=== PATIENT | female | born 1955 | race Caucasian/White ===

== ENCOUNTER 2021-12-12 13:38 | Inpatient (IN) ==
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
[2021-12-12] MEDS ORDERED: SODIUM CHLORIDE 0.9% 1000ML 1,000 ML IV SCH (14:30)
--- NOTE | 2021-12-12 15:08 | XRay Report ---
SINGLE VIEW CHEST CLINICAL HISTORY: Generalized weakness. FINDINGS: An AP, portable, upright chest radiograph is compared to study dated 11/26/2015. The heart i s enlarged noting atherosclerotic calcification of the thoracic aorta. The pulmonary vasculature is n oncongested. Chronic interstitial thickening is similar to previous. Airspace consolidation is seen a t the left lung base. Mild atelectasis is noted at the right lung base. No large pleural effusion or pneumothorax is identified. The skeletal structures are osteopenic. There are healed left-sided rib f ractures. IMPRESSION: Airspace consolidation at the left lung base is typical for pneumonia/aspiration pneumoni tis. Clinical correlation will be required and radiographic follow-up to resolution is recommended. ACT 112: Negative or not required by law. Electronically signed by: Champ Matos M.D. 12/12/2021 3:07 PM
[2021-12-12] MEDS ORDERED: CEFEPIME 2,000 MG/20 ML VIAL IV STA (15:37)
[2021-12-12] MEDS ORDERED: dexAMETHasone 6 MG in SYRINGE 0 ML IV ONE (15:37)
[2021-12-12 15:49] LABS: Basophils # (auto) 0.01 K/uL (0-0.2); Basophils % (auto) 0.1 %; Hematocrit (blood only) 38.5 % (37-47); Hemoglobin 12.8 g/dL (12.0-16.0); Immature Granulocytes # (auto) 0.05 K/uL (0.00-0.02); Immature Granulocytes % (auto) 0.5 %; Lymphocytes # (auto) 0.59 K/uL (1.2-3.4); Lymphocytes % (auto) 6.1 %; Mean Corpuscular Hemoglobin 31.1 pg (25-34); Mean Corpuscular Hgb Conc 33.2 g/dL (32-36); Mean Corpuscular Volume 93.7 fL (80-100); Mean Platelet Volume 12.2 fL (7.4-10.4); Monocytes # (auto) 0.57 K/uL (0.11-0.59); Monocytes % (auto) 5.9 %; Neutrophils # (auto) 8.42 K/uL (1.4-6.5); Neutrophils % (auto) 87.4 %; Platelet Count 126 K/uL (130-400); Platelet Estimate Decreased (Normal); RDW Coefficient of Variation 15.3 % (11.5-14.5); RDW Standard Deviation 51.9 fL (36.4-46.3); Red Blood Count 4.11 M/uL (4.2-5.4); White Blood Count 9.64 K/uL (4.8-10.8)
[2021-12-12 15:59] LABS: INR 1.1 (0.9-1.1); Prothrombin Time 10.7 Seconds (9.0-12.0)
[2021-12-12 16:17] LABS: Alanine Aminotransferase 20 U/L (7-52); Albumin Level 3.3 gm/dl (3.4-5.0); Alkaline Phosphatase 113 U/L (34-104); Anion Gap 14 (3-11); Aspartate Aminotransferase 31 U/L (13-39); BUN Creatinine Ratio 21.4 (10-20); Bilirubin,Total 0.3 mg/dl (0.2-1.0); Blood Urea Nitrogen 49 mg/dl (6-23); Calcium 7.4 mg/dl (8.5-10.1); Carbon Dioxide 15 mmol/L (21-32); Chloride 108 mmol/L (98-107); Creatine Kinase 518 U/L (26-192); Est GFR (African American) 24.8 ml/min; Est GFR (Non-African American) 21.4 ml/min; Globulin 3.2 gm/dl (2.5-4.0); Glucose 131 mg/dl (70-99(Fasting)); Magnesium 1.2 mg/dl (1.7-2.4); Potassium 3.5 mmol/L (3.5-5.1); Sodium 137 mmol/L (136-145); Total Protein 6.5 gm/dl (6.0-8.3)
--- NOTE | 2021-12-12 16:29 | Electrocardiogram Report ---
Test Reason : Blood Pressure : / mmHG Vent. Rate : 091 BPM Atrial Rate : 091 BPM P-R Int : 130 ms QRS Dur : 074 ms QT Int : 358 ms P-R-T Axes : 056 -08 052 degrees QTc Int : 440 ms Poor data quality, interpretation may be adversely affected Sinus rhythm with Premature atrial complexes Nonspecific ST and T wave abnormality Abnormal ECG When compared with ECG of 12-DEC-2021 14:13, (unconfirmed) Premature atrial complexes are now Present Confirmed by Satinder Velásquez ([id number]) on 12/12/2021 4:28:48 PM Referred By: REFERRED SELF Confirmed By:Luis Enrique Velásquez
[2021-12-12] MEDS ORDERED: DEXAMETHASONE SOD INJ 4 MG/ML VIAL ONE (16:50)
--- NOTE | 2021-12-12 16:50 | CT Scan Report ---
CT OF THE HEAD WITHOUT CONTRAST CLINICAL HISTORY: Confusion. COMPARISON STUDY: Head CT November 26, 2015. CT DOSE: 601.98 mGy.cm TECHNIQUE: Helical axial images of the head were obtained without IV contrast. Automated exposure con trol was utilized for the study. A dose lowering technique was utilized adhering to the principles o f ALARA. FINDINGS: No acute intracranial hemorrhage, midline shift or mass effect is present. Ventricular syst em is stable. Basal cisterns are patent. There are no extra-axial collections. There are no findings to suggest acute dural sinus thrombosis or acute territorial infarct. A 1 cm hypodensity within the m edial right cerebellar hemisphere is likely chronic. No acute calvarial fracture is present. Surgical wires at the posterior arch of C1 are again noted. There is deformity of the left mandibular condyle and apparent dislocation of the left temporomandibular joint which is unchanged from prior CT. Findi ngs are likely chronic. IMPRESSION: No acute intracranial findings. ACT 112: Negative or not required by law. Electronically signed by: Tito Salinas M.D. 12/12/2021 4:49 PM
[2021-12-12 17:23] LABS: Adenovirus PCR Not Detected (NotDetected); Bordetella parapertussis PCR Not Detected (NotDetected); Bordetella pertussis PCR Not Detected (NotDetected); Chlamydia pneumoniae PCR Not Detected (NotDetected); Coronavirus 229E PCR Not Detected (NotDetected); Coronavirus HKU1 PCR Not Detected (NotDetected); Coronavirus NL63 PCR Not Detected (NotDetected); Coronavirus OC43PCR Not Detected (NotDetected); Human Metapneumovirus PCR Not Detected (NotDetected); Influenza A PCR Not Detected (NotDetected); Influenza B PCR Not Detected (NotDetected); Mycoplasma pneumoniae PCR Not Detected (NotDetected); Parainfluenza Virus 1 PCR Not Detected (NotDetected); Parainfluenza Virus 2 PCR Not Detected (NotDetected); Parainfluenza Virus 3 PCR Not Detected (NotDetected); Parainfluenza Virus 4 PCR Not Detected (NotDetected); Respiratory Syncytial VirusPCR Not Detected (NotDetected); Rhinovirus/Enterovirus PCR Not Detected (NotDetected)
[2021-12-12 17:25] LABS: Coronavirus CoV-2 (COVID19)PCR DETECTED (NotDetected)
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
[2021-12-12 18:11] LABS: Troponin I 0.11 ng/ml (0-0.04)
[2021-12-12] MEDS ORDERED: POTASSIUM CHLORIDE 20 MEQ/15 ML UDC PO STA (18:31)
[2021-12-12] MEDS ORDERED: MAGNESIUM SULFATE / D5W 1 GM/100 ML BAG IV STA (18:40)
[2021-12-12] MEDS ORDERED: RIVAROXABAN 20 MG TAB PO SCH (18:45)
[2021-12-12 19:30] LABS: Base Excess VBG -8.6 mEq/L; Oxygen Saturation VBG 75.5 %; pH VBG 7.34 (7.36-7.41)
--- NOTE | 2021-12-12 20:10 | Ultrasound Report ---
ULTRASOUND BILATERAL LOWER EXTREMITY VENOUS CLINICAL HISTORY: Leg pain COMPARISON STUDY: Left lower extremity venous ultrasound dated 10/25/2020. TECHNIQUE: Real-time, grayscale, and color Doppler sonography of the deep veins of the right and left lower extremity was performed from the inguinal crease to the calf. Compression and augmentation wer e utilized. FINDINGS: Right lower extremity: There is no sonographic evidence of deep venous thrombosis in the right lower extremity. The common femoral, superficial femoral, and popliteal veins are patent and normally compr essible. The greater saphenous vein and the profunda femoris vein at the junction with the common fem oral vein are clear. The visualized calf veins are patent. Left lower extremity: There is occlusive deep venous thrombosis identified in the proximal left super ficial femoral vein. This may be partially calcified. Nonocclusive thrombus is seen within the left p opliteal vein. The common femoral vein and the mid to distal portions of the superficial femoral vein are patent and normally compressible. The greater saphenous vein and the profunda femoris vein at th e junction with the common femoral vein are clear. The visualized calf veins are patent. IMPRESSION: 1. Occlusive deep venous thrombosis is seen in the proximal left superficial femoral vein. Nonocclusi ve thrombus seen within the popliteal vein. 2. There is no sonographic evidence of deep venous thrombosis in the right lower extremity. ACT 112: Negative or not required by law. Electronically signed by: Champ Matos M.D. 12/12/2021 8:08 PM
[2021-12-12 20:42] LABS: Appearance Urine Cloudy (Clear); Bacteria Urine Automated Negative (Negative); Bilirubin Urine Negative (Negative); Blood Urine 2+ (Negative); Color Urine Yellow; Epithelial Cell Urine Auto >30 /lpf (0-5); Glucose Urine UA Negative (Negative); Ketones Urine Trace (Negative); Leukocyte Esterase Urine Negative (Negative); Nitrite Urine Negative (Negative); Protein Urine 2+ (Negative); RBC Urine Automated 0-4 /hpf (0-4); Specific Gravity Urine 1.016 (1.000-1.030); Urobilinogen Urine Negative (Negative)
[2021-12-12 21:18] LABS: Creatinine Urine Random 89.2 mg/dl; Urine Potassium 19.4 mmol/L
[2021-12-12 22:26] LABS: Troponin I 0.12 ng/ml (0-0.04)
[2021-12-12 22:33] LABS: Creatinine Clr Calc Pharmacy 23.8 ml/min; Est GFR (African American) 25.1 ml/min; Est GFR (Non-African American) 21.6 ml/min; Magnesium 1.6 mg/dl (1.7-2.4); Potassium 3.4 mmol/L (3.5-5.1)
[2021-12-12] MEDS: LACTATED RINGER'S 1,000 ML IV SCH (22:52)
[2021-12-13] MEDS ORDERED: NON-FORMULARY MEDICATION (Fluticasone-Umeclidin-Vilanter [Trelegy Ellipta] 100-62.5-25 mcg INH SCH (00:10)
[2021-12-13] MEDS ORDERED: ONDANSETRON INJ 2 MG/ML 2 ML VIAL IV PRN (00:10)
[2021-12-13] MEDS ORDERED: bisacodyL 5 MG TABEC PO PRN (00:17)
[2021-12-13] MEDS: ACETAMINOPHEN 325 MG TAB PO PRN (00:46)
--- NOTE | 2021-12-13 00:49 | Communication Note ---
Date of Service: December 13, 2021 Messaged by nursing about rash under breast and at inguinal area. Warp Trucker present. Per my exam, erythematous rash between skin folds under left breast, consistent w/ intertrigo, e.g. cutaneous candidiasis would be a possibility. Ordered BID clotrimazole cream. Added communication order for daily cleansing and application of drying powder. Topical steroid cream not indicated.
[2021-12-13] MEDS: FAMOTIDINE 20 MG TAB PO SCH ×2 (01:24→20:07)
[2021-12-13] MEDS: FLUTICASONE FUROATE 100MCG 14 PUFFS/INHALER INH SCH ×2 (01:25→09:02)
[2021-12-13] MEDS: UMECLIDINIUM/VILANTEROL 62.5/25MCG 7 PUFFS/INHALER INH SCH ×2 (01:25→09:01)
--- NOTE | 2021-12-13 03:26 | Communication Note ---
Date of Service: December 13, 2021 Notified by pharmacy about anticoagulation. W/ eGFR <30, Xarelto not recommended. Stopped Xarelto order. Will start heparin standard IV no bolus at 16:45 12/13/21, the time the next dose of Xarelto would be due. Checking coags AM of 12/14/21.
[2021-12-13] MEDS: CEFEPIME 1,000 MG in SYRINGE 0 ML IV SCH ×2 (03:43→16:19)
[2021-12-13] MEDS ORDERED: LACTATED RINGER'S 500 ML IV ONE (04:26)
[2021-12-13 04:29] LABS: Hematocrit (blood only) 32.7 % (37-47); Hemoglobin 10.5 g/dL (12.0-16.0); Mean Corpuscular Hemoglobin 30.3 pg (25-34); Mean Corpuscular Hgb Conc 32.1 g/dL (32-36); Mean Corpuscular Volume 94.5 fL (80-100); Mean Platelet Volume 11.1 fL (7.4-10.4); Platelet Count 106 K/uL (130-400); RDW Coefficient of Variation 15.5 % (11.5-14.5); Red Blood Count 3.46 M/uL (4.2-5.4); White Blood Count 7.71 K/uL (4.8-10.8)
[2021-12-13] MEDS ORDERED: ALBUMIN 25% 12.5 GM/50 ML VIAL IV ONE (04:40)
[2021-12-13 04:55] LABS: BUN Creatinine Ratio 22.3 (10-20); Calcium 6.8 mg/dl (8.5-10.1); Creatinine Clr Calc Pharmacy 24.5 ml/min; Est GFR (Non-African American) 22.5 ml/min; Magnesium 1.5 mg/dl (1.7-2.4); Potassium 3.2 mmol/L (3.5-5.1)
[2021-12-13 04:56] LABS: Basophils # (auto) 0.01 K/uL (0-0.2); Basophils % (auto) 0.1 %; Echinocytes 1+; Immature Granulocytes # (auto) 0.06 K/uL (0.00-0.02); Immature Granulocytes % (auto) 0.8 %; Lymphocytes # (auto) 0.94 K/uL (1.2-3.4); Lymphocytes % (auto) 12.2 %; Monocytes # (auto) 0.42 K/uL (0.11-0.59); Monocytes % (auto) 5.4 %; Neutrophils # (auto) 6.28 K/uL (1.4-6.5); Neutrophils % (auto) 81.5 %
[2021-12-13] MEDS: LACTATED RINGER'S 1,000 ML IV SCH (05:13)
[2021-12-13] MEDS ORDERED: CALCIUM GLUCONATE 10% 1,000 MG in DEXTROSE 5% 50 ML IV ONE (05:29)
[2021-12-13] MEDS ORDERED: POTASSIUM CHLORIDE CRTAB 20 MEQ TABCR PO STA (05:29)
[2021-12-13] MEDS ORDERED: STAT IV STA (05:29)
[2021-12-13] MEDS: AZITHROMYCIN 500 MG in DEXTROSE 5% 250 ML IV SCH (05:36)
[2021-12-13 05:40] LABS: Troponin I 0.13 ng/ml (0-0.04)
[2021-12-13] MEDS: MAGNESIUM SULFATE / D5W 1 GM/100 ML BAG IV SCH ×2 (06:17→08:13)
[2021-12-13] MEDS ORDERED: LACTATED RINGER'S 250 ML IV ONE (08:24)
[2021-12-13] MEDS ORDERED: CEFEPIME 2,000 MG in SYRINGE 0 ML IV SCH (09:00)
[2021-12-13] MEDS: CLOTRIMAZOLE 1% CR 15 GM TUBE EXT SCH ×2 (09:00→20:07)
[2021-12-13] MEDS: dexAMETHasone 6 MG in SYRINGE 0 ML IV SCH (09:01)
[2021-12-13] MEDS: VENLAFAXINE HCL XR 150 MG CAPXR PO SCH (09:05)
[2021-12-13] MEDS: LINACLOTIDE 145 MCG CAPSULE PO SCH (09:06)
--- NOTE | 2021-12-13 09:37 | Hospitalist Progress Note ---
Date of Service December 13, 2021 Assessment & Plan (1) COVID-19: Plan: With *pneumonia secondary to coronavirus-19 disease and with acute and chronic respiratory failure with hypoxia -Day 9 of illness at the time of presentation. Patient is not vaccinated. Per sister, patient's illness has consisted of fatigue, weakness, and headache. No respiratory or GI symptoms. -Initially on 4 L nasal cannula but now up to 10 L oxygen mask -CXR: airspace consolidation at the left lung base is typical for pneumonia/aspiration pneumonitis Procalcitonin now elevated at 2.7, with metabolic acidosis secondary to renal failure, lactate negative, with septic shock and hypotension Also with DVT as below with suspected PE given chest pain, hypoxia, mildly elevated troponin, but negative proBNP -Transfer to ICU for septic shock, acute kidney injury, worsening hypoxic respiratory failure, and suspected pulmonary embolism -Continue IV dexamethasone and consider higher dose of 20 mg daily-defer to ICU -Continue IVF but changing to bicarbonate drip as below for renal failure and metabolic acidosis -Continue Cefepime and azithromycin for pneumonia -CRP quite elevated at 25, however patient does not meet criteria for baricitinib due to acute kidney injury -Contraindication for remdesivir due to acute kidney injury -Continue albuterol nebs as needed, fluticasone inhaled daily, and Anoro -Continue supplemental O2 to keep pulse ox greater than 90-92% -Add incentive spirometry and flutter valve (2) Septic shock: Plan: Developed hypotension on the night of admission requiring IV fluid boluses and IV albumin Did have some response to IV fluid boluses but remained encephalopathic and with renal failure and oliguria Lactate normal UA negative for infection Source being Covid-19 pneumonia and possibly bacterial superimposed pneumonia -Holding home lisinopril -Starting Levophed as needed to keep MAP greater than 65 -Follow blood cultures (3) Encephalopathy: Plan: *Metabolic encephalopathy Likely secondary to hypoxia, uremia, Covid-19 infection, pneumonia, and possibly medication side effect as she is on ziprasidone and Suboxone at home Ammonia level normal CT head negative Continue treating the above conditions Provide supportive care -Hold home Suboxone and hold home ziprasidone (4) Left lower lobe pneumonia: Plan: As above (5) Acute kidney injury: Plan: -Creatinine and BUN elevated on admission at 49 and 2.3, now slightly improved to 45 and 1.86 Urinalysis with 2+ protein, 2+ blood with no RBCs, no evidence of infection, FENa 1.1% Likely secondary to ATN from septic shock and some dehydration in the setting of JHONNY inhibitor therapy -Continue volume resuscitation-initially received LR, now transition to bicarbonate drip -Christianson catheter in place -Hold home lisinopril -Renally dose medications -Follow serial chemistries -Renal ultrasound ordered -Appreciate nephrology consultation (6) DVT (deep venous thrombosis): Plan: *Acute DVT of the proximal left superficial femoral vein -Due to patient's Antithrombin III deficiency and in the setting of Covid-19 -Presume she was taking her Xarelto at home although she may have missed some doses in the setting of encephalopathy and acute illness? -Nonetheless, she has renal failure-we will hold Xarelto and start heparin drip on the evening of 12/13 Suspect she has PE given ongoing chest pain, mildly elevated troponin, hypoxia, and hypotension, however acute kidney injury precludes obtaining a CT angiogram chest Echocardiogram with elevated right-sided pressures but normal RV function-likely not hemodynamically significant PE (7) Metabolic acidosis: Plan: Serum bicarbonate low at 14, anion gap only 11, lactate negative x2, salicylate level negative With acute kidney injury, likely secondary to renal failure Continue volume resuscitation but change IV fluids from LR to D5W with 3 Amp of sodium bicarbonate at 100 mL's per hour Follow serial chemistries (8) Hypoxia: Plan: *Acute and chronic respiratory failure with hypoxia Secondary to COVID-19 pneumonia and secondary bacterial pneumonia as well as suspected PE as above Continue supplemental O2 to keep pulse ox greater than 90-92% (9) Elevated troponin: Plan: Troponin mildly elevated and stable at 0.1x3, EKG showed sinus rhythm with Premature atrial complexes, nonspecific ST and T wave abnormality With ongoing chest pain which may be related to respiratory issues versus PE Echocardiogram without wall motion abnormalities but with mildly elevated right- sided pressures, preserved EF Likely myocardial demand ischemia (10) COPD (chronic obstructive pulmonary disease): Plan: -Patient has home O2 for prn use. According to sister, patient has not used it in a long time, has not been using it since COVID diagnosis on 12/03. 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 Was given IV calcium on admission Follow levels (14) Hypomagnesemia: Plan: -Mg++ 1.2 in ED. K+ 3.5. Was given IV magnesium replacement and repeat still mildly low Give another 2 g of IV magnesium today (15) Hypokalemia: Plan: replace with p.o. potassium chloride follow BMP, Mag (16) CAD (coronary artery disease), [place] coronary artery: Plan: with h/o stent placed I do not see aspirin on her list from home and has NSAIDs listed as an allergy Myocardial demand ischemia as above (17) On home oxygen therapy: Plan: chronic hs (18) Depression: Plan: -Continue venlafaxine 150 mg daily. -hold ziprasidone 60 mg daily while altered MS (19) Anemia: Plan: Hemoglobin 10.1, normocytic Follow CBC Check B12, folate, iron studies (20) Thrombocytopenia: Plan: Platelets mildly low at 106 Checking B12 level in the morning Likely secondary to sepsis Follow CBC Plan: Prophylaxis-Heparin drip for DVT as above Disposition-transfer to ICU Discussed her care with her sister, Saritha, on the phone. Daughter named is actually the next of kin but Saritha reports that at times it is difficult to get a hold of Sona but both can be decision makers as per the patient Admission and Anticipated Discharge Date Admission Date: December 12, 2021 Subjective Went to see patient urgently this morning for hypotension and worsening respiratory failure. She was confused and slow to speak but oriented x3. Reported pain and pressure in the chest that had been ongoing. She is making urine but a low amount. Denies abdominal pain. Feels short of breath. I bolused her with LR to 50 mL after she had received a total of 2 L overnight and a bolus of IV albumin. Blood pressure increased into the 90s systolic when I was with her I discussed her care with the clinical nursing coordinator and the business administration teacher-decision made to transfer to ICU to start on Levophed Telemetry with normal sinus rhythm with rates in the 60s to 70s, PVCs Review of Systems Review of Systems: All systems reviewed & are unremarkable except as noted in HPI & below Physical Exam Constitutional: WD/WN, vitals as above + ill appearing Eyes: + anicteric sclerae ENMT: external ear and nose normal, oropharynx normal Neck: trachea midline, no thyromegaly Respiratory: normal respiratory effort; no cough Auscultation: + crackles (At bases) and + wheezes (Bilateral expiratory); no rhonchi Cardiovascular: Rate/Rhythm: regular rate and regular rhythm Heart Sounds: no murmur Extremities: + edema (Trace pitting edema bilateral lower extremities) Chest (Breasts): Chest: normal inspection of chest Gastrointestinal (Abdomen): normal bowel sounds, soft, nontender, no hepatosplenomegaly Musculoskeletal: Extremities: extremities normal to inspection; no cyanosis and no clubbing Skin: no rashes, warm and dry Neurologic: moves all extremities, awake (Awake but slow to respond to questions) and + confused (Slightly); no focal motor deficits Genitourinary: Christianson catheter in place draining 300 mL of medium yellow clear urine Lymphatic: no lymphedema Results & Data Results & Data ([facility]) Vital Signs (Past 12 Hours) Vital Signs Temp Pulse Pulse Resp BP Pulse Ox 12/13/21 09:25 92/66 L 12/13/21 09:13 91/59 L 12/13/21 08:04 64 12/13/21 07:47 80/51 L 12/13/21 07:27 36.5 C 86 22 84/58 L 94 12/13/21 06:04 83/56 L 12/13/21 05:17 95/64 L 12/13/21 05:06 87 12/13/21 05:05 91/50 L 12/13/21 04:25 72 83/49 L 12/13/21 03:21 36.7 C 78 16 81/53 L 92 12/12/21 23:38 91 H 22 114/77 92 12/12/21 22:00 85 22 129/64 93 Laboratory Results 12/13/21 12/13/21 12/13/21 Range/Units 09:22 09:22 09:22 WBC (4.8-10.8) K/uL RBC (4.2-5.4) M/uL Hgb (12.0-16.0) g/dL Hct (37-47) % MCV (80-100) fL MCH (25-34) pg MCHC (32-36) g/dL RDW Std Deviation (36.4-46.3) fL RDW Coeff of Bal (11.5-14.5) % Plt Count (130-400) K/uL MPV (7.4-10.4) fL Immature Gran % (Auto) % Neut % (Auto) % Lymph % (Auto) % Pepin % (Auto) % Eos % (Auto) % Baso % (Auto) % Neut # (Auto) (1.4-6.5) K/uL Lymph # (Auto) (1.2-3.4) K/uL Pepin # (Auto) (0.11-0.59) K/uL Eos # (Auto) (0-0.5) K/uL Baso # (Auto) (0-0.2) K/uL Immature Gran # (Auto) (0.00-0.02) K/uL Platelet Estimate (Normal) Echinocytes PT INR VBG pH (7.36-7.41) VBG pCO2 (38-50) mmHg VBG pO2 mmHg VBG HCO3 mmol/L VBG O2 Saturation % VBG Base Excess mEq/L Barometric Pressure mm/Hg Sodium Pending Potassium Pending Chloride Pending Carbon Dioxide Pending Anion Gap Pending BUN Pending Creatinine Pending Est Cr Clr Drug Dosing Pending Est GFR ( Amer) Pending Est GFR (Non-Af Amer) Pending BUN/Creatinine Ratio Pending Glucose Pending Lactate Calcium Pending Ionized Calcium (1.12-1.32) mmol/L Magnesium Total Bilirubin AST ALT Alkaline Phosphatase Ammonia Pending (18-72) umol/L Total Creatine Kinase Troponin I C-Reactive Protein B-Natriuretic Peptide (0-100) pg/ml Total Protein Albumin Globulin Albumin/Globulin Ratio Procalcitonin TSH (0.300-4.500) uIu/ml Urine Color Urine Appearance (Clear) Urine pH (4.5-7.5) Ur Specific [place] (1.000-1.030) Urine Protein (Negative) Urine Glucose (UA) (Negative) Urine Ketones (Negative) Urine Blood (Negative) Urine Nitrite (Negative) Urine Bilirubin (Negative) Urine Urobilinogen (Negative) Ur Leukocyte Esterase (Negative) Urine WBC (Auto) (0-5) /hpf Urine RBC (Auto) (0-4) /hpf U Hyaline Cast (Auto) (0-5) /lpf U Epithel Cells (Auto) (0-5) /lpf Urine Bacteria (Auto) (Negative) Ur Random Creatinine mg/dl Ur Random Urea Nitrogn Urine Sodium mmol/L Urine Potassium mmol/L Urine Chloride mmol/L Salicylates Pending Adenovirus (PCR) (NotDetected) B. pertussis DNA (PCR) (NotDetected) B.parapertussis DNA PCR (NotDetected) C. pneumoniae DNA (PCR) (NotDetected) Coronavirus OC43 (PCR) (NotDetected) Coronavirus HKU1 (PCR) (NotDetected) Coronavirus 229E (PCR) (NotDetected) SARS-CoV-2 (PCR) (NotDetected) Coronavirus NL63 (PCR) (NotDetected) Human Metapneumovir PCR (NotDetected) Influenza Type A (PCR) (NotDetected) Influenza Type B (PCR) (NotDetected) M. pneumoniae (PCR) (NotDetected) Parainfluenza 1 (PCR) (NotDetected) Parainfluenza 2 (PCR) (NotDetected) Parainfluenza 3 (PCR) (NotDetected) Parainfluenza 4 (PCR) (NotDetected) RSV (PCR) (NotDetected) Entero/Rhino (PCR) (NotDetected) 12/13/21 12/13/21 12/13/21 Range/Units 09:22 06:56 06:56 WBC (4.8-10.8) K/uL RBC (4.2-5.4) M/uL Hgb (12.0-16.0) g/dL Hct (37-47) % MCV (80-100) fL MCH (25-34) pg MCHC (32-36) g/dL RDW Std Deviation (36.4-46.3) fL RDW Coeff of Bal (11.5-14.5) % Plt Count (130-400) K/uL MPV (7.4-10.4) fL Immature Gran % (Auto) % Neut % (Auto) % Lymph % (Auto) % Pepin % (Auto) % Eos % (Auto) % Baso % (Auto) % Neut # (Auto) (1.4-6.5) K/uL Lymph # (Auto) (1.2-3.4) K/uL Pepin # (Auto) (0.11-0.59) K/uL Eos # (Auto) (0-0.5) K/uL Baso # (Auto) (0-0.2) K/uL Immature Gran # (Auto) (0.00-0.02) K/uL Platelet Estimate (Normal) Echinocytes PT INR VBG pH (7.36-7.41) VBG pCO2 (38-50) mmHg VBG pO2 mmHg VBG HCO3 mmol/L VBG O2 Saturation % VBG Base Excess mEq/L Barometric Pressure mm/Hg Sodium Potassium Chloride Carbon Dioxide Anion Gap BUN Creatinine Est Cr Clr Drug Dosing Est GFR ( Amer) Est GFR (Non-Af Amer) BUN/Creatinine Ratio Glucose Lactate Pending Calcium Ionized Calcium (1.12-1.32) mmol/L Magnesium Total Bilirubin AST ALT Alkaline Phosphatase Ammonia (18-72) umol/L Total Creatine Kinase Troponin I C-Reactive Protein 25.19 H B-Natriuretic Peptide (0-100) pg/ml Total Protein Albumin Globulin Albumin/Globulin Ratio Procalcitonin 2.89 H TSH (0.300-4.500) uIu/ml Urine Color Urine Appearance (Clear) Urine pH (4.5-7.5) Ur Specific [place] (1.000-1.030) Urine Protein (Negative) Urine Glucose (UA) (Negative) Urine Ketones (Negative) Urine Blood (Negative) Urine Nitrite (Negative) Urine Bilirubin (Negative) Urine Urobilinogen (Negative) Ur Leukocyte Esterase (Negative) Urine WBC (Auto) (0-5) /hpf Urine RBC (Auto) (0-4) /hpf U Hyaline Cast (Auto) (0-5) /lpf U Epithel Cells (Auto) (0-5) /lpf Urine Bacteria (Auto) (Negative) Ur Random Creatinine mg/dl Ur Random Urea Nitrogn Urine Sodium mmol/L Urine Potassium mmol/L Urine Chloride mmol/L Salicylates Adenovirus (PCR) (NotDetected) B. pertussis DNA (PCR) (NotDetected) B.parapertussis DNA PCR (NotDetected) C. pneumoniae DNA (PCR) (NotDetected) Coronavirus OC43 (PCR) (NotDetected) Coronavirus HKU1 (PCR) (NotDetected) Coronavirus 229E (PCR) (NotDetected) SARS-CoV-2 (PCR) (NotDetected) Coronavirus NL63 (PCR) (NotDetected) Human Metapneumovir PCR (NotDetected) Influenza Type A (PCR) (NotDetected) Influenza Type B (PCR) (NotDetected) M. pneumoniae (PCR) (NotDetected) Parainfluenza 1 (PCR) (NotDetected) Parainfluenza 2 (PCR) (NotDetected) Parainfluenza 3 (PCR) (NotDetected) Parainfluenza 4 (PCR) (NotDetected) RSV (PCR) (NotDetected) Entero/Rhino (PCR) (NotDetected) 12/13/21 12/13/21 12/12/21 Range/Units 04:09 04:09 21:50 WBC 7.71 (4.8-10.8) K/uL RBC 3.46 L (4.2-5.4) M/uL Hgb 10.5 L (12.0-16.0) g/dL Hct 32.7 L (37-47) % MCV 94.5 (80-100) fL MCH 30.3 (25-34) pg MCHC 32.1 (32-36) g/dL RDW Std Deviation 53.0 H (36.4-46.3) fL RDW Coeff of Bal 15.5 H (11.5-14.5) % Plt Count 106 L (130-400) K/uL MPV 11.1 H (7.4-10.4) fL Immature Gran % (Auto) 0.8 % Neut % (Auto) 81.5 % Lymph % (Auto) 12.2 % Pepin % (Auto) 5.4 % Eos % (Auto) 0.0 % Baso % (Auto) 0.1 % Neut # (Auto) 6.28 (1.4-6.5) K/uL Lymph # (Auto) 0.94 L (1.2-3.4) K/uL Pepin # (Auto) 0.42 (0.11-0.59) K/uL Eos # (Auto) 0.00 (0-0.5) K/uL Baso # (Auto) 0.01 (0-0.2) K/uL Immature Gran # (Auto) 0.06 H (0.00-0.02) K/uL Platelet Estimate (Normal) Echinocytes 1+ PT INR VBG pH (7.36-7.41) VBG pCO2 (38-50) mmHg VBG pO2 mmHg VBG HCO3 mmol/L VBG O2 Saturation % VBG Base Excess mEq/L Barometric Pressure mm/Hg Sodium 136 136 Potassium 3.2 L 3.4 L Chloride 111 H 108 H Carbon Dioxide 14 L 14 L Anion Gap 11 14 H BUN 49 H 50 H Creatinine 2.20 H 2.27 H Est Cr Clr Drug Dosing 24.5 23.8 Est GFR ( Amer) 26.0 25.1 Est GFR (Non-Af Amer) 22.5 21.6 BUN/Creatinine Ratio 22.3 H 22.0 H Glucose 99 136 H Lactate Calcium 6.8 L 7.0 L Ionized Calcium (1.12-1.32) mmol/L Magnesium 1.5 L 1.6 L Total Bilirubin AST ALT Alkaline Phosphatase Ammonia (18-72) umol/L Total Creatine Kinase Troponin I 0.13 H* 0.12 H* C-Reactive Protein B-Natriuretic Peptide (0-100) pg/ml Total Protein Albumin Globulin Albumin/Globulin Ratio Procalcitonin TSH (0.300-4.500) uIu/ml Urine Color Urine Appearance (Clear) Urine pH (4.5-7.5) Ur Specific [place] (1.000-1.030) Urine Protein (Negative) Urine Glucose (UA) (Negative) Urine Ketones (Negative) Urine Blood (Negative) Urine Nitrite (Negative) Urine Bilirubin (Negative) Urine Urobilinogen (Negative) Ur Leukocyte Esterase (Negative) Urine WBC (Auto) (0-5) /hpf Urine RBC (Auto) (0-4) /hpf U Hyaline Cast (Auto) (0-5) /lpf U Epithel Cells (Auto) (0-5) /lpf Urine Bacteria (Auto) (Negative) Ur Random Creatinine mg/dl Ur Random Urea Nitrogn Urine Sodium mmol/L Urine Potassium mmol/L Urine Chloride mmol/L Salicylates Adenovirus (PCR) (NotDetected) B. pertussis DNA (PCR) (NotDetected) B.parapertussis DNA PCR (NotDetected) C. pneumoniae DNA (PCR) (NotDetected) Coronavirus OC43 (PCR) (NotDetected) Coronavirus HKU1 (PCR) (NotDetected) Coronavirus 229E (PCR) (NotDetected) SARS-CoV-2 (PCR) (NotDetected) Coronavirus NL63 (PCR) (NotDetected) Human Metapneumovir PCR (NotDetected) Influenza Type A (PCR) (NotDetected) Influenza Type B (PCR) (NotDetected) M. pneumoniae (PCR) (NotDetected) Parainfluenza 1 (PCR) (NotDetected) Parainfluenza 2 (PCR) (NotDetected) Parainfluenza 3 (PCR) (NotDetected) Parainfluenza 4 (PCR) (NotDetected) RSV (PCR) (NotDetected) Entero/Rhino (PCR) (NotDetected) 12/12/21 12/12/21 12/12/21 Range/Units 20:11 20:11 20:11 WBC (4.8-10.8) K/uL RBC (4.2-5.4) M/uL Hgb (12.0-16.0) g/dL Hct (37-47) % MCV (80-100) fL MCH (25-34) pg MCHC (32-36) g/dL RDW Std Deviation (36.4-46.3) fL RDW Coeff of Bal (11.5-14.5) % Plt Count (130-400) K/uL MPV (7.4-10.4) fL Immature Gran % (Auto) % Neut % (Auto) % Lymph % (Auto) % Pepin % (Auto) % Eos % (Auto) % Baso % (Auto) % Neut # (Auto) (1.4-6.5) K/uL Lymph # (Auto) (1.2-3.4) K/uL Pepin # (Auto) (0.11-0.59) K/uL Eos # (Auto) (0-0.5) K/uL Baso # (Auto) (0-0.2) K/uL Immature Gran # (Auto) (0.00-0.02) K/uL Platelet Estimate (Normal) Echinocytes PT INR VBG pH (7.36-7.41) VBG pCO2 (38-50) mmHg VBG pO2 mmHg VBG HCO3 mmol/L VBG O2 Saturation % VBG Base Excess mEq/L Barometric Pressure mm/Hg Sodium Potassium Chloride Carbon Dioxide Anion Gap BUN Creatinine Est Cr Clr Drug Dosing Est GFR ( Amer) Est GFR (Non-Af Amer) BUN/Creatinine Ratio Glucose Lactate Calcium Ionized Calcium (1.12-1.32) mmol/L Magnesium Total Bilirubin AST ALT Alkaline Phosphatase Ammonia (18-72) umol/L Total Creatine Kinase Troponin I C-Reactive Protein B-Natriuretic Peptide (0-100) pg/ml Total Protein Albumin Globulin Albumin/Globulin Ratio Procalcitonin TSH (0.300-4.500) uIu/ml Urine Color Yellow Urine Appearance Cloudy A (Clear) Urine pH 5.0 (4.5-7.5) Ur Specific [place] 1.016 (1.000-1.030) Urine Protein 2+ H (Negative) Urine Glucose (UA) Negative (Negative) Urine Ketones Trace H (Negative) Urine Blood 2+ H (Negative) Urine Nitrite Negative (Negative) Urine Bilirubin Negative (Negative) Urine Urobilinogen Negative (Negative) Ur Leukocyte Esterase Negative (Negative) Urine WBC (Auto) 1-5 (0-5) /hpf Urine RBC (Auto) 0-4 (0-4) /hpf U Hyaline Cast (Auto) 1-5 (0-5) /lpf U Epithel Cells (Auto) >30 H (0-5) /lpf Urine Bacteria (Auto) Negative (Negative) Ur Random Creatinine 89.2 mg/dl Ur Random Urea Nitrogn Pending Urine Sodium 27 mmol/L Urine Potassium 19.4 mmol/L Urine Chloride 35 mmol/L Salicylates Adenovirus (PCR) (NotDetected) B. pertussis DNA (PCR) (NotDetected) B.parapertussis DNA PCR (NotDetected) C. pneumoniae DNA (PCR) (NotDetected) Coronavirus OC43 (PCR) (NotDetected) Coronavirus HKU1 (PCR) (NotDetected) Coronavirus 229E (PCR) (NotDetected) SARS-CoV-2 (PCR) (NotDetected) Coronavirus NL63 (PCR) (NotDetected) Human Metapneumovir PCR (NotDetected) Influenza Type A (PCR) (NotDetected) Influenza Type B (PCR) (NotDetected) M. pneumoniae (PCR) (NotDetected) Parainfluenza 1 (PCR) (NotDetected) Parainfluenza 2 (PCR) (NotDetected) Parainfluenza 3 (PCR) (NotDetected) Parainfluenza 4 (PCR) (NotDetected) RSV (PCR) (NotDetected) Entero/Rhino (PCR) (NotDetected) 12/12/21 12/12/21 12/12/21 Range/Units 19:04 19:04 19:04 WBC (4.8-10.8) K/uL RBC (4.2-5.4) M/uL Hgb (12.0-16.0) g/dL Hct (37-47) % MCV (80-100) fL MCH (25-34) pg MCHC (32-36) g/dL RDW Std Deviation (36.4-46.3) fL RDW Coeff of Bal (11.5-14.5) % Plt Count (130-400) K/uL MPV (7.4-10.4) fL Immature Gran % (Auto) % Neut % (Auto) % Lymph % (Auto) % Pepin % (Auto) % Eos % (Auto) % Baso % (Auto) % Neut # (Auto) (1.4-6.5) K/uL Lymph # (Auto) (1.2-3.4) K/uL Pepin # (Auto) (0.11-0.59) K/uL Eos # (Auto) (0-0.5) K/uL Baso # (Auto) (0-0.2) K/uL Immature Gran # (Auto) (0.00-0.02) K/uL Platelet Estimate (Normal) Echinocytes PT INR VBG pH 7.34 L (7.36-7.41) VBG pCO2 30 L (38-50) mmHg VBG pO2 41 mmHg VBG HCO3 16 mmol/L VBG O2 Saturation 75.5 % VBG Base Excess -8.6 mEq/L Barometric Pressure 735.3 mm/Hg Sodium Potassium Chloride Carbon Dioxide Anion Gap BUN Creatinine Est Cr Clr Drug Dosing Est GFR ( Amer) Est GFR (Non-Af Amer) BUN/Creatinine Ratio Glucose Lactate Calcium Ionized Calcium 0.98 L (1.12-1.32) mmol/L Magnesium Total Bilirubin AST ALT Alkaline Phosphatase Ammonia (18-72) umol/L Total Creatine Kinase Troponin I C-Reactive Protein B-Natriuretic Peptide 89 (0-100) pg/ml Total Protein Albumin Globulin Albumin/Globulin Ratio Procalcitonin TSH (0.300-4.500) uIu/ml Urine Color Urine Appearance (Clear) Urine pH (4.5-7.5) Ur Specific [place] (1.000-1.030) Urine Protein (Negative) Urine Glucose (UA) (Negative) Urine Ketones (Negative) Urine Blood (Negative) Urine Nitrite (Negative) Urine Bilirubin (Negative) Urine Urobilinogen (Negative) Ur Leukocyte Esterase (Negative) Urine WBC (Auto) (0-5) /hpf Urine RBC (Auto) (0-4) /hpf U Hyaline Cast (Auto) (0-5) /lpf U Epithel Cells (Auto) (0-5) /lpf Urine Bacteria (Auto) (Negative) Ur Random Creatinine mg/dl Ur Random Urea Nitrogn Urine Sodium mmol/L Urine Potassium mmol/L Urine Chloride mmol/L Salicylates Adenovirus (PCR) (NotDetected) B. pertussis DNA (PCR) (NotDetected) B.parapertussis DNA PCR (NotDetected) C. pneumoniae DNA (PCR) (NotDetected) Coronavirus OC43 (PCR) (NotDetected) Coronavirus HKU1 (PCR) (NotDetected) Coronavirus 229E (PCR) (NotDetected) SARS-CoV-2 (PCR) (NotDetected) Coronavirus NL63 (PCR) (NotDetected) Human Metapneumovir PCR (NotDetected) Influenza Type A (PCR) (NotDetected) Influenza Type B (PCR) (NotDetected) M. pneumoniae (PCR) (NotDetected) Parainfluenza 1 (PCR) (NotDetected) Parainfluenza 2 (PCR) (NotDetected) Parainfluenza 3 (PCR) (NotDetected) Parainfluenza 4 (PCR) (NotDetected) RSV (PCR) (NotDetected) Entero/Rhino (PCR) (NotDetected) 12/12/21 12/12/21 12/12/21 Range/Units 16:17 15:36 15:36 WBC (4.8-10.8) K/uL RBC (4.2-5.4) M/uL Hgb (12.0-16.0) g/dL Hct (37-47) % MCV (80-100) fL MCH (25-34) pg MCHC (32-36) g/dL RDW Std Deviation (36.4-46.3) fL RDW Coeff of Bal (11.5-14.5) % Plt Count (130-400) K/uL MPV (7.4-10.4) fL Immature Gran % (Auto) % Neut % (Auto) % Lymph % (Auto) % Pepin % (Auto) % Eos % (Auto) % Baso % (Auto) % Neut # (Auto) (1.4-6.5) K/uL Lymph # (Auto) (1.2-3.4) K/uL Pepin # (Auto) (0.11-0.59) K/uL Eos # (Auto) (0-0.5) K/uL Baso # (Auto) (0-0.2) K/uL Immature Gran # (Auto) (0.00-0.02) K/uL Platelet Estimate (Normal) Echinocytes PT INR VBG pH (7.36-7.41) VBG pCO2 (38-50) mmHg VBG pO2 mmHg VBG HCO3 mmol/L VBG O2 Saturation % VBG Base Excess mEq/L Barometric Pressure mm/Hg Sodium Potassium Chloride Carbon Dioxide Anion Gap BUN Creatinine Est Cr Clr Drug Dosing Est GFR ( Amer) Est GFR (Non-Af Amer) BUN/Creatinine Ratio Glucose Lactate 1.0 Calcium Ionized Calcium (1.12-1.32) mmol/L Magnesium Total Bilirubin AST ALT Alkaline Phosphatase Ammonia (18-72) umol/L Total Creatine Kinase Troponin I C-Reactive Protein 26.57 H B-Natriuretic Peptide (0-100) pg/ml Total Protein Albumin Globulin Albumin/Globulin Ratio Procalcitonin TSH (0.300-4.500) uIu/ml Urine Color Urine Appearance (Clear) Urine pH (4.5-7.5) Ur Specific [place] (1.000-1.030) Urine Protein (Negative) Urine Glucose (UA) (Negative) Urine Ketones (Negative) Urine Blood (Negative) Urine Nitrite (Negative) Urine Bilirubin (Negative) Urine Urobilinogen (Negative) Ur Leukocyte Esterase (Negative) Urine WBC (Auto) (0-5) /hpf Urine RBC (Auto) (0-4) /hpf U Hyaline Cast (Auto) (0-5) /lpf U Epithel Cells (Auto) (0-5) /lpf Urine Bacteria (Auto) (Negative) Ur Random Creatinine mg/dl Ur Random Urea Nitrogn Urine Sodium mmol/L Urine Potassium mmol/L Urine Chloride mmol/L Salicylates Adenovirus (PCR) Not Detected (NotDetected) B. pertussis DNA (PCR) Not Detected (NotDetected) B.parapertussis DNA PCR Not Detected (NotDetected) C. pneumoniae DNA (PCR) Not Detected (NotDetected) Coronavirus OC43 (PCR) Not Detected (NotDetected) Coronavirus HKU1 (PCR) Not Detected (NotDetected) Coronavirus 229E (PCR) Not Detected (NotDetected) SARS-CoV-2 (PCR) DETECTED A* (NotDetected) Coronavirus NL63 (PCR) Not Detected (NotDetected) Human Metapneumovir PCR Not Detected (NotDetected) Influenza Type A (PCR) Not Detected (NotDetected) Influenza Type B (PCR) Not Detected (NotDetected) M. pneumoniae (PCR) Not Detected (NotDetected) Parainfluenza 1 (PCR) Not Detected (NotDetected) Parainfluenza 2 (PCR) Not Detected (NotDetected) Parainfluenza 3 (PCR) Not Detected (NotDetected) Parainfluenza 4 (PCR) Not Detected (NotDetected) RSV (PCR) Not Detected (NotDetected) Entero/Rhino (PCR) Not Detected (NotDetected) 0112/12/21 12/12/21 Range/Units 15:36 15:36 15:36 WBC (4.8-10.8) K/uL RBC (4.2-5.4) M/uL Hgb (12.0-16.0) g/dL Hct (37-47) % MCV (80-100) fL MCH (25-34) pg MCHC (32-36) g/dL RDW Std Deviation (36.4-46.3) fL RDW Coeff of Bal (11.5-14.5) % Plt Count (130-400) K/uL MPV (7.4-10.4) fL Immature Gran % (Auto) % Neut % (Auto) % Lymph % (Auto) % [place] % (Auto) % Eos % (Auto) % Baso % (Auto) % Neut # (Auto) (1.4-6.5) K/uL Lymph # (Auto) (1.2-3.4) K/uL [place] # (Auto) (0.11-0.59) K/uL Eos # (Auto) (0-0.5) K/uL Baso # (Auto) (0-0.2) K/uL Immature Gran # (Auto) (0.00-0.02) K/uL Platelet Estimate (Normal) Echinocytes PT 10.7 INR 1.1 VBG pH (7.36-7.41) VBG pCO2 (38-50) mmHg VBG pO2 mmHg VBG HCO3 mmol/L VBG O2 Saturation % VBG Base Excess mEq/L Barometric Pressure mm/Hg Sodium Potassium Chloride Carbon Dioxide Anion Gap BUN Creatinine Est Cr Clr Drug Dosing Est GFR ( Amer) Est GFR (Non-Af Amer) BUN/Creatinine Ratio Glucose Lactate Calcium Ionized Calcium (1.12-1.32) mmol/L Magnesium Total Bilirubin AST ALT Alkaline Phosphatase Ammonia 23.0 (18-72) umol/L Total Creatine Kinase Troponin I C-Reactive Protein B-Natriuretic Peptide (0-100) pg/ml Total Protein Albumin Globulin Albumin/Globulin Ratio Procalcitonin 0.76 H TSH (0.300-4.500) uIu/ml Urine Color Urine Appearance (Clear) Urine pH (4.5-7.5) Ur Specific [place] (1.000-1.030) Urine Protein (Negative) Urine Glucose (UA) (Negative) Urine Ketones (Negative) Urine Blood (Negative) Urine Nitrite (Negative) Urine Bilirubin (Negative) Urine Urobilinogen (Negative) Ur Leukocyte Esterase (Negative) Urine WBC (Auto) (0-5) /hpf Urine RBC (Auto) (0-4) /hpf U Hyaline Cast (Auto) (0-5) /lpf U Epithel Cells (Auto) (0-5) /lpf Urine Bacteria (Auto) (Negative) Ur Random Creatinine mg/dl Ur Random Urea Nitrogn Urine Sodium mmol/L Urine Potassium mmol/L Urine Chloride mmol/L Salicylates Adenovirus (PCR) (NotDetected) B. pertussis DNA (PCR) (NotDetected) B.parapertussis DNA PCR (NotDetected) C. pneumoniae DNA (PCR) (NotDetected) Coronavirus OC43 (PCR) (NotDetected) Coronavirus HKU1 (PCR) (NotDetected) Coronavirus 229E (PCR) (NotDetected) SARS-CoV-2 (PCR) (NotDetected) Coronavirus NL63 (PCR) (NotDetected) Human Metapneumovir PCR (NotDetected) Influenza Type A (PCR) (NotDetected) Influenza Type B (PCR) (NotDetected) M. pneumoniae (PCR) (NotDetected) Parainfluenza 1 (PCR) (NotDetected) Parainfluenza 2 (PCR) (NotDetected) Parainfluenza 3 (PCR) (NotDetected) Parainfluenza 4 (PCR) (NotDetected) RSV (PCR) (NotDetected) Entero/Rhino (PCR) (NotDetected) 12/12/21 12/12/21 12/12/21 Range/Units 15:36 15:36 14:52 WBC 9.64 (4.8-10.8) K/uL RBC 4.11 L (4.2-5.4) M/uL Hgb 12.8 (12.0-16.0) g/dL Hct 38.5 (37-47) % MCV 93.7 (80-100) fL MCH 31.1 (25-34) pg MCHC 33.2 (32-36) g/dL RDW Std Deviation 51.9 H (36.4-46.3) fL RDW Coeff of Bal 15.3 H (11.5-14.5) % Plt Count 126 L (130-400) K/uL MPV 12.2 H (7.4-10.4) fL Immature Gran % (Auto) 0.5 % Neut % (Auto) 87.4 % Lymph % (Auto) 6.1 % Pepin % (Auto) 5.9 % Eos % (Auto) 0.0 % Baso % (Auto) 0.1 % Neut # (Auto) 8.42 H (1.4-6.5) K/uL Lymph # (Auto) 0.59 L (1.2-3.4) K/uL Pepin # (Auto) 0.57 (0.11-0.59) K/uL Eos # (Auto) 0.00 (0-0.5) K/uL Baso # (Auto) 0.01 (0-0.2) K/uL Immature Gran # (Auto) 0.05 H (0.00-0.02) K/uL Platelet Estimate Decreased L (Normal) Echinocytes PT INR VBG pH (7.36-7.41) VBG pCO2 (38-50) mmHg VBG pO2 mmHg VBG HCO3 mmol/L VBG O2 Saturation % VBG Base Excess mEq/L Barometric Pressure mm/Hg Sodium 137 Potassium 3.5 Chloride 108 H Carbon Dioxide 15 L Anion Gap 14 H BUN 49 H Creatinine 2.29 H Est Cr Clr Drug Dosing Not Reportable Est GFR ( Amer) 24.8 Est GFR (Non-Af Amer) 21.4 BUN/Creatinine Ratio 21.4 H Glucose 131 H Lactate Calcium 7.4 L Ionized Calcium (1.12-1.32) mmol/L Magnesium 1.2 L Total Bilirubin 0.3 AST 31 ALT 20 Alkaline Phosphatase 113 H Ammonia (18-72) umol/L Total Creatine Kinase 518 H Troponin I 0.11 H* C-Reactive Protein B-Natriuretic Peptide (0-100) pg/ml Total Protein 6.5 Albumin 3.3 L Globulin 3.2 Albumin/Globulin Ratio 1.0 Procalcitonin TSH 0.590 (0.300-4.500) uIu/ml Urine Color Urine Appearance (Clear) Urine pH (4.5-7.5) Ur Specific [place] (1.000-1.030) Urine Protein (Negative) Urine Glucose (UA) (Negative) Urine Ketones (Negative) Urine Blood (Negative) Urine Nitrite (Negative) Urine Bilirubin (Negative) Urine Urobilinogen (Negative) Ur Leukocyte Esterase (Negative) Urine WBC (Auto) (0-5) /hpf Urine RBC (Auto) (0-4) /hpf U Hyaline Cast (Auto) (0-5) /lpf U Epithel Cells (Auto) (0-5) /lpf Urine Bacteria (Auto) (Negative) Ur Random Creatinine mg/dl Ur Random Urea Nitrogn Urine Sodium mmol/L Urine Potassium mmol/L Urine Chloride mmol/L Salicylates Adenovirus (PCR) (NotDetected) B. pertussis DNA (PCR) (NotDetected) B.parapertussis DNA PCR (NotDetected) C. pneumoniae DNA (PCR) (NotDetected) Coronavirus OC43 (PCR) (NotDetected) Coronavirus HKU1 (PCR) (NotDetected) Coronavirus 229E (PCR) (NotDetected) SARS-CoV-2 (PCR) (NotDetected) Coronavirus NL63 (PCR) (NotDetected) Human Metapneumovir PCR (NotDetected) Influenza Type A (PCR) (NotDetected) Influenza Type B (PCR) (NotDetected) M. pneumoniae (PCR) (NotDetected) Parainfluenza 1 (PCR) (NotDetected) Parainfluenza 2 (PCR) (NotDetected) Parainfluenza 3 (PCR) (NotDetected) Parainfluenza 4 (PCR) (NotDetected) RSV (PCR) (NotDetected) Entero/Rhino (PCR) (NotDetected) 12/12/21 12/12/21 12/12/21 Range/Units 14:52 14:52 14:52 WBC (4.8-10.8) K/uL RBC (4.2-5.4) M/uL Hgb (12.0-16.0) g/dL Hct (37-47) % MCV (80-100) fL MCH (25-34) pg MCHC (32-36) g/dL RDW Std Deviation (36.4-46.3) fL RDW Coeff of Bal (11.5-14.5) % Plt Count (130-400) K/uL MPV (7.4-10.4) fL Immature Gran % (Auto) % Neut % (Auto) % Lymph % (Auto) % [place] % (Auto) % Eos % (Auto) % Baso % (Auto) % Neut # (Auto) (1.4-6.5) K/uL Lymph # (Auto) (1.2-3.4) K/uL [place] # (Auto) (0.11-0.59) K/uL Eos # (Auto) (0-0.5) K/uL Baso # (Auto) (0-0.2) K/uL Immature Gran # (Auto) (0.00-0.02) K/uL Platelet Estimate (Normal) Echinocytes PT INR VBG pH (7.36-7.41) VBG pCO2 (38-50) mmHg VBG pO2 mmHg VBG HCO3 mmol/L VBG O2 Saturation % VBG Base Excess mEq/L Barometric Pressure mm/Hg Sodium Cancelled Potassium Cancelled Chloride Cancelled Carbon Dioxide Cancelled Anion Gap Cancelled BUN Cancelled Creatinine Cancelled Est Cr Clr Drug Dosing Cancelled Est GFR ( Amer) Cancelled Est GFR (Non-Af Amer) Cancelled BUN/Creatinine Ratio Cancelled Glucose Cancelled Lactate Cancelled Calcium Cancelled Ionized Calcium (1.12-1.32) mmol/L Magnesium Cancelled Total Bilirubin Cancelled AST Cancelled ALT Cancelled Alkaline Phosphatase Cancelled Ammonia (18-72) umol/L Total Creatine Kinase Cancelled Troponin I Cancelled C-Reactive Protein Cancelled B-Natriuretic Peptide (0-100) pg/ml Total Protein Cancelled Albumin Cancelled Globulin Cancelled Albumin/Globulin Ratio Cancelled Procalcitonin Cancelled TSH (0.300-4.500) uIu/ml Urine Color Urine Appearance (Clear) Urine pH (4.5-7.5) Ur Specific [place] (1.000-1.030) Urine Protein (Negative) Urine Glucose (UA) (Negative) Urine Ketones (Negative) Urine Blood (Negative) Urine Nitrite (Negative) Urine Bilirubin (Negative) Urine Urobilinogen (Negative) Ur Leukocyte Esterase (Negative) Urine WBC (Auto) (0-5) /hpf Urine RBC (Auto) (0-4) /hpf U Hyaline Cast (Auto) (0-5) /lpf U Epithel Cells (Auto) (0-5) /lpf Urine Bacteria (Auto) (Negative) Ur Random Creatinine mg/dl Ur Random Urea Nitrogn Urine Sodium mmol/L Urine Potassium mmol/L Urine Chloride mmol/L Salicylates Adenovirus (PCR) (NotDetected) B. pertussis DNA (PCR) (NotDetected) B.parapertussis DNA PCR (NotDetected) C. pneumoniae DNA (PCR) (NotDetected) Coronavirus OC43 (PCR) (NotDetected) Coronavirus HKU1 (PCR) (NotDetected) Coronavirus 229E (PCR) (NotDetected) SARS-CoV-2 (PCR) (NotDetected) Coronavirus NL63 (PCR) (NotDetected) Human Metapneumovir PCR (NotDetected) Influenza Type A (PCR) (NotDetected) Influenza Type B (PCR) (NotDetected) M. pneumoniae (PCR) (NotDetected) Parainfluenza 1 (PCR) (NotDetected) Parainfluenza 2 (PCR) (NotDetected) Parainfluenza 3 (PCR) (NotDetected) Parainfluenza 4 (PCR) (NotDetected) RSV (PCR) (NotDetected) Entero/Rhino (PCR) (NotDetected) 12/12/21 Range/Units 14:52 WBC (4.8-10.8) K/uL RBC (4.2-5.4) M/uL Hgb (12.0-16.0) g/dL Hct (37-47) % MCV (80-100) fL MCH (25-34) pg MCHC (32-36) g/dL RDW Std Deviation (36.4-46.3) fL RDW Coeff of Bal (11.5-14.5) % Plt Count (130-400) K/uL MPV (7.4-10.4) fL Immature Gran % (Auto) % Neut % (Auto) % Lymph % (Auto) % [place] % (Auto) % Eos % (Auto) % Baso % (Auto) % Neut # (Auto) (1.4-6.5) K/uL Lymph # (Auto) (1.2-3.4) K/uL [place] # (Auto) (0.11-0.59) K/uL Eos # (Auto) (0-0.5) K/uL Baso # (Auto) (0-0.2) K/uL Immature Gran # (Auto) (0.00-0.02) K/uL Platelet Estimate (Normal) Echinocytes PT Cancelled INR Cancelled VBG pH (7.36-7.41) VBG pCO2 (38-50) mmHg VBG pO2 mmHg VBG HCO3 mmol/L VBG O2 Saturation % VBG Base Excess mEq/L Barometric Pressure mm/Hg Sodium Potassium Chloride Carbon Dioxide Anion Gap BUN Creatinine Est Cr Clr Drug Dosing Est GFR ( Amer) Est GFR (Non-Af Amer) BUN/Creatinine Ratio Glucose Lactate Calcium Ionized Calcium (1.12-1.32) mmol/L Magnesium Total Bilirubin AST ALT Alkaline Phosphatase Ammonia (18-72) umol/L Total Creatine Kinase Troponin I C-Reactive Protein B-Natriuretic Peptide (0-100) pg/ml Total Protein Albumin Globulin Albumin/Globulin Ratio Procalcitonin TSH (0.300-4.500) uIu/ml Urine Color Urine Appearance (Clear) Urine pH (4.5-7.5) Ur Specific [place] (1.000-1.030) Urine Protein (Negative) Urine Glucose (UA) (Negative) Urine Ketones (Negative) Urine Blood (Negative) Urine Nitrite (Negative) Urine Bilirubin (Negative) Urine Urobilinogen (Negative) Ur Leukocyte Esterase (Negative) Urine WBC (Auto) (0-5) /hpf Urine RBC (Auto) (0-4) /hpf U Hyaline Cast (Auto) (0-5) /lpf U Epithel Cells (Auto) (0-5) /lpf Urine Bacteria (Auto) (Negative) Ur Random Creatinine mg/dl Ur Random Urea Nitrogn Urine Sodium mmol/L Urine Potassium mmol/L Urine Chloride mmol/L Salicylates Adenovirus (PCR) (NotDetected) B. pertussis DNA (PCR) (NotDetected) B.parapertussis DNA PCR (NotDetected) C. pneumoniae DNA (PCR) (NotDetected) Coronavirus OC43 (PCR) (NotDetected) Coronavirus HKU1 (PCR) (NotDetected) Coronavirus 229E (PCR) (NotDetected) SARS-CoV-2 (PCR) (NotDetected) Coronavirus NL63 (PCR) (NotDetected) Human Metapneumovir PCR (NotDetected) Influenza Type A (PCR) (NotDetected) Influenza Type B (PCR) (NotDetected) M. pneumoniae (PCR) (NotDetected) Parainfluenza 1 (PCR) (NotDetected) Parainfluenza 2 (PCR) (NotDetected) Parainfluenza 3 (PCR) (NotDetected) Parainfluenza 4 (PCR) (NotDetected) RSV (PCR) (NotDetected) Entero/Rhino (PCR) (NotDetected) PG Care Time/CCT Total # of Minutes Spent Total Time Spent with Patient: Total time spent is greater than 50% in coordination of care (as documented) at patient's floor/unit and/or counseling patient: Coding Level of Care Code 79747 Subseq Hosp Care Lvl 3 Diagnoses DVT (deep venous thrombosis) I82.409 Hypoxia R09.02 COVID-19 U07.1 Acute kidney injury N17.9 Encephalopathy G93.40 Elevated troponin R77.8 COPD (chronic obstructive pulmonary disease) J44.9 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
[2021-12-13 10:00] LABS: BUN Creatinine Ratio 23.6 (10-20); Calcium 7.3 mg/dl (8.5-10.1); Creatinine Clr Calc Pharmacy 25.9 ml/min; Est GFR (African American) 27.9 ml/min; Potassium 3.5 mmol/L (3.5-5.1)
[2021-12-13] MEDS ORDERED: ICU PROTOCOL FOR HYPERGLYCEMIA PRN (10:50)
[2021-12-13] MEDS: SODIUM BICARBONATE 8.4% 150 MEQ in DEXTROSE 5% 1,000 ML IV SCH ×2 (10:57→22:33)
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
[2021-12-13] MEDS ORDERED: HEPARIN 25000 UNIT/500 ML D5W IV ONE (12:53)
--- NOTE | 2021-12-13 14:03 | Electrocardiogram Report ---
Test Reason : Blood Pressure : / mmHG Vent. Rate : 097 BPM Atrial Rate : 097 BPM P-R Int : 142 ms QRS Dur : 076 ms QT Int : 408 ms P-R-T Axes : 068 -11 047 degrees QTc Int : 518 ms Poor data quality, interpretation may be adversely affected Sinus rhythm with Premature atrial complexes Low voltage QRS Nonspecific ST and T wave abnormality Abnormal ECG When compared with ECG of 12-DEC-2021 14:14, QT has lengthened Confirmed by Satinder Velásquez ([id number]) on 12/13/2021 2:02:37 PM Referred By: REFERRED SELF Confirmed By:Luis Enrique Velásquez
--- NOTE | 2021-12-13 14:04 | Electrocardiogram Report ---
Test Reason : Blood Pressure : / mmHG Vent. Rate : 068 BPM Atrial Rate : 068 BPM P-R Int : 156 ms QRS Dur : 086 ms QT Int : 406 ms P-R-T Axes : 064 003 049 degrees QTc Int : 431 ms Sinus rhythm with Premature atrial complexes Nonspecific T wave abnormality Abnormal ECG When compared with ECG of 12-DEC-2021 19:56, (unconfirmed) QT has shortened Confirmed by Satinder Velásquez ([id number]) on 12/13/2021 2:03:56 PM Referred By: REFERRED SELF Confirmed By:Luis Enrique Velásquez
[2021-12-13] MEDS ORDERED: STAT IV Infusion **Titration per Protocol STA (15:15)
[2021-12-13] MEDS ORDERED: NOREPINEPHRINE/D5W 8 MG/508 ML BAG IV SCH (15:15)
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
[2021-12-13 15:34] LABS: Basophils # (auto) 0.01 K/uL (0-0.2); Basophils % (auto) 0.2 %; Eosinophils # (auto) 0.06 K/uL (0-0.5); Eosinophils % (auto) 0.9 %; Hemoglobin 10.1 g/dL (12.0-16.0); Immature Granulocytes # (auto) 0.05 K/uL (0.00-0.02); Immature Granulocytes % (auto) 0.8 %; Lymphocytes # (auto) 1.09 K/uL (1.2-3.4); Lymphocytes % (auto) 16.5 %; Mean Corpuscular Hemoglobin 30.5 pg (25-34); Mean Corpuscular Hgb Conc 32.6 g/dL (32-36); Mean Corpuscular Volume 93.7 fL (80-100); Mean Platelet Volume 11.4 fL (7.4-10.4); Monocytes # (auto) 0.21 K/uL (0.11-0.59); Monocytes % (auto) 3.2 %; Neutrophils # (auto) 5.19 K/uL (1.4-6.5); Neutrophils % (auto) 78.4 %; Platelet Count 103 K/uL (130-400); RDW Coefficient of Variation 15.3 % (11.5-14.5); RDW Standard Deviation 52.5 fL (36.4-46.3); Red Blood Count 3.31 M/uL (4.2-5.4); White Blood Count 6.61 K/uL (4.8-10.8)
--- NOTE | 2021-12-13 16:30 | XCELERA ---
[id number]
[2021-12-13 16:32] LABS: BUN Creatinine Ratio 24.2 (10-20); Calcium 7.6 mg/dl (8.5-10.1); Est GFR (African American) 31.9 ml/min; Est GFR (Non-African American) 27.5 ml/min; Potassium 3.6 mmol/L (3.5-5.1)
[2021-12-13] MEDS: HEPARIN SODIUM/DEXTROSE 25,000 UNITS/500 ML BAG IV SCH (18:35)
[2021-12-13] MEDS ORDERED: Heparin IV Adult Wt-Based Standard *NO* Bolus Protocol IV ONE (18:45)
--- NOTE | 2021-12-13 19:45 | Ultrasound Report ---
US renal/blad retro comp CLINICAL HISTORY: acute kidney injury TECHNIQUE: Multiple sonographic real-time images of the kidneys and bladder were obtained. COMPARISON: None available at the time of this dictation. FINDINGS: The right kidney measures 11.4 cm in length, and the left kidney measures 10.3 cm in length. The right kidney is normal in size, contour, cortical thickness, and echogenicity. No hydronephrosis is identified. Multiple small cysts are seen. No perinephric fluid collection is seen. The left kidney is normal in size, contour, cortical thickness and echogenicity. No hydronephrosis i s identified. Left upper pole cyst measures 4.2 x 2.9 x 3.0 cm. No perinephric fluid collection is seen. A Christianson catheter is seen in the collapsed bladder IMPRESSION: No evidence of hydronephrosis. Multiple renal cysts are seen. ACT 112: Negative or not required by law. Electronically signed by: Anoop Jackson M.D. 12/13/2021 7:43 PM
[2021-12-14 01:52] LABS: Partial Thromboplastin Ratio 3.4
[2021-12-14 02:00] LABS: Partial Thromboplastin Time 88.2 Seconds (21.0-31.0)
[2021-12-14] MEDS: CEFEPIME 1,000 MG in SYRINGE 0 ML IV SCH (04:00)
[2021-12-14 04:58] LABS: iSTAT Allen Test Pass; iSTAT Arterial Blood Gas HCO3 22 meg/L (19-24); iSTAT Arterial Blood Gas pCO2 34 mmHg (35-46); iSTAT Arterial Blood Gas pH 7.42 (7.35-7.45); iSTAT Arterial Blood Gas pO2 64 mmHg (80-95); iSTAT Carbon Dioxide 23 mmol/L (24-31); iSTAT Site L Radial
[2021-12-14] MEDS: AZITHROMYCIN 500 MG in DEXTROSE 5% 250 ML IV SCH (05:45)
[2021-12-14 06:14] LABS: Basophils # (auto) 0.01 K/uL (0-0.2); Basophils % (auto) 0.1 %; Hematocrit (blood only) 34.7 % (37-47); Hemoglobin 11.6 g/dL (12.0-16.0); Immature Granulocytes # (auto) 0.07 K/uL (0.00-0.02); Immature Granulocytes % (auto) 0.6 %; Lymphocytes # (auto) 0.76 K/uL (1.2-3.4); Lymphocytes % (auto) 6.8 %; Mean Corpuscular Hemoglobin 30.5 pg (25-34); Mean Corpuscular Hgb Conc 33.4 g/dL (32-36); Mean Corpuscular Volume 91.3 fL (80-100); Mean Platelet Volume 11.5 fL (7.4-10.4); Monocytes # (auto) 0.45 K/uL (0.11-0.59); Neutrophils # (auto) 9.91 K/uL (1.4-6.5); Neutrophils % (auto) 88.5 %; Platelet Count 154 K/uL (130-400); RDW Coefficient of Variation 15.1 % (11.5-14.5); RDW Standard Deviation 50.8 fL (36.4-46.3)
[2021-12-14 06:49] LABS: BUN Creatinine Ratio 27.2 (10-20); Calcium 7.5 mg/dl (8.5-10.1); Creatinine Clr Calc Pharmacy 34.2 ml/min; Est GFR (African American) 38.8 ml/min; Est GFR (Non-African American) 33.5 ml/min; Potassium 3.9 mmol/L (3.5-5.1)
[2021-12-14 07:06] LABS: Ferritin 988.9 ng/ml (8-388)
[2021-12-14 07:13] LABS: Folate (Folic Acid) 4.58 ng/ml (>5.38); INR 1.1 (0.9-1.1); Prothrombin Time 10.9 Seconds (9.0-12.0)
[2021-12-14 07:17] LABS: Partial Thromboplastin Time 53.7 Seconds (21.0-31.0)
--- NOTE | 2021-12-14 07:23 | XRay Report ---
XR chest 1V portable CLINICAL HISTORY: Respiratory failure. COMPARISON STUDY: Chest radiograph December 12, 2021. FINDINGS: No pneumothorax or pleural effusion is noted. Patient is rotated. Cardiomegaly is unchanged . There is been significant progression of bilateral airspace opacities since prior exam. Lung volume s are within normal limits. IMPRESSION: 1. Significant progression of bilateral airspace opacities which favor pneumonia. Given rapid progres herbert, pulmonary edema or aspiration pneumonitis are within the differential. 2. Cardiomegaly. ACT 112: Negative or not required by law. Electronically signed by: Tito Salinas M.D. 12/14/2021 7:22 AM
[2021-12-14 08:34] LABS: Urea Nitrogen, Random Urine 583 mg/dL
[2021-12-14 08:39] LABS: Albumin Level 2.9 gm/dl (3.4-5.0); Bilirubin,Total 0.3 mg/dl (0.2-1.0); Magnesium 1.9 mg/dl (1.7-2.4); Phosphorus 2.3 mg/dl (2.5-4.9)
[2021-12-14] MEDS: FLUTICASONE FUROATE 100MCG 14 PUFFS/INHALER INH SCH (08:44)
[2021-12-14] MEDS: UMECLIDINIUM/VILANTEROL 62.5/25MCG 7 PUFFS/INHALER INH SCH (08:44)
[2021-12-14] MEDS: SODIUM BICARBONATE 8.4% 150 MEQ in DEXTROSE 5% 1,000 ML IV SCH (08:44)
[2021-12-14] MEDS: VENLAFAXINE HCL XR 150 MG CAPXR PO SCH (08:44)
[2021-12-14] MEDS: CLOTRIMAZOLE 1% CR 15 GM TUBE EXT SCH ×2 (08:44→20:30)
[2021-12-14] MEDS: dexAMETHasone 6 MG in SYRINGE 0 ML IV SCH (08:44)
[2021-12-14] MEDS: LINACLOTIDE 145 MCG CAPSULE PO SCH (08:45)
[2021-12-14 10:00] LABS: Partial Thromboplastin Ratio 2.7
[2021-12-14 10:02] LABS: Partial Thromboplastin Time 72.3 Seconds (21.0-31.0)
--- NOTE | 2021-12-14 10:58 | Critical Care Progress Note ---
Date of Service December 14, 2021 Assessment & Plan (1) Septic shock: (2) Acute respiratory failure with hypoxia: (3) Acute pneumonia: (4) DVT (deep venous thrombosis): (5) Acute kidney injury: (6) Antithrombin 3 deficiency: Plan: 66-year-old female with a history of Antithrombin III deficiency, coronary artery disease and depression who presented to the hospital with shortness of breath and mild encephalopathy. She has evidence of left lower lobe pneumonia and a lower extremity DVT. She also has COVID-19 Neurologic: Mild encephalopathy likely secondary to sepsis and mild uremia. Resolving. Monitor closely. Pulmonary: Chronically on home oxygen and with slight worsening of her O2 requirements. Chest x-ray markedly worsened with bilateral infiltrates likely secondary to pulmonary edema and possible COVID-19 viral pneumonia. Will discontinue continuous fluid infusions and consider initiating gentle diuresis later in the day if increased work of breathing or hypoxemia worsens. Currently on anticoagulation given lower extremity DVT. Did not undergo a CT chest due to STAN. Echo without evidence of severe RV strain. There is mild pulmonary hypertension seen likely secondary to COPD. Continue Anoro Ellipta. Wean O2 to maintain sats of 80 to 92%. Cardiovascular: See above regarding pulmonary embolism concerns. Maintain mean arterial pressures above 65. Likely mild pulmonary edema. Currently off vasopressors. Gastrointestinal: NPO. Renal: STAN improving likely from ATN and hypovolemia. Fluids and bicarbonate drip discontinued this morning as her acidosis is resolving. Infectious disease: Continue treatment for pneumonia. MRSA negative. Continue cefepime and azithromycin. Currently on Decadron due to concerns of COVID-19 viral pneumonia. Hematologic: Lower extremity DVT as noted above. Heparin drip. History of Antithrombin III deficiency. Endocrine: Hyperglycemia management per ICU pharmacist. Lines and tubes: Peripheral IVs. VTE prophylaxis: Heparin infusion as above CODE STATUS: Full code Family at bedside: None available at bedside as the patient has COVID-19 Disposition: Stable for downgrade to PCU status today. Admission and Anticipated Discharge Date Admission Date: December 12, 2021 Subjective Patient remains somewhat slow to respond to questions, but appears oriented to person and place. Hemodynamically stable and this morning with no vasopressor requirements. She was briefly on Levophed yesterday. Review of Systems Review of Systems: All systems reviewed & are unremarkable except as noted in HPI & below Physical Exam Physical Exam: Constitutional: Patient appears mildly ill. Currently on oxygen. Appears well-nourished. Eyes: Pupils are equal round and reactive to light. Conjunctivae are normal. Anicteric sclera. Ears nose, mouth and throat: Normal posterior oropharynx. Uvula is midline. Neck: Trachea is midline. Visual inspection is normal. Respiratory: Mild bilateral crackles noted. Cardiovascular: Regular rate and rhythm. No murmurs. No edema. Gastrointestinal: Normal bowel sounds, soft, nontender and nondistended. No hepatosplenomegaly noted. Musculoskeletal: No cyanosis. Patient is able to move all extremities. Skin: No rashes, warm dry and intact. Neurologic: No obvious focal neurological deficits seen. Psychiatric: Oriented to person, place and time. Slow to answer questions. Results & Data Results & Data ([facility]) Vital Signs (Past 12 Hours) Vital Signs Temp Pulse Resp BP Pulse Ox 12/14/21 07:42 36.6 C 12/14/21 06:01 78 24 93 12/14/21 06:00 77 26 H 139/81 93 12/14/21 05:00 75 22 105/79 94 12/14/21 04:00 76 24 121/85 96 12/14/21 03:22 36.5 C 12/14/21 03:00 76 25 H 127/73 96 12/14/21 02:00 76 23 125/69 96 12/14/21 01:00 77 21 114/79 94 12/14/21 00:13 36.5 C 12/14/21 00:00 75 21 125/70 93 12/13/21 23:30 73 25 H 125/69 96 12/13/21 23:00 72 20 125/68 96 Coding Level of Care Code 96088 Subseq Hosp Care Lvl 3 Diagnoses Septic shock A41.9; R65.21 Acute respiratory failure with hypoxia J96.01 Acute pneumonia J18.9 DVT (deep venous thrombosis) I82.409 Acute kidney injury N17.9 Antithrombin 3 deficiency D68.59
--- NOTE | 2021-12-14 11:27 | Nephrology Progress Note ---
Date of Service December 14, 2021 Assessment & Plan (1) Acute kidney injury: Plan: * Oliguric renal insufficiency likely due to dehydration, sepsis in the setting of JHONNY inhibitor therapy * FENa 1.1% * Agree w/ holding Lisinopril * Serum K has been corrected. Agree w/ IV NaHCO3 to help correct metabolic acidosis * Urine sediment is negative for granular casts * Will order renal US and request prior records from PCP to establish baseline Cr * Monitor PRP Plan: 66-year-old F with PMH of CAD, Antithrombin III deficiency, HTN, depression, admitted to hospital on 12/12/21 with SOB and confusion with diagnosis of COVID- 19 on 12/03/2021. Chest x-ray on admission also concerning for left lower lobe pneumonia, currently getting treated with antibiotic and dexamethasone. She has been requiring low flow oxygen anywhere from 4 to 8 L via oxy mask. She was found to have STAN and metabolic acidosis on admission, creatinine was 2.2 with no prior baseline available. Also had multiple other electrolyte abn ormality including hypocalcemia which now improved. Urine output has been decent. Urinalysis showed 2+ proteinuria and 2+ hematuria. Received bicarbonate drip, this morning renal function improved to creatinine 1.6, bicarb improved. STAN seen on admission with creatinine 2.2 and now is 2.08. Chest x- ray on admission with a left lung base opacity. Venous Doppler of the lower extremity with occlusive DVT in the proximal left superficial femoral vein. --renal function to continues to improve, monitor I/O, renal function, electrolytes daily. Encourage patient to maintain hydration. Will follow Admission and Anticipated Discharge Date Admission Date: December 12, 2021 Brian Agudelo was seen and evaluated in her room this morning. She was awake, alert and seem to be somewhat confused but not in any distress. Denied any specific symptoms. Review of Systems Review of Systems: Detailed review of system was otherwise unremarkable. Physical Exam Constitutional: WD/WN, vitals as above + ill appearing; no acute distress Eyes: + anicteric sclerae Neck: normal visual inspection Respiratory: no respiratory distress Auscultation: + diminished lung sounds and + rales Cardiovascular: Rate/Rhythm: regular rate and regular rhythm Heart Sounds: normal S1 and normal S2 Extremities: no edema Skin: no rashes Neurologic: no focal motor deficits and not confused Psychiatric: Orientation: alert and oriented x 3 Results & Data ([facility]) Vital Signs (Past 12 Hours) Vital Signs Temp Pulse Resp BP Pulse Ox 12/14/21 07:42 36.6 C 12/14/21 06:01 78 24 93 12/14/21 06:00 77 26 H 139/81 93 12/14/21 05:00 75 22 105/79 94 12/14/21 04:00 76 24 121/85 96 12/14/21 03:22 36.5 C 12/14/21 03:00 76 25 H 127/73 96 12/14/21 02:00 76 23 125/69 96 12/14/21 01:00 77 21 114/79 94 12/14/21 00:13 36.5 C 12/14/21 00:00 75 21 125/70 93 12/13/21 23:30 73 25 H 125/69 96 PG Care Time/CCT Total # of Minutes Spent Total Time Spent with Patient: Total time spent is greater than 50% in coordination of care (as documented) at patient's floor/unit and/or counseling patient: Coding Level of Care Code 24562 Subseq Hosp Care Lvl 3 Diagnoses Acute kidney injury N17.9
--- NOTE | 2021-12-14 13:38 | Hospitalist Progress Note ---
Date of Service December 14, 2021 Assessment & Plan (1) COVID-19: Plan: With *pneumonia secondary to coronavirus-19 disease and with acute and chronic respiratory failure with hypoxia -Day 9 of illness at the time of presentation. Patient is not vaccinated. Per sister, patient's illness has consisted of fatigue, weakness, and headache. No respiratory or GI symptoms. -Initially on 4 L nasal cannula, today she is stable on 7L mask -CXR: airspace consolidation at the left lung base is typical for pneumonia/aspiration pneumonitis Procalcitonin now elevated at 2.7, with metabolic acidosis secondary to renal failure, lactate negative, with septic shock and hypotension Also with DVT as below with suspected PE given chest pain, hypoxia, mildly elevated troponin, but negative proBNP - moved to ICU on 12/13 for hypotension, now normal BP, off Levophed, move to PCU status -Continue IV dexamethasone - stop fluids, consider Lasix today -Continue Cefepime and azithromycin for pneumonia -CRP quite elevated at 25, however patient does not meet criteria for baricitinib due to acute kidney injury -Contraindication for remdesivir due to acute kidney injury -Continue albuterol nebs as needed, fluticasone inhaled daily, and Anoro -Continue supplemental O2 to keep pulse ox greater than 90-92% -Add incentive spirometry and flutter valve (2) Septic shock: Plan: Developed hypotension on the night of admission requiring IV fluid boluses and IV albumin Did have some response to IV fluid boluses but remained encephalopathic and with renal failure and oliguria Lactate normal UA negative for infection Source being Covid-19 pneumonia and possibly bacterial superimposed pneumonia -Holding home lisinopril -needed Levophed, moved to ICU status now hypertensive, off pressors, move back to PCU status consider Lasix today -Follow blood cultures: no growth (3) Encephalopathy: Plan: *Metabolic encephalopathy Likely secondary to hypoxia, uremia, Covid-19 infection, pneumonia, and possibly medication side effect as she is on ziprasidone and Suboxone at home Ammonia level normal CT head negative Continue treating the above conditions Provide supportive care -Hold home Suboxone and hold home ziprasidone she is still confused, oriented to person only (4) Left lower lobe pneumonia: Plan: As above complete course of antibiotics (5) Acute kidney injury: Plan: -Creatinine and BUN elevated on admission at 49 and 2.3 Cr improved to 1.5, making urine likely ATN appreciate nephrology consult, notes continue [place] -Hold home lisinopril -Renally dose medications -Follow serial chemistries (6) DVT (deep venous thrombosis): Plan: *Acute DVT of the proximal left superficial femoral vein -Due to patient's Antithrombin III deficiency and in the setting of Covid-19 -Presume she was taking her Xarelto at home although she may have missed some doses in the setting of encephalopathy and acute illness? -Nonetheless, she has renal failure-we will hold Xarelto and start heparin drip on the evening of 12/13 Suspect she has PE given ongoing chest pain, mildly elevated troponin, hypoxia, and hypotension, however acute kidney injury precludes obtaining a CT angiogram chest Echocardiogram with elevated right-sided pressures but normal RV function-likely not hemodynamically significant PE renal function is improving, hopefully will be able to resume Xarelto on discharge (7) Metabolic acidosis: Plan: due to sepsis, STAN bicarb is up to 24 today (8) Hypoxia: Plan: *Acute and chronic respiratory failure with hypoxia Secondary to COVID-19 pneumonia and secondary bacterial pneumonia as well as suspected PE as above Continue supplemental O2 to keep pulse ox greater than 90-92% stable on 7L mask today (9) Elevated troponin: Plan: Troponin mildly elevated and stable at 0.1x3, EKG showed sinus rhythm with Premature atrial complexes, nonspecific ST and T wave abnormality With ongoing chest pain which may be related to respiratory issues versus PE Echocardiogram without wall motion abnormalities but with mildly elevated right- sided pressures, preserved EF Likely myocardial demand ischemia (10) COPD (chronic obstructive pulmonary disease): Plan: -Patient has home O2 for prn use. According to sister, patient has not used it in a long time, has not been using it since COVID diagnosis on 12/03. 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 Was given IV calcium on admission Follow levels (14) Hypomagnesemia: Plan: 1.9 today, hold on replacement (15) Hypokalemia: Plan: replace with p.o. potassium chloride K is 3.9 today (16) CAD (coronary artery disease), [place] coronary artery: Plan: with h/o stent placed I do not see aspirin on her list from home and has NSAIDs listed as an allergy Myocardial demand ischemia as above (17) On home oxygen therapy: Plan: chronic hs (18) Depression: Plan: -Continue venlafaxine 150 mg daily. -hold ziprasidone 60 mg daily while altered MS (19) Anemia: Plan: Hemoglobin 10.1, normocytic Follow CBC Check B12, folate, iron studies (20) Thrombocytopenia: Plan: Platelets mildly low at 106 Checking B12 level in the morning Likely secondary to sepsis Follow CBC Plan: Prophylaxis-Heparin drip for DVT as above Disposition-transfer to PCU Admission and Anticipated Discharge Date Admission Date: December 12, 2021 Subjective reviewed chart and labs WBC is normal, Cr improved to 1.5 from 1.9 appreciate notes from nephrology and ICU patient is confused, she does not know where she is or the year she keeps taking off her mask, saturations will drop to 80's without oxygen she denies pain, dyspnea, fever, chest pain, nausea Review of Systems Review of Systems: All systems reviewed & are unremarkable except as noted in Subjective Physical Exam Physical Exam: General: well developed, frail appearing, older than stated age, confused Neck: supple, trachea midline, normal thyroid Lungs: clear to auscultation bilaterally, normal respiratory effort, no accessory muscle use, no distress Heart: regular S1 and S2, no murmur, peripheral pulses normal, capillary refill normal, no edema Abdomen: soft, NT, ND, + BS, no hepatomegaly, normal to percussion Extremities: normal in appearance, no cyanosis, no petechiae, strength is slightly diminished bilaterally Neuro: awake, uncooperative, moves all extremities, no focal motor deficits, CN II-XII intact, sensation in extremities intact, normal speech Skin: warm, dry, no rash, normal turgor Psych: Awake, oriented to person only, confused Results & Data Results & Data ([facility]) Vital Signs (Past 12 Hours) Vital Signs Temp Pulse Resp BP Pulse Ox 12/14/21 07:42 36.6 C 12/14/21 06:01 78 24 93 12/14/21 06:00 77 26 H 139/81 93 12/14/21 05:00 75 22 105/79 94 12/14/21 04:00 76 24 121/85 96 12/14/21 03:22 36.5 C 12/14/21 03:00 76 25 H 127/73 96 12/14/21 02:00 76 23 125/69 96 Laboratory Results Laboratory Results - last 24 hr 12/12/21 12/13/21 12/13/21 20:11 07:04 15:42 WBC 6.61 RBC 3.31 L Hgb 10.1 L Hct 31.0 L MCV 93.7 MCH 30.5 MCHC 32.6 RDW Std Deviation 52.5 H RDW Coeff of Bal 15.3 H Plt Count 103 L MPV 11.4 H Immature Gran % (Auto) 0.8 Neut % (Auto) 78.4 Lymph % (Auto) 16.5 [place] % (Auto) 3.2 Eos % (Auto) 0.9 Baso % (Auto) 0.2 Neut # (Auto) 5.19 Lymph # (Auto) 1.09 L [place] # (Auto) 0.21 Eos # (Auto) 0.06 Baso # (Auto) 0.01 Immature Gran # (Auto) 0.05 H Peripher Smr Path Cons Pending PT INR APTT PTT Ratio Sample Site POC pH POC pCO2 POC pO2 POC HCO3 POC Total CO2 POC Base Excess POC ABG O2 Sat Devan Test O2 Delivery Device Sodium 137 Potassium 3.6 Chloride 109 H Carbon Dioxide 20 L Anion Gap 8 BUN 45 H Creatinine 1.86 H Est Cr Clr Drug Dosing 29.0 Est GFR ( Amer) 31.9 Est GFR (Non-Af Amer) 27.5 BUN/Creatinine Ratio 24.2 H Glucose 177 H Lactate Calcium 7.6 L Phosphorus Magnesium Iron TIBC Unsaturated IBC Transferrin % Sat Ferritin Total Bilirubin Direct Bilirubin AST ALT Alkaline Phosphatase Total Protein Albumin Vitamin B12 Folate Ur Random Urea Nitrogn 583 12/13/21 12/14/21 12/14/21 16:00 00:54 04:34 WBC RBC Hgb Hct MCV MCH MCHC RDW Std Deviation RDW Coeff of Bal Plt Count MPV Immature Gran % (Auto) Neut % (Auto) Lymph % (Auto) [place] % (Auto) Eos % (Auto) Baso % (Auto) Neut # (Auto) Lymph # (Auto) [place] # (Auto) Eos # (Auto) Baso # (Auto) Immature Gran # (Auto) Peripher Smr Path Cons PT INR APTT 88.2 H* PTT Ratio 3.4 Sample Site L Radial POC pH 7.42 POC pCO2 34 L POC pO2 64 L POC HCO3 22 POC Total CO2 23 L POC Base Excess -3.0 POC ABG O2 Sat 93.0 Devan Test Pass O2 Delivery Device SimpleMask Sodium Potassium Chloride Carbon Dioxide Anion Gap BUN Creatinine Est Cr Clr Drug Dosing Est GFR ( Amer) Est GFR (Non-Af Amer) BUN/Creatinine Ratio Glucose Lactate 0.9 Calcium Phosphorus Magnesium Iron TIBC Unsaturated IBC Transferrin % Sat Ferritin Total Bilirubin Direct Bilirubin AST ALT Alkaline Phosphatase Total Protein Albumin Vitamin B12 Folate Ur Random Urea Nitrogn 12/14/21 12/14/21 12/14/21 05:15 05:15 05:15 WBC 11.20 H RBC 3.80 L Hgb 11.6 L Hct 34.7 L MCV 91.3 MCH 30.5 MCHC 33.4 RDW Std Deviation 50.8 H RDW Coeff of Bal 15.1 H Plt Count 154 MPV 11.5 H Immature Gran % (Auto) 0.6 Neut % (Auto) 88.5 Lymph % (Auto) 6.8 [place] % (Auto) 4.0 Eos % (Auto) 0.0 Baso % (Auto) 0.1 Neut # (Auto) 9.91 H Lymph # (Auto) 0.76 L [place] # (Auto) 0.45 Eos # (Auto) 0.00 Baso # (Auto) 0.01 Immature Gran # (Auto) 0.07 H Peripher Smr Path Cons PT 10.9 INR 1.1 APTT 53.7 H* PTT Ratio 2.0 Sample Site POC pH POC pCO2 POC pO2 POC HCO3 POC Total CO2 POC Base Excess POC ABG O2 Sat Devan Test O2 Delivery Device Sodium 139 Potassium 3.9 Chloride 105 Carbon Dioxide 24 Anion Gap 10 BUN 43 H Creatinine 1.58 H Est Cr Clr Drug Dosing 34.2 Est GFR ( Amer) 38.8 Est GFR (Non-Af Amer) 33.5 BUN/Creatinine Ratio 27.2 H Glucose 122 H Lactate Calcium 7.5 L Phosphorus Magnesium Iron TIBC Unsaturated IBC Transferrin % Sat Ferritin 988.9 H Total Bilirubin Direct Bilirubin AST ALT Alkaline Phosphatase Total Protein Albumin Vitamin B12 Folate Ur Random Urea Nitrogn 12/14/21 12/14/21 12/14/21 05:15 05:15 09:12 WBC RBC Hgb Hct MCV MCH MCHC RDW Std Deviation RDW Coeff of Bal Plt Count MPV Immature Gran % (Auto) Neut % (Auto) Lymph % (Auto) [place] % (Auto) Eos % (Auto) Baso % (Auto) Neut # (Auto) Lymph # (Auto) [place] # (Auto) Eos # (Auto) Baso # (Auto) Immature Gran # (Auto) Peripher Smr Path Cons PT INR APTT 72.3 H* PTT Ratio 2.7 Sample Site POC pH POC pCO2 POC pO2 POC HCO3 POC Total CO2 POC Base Excess POC ABG O2 Sat Devan Test O2 Delivery Device Sodium Potassium Chloride Carbon Dioxide Anion Gap BUN Creatinine Est Cr Clr Drug Dosing Est GFR ( Amer) Est GFR (Non-Af Amer) BUN/Creatinine Ratio Glucose Lactate Calcium Phosphorus 2.3 L Magnesium 1.9 Iron 12 L TIBC 192 L Unsaturated IBC 180 Transferrin % Sat 6 L Ferritin Total Bilirubin 0.3 Direct Bilirubin 0.0 AST 44 H ALT 22 Alkaline Phosphatase 96 Total Protein 6.0 Albumin 2.9 L Vitamin B12 140 L Folate 4.58 L Ur Random Urea Nitrogn Medications Administered Current Inpatient Medications Acetaminophen (Acetaminophen 325 Mg Tab) 650 mg PO Q4H PRN PRN Reason: Pain or Fever Stop: 01/12/22 00:23 Last Admin: 12/13/21 00:46 Dose: 650 mg Documented by: Albuterol (Albut/Ipratrop 3mg/0.5mg Neb 3 Ml Vial) 3 ml NEB Q4R PRN; Protocol PRN Reason: Dyspnea Stop: 01/11/22 22:59 Clotrimazole (Clotrimazole 1% Cr 15 Gm Tube) 1 appln EXT BID EMA Stop: 01/12/22 08:59 Last Admin: 12/14/21 08:44 Dose: 1 appln Documented by: Ergocalciferol (Ergocalciferol 50,000 Units 1250 Mcg Cap) 50,000 units PO We@0900 EMA Stop: 01/17/22 08:59 Famotidine (Famotidine 20 Mg Tab) 20 mg PO HS EMA Stop: 01/12/22 00:09 Last Admin: 12/13/21 20:07 Dose: 20 mg Documented by: Fluticasone Furoate (Fluticasone Furoate 100mcg 14 Puffs/Inhaler) 1 puffs INH DAILY [facility] Stop: 01/12/22 00:09 Last Admin: 12/14/21 08:44 Dose: 1 puffs Documented by: Dexamethasone 6 mg/ Syringe 1.5 mls @ 1 mls/min IV Q24H [facility] Stop: 01/12/22 08:59 Last Admin: 12/14/21 08:44 Dose: 1 mls/min Documented by: Cefepime HCl 1,000 mg/ Syringe 11.3 mls @ 5.5 mls/min IV Q12H [facility]; Protocol Stop: 12/20/21 03:59 Last Admin: 12/14/21 04:00 Dose: 5.5 mls/min Documented by: Heparin Sodium/Dextrose (Heparin Sodium/Dextrose) 25,000 units in 500 mls @ 18 mls/hr IV .Q24H [facility]; Protocol Stop: 01/12/22 18:44 Last Titration: 12/14/21 10:02 Dose: 900 units/hr, 18 mls/hr Documented by: Azithromycin 500 mg/ Dextrose 255 mls @ 125 mls/hr IV Q24H [facility] Stop: 12/15/21 05:59 Last Infusion: 12/14/21 07:58 Dose: Infused Documented by: Norepinephrine Bitartrate (Levophed/D5w) 8 mg in 508 mls @ 0 mls/hr IV .Q0M [facility]; Protocol Stop: 01/12/22 15:14 Last Titration: 12/13/21 18:57 Dose: 0 mcg/kg/min, 0 mls/hr Documented by: Linaclotide (Linaclotide 145 Mcg Capsule) 290 mcg PO QAM EMA Stop: 01/12/22 08:59 Last Admin: 12/14/21 08:45 Dose: 290 mcg Documented by: Miscellaneous (Icu Protocol For Hyperglycemia) 1 ea N/A PRN PRN; Protocol PRN Reason: Hyperglycemia Protocol Stop: 12/15/21 10:49 Ondansetron HCl (Ondansetron Inj 2 Mg/Ml 2 Ml Vial) 4 mg IV Q6H PRN PRN Reason: Nausea Stop: 01/12/22 00:09 Umeclidinium/Vilanterol (Umeclidinium/Vilanterol 62.5/25mcg 7 Puffs/Inhaler) 1 puffs INH DAILY EMA Stop: 01/12/22 00:09 Last Admin: 12/14/21 08:44 Dose: 1 puffs Documented by: Venlafaxine HCl (Venlafaxine Hcl Xr 150 Mg Capxr) 150 mg PO QAM EMA Stop: 01/12/22 08:59 Last Admin: 12/14/21 08:44 Dose: 150 mg Documented by: PG Care Time/CCT Total # of Minutes Spent Total Time Spent with Patient: Total time spent is greater than 50% in coordination of care (as documented) at patient's floor/unit and/or counseling patient: Coding Level of Care Code 21326 Subseq Hosp Care Lvl 3 Diagnoses COVID-19 U07.1 Septic shock A41.9; R65.21 Encephalopathy G93.40 Left lower lobe pneumonia J18.9 Acute kidney injury N17.9 DVT (deep venous thrombosis) I82.409 Metabolic acidosis E87.2 Hypoxia R09.02 Elevated troponin R77.8 COPD (chronic obstructive pulmonary disease) J44.9 Antithrombin 3 deficiency D68.59 Hypertension I10 Hypocalcemia E83.51 Hypomagnesemia E83.42 Hypokalemia E87.6 CAD (coronary artery disease), [place] coronary artery I25.10 On home oxygen therapy Z99.81 Depression F32.9 Psychotic features: with psychotic features Anemia D64.9 Thrombocytopenia D69.6 (1) Depression Psychotic features: with psychotic features
[2021-12-14] MEDS: CEFEPIME 2,000 MG in SYRINGE 0 ML IV SCH (16:08)
[2021-12-14 17:24] LABS: Partial Thromboplastin Ratio 2.1
[2021-12-14 17:43] LABS: Partial Thromboplastin Time 56.5 Seconds (21.0-31.0)
[2021-12-14] MEDS: HEPARIN SODIUM/DEXTROSE 25,000 UNITS/500 ML BAG IV SCH (17:55)
[2021-12-14] MEDS: FAMOTIDINE 20 MG TAB PO SCH (20:31)
[2021-12-14] MEDS: ACETAMINOPHEN 325 MG TAB PO PRN (20:40)
[2021-12-14] MEDS: ALBUT/IPRATROP 3MG/0.5MG NEB 3 ML VIAL NEB PRN (21:17)
[2021-12-15] MEDS: CEFEPIME 2,000 MG in SYRINGE 0 ML IV SCH ×2 (04:27→16:23)
[2021-12-15] MEDS ORDERED: FUROSEMIDE INJ 20 MG/2 ML VIAL IV ONE (08:00)
[2021-12-15 08:27] LABS: Basophils # (auto) 0.01 K/uL (0-0.2); Basophils % (auto) 0.1 %; Hematocrit (blood only) 36.1 % (37-47); Immature Granulocytes # (auto) 0.07 K/uL (0.00-0.02); Immature Granulocytes % (auto) 0.7 %; Lymphocytes % (auto) 6.3 %; Mean Corpuscular Hemoglobin 30.5 pg (25-34); Mean Corpuscular Hgb Conc 33.2 g/dL (32-36); Mean Corpuscular Volume 91.6 fL (80-100); Mean Platelet Volume 11.7 fL (7.4-10.4); Monocytes # (auto) 0.64 K/uL (0.11-0.59); Monocytes % (auto) 6.7 %; Neutrophils # (auto) 8.17 K/uL (1.4-6.5); Neutrophils % (auto) 86.2 %; Platelet Count 197 K/uL (130-400); RDW Standard Deviation 50.5 fL (36.4-46.3); Red Blood Count 3.94 M/uL (4.2-5.4); White Blood Count 9.49 K/uL (4.8-10.8)
[2021-12-15] MEDS: dexAMETHasone 6 MG in SYRINGE 0 ML IV SCH (08:30)
[2021-12-15] MEDS: FLUTICASONE FUROATE 100MCG 14 PUFFS/INHALER INH SCH (08:31)
[2021-12-15] MEDS: VENLAFAXINE HCL XR 150 MG CAPXR PO SCH (08:31)
[2021-12-15] MEDS: UMECLIDINIUM/VILANTEROL 62.5/25MCG 7 PUFFS/INHALER INH SCH (08:31)
[2021-12-15] MEDS: LINACLOTIDE 145 MCG CAPSULE PO SCH (08:31)
[2021-12-15] MEDS: CLOTRIMAZOLE 1% CR 15 GM TUBE EXT SCH ×2 (08:32→23:07)
[2021-12-15 08:50] LABS: Partial Thromboplastin Ratio 2.4
[2021-12-15 08:57] LABS: Partial Thromboplastin Time 62.4 Seconds (21.0-31.0)
[2021-12-15 09:12] LABS: Albumin Level 2.8 gm/dl (3.4-5.0); Bilirubin,Total 0.4 mg/dl (0.2-1.0); Calcium 7.5 mg/dl (8.5-10.1); Est GFR (African American) 45.7 ml/min; Est GFR (Non-African American) 39.5 ml/min; Magnesium 1.8 mg/dl (1.7-2.4); Phosphorus 2.3 mg/dl (2.5-4.9); Potassium 3.7 mmol/L (3.5-5.1)
--- NOTE | 2021-12-15 10:31 | Hospitalist Progress Note ---
Date of Service December 15, 2021 Assessment & Plan (1) COVID-19: Plan: With *pneumonia secondary to coronavirus-19 disease and with acute and chronic respiratory failure with hypoxia -Day 9 of illness at the time of presentation. Patient is not vaccinated. Per sister, patient's illness has consisted of fatigue, weakness, and headache. No respiratory or GI symptoms. -Initially on 4 L nasal cannula, today she is stable on 7L NC but no distress -CXR: airspace consolidation at the left lung base is typical for pneumonia/aspiration pneumonitis Procalcitonin was elevated at 2.7, with metabolic acidosis secondary to renal failure, lactate negative, with septic shock and hypotension Also with DVT as below with suspected PE given chest pain, hypoxia, mildly elevated troponin, but negative proBNP - moved to ICU on 12/13 for hypotension, now normal BP, off Levophed, move to PCU status on 12/14 give Lasix 20mg IV this morning as BP stable -Continue IV dexamethasone -Continue Cefepime and azithromycin for pneumonia -Contraindication for remdesivir due to acute kidney injury -Continue albuterol nebs as needed, fluticasone inhaled daily, and Anoro -Continue supplemental O2 to keep pulse ox greater than 90-92% -Add incentive spirometry and flutter valve (2) Septic shock: Plan: Developed hypotension on the night of admission requiring IV fluid boluses and IV albumin Did have some response to IV fluid boluses but remained encephalopathic and with renal failure and oliguria Lactate normal UA negative for infection Source being Covid-19 pneumonia and possibly bacterial superimposed pneumonia -Holding home lisinopril -needed Levophed, moved to ICU status now hypertensive, off pressors, move back to PCU status on 12/14 give lasix 20mg IV this morning, good response thus far -Follow blood cultures: no growth (3) Encephalopathy: Plan: *Metabolic encephalopathy Likely secondary to hypoxia, uremia, Covid-19 infection, pneumonia, and possibly medication side effect as she is on ziprasidone and Suboxone at home Ammonia level normal CT head negative Continue treating the above conditions Provide supportive care -Hold home Suboxone and hold home ziprasidone she is still confused, oriented to person only consider MRI brain tomorrow if not better (4) Left lower lobe pneumonia: Plan: As above complete course of antibiotics (5) Acute kidney injury: Plan: -Creatinine and BUN elevated on admission at 49 and 2.3 Cr improved to 1.38, making urine, gave Lasix today likely ATN appreciate nephrology consult, notes continue [place] -Hold home lisinopril -Renally dose medications -Follow serial chemistries (6) DVT (deep venous thrombosis): Plan: *Acute DVT of the proximal left superficial femoral vein -Due to patient's Antithrombin III deficiency and in the setting of Covid-19 -Presume she was taking her Xarelto at home although she may have missed some doses in the setting of encephalopathy and acute illness? gave heparin drip in setting of renal failure, Cr now 1.38, will resume Xarelto Suspect she has PE given ongoing chest pain, mildly elevated troponin, hypoxia, and hypotension, however acute kidney injury precludes obtaining a CT angiogram chest Echocardiogram with elevated right-sided pressures but normal RV function-likely not hemodynamically significant PE (7) Metabolic acidosis: Plan: due to sepsis, STAN bicarb is normal, resolved (8) Hypoxia: Plan: *Acute and chronic respiratory failure with hypoxia Secondary to COVID-19 pneumonia and secondary bacterial pneumonia as well as suspected PE as above Continue supplemental O2 to keep pulse ox greater than 90-92% stable on 7L NC today (9) Elevated troponin: Plan: Troponin mildly elevated and stable at 0.1x3, EKG showed sinus rhythm with Premature atrial complexes, nonspecific ST and T wave abnormality With ongoing chest pain which may be related to respiratory issues versus PE Echocardiogram without wall motion abnormalities but with mildly elevated right- sided pressures, preserved EF Likely myocardial demand ischemia (10) COPD (chronic obstructive pulmonary disease): Plan: -Patient has home O2 for prn use. According to sister, patient has not used it in a long time, has not been using it since COVID diagnosis on 12/03. 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 potassium chloride K is 3.7 today (16) CAD (coronary artery disease), [place] coronary artery: Plan: with h/o stent placed I do not see aspirin on her list from home and has NSAIDs listed as an allergy Myocardial demand ischemia as above (17) On home oxygen therapy: Plan: chronic hs (18) Depression: Plan: -Continue venlafaxine 150 mg daily. -hold ziprasidone 60 mg daily while altered MS (19) Anemia: Plan: Hemoglobin 10.1, normocytic Follow CBC Check B12, folate, iron studies (20) Thrombocytopenia: Plan: Platelets now normal Plan: Prophylaxis- Xarelto Disposition-transfer to PCU Admission and Anticipated Discharge Date Admission Date: December 12, 2021 Subjective patient is still confused, just says "uh huh, yes" cannot answer any questions about where she is, why she is here cannot answer any review of systems will follow some simple commands like squeezing fingers, wiggling toes she was feeding herself breakfast this morning, did not eat much Review of Systems Review of Systems: Unobtainable due to cognitive status (confused, just stares blankly) Physical Exam Physical Exam: General: well developed, frail appearing, older than stated age, confused Neck: supple, trachea midline, normal thyroid Lungs: clear to auscultation bilaterally, normal respiratory effort, no accessory muscle use, no distress Heart: regular S1 and S2, no murmur, peripheral pulses normal, capillary refill normal, no edema Abdomen: soft, NT, ND, + BS, no hepatomegaly, normal to percussion Extremities: normal in appearance, no cyanosis, no petechiae, strength is slightly diminished bilaterally Neuro: awake, uncooperative, moves all extremities, no focal motor deficits, CN II-XII intact, sensation in extremities intact, not saying more than "huh, yes" Skin: warm, dry, no rash, normal turgor Psych: Awake, oriented to person only, confused Results & Data Results & Data ([facility]) Vital Signs (Past 12 Hours) Vital Signs Temp Pulse Pulse Resp BP Pulse Ox 12/15/21 09:45 71 12/15/21 07:54 36.6 C 79 20 146/82 H 93 12/15/21 03:43 36.5 C 72 24 136/71 96 12/14/21 23:24 36.5 C 81 20 134/79 95 Laboratory Results Laboratory Results - last 24 hr 12/14/21 12/15/21 12/15/21 16:45 07:09 07:09 WBC 9.49 RBC 3.94 L Hgb 12.0 Hct 36.1 L MCV 91.6 MCH 30.5 MCHC 33.2 RDW Std Deviation 50.5 H RDW Coeff of Bal 15.0 H Plt Count 197 MPV 11.7 H Immature Gran % (Auto) 0.7 Neut % (Auto) 86.2 Lymph % (Auto) 6.3 [place] % (Auto) 6.7 Eos % (Auto) 0.0 Baso % (Auto) 0.1 Neut # (Auto) 8.17 H Lymph # (Auto) 0.60 L [place] # (Auto) 0.64 H Eos # (Auto) 0.00 Baso # (Auto) 0.01 Immature Gran # (Auto) 0.07 H APTT 56.5 H* PTT Ratio 2.1 Sodium 140 Potassium 3.7 Chloride 104 Carbon Dioxide 24 Anion Gap 12 H BUN 40 H Creatinine 1.38 H Est Cr Clr Drug Dosing 39.0 Est GFR ( Amer) 45.7 Est GFR (Non-Af Amer) 39.5 BUN/Creatinine Ratio 29.0 H Glucose 116 H Calcium 7.5 L Phosphorus 2.3 L Magnesium 1.8 Total Bilirubin 0.4 Direct Bilirubin 0.0 AST 43 H ALT 30 Alkaline Phosphatase 94 Total Protein 6.0 Albumin 2.8 L 12/15/21 07:09 WBC RBC Hgb Hct MCV MCH MCHC RDW Std Deviation RDW Coeff of Bal Plt Count MPV Immature Gran % (Auto) Neut % (Auto) Lymph % (Auto) [place] % (Auto) Eos % (Auto) Baso % (Auto) Neut # (Auto) Lymph # (Auto) [place] # (Auto) Eos # (Auto) Baso # (Auto) Immature Gran # (Auto) APTT 62.4 H* PTT Ratio 2.4 Sodium Potassium Chloride Carbon Dioxide Anion Gap BUN Creatinine Est Cr Clr Drug Dosing Est GFR ( Amer) Est GFR (Non-Af Amer) BUN/Creatinine Ratio Glucose Calcium Phosphorus Magnesium Total Bilirubin Direct Bilirubin AST ALT Alkaline Phosphatase Total Protein Albumin PG Care Time/CCT Total # of Minutes Spent Total Time Spent with Patient: Total time spent is greater than 50% in coordination of care (as documented) at patient's floor/unit and/or counseling patient: Coding Level of Care Code 07611 Subseq Hosp Care Lvl 3 Diagnoses COVID-19 U07.1 Septic shock A41.9; R65.21 Encephalopathy G93.40 Left lower lobe pneumonia J18.9 Acute kidney injury N17.9 DVT (deep venous thrombosis) I82.409 Metabolic acidosis E87.2 Hypoxia R09.02 Elevated troponin R77.8 COPD (chronic obstructive pulmonary disease) J44.9 Antithrombin 3 deficiency D68.59 Hypertension I10 Hypocalcemia E83.51 Hypomagnesemia E83.42 Hypokalemia E87.6 CAD (coronary artery disease), [place] coronary artery I25.10 On home oxygen therapy Z99.81 Depression F32.9 Psychotic features: with psychotic features Anemia D64.9 Thrombocytopenia D69.6 (1) Depression Psychotic features: with psychotic features
--- NOTE | 2021-12-15 11:30 | Nephrology Progress Note ---
Date of Service December 15, 2021 Assessment & Plan (1) Acute kidney injury: (2) Anemia: (3) COVID-19: Plan: 66-year-old F with PMH of CAD, Antithrombin III deficiency, HTN, depression, admitted to hospital on 12/12/21 with SOB and confusion with diagnosis of COVID- 19 on 12/03/2021. Chest x-ray on admission also concerning for left lower lobe pneumonia, currently getting treated with antibiotic and dexamethasone. She has been requiring low flow oxygen anywhere from 4 to 8 L via oxy mask. She was found to have STAN and metabolic acidosis on admission, creatinine was 2.2 with no prior baseline available. Also had multiple other electrolyte abnormality including hypocalcemia which now improved. Urine output has been decent. Urinalysis showed 2+ proteinuria and 2+ hematuria. Received bicarbonate drip, this morning renal function improved to creatinine 1.6, bicarb improved. STAN seen on admission with creatinine 2.2 and now is 2.08. Chest x- ray on admission with a left lung base opacity. Venous Doppler of the lower extremity with occlusive DVT in the proximal left superficial femoral vein. Renal function improved and creatinine down to 1.4, decent urine output, electrolyte acceptable. Blood pressure well controlled. --renal function to continues to improve, monitor I/O, renal function, electrolytes daily. Encourage patient to maintain hydration. Will follow Admission and Anticipated Discharge Date Admission Date: December 12, 2021 Brian Agudelo was seen and evaluated in her room this morning. She was awake, alert , denied any specific symptoms. Blood pressure stable, decent urine output, kidney function continues to improve, creatinine down to 1.4. Review of Systems Review of Systems: Detailed review of system was otherwise unremarkable. Physical Exam Constitutional: WD/WN, vitals as above + ill appearing; no acute distress Eyes: + anicteric sclerae Neck: normal visual inspection Respiratory: no respiratory distress Auscultation: + diminished lung sounds and + rales Cardiovascular: Rate/Rhythm: regular rate and regular rhythm Heart Sounds: normal S1 and normal S2 Extremities: no edema Skin: no rashes Neurologic: no focal motor deficits and not confused Psychiatric: Orientation: alert and oriented x 3 Results & Data ([facility]) Vital Signs (Past 12 Hours) Vital Signs Temp Pulse Pulse Resp BP Pulse Ox 12/15/21 09:45 71 12/15/21 07:54 36.6 C 79 20 146/82 H 93 12/15/21 03:43 36.5 C 72 24 136/71 96 PG Care Time/CCT Total # of Minutes Spent Total Time Spent with Patient: Total time spent is greater than 50% in coordination of care (as documented) at patient's floor/unit and/or counseling patient: Coding Level of Care Code 86247 Subseq Hosp Care Lvl 2 Diagnoses Acute kidney injury N17.9 Anemia D64.9 COVID-19 U07.1
[2021-12-15] MEDS: RIVAROXABAN 20 MG TAB PO SCH (11:34)
[2021-12-15] MEDS: FAMOTIDINE 20 MG TAB PO SCH (21:17)
[2021-12-16] MEDS: CEFEPIME 2,000 MG in SYRINGE 0 ML IV SCH (04:37)
[2021-12-16 06:22] LABS: Basophils # (auto) 0.03 K/uL (0-0.2); Basophils % (auto) 0.3 %; Hematocrit (blood only) 38.8 % (37-47); Hemoglobin 12.9 g/dL (12.0-16.0); Immature Granulocytes # (auto) 0.09 K/uL (0.00-0.02); Immature Granulocytes % (auto) 0.8 %; Lymphocytes # (auto) 0.78 K/uL (1.2-3.4); Mean Corpuscular Hemoglobin 30.9 pg (25-34); Mean Corpuscular Hgb Conc 33.2 g/dL (32-36); Mean Corpuscular Volume 92.8 fL (80-100); Mean Platelet Volume 11.4 fL (7.4-10.4); Monocytes # (auto) 0.66 K/uL (0.11-0.59); Neutrophils # (auto) 9.52 K/uL (1.4-6.5); Neutrophils % (auto) 85.9 %; Platelet Count 220 K/uL (130-400); RDW Coefficient of Variation 14.9 % (11.5-14.5); Red Blood Count 4.18 M/uL (4.2-5.4); White Blood Count 11.08 K/uL (4.8-10.8)
[2021-12-16 06:48] LABS: RBC Morphology Unremarkable
[2021-12-16 06:52] LABS: Albumin Level 3.1 gm/dl (3.4-5.0); BUN Creatinine Ratio 32.8 (10-20); Bilirubin Direct 0.2 mg/dl (0-0.2); Bilirubin,Total 0.6 mg/dl (0.2-1.0); Calcium 7.8 mg/dl (8.5-10.1); Creatinine Clr Calc Pharmacy 43.6 ml/min; Est GFR (African American) 53.1 ml/min; Est GFR (Non-African American) 45.8 ml/min; Magnesium 1.5 mg/dl (1.7-2.4); Phosphorus 1.7 mg/dl (2.5-4.9); Potassium 3.6 mmol/L (3.5-5.1); Total Protein 6.5 gm/dl (6.0-8.3)
[2021-12-16] MEDS ORDERED: POTASSIUM PHOS 3 MMOL/1 ML INFUSION IV STA (07:59)
[2021-12-16] MEDS: FLUTICASONE FUROATE 100MCG 14 PUFFS/INHALER INH SCH (08:25)
[2021-12-16] MEDS: CLOTRIMAZOLE 1% CR 15 GM TUBE EXT SCH ×2 (08:25→20:18)
[2021-12-16] MEDS: RIVAROXABAN 20 MG TAB PO SCH (08:27)
[2021-12-16] MEDS: LINACLOTIDE 145 MCG CAPSULE PO SCH (08:27)
[2021-12-16] MEDS: dexAMETHasone 6 MG in SYRINGE 0 ML IV SCH (08:27)
[2021-12-16] MEDS: VENLAFAXINE HCL XR 150 MG CAPXR PO SCH (08:27)
[2021-12-16] MEDS: MAGNESIUM SULFATE / D5W 1 GM/100 ML BAG IV SCH ×2 (08:28→11:10)
[2021-12-16] MEDS: UMECLIDINIUM/VILANTEROL 62.5/25MCG 7 PUFFS/INHALER INH SCH (08:28)
[2021-12-16] MEDS ORDERED: POTASSIUM PHOSPHATE 21 MMOL in SODIUM CHLORIDE 0.9% 500 ML IV ONE (09:00)
--- NOTE | 2021-12-16 10:20 | Nephrology Progress Note ---
Date of Service December 16, 2021 Assessment & Plan (1) Acute kidney injury: (2) Anemia: (3) COVID-19: Plan: 66-year-old F with PMH of CAD, Antithrombin III deficiency, HTN, depression, admitted to hospital on 12/12/21 with SOB and confusion with diagnosis of COVID- 19 on 12/03/2021. Chest x-ray on admission also concerning for left lower lobe pneumonia, currently getting treated with antibiotic and dexamethasone. She has been requiring low flow oxygen anywhere from 4 to 8 L via oxy mask. She was found to have TSAN and metabolic acidosis on admission, creatinine was 2.2 with no prior baseline available. Also had multiple other electrolyte abnormality including hypocalcemia which now improved. Urine output has been decent. Urinalysis showed 2+ proteinuria and 2+ hematuria. Received bicarbonate drip, this morning renal function improved to creatinine 1.6, bicarb improved. STAN seen on admission with creatinine 2.2 and now is 2.08. Chest x- ray on admission with a left lung base opacity. Venous Doppler of the lower extremity with occlusive DVT in the proximal left superficial femoral vein. Renal function improved and creatinine down to 1.2, decent urine output , in fact net negative almost 2 L, electrolyte acceptable. Blood pressure well controlled. --renal function to continues to improve, monitor I/O, renal function, electrolytes daily. Encourage patient to maintain hydration, if p.o. intake remains poor consider maintenance IV fluid to keep net close to even. Will sign off. Admission and Anticipated Discharge Date Admission Date: December 12, 2021 Brian Agudelo was seen and evaluated in her room this morning. She was awake, alert , denied any specific symptoms but having some respiratory distress. has decent urine output and almost 2 L net negative as her p.o. intake remains poor. Blood pressure stable, decent urine output, kidney function continues to improve, creatinine down to 1.2. Review of Systems Review of Systems: Detailed review of system was otherwise unremarkable. Physical Exam Constitutional: WD/WN, vitals as above + ill appearing; no acute distress Eyes: + anicteric sclerae Neck: normal visual inspection Respiratory: no respiratory distress Auscultation: + diminished lung sounds and + rales Cardiovascular: Rate/Rhythm: regular rate and regular rhythm Heart Sounds: normal S1 and normal S2 Extremities: no edema Skin: no rashes Neurologic: no focal motor deficits and not confused Psychiatric: Orientation: alert and oriented x 3 Results & Data ([facility]) Vital Signs (Past 12 Hours) Vital Signs Temp Pulse Pulse Resp BP Pulse Ox 12/16/21 07:35 36.4 C L 92 H 18 151/98 H 100 12/16/21 04:52 90 23 175/105 H 95 12/16/21 00:55 84 12/15/21 22:30 36.8 C 85 18 150/101 H 93 PG Care Time/CCT Total # of Minutes Spent Total Time Spent with Patient: Total time spent is greater than 50% in coordination of care (as documented) at patient's floor/unit and/or counseling patient: Coding Level of Care Code 73837 Subseq Hosp Care Lvl 2 Diagnoses Acute kidney injury N17.9 Anemia D64.9 COVID-19 U07.1
--- NOTE | 2021-12-16 11:45 | Hospitalist Progress Note ---
Date of Service December 16, 2021 Assessment & Plan (1) COVID-19: Plan: With *pneumonia secondary to coronavirus-19 disease and with acute and chronic respiratory failure with hypoxia -Day 9 of illness at the time of presentation. Patient is not vaccinated. Per sister, patient's illness has consisted of fatigue, weakness, and headache. No respiratory or GI symptoms. -stable on 5L today -CXR: airspace consolidation at the left lung base is typical for pneumonia/aspiration pneumonitis Procalcitonin was elevated at 2.7, with metabolic acidosis secondary to renal failure, lactate negative, with septic shock and hypotension Also with DVT as below with suspected PE given chest pain, hypoxia, mildly elevated troponin, but negative proBNP - moved to ICU on 12/13 for hypotension, now normal BP, off Levophed, move to PCU status on 12/14 good response to Lasix 20mg IV yesterday -Continue IV dexamethasone -Continue Cefepime and azithromycin for pneumonia -Contraindication for remdesivir due to acute kidney injury -Continue albuterol nebs as needed, fluticasone inhaled daily, and Anoro -Continue supplemental O2 to keep pulse ox greater than 90-92% -Add incentive spirometry and flutter valve (2) Septic shock: Plan: Developed hypotension on the night of admission requiring IV fluid boluses and IV albumin Did have some response to IV fluid boluses but remained encephalopathic and with renal failure and oliguria Lactate normal UA negative for infection Source being Covid-19 pneumonia and possibly bacterial superimposed pneumonia -Holding home lisinopril -needed Levophed, moved to ICU status now hypertensive, off pressors, move back to PCU status on 12/14 good response to Lasix on 12/15, awaiting CT abd/pelvis before giving more Lasix -Follow blood cultures: no growth (3) Encephalopathy: Plan: *Metabolic encephalopathy Likely secondary to hypoxia, uremia, Covid-19 infection, pneumonia, and possibly medication side effect as she is on ziprasidone and Suboxone at home Ammonia level normal CT head negative Continue treating the above conditions Provide supportive care -Hold home Suboxone and hold home ziprasidone she is still confused, oriented to person only consider MRI brain today as long as abdomen is normal on CT (4) Left lower lobe pneumonia: Plan: As above complete course of antibiotics (5) Acute kidney injury: Plan: -Creatinine and BUN elevated on admission at 49 and 2.3 Cr improved to 1.22, making urine, gave Lasix on 12/15 likely ATN appreciate nephrology consult, notes continue [place] -Hold home lisinopril -Renally dose medications -Follow serial chemistries (6) DVT (deep venous thrombosis): Plan: *Acute DVT of the proximal left superficial femoral vein -Due to patient's Antithrombin III deficiency and in the setting of Covid-19 -Presume she was taking her Xarelto at home although she may have missed some doses in the setting of encephalopathy and acute illness? gave heparin drip in setting of renal failure, Cr now 1.22, will resume Xarelto Suspect she has PE given ongoing chest pain, mildly elevated troponin, hypoxia, and hypotension, however acute kidney injury precludes obtaining a CT angiogram chest Echocardiogram with elevated right-sided pressures but normal RV function-likely not hemodynamically significant PE (7) Metabolic acidosis: Plan: due to sepsis, STAN bicarb is normal, resolved (8) Hypoxia: Plan: *Acute and chronic respiratory failure with hypoxia Secondary to COVID-19 pneumonia and secondary bacterial pneumonia as well as suspected PE as above Continue supplemental O2 to keep pulse ox greater than 90-92% stable on 5L NC today (9) Elevated troponin: Plan: Troponin mildly elevated and stable at 0.1x3, EKG showed sinus rhythm with Premature atrial complexes, nonspecific ST and T wave abnormality With ongoing chest pain which may be related to respiratory issues versus PE Echocardiogram without wall motion abnormalities but with mildly elevated right- sided pressures, preserved EF Likely myocardial demand ischemia (10) COPD (chronic obstructive pulmonary disease): Plan: -Patient has home O2 for prn use. According to sister, patient has not used it in a long time, has not been using it since COVID diagnosis on 12/03. Continue inhalers as above (11) Antithrombin 3 deficiency: Plan: -Prescribed Xarelto 20 mg daily, resume today at Cr is 1.38 With history of DVT and PE With acute DVT as above and suspected PE was on heparin drip from admission (12) Hypertension: Plan: hypertensive today (13) Hypocalcemia: Plan: corrected calcium close to normal (14) Hypomagnesemia: Plan: 1.5, give 2gm IV (15) Hypokalemia: Plan: replace with p.o. potassium chloride K is 3.6 today, will give K Phos IV (16) CAD (coronary artery disease), [place] coronary artery: Plan: with h/o stent placed I do not see aspirin on her list from home and has NSAIDs listed as an allergy Myocardial demand ischemia as above (17) On home oxygen therapy: Plan: chronic hs (18) Depression: Plan: -Continue venlafaxine 150 mg daily. -hold ziprasidone 60 mg daily while altered MS (19) Anemia: Plan: Hemoglobin 12 (20) Thrombocytopenia: Plan: Platelets now normal (21) Abdominal pain: Plan: lower, cannot tell me any details as she is confused get CT abd/pelvis with IV contrast, give 500mL of NSS, start prior to CT follow up results (22) Hypophosphatemia: Plan: low at 1.7, give KPhos IV and repeat tomorrow Plan: Prophylaxis- Xarelto Disposition-transfer to PCU Admission and Anticipated Discharge Date Admission Date: December 12, 2021 Subjective patient more alert and trying to respond more, she looks like she is in pain vitals are stable, on less oxygen but she is tachypneic she cannot tell me what is bothering her, I asked her to point to where it hurts, she put her hand on lower abdomen she winced when I pushed but abdomen soft, + bowel sounds on labs, her Cr is 1.2, K 3.6, Phos 1.7 and Mag 1.5, ordered IV replacements I updated her Felix, he called in and gave me his number, Review of Systems Review of Systems: Unobtainable due to cognitive status (difficult, will not speak) Physical Exam Physical Exam: General: well developed, frail appearing, older than stated age, confused Neck: supple, trachea midline, normal thyroid Lungs: clear to auscultation bilaterally, normal respiratory effort, no accessory muscle use, no distress Heart: regular S1 and S2, no murmur, peripheral pulses normal, capillary refill normal, no edema Abdomen: soft, TTP in lower abdomen, ND, + BS, no hepatomegaly, normal to percussion Extremities: normal in appearance, no cyanosis, no petechiae, strength is slightly diminished bilaterally Neuro: awake, uncooperative, moves all extremities, no focal motor deficits, CN II-XII intact, sensation in extremities intact, not saying more than "huh, yes" Skin: warm, dry, no rash, normal turgor Psych: Awake, oriented to person only, confused Results & Data Results & Data ([facility]) Vital Signs (Past 12 Hours) Vital Signs Temp Pulse Pulse Resp BP Pulse Ox 12/16/21 11:18 36.8 C 102 H 23 161/111 H 95 12/16/21 07:35 36.4 C L 92 H 18 151/98 H 100 12/16/21 04:52 90 23 175/105 H 95 12/16/21 00:55 84 Laboratory Results Laboratory Results - last 24 hr 12/13/21 12/16/21 12/16/21 07:04 06:02 06:02 WBC 11.08 H RBC 4.18 L Hgb 12.9 Hct 38.8 MCV 92.8 MCH 30.9 MCHC 33.2 RDW Std Deviation 51.0 H RDW Coeff of Bal 14.9 H Plt Count 220 MPV 11.4 H Immature Gran % (Auto) 0.8 Neut % (Auto) 85.9 Lymph % (Auto) 7.0 [place] % (Auto) 6.0 Eos % (Auto) 0.0 Baso % (Auto) 0.3 Neut # (Auto) 9.52 H Lymph # (Auto) 0.78 L [place] # (Auto) 0.66 H Eos # (Auto) 0.00 Baso # (Auto) 0.03 Immature Gran # (Auto) 0.09 H RBC Morphology Unremarkable Peripher Smr Path Cons Sodium 142 Potassium 3.6 Chloride 104 Carbon Dioxide 24 Anion Gap 14 H BUN 40 H Creatinine 1.22 H Est Cr Clr Drug Dosing 43.6 Est GFR ( Amer) 53.1 Est GFR (Non-Af Amer) 45.8 BUN/Creatinine Ratio 32.8 H Glucose 123 H Calcium 7.8 L Phosphorus 1.7 L Magnesium 1.5 L Total Bilirubin 0.6 Direct Bilirubin 0.2 AST 35 ALT 33 Alkaline Phosphatase 99 Total Protein 6.5 Albumin 3.1 L Medications Administered Current Inpatient Medications Acetaminophen (Acetaminophen 325 Mg Tab) 650 mg PO Q4H PRN PRN Reason: Pain or Fever Stop: 01/12/22 00:23 Last Admin: 12/14/21 20:40 Dose: 650 mg Documented by: Albuterol (Albut/Ipratrop 3mg/0.5mg Neb 3 Ml Vial) 3 ml NEB Q4R PRN; Protocol PRN Reason: Dyspnea Stop: 01/11/22 22:59 Last Admin: 12/14/21 21:17 Dose: 3 ml Documented by: Clotrimazole (Clotrimazole 1% Cr 15 Gm Tube) 1 appln EXT BID EMA Stop: 01/12/22 08:59 Last Admin: 12/16/21 08:25 Dose: 1 appln Documented by: Ergocalciferol (Ergocalciferol 50,000 Units 1250 Mcg Cap) 50,000 units PO We@0900 [facility] Stop: 01/17/22 08:59 Famotidine (Famotidine 20 Mg Tab) 20 mg PO HS [facility] Stop: 01/12/22 00:09 Last Admin: 12/15/21 21:17 Dose: 20 mg Documented by: Fluticasone Furoate (Fluticasone Furoate 100mcg 14 Puffs/Inhaler) 1 puffs INH DAILY [facility] Stop: 01/12/22 00:09 Last Admin: 12/16/21 08:25 Dose: 1 puffs Documented by: Dexamethasone 6 mg/ Syringe 1.5 mls @ 1 mls/min IV Q24H [facility] Stop: 01/12/22 08:59 Last Admin: 12/16/21 08:27 Dose: 1 mls/min Documented by: Cefepime HCl 2,000 mg/ Syringe 20 mls @ 5 mls/min IV Q12H [facility]; Protocol Stop: 12/20/21 03:59 Last Admin: 12/16/21 04:37 Dose: 5 mls/min Documented by: Magnesium Sulfate/Dextrose (Magnesium Sulfate / D5w) 1 gm in 100 mls @ 50 mls/hr IV Q2H [facility] Stop: 12/16/21 11:59 Last Admin: 12/16/21 11:10 Dose: 50 mls/hr Documented by: Potassium Phosphate 21 mmol/ (Sodium Chloride) 507 mls @ 88 mls/hr IV ONE ONE Stop: 12/16/21 14:45 Last Admin: 12/16/21 08:28 Dose: 88 mls/hr Documented by: Linaclotide (Linaclotide 145 Mcg Capsule) 290 mcg PO QAM [facility] Stop: 01/12/22 08:59 Last Admin: 12/16/21 08:27 Dose: 290 mcg Documented by: Ondansetron HCl (Ondansetron Inj 2 Mg/Ml 2 Ml Vial) 4 mg IV Q6H PRN PRN Reason: Nausea Stop: 01/12/22 00:09 Rivaroxaban (Rivaroxaban 20 Mg Tab) 20 mg PO DAILY [facility] Stop: 01/14/22 10:44 Last Admin: 12/16/21 08:27 Dose: 20 mg Documented by: Umeclidinium/Vilanterol (Umeclidinium/Vilanterol 62.5/25mcg 7 Puffs/Inhaler) 1 puffs INH DAILY [facility] Stop: 01/12/22 00:09 Last Admin: 12/16/21 08:28 Dose: 1 puffs Documented by: Venlafaxine HCl (Venlafaxine Hcl Xr 150 Mg Capxr) 150 mg PO QAM [facility] Stop: 01/12/22 08:59 Last Admin: 12/16/21 08:27 Dose: 150 mg Documented by: PG Care Time/CCT Total # of Minutes Spent Total Time Spent with Patient: Total time spent is greater than 50% in coordination of care (as documented) at patient's floor/unit and/or counseling patient: Coding Level of Care Code 33940 Subseq Hosp Care Lvl 3 Diagnoses COVID-19 U07.1 Septic shock A41.9; R65.21 Encephalopathy G93.40 Left lower lobe pneumonia J18.9 Acute kidney injury N17.9 DVT (deep venous thrombosis) I82.409 Metabolic acidosis E87.2 Hypoxia R09.02 Elevated troponin R77.8 COPD (chronic obstructive pulmonary disease) J44.9 Antithrombin 3 deficiency D68.59 Hypertension I10 Hypocalcemia E83.51 Hypomagnesemia E83.42 Hypokalemia E87.6 CAD (coronary artery disease), [place] coronary artery I25.10 On home oxygen therapy Z99.81 Depression F32.9 Psychotic features: with psychotic features Anemia D64.9 Thrombocytopenia D69.6 Abdominal pain R10.9 Hypophosphatemia E83.39 (1) Depression Psychotic features: with psychotic features
[2021-12-16] MEDS ORDERED: SODIUM CHLORIDE 0.9% 500 ML IV SCH (12:00)
[2021-12-16] MEDS ORDERED: OPTIRAY 320 100ml IV ONE (14:08)
--- NOTE | 2021-12-16 14:36 | CT Scan Report ---
ABDOMEN AND PELVIS CT WITH IV CONTRAST CT DOSE: 1334.01 mGy.cm HISTORY: Lower abdominal pain, distress TECHNIQUE: Multiaxial CT images of the abdomen and pelvis were performed following the use of intrave nous contrast. A dose lowering technique was utilized adhering to the principles of ALARA. COMPARISON STUDY: Renal ultrasound 12/05/2021. FINDINGS: Suboptimal evaluation of the abdomen and pelvis due to the motion artifact. Patchy groundgl ass and consolidative airspace opacities within the lung bases. This favors a viral pneumonia. Trace left pleural effusion. No pneumoperitoneum. No pneumatosis. There is a right total hip arthroplasty. Mild anterior wedging at T12 which is likely chronic. Focal indentations within the superior endplate of L4 favor Schmorl's nodes. No acute fractures identified. It should be noted there appears be mini mal to no contrast within the abdomen or pelvis. Therefore, the contrast bolus may have extravasated. Cholecystectomy. The liver, spleen, and pancreas are unremarkable. Mild bilateral adrenal gland thic kening, left greater than right. This may be age-related. No renal or ureteral stones. No hydronephro sis. There is a 3.6 cm cyst within the left kidney. There is also a 1 cm cyst within the lower pole t he left kidney. No retroperitoneal lymphadenopathy. Mildly ectatic abdominal aorta, unchanged. No fan dence for an abdominal aortic aneurysm. No retroperitoneal hematoma. No pelvic free fluid. The bladde r is decompressed by Christianson catheter. A few calcified nodules within the deep pelvis. These are of rc btful clinical significance. A few colonic diverticula. No evidence for acute diverticulitis. No defi nite bowel wall thickening or obstruction. The appendix is not identified and may be surgically absen t. Prior hysterectomy. IMPRESSION: 1. Suboptimal evaluation due to the motion artifact. 2. No definite bowel wall thickening or obstruction. 3. Colonic diverticulosis. No evidence for acute diverticulitis. 4. No renal or ureteral stones. No hydronephrosis. 5. Prior cholecystectomy. 6. Patchy airspace opacities within the lung bases and a trace left pleural effusion. This is likely due to a viral pneumonia. 7. The bladder is decompressed by a Christianson catheter. ACT 112: Negative or not required by law. Electronically signed by: Poncho Magaña M.D. 12/16/2021 2:35 PM
[2021-12-16] MEDS: cefTRIAXone SODIUM 2,000 MG in DEXTROSE 5% 50 ML IV SCH (16:32)
[2021-12-16] MEDS: FAMOTIDINE 20 MG TAB PO SCH (20:17)
[2021-12-17] MEDS ORDERED: FUROSEMIDE INJ 20 MG/2 ML VIAL IV ONE ×2 (08:00→11:45)
[2021-12-17] MEDS: CLOTRIMAZOLE 1% CR 15 GM TUBE EXT SCH ×2 (08:32→20:30)
[2021-12-17] MEDS: dexAMETHasone 6 MG in SYRINGE 0 ML IV SCH (08:32)
[2021-12-17] MEDS: LINACLOTIDE 145 MCG CAPSULE PO SCH (08:33)
[2021-12-17] MEDS: UMECLIDINIUM/VILANTEROL 62.5/25MCG 7 PUFFS/INHALER INH SCH (08:33)
[2021-12-17] MEDS: RIVAROXABAN 20 MG TAB PO SCH (08:33)
[2021-12-17] MEDS: VENLAFAXINE HCL XR 150 MG CAPXR PO SCH (08:33)
[2021-12-17] MEDS: FLUTICASONE FUROATE 100MCG 14 PUFFS/INHALER INH SCH (08:33)
--- NOTE | 2021-12-17 08:36 | XRay Report ---
XR chest 1V portable CLINICAL HISTORY: Dyspnea. Follow-up bilateral airspace opacities COMPARISON STUDY: 12/14/2021 TECHNIQUE: 1 view of the chest FINDINGS: Single frontal view of the chest demonstrates the heart size to again be enlarged. Compared to previo us examination, there has been significant interval improvement with partial resolution of bilateral airspace opacities. No new alveolar opacities are seen. There is minimal blunting of left costophreni c angle suspicious for small left pleural effusion. There is no evidence for vascular congestion. The re is no acute osseous pathology. IMPRESSION: Compared to previous examination, there has been interval improvement with significant re solution of bilateral interstitial and alveolar opacities. There is suspicion of a small left pleural effusion. ACT 112: Negative or not required by law. Electronically signed by: Abbe Mcfarlane M.D. 12/17/2021 8:34 AM
[2021-12-17 08:47] LABS: Basophils # (auto) 0.09 K/uL (0-0.2); Basophils % (auto) 0.4 %; Hematocrit (blood only) 43.6 % (37-47); Hemoglobin 14.5 g/dL (12.0-16.0); Immature Granulocytes # (auto) 0.24 K/uL (0.00-0.02); Immature Granulocytes % (auto) 1.1 %; Lymphocytes # (auto) 1.72 K/uL (1.2-3.4); Lymphocytes % (auto) 7.7 %; Mean Corpuscular Hemoglobin 30.9 pg (25-34); Mean Corpuscular Hgb Conc 33.3 g/dL (32-36); Mean Corpuscular Volume 92.8 fL (80-100); Mean Platelet Volume 12.1 fL (7.4-10.4); Monocytes # (auto) 1.38 K/uL (0.11-0.59); Monocytes % (auto) 6.2 %; Neutrophils # (auto) 18.91 K/uL (1.4-6.5); Neutrophils % (auto) 84.6 %; Platelet Count 284 K/uL (130-400); RDW Coefficient of Variation 14.9 % (11.5-14.5); RDW Standard Deviation 50.7 fL (36.4-46.3); White Blood Count 22.34 K/uL (4.8-10.8)
[2021-12-17 08:50] LABS: BUN Creatinine Ratio 28.5 (10-20); C Reactive Protein 6.42 mg/dl (0-0.5); Calcium 7.9 mg/dl (8.5-10.1); Creatinine Clr Calc Pharmacy 38.8 ml/min; Est GFR (African American) 46.1 ml/min; Est GFR (Non-African American) 39.8 ml/min; Magnesium 1.7 mg/dl (1.7-2.4); Phosphorus 1.6 mg/dl (2.5-4.9); Potassium 3.8 mmol/L (3.5-5.1)
[2021-12-17] MEDS ORDERED: MoRPHine SULFATE 2 MG/ML CARP IV STA (09:09)
[2021-12-17] MEDS ORDERED: oxyCODONE HCL IR 5 MG TAB (IMMEDIATE RELEASE) PO STA (09:19)
[2021-12-17] MEDS ORDERED: POTASSIUM PHOS 3 MMOL/1 ML INFUSION IV STA (09:21)
[2021-12-17] MEDS: BUPRENORPHINE/NALOXONE 8/2 MG TAB SL SCH ×2 (09:28→20:29)
[2021-12-17] MEDS ORDERED: POTASSIUM PHOSPHATE 30 MMOL in SODIUM CHLORIDE 0.9% 500 ML IV ONE (09:30)
--- NOTE | 2021-12-17 09:36 | Hospitalist Progress Note ---
Date of Service December 17, 2021 Assessment & Plan (1) Opiate withdrawal: Plan: on Suboxone chronically, was held on admission due to septic shock and altered mental status now with agitation, tachycardia, tachypnea, tremors HR going up as high as 150, sinus tach will give Morphine 2mg IV stat, Oxycodone 5mg PO now will resume Suboxone at home dose and see how she responds labs this morning are largely unremarkable, no other reason for altered mental status, tachypnea, tachycardia (2) COVID-19: Plan: With *pneumonia secondary to coronavirus-19 disease and with acute and chronic respiratory failure with hypoxia -Day 9 of illness at the time of presentation. Patient is not vaccinated. Per sister, patient's illness has consisted of fatigue, weakness, and headache. No respiratory or GI symptoms. -stable on nasal canula today -CXR: airspace consolidation at the left lung base is typical for pneumonia/aspiration pneumonitis Procalcitonin was elevated at 2.7, down to 0.3 now - moved to ICU on 12/13 for hypotension, now normal BP, off Levophed, move to PCU status on 12/14 -Continue IV dexamethasone 6mg x 10 days total -Continue Ceftriaxone for pneumonia, 7 days total antibiotics -Contraindication for remdesivir due to acute kidney injury -Continue albuterol nebs as needed, fluticasone inhaled daily, and Anoro -Continue supplemental O2 to keep pulse ox greater than 90-92% -Add incentive spirometry and flutter valve (3) Septic shock: Plan: Developed hypotension on the night of admission requiring IV fluid boluses and IV albumin Did have some response to IV fluid boluses but remained encephalopathic and with renal failure and oliguria Lactate normal UA negative for infection Source being Covid-19 pneumonia and possibly bacterial superimposed pneumonia -Holding home lisinopril -needed Levophed, moved to ICU status now hypertensive, off pressors, move back to PCU status on 12/14 good response to Lasix on 12/15, give another dose of Lasix today -Follow blood cultures: no growth (4) Encephalopathy: Plan: *Metabolic encephalopathy Likely secondary to hypoxia, uremia, Covid-19 infection, pneumonia, and possibly medication side effect as she is on ziprasidone and Suboxone at home now could be withdrawal, will resume Suboxone Ammonia level normal CT head negative Continue treating the above conditions Provide supportive care if mental status does not improve with resuming Suboxone then will try for MRI brain at this time she would not lay still for MRI (5) Left lower lobe pneumonia: Plan: As above complete course of antibiotics on Cefriaxone, last day would be 12/18/21 (6) Acute kidney injury: Plan: -Creatinine and BUN elevated on admission at 49 and 2.3 Cr improved to 1.23, making urine, gave Lasix on 12/15 and will repeat today likely ATN appreciate nephrology consult, notes continue [place] -Hold home lisinopril -Renally dose medications -Follow serial chemistries (7) DVT (deep venous thrombosis): Plan: *Acute DVT of the proximal left superficial femoral vein -Due to patient's Antithrombin III deficiency and in the setting of Covid-19 -Presume she was taking her Xarelto at home although she may have missed some doses in the setting of encephalopathy and acute illness? gave heparin drip in setting of renal failure, Cr now 1.22, will resume Xarelto Suspect she has PE given ongoing chest pain, mildly elevated troponin, hypoxia, and hypotension, however acute kidney injury precludes obtaining a CT angiogram chest Echocardiogram with elevated right-sided pressures but normal RV function-likely not hemodynamically significant PE (8) Metabolic acidosis: Plan: due to sepsis, STAN bicarb is normal, resolved (9) Hypoxia: Plan: *Acute and chronic respiratory failure with hypoxia Secondary to COVID-19 pneumonia and secondary bacterial pneumonia as well as suspected PE as above Continue supplemental O2 to keep pulse ox greater than 90-92% stable on low flow nasal canula (10) Elevated troponin: Plan: Troponin mildly elevated and stable at 0.1x3, EKG showed sinus rhythm with Premature atrial complexes, nonspecific ST and T wave abnormality With ongoing chest pain which may be related to respiratory issues versus PE Echocardiogram without wall motion abnormalities but with mildly elevated right- sided pressures, preserved EF Likely myocardial demand ischemia (11) COPD (chronic obstructive pulmonary disease): Plan: -Patient has home O2 for prn use. According to sister, patient has not used it in a long time, has not been using it since COVID diagnosis on 12/03. 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 20 mg daily, resume today at Cr is 1.38 With history of DVT and PE With acute DVT as above and suspected PE was on heparin drip from admission (13) Hypertension: Plan: hypertensive today suspect withdrawal is contributing (14) Hypocalcemia: Plan: corrected calcium close to normal (15) Hypomagnesemia: Plan: 1.7 today after replacement (16) Hypokalemia: Plan: 3.8 today, giving K phos for phosphate level (17) CAD (coronary artery disease), [place] coronary artery: Plan: with h/o stent placed I do not see aspirin on her list from home and has NSAIDs listed as an allergy Myocardial demand ischemia as above (18) On home oxygen therapy: Plan: chronic hs (19) Depression: Plan: -Continue venlafaxine 150 mg daily. -hold ziprasidone 60 mg daily while altered MS (20) Anemia: Plan: Hemoglobin 14 (21) Thrombocytopenia: Plan: Platelets now normal, 284k (22) Abdominal pain: Plan: nothing on CT abdomen pelvis suspect general pain is due to opiate withdrawal (23) Hypophosphatemia: Plan: low again at 1.6, give 30mmol of K phos Plan: Prophylaxis- Xarelto Disposition- continue PCU, closely monitor vitals, see if she improves with narcotics Admission and Anticipated Discharge Date Admission Date: December 12, 2021 Subjective patient hypertensive, tachycardic, tachypneic this morning, agitated, says she is in pain but cannot say where discussed with RN, she mentioned that she noticed the patient is on buprenorphine at home, might be going through withdrawal checked labs, Cr improving, Phos low at 1.6, CRP coming down, WBC up at 22k, ammonia normal, lactic acid 2.7 patient has tremors and just looks uncomfortable will try Morphine 2mg IV stat and Oxycodone 5mg PO and see if she calms down and HR comes down will resume buprenorphine Review of Systems Review of Systems: Unobtainable due to cognitive status (confused, not speaking clearly) Physical Exam Physical Exam: General: well developed, frail appearing, uncomfortable and agitated, confused Neck: supple, trachea midline, normal thyroid Lungs: clear to auscultation bilaterally, + tachypnea Heart: tachycardia S1 and S2, no murmur, peripheral pulses normal, capillary refill normal, no edema Abdomen: soft, NT, ND, + BS, no hepatomegaly, normal to percussion Extremities: normal in appearance, no cyanosis, no petechiae, strength is slightly diminished bilaterally Neuro: awake, uncooperative, moves all extremities, no focal motor deficits, CN II-XII intact, tremors, agitated Skin: warm, dry, no rash, normal turgor Psych: Awake, oriented to person only, confused and agitated Results & Data Results & Data ([facility]) Vital Signs (Past 12 Hours) Vital Signs Temp Pulse Resp BP Pulse Ox 12/17/21 07:50 37.7 C H 138 H 35 H 133/96 90 12/17/21 04:59 37.3 C 121 H 26 H 135/109 H 91 12/17/21 00:10 36.7 C 115 H 26 H 151/107 H 91 Laboratory Results Laboratory Results - last 24 hr 12/17/21 12/17/21 12/17/21 08:02 08:02 08:02 WBC 22.34 H RBC 4.70 Hgb 14.5 Hct 43.6 MCV 92.8 MCH 30.9 MCHC 33.3 RDW Std Deviation 50.7 H RDW Coeff of Bal 14.9 H Plt Count 284 MPV 12.1 H Immature Gran % (Auto) 1.1 Neut % (Auto) 84.6 Lymph % (Auto) 7.7 [place] % (Auto) 6.2 Eos % (Auto) 0.0 Baso % (Auto) 0.4 Neut # (Auto) 18.91 H Lymph # (Auto) 1.72 [place] # (Auto) 1.38 H Eos # (Auto) 0.00 Baso # (Auto) 0.09 Immature Gran # (Auto) 0.24 H Sodium 143 Potassium 3.8 Chloride 104 Carbon Dioxide 20 L Anion Gap 19 H BUN 39 H Creatinine 1.37 H Est Cr Clr Drug Dosing 38.8 Est GFR ( Amer) 46.1 Est GFR (Non-Af Amer) 39.8 BUN/Creatinine Ratio 28.5 H Glucose 189 H Lactate Calcium 7.9 L Phosphorus 1.6 L Magnesium 1.7 Ammonia 29.0 Troponin I Pending C-Reactive Protein 6.42 H Procalcitonin 12/17/21 12/17/21 08:02 08:02 WBC RBC Hgb Hct MCV MCH MCHC RDW Std Deviation RDW Coeff of Bal Plt Count MPV Immature Gran % (Auto) Neut % (Auto) Lymph % (Auto) [place] % (Auto) Eos % (Auto) Baso % (Auto) Neut # (Auto) Lymph # (Auto) [place] # (Auto) Eos # (Auto) Baso # (Auto) Immature Gran # (Auto) Sodium Potassium Chloride Carbon Dioxide Anion Gap BUN Creatinine Est Cr Clr Drug Dosing Est GFR ( Amer) Est GFR (Non-Af Amer) BUN/Creatinine Ratio Glucose Lactate 2.7 H* Calcium Phosphorus Magnesium Ammonia Troponin I C-Reactive Protein Procalcitonin 0.32 Medications Administered Current Inpatient Medications Acetaminophen (Acetaminophen 325 Mg Tab) 650 mg PO Q4H PRN PRN Reason: Pain or Fever Stop: 01/12/22 00:23 Last Admin: 12/14/21 20:40 Dose: 650 mg Documented by: Albuterol (Albut/Ipratrop 3mg/0.5mg Neb 3 Ml Vial) 3 ml NEB Q4R PRN; Protocol PRN Reason: Dyspnea Stop: 01/11/22 22:59 Last Admin: 12/14/21 21:17 Dose: 3 ml Documented by: Buprenorphine/Naloxone (Buprenorphine/Naloxone 8/2 Mg Tab) 1 tab SL BID [facility] Stop: 01/16/22 09:29 Clotrimazole (Clotrimazole 1% Cr 15 Gm Tube) 1 appln EXT BID [facility] Stop: 01/12/22 08:59 Last Admin: 12/17/21 08:32 Dose: 1 appln Documented by: Ergocalciferol (Ergocalciferol 50,000 Units 1250 Mcg Cap) 50,000 units PO We@0900 [facility] Stop: 01/17/22 08:59 Famotidine (Famotidine 20 Mg Tab) 20 mg PO HS [facility] Stop: 01/12/22 00:09 Last Admin: 12/16/21 20:17 Dose: 20 mg Documented by: Fluticasone Furoate (Fluticasone Furoate 100mcg 14 Puffs/Inhaler) 1 puffs INH DAILY [facility] Stop: 01/12/22 00:09 Last Admin: 12/17/21 08:33 Dose: 1 puffs Documented by: Dexamethasone 6 mg/ Syringe 1.5 mls @ 1 mls/min IV Q24H [facility] Stop: 01/12/22 08:59 Last Admin: 12/17/21 08:32 Dose: 1 mls/min Documented by: Ceftriaxone Sodium 2,000 mg/ (Dextrose) 70 mls @ 140 mls/hr IV DAILY@1600 [facility] Stop: 12/20/21 03:59 Last Infusion: 12/16/21 17:06 Dose: Infused Documented by: Potassium Phosphate 30 mmol/ (Sodium Chloride) 510 mls @ 102 mls/hr IV ONE ONE Stop: 12/17/21 14:29 Linaclotide (Linaclotide 145 Mcg Capsule) 290 mcg PO QAM [facility] Stop: 01/12/22 08:59 Last Admin: 12/17/21 08:33 Dose: 290 mcg Documented by: Ondansetron HCl (Ondansetron Inj 2 Mg/Ml 2 Ml Vial) 4 mg IV Q6H PRN PRN Reason: Nausea Stop: 01/12/22 00:09 Rivaroxaban (Rivaroxaban 20 Mg Tab) 20 mg PO DAILY [facility] Stop: 01/14/22 10:44 Last Admin: 12/17/21 08:33 Dose: 20 mg Documented by: Umeclidinium/Vilanterol (Umeclidinium/Vilanterol 62.5/25mcg 7 Puffs/Inhaler) 1 puffs INH DAILY [facility] Stop: 01/12/22 00:09 Last Admin: 12/17/21 08:33 Dose: 1 puffs Documented by: Venlafaxine HCl (Venlafaxine Hcl Xr 150 Mg Capxr) 150 mg PO QAM [facility] Stop: 01/12/22 08:59 Last Admin: 12/17/21 08:33 Dose: 150 mg Documented by: Ziprasidone (Ziprasidone Hcl 20 Mg Cap) 60 mg PO DAILY@0800 [facility] Stop: 01/16/22 09:29 PG Care Time/CCT Total # of Minutes Spent Total Time Spent with Patient: Total time spent is greater than 50% in coordination of care (as documented) at patient's floor/unit and/or counseling patient: Coding Level of Care Code 01634 Subseq Hosp Care Lvl 3 Diagnoses COVID-19 U07.1 Septic shock A41.9; R65.21 Encephalopathy G93.40 Left lower lobe pneumonia J18.9 Acute kidney injury N17.9 DVT (deep venous thrombosis) I82.409 Metabolic acidosis E87.2 Hypoxia R09.02 Elevated troponin R77.8 COPD (chronic obstructive pulmonary disease) J44.9 Antithrombin 3 deficiency D68.59 Hypertension I10 Hypocalcemia E83.51 Hypomagnesemia E83.42 Hypokalemia E87.6 CAD (coronary artery disease), [place] coronary artery I25.10 On home oxygen therapy Z99.81 Depression F32.9 Psychotic features: with psychotic features Anemia D64.9 Thrombocytopenia D69.6 Abdominal pain R10.9 Hypophosphatemia E83.39 Opiate withdrawal F11.23 (1) Depression Psychotic features: with psychotic features
[2021-12-17] MEDS ORDERED: MoRPHine SULFATE 4 MG/ML 1 ML CARP\\VIAL IV STA (09:43)
[2021-12-17] MEDS ORDERED: SODIUM CHLORIDE 0.9% 1000ML 1,000 ML IV ONE ×2 (11:50→12:04)
[2021-12-17] MEDS: NICOTINE 14 MG/24 HR PATCH TD SCH (11:56)
[2021-12-17 12:40] LABS: Base Excess ABG -2.2 mEq/L (-9-1.8); HCO3 ABG 20 mmol/L (19-24); PCO2 ABG 29 mmHg (35-46); PO2 ABG 54 mmHg (80-95); pH ABG 7.47 (7.35-7.45)
[2021-12-17 12:44] LABS: Allen Test Pos (Pos)
--- NOTE | 2021-12-17 12:56 | Critical Care Progress Note ---
Date of Service December 17, 2021 Assessment & Plan (1) Septic shock: (2) Acute respiratory failure with hypoxia: (3) Acute pneumonia: (4) DVT (deep venous thrombosis): (5) Acute kidney injury: (6) Antithrombin 3 deficiency: Plan: 66-year-old female with a history of Antithrombin III deficiency, coronary artery disease and depression who presented to the hospital with shortness of breath and mild encephalopathy. She has evidence of left lower lobe pneumonia and a lower extremity DVT. She also has COVID-19. Patient was downgraded from the ICU but ICU was reconsulted on 12/17/2021 because of altered mental status and hypotensive episode. Neurologic: --Metabolic encephalopathy Multifactorial Could be from withdrawal as she was not on Suboxone Sepsis with elevated WBC count also might be playing a role Ammonia/calcium/TSH within normal limit Nasal MRSA is negative Continue with antibiotics Aspiration precautions Pulmonary: --Acute on chronic hypoxic respiratory failure Secondary to COVID-19 pneumonia. Repeat 2D echo 12/17/2021: EF 35-40% --History of COPD Continue with Anoro Cardiovascular: --Hypotension Likely combination of sepsis as well as the use of morphine S/p IV fluids Continue to monitor --Elevated troponin Likely type II MA Follow-up EKG Gastrointestinal: No acute issues currently Renal: --STAN on CKD Monitor BUNs/creatinine Avoid nephrotoxic medications --High anion gap metabolic acidosis Delta delta: Greater than 2, metabolic acidosis plus alkalosis Metabolic acidosis likely from lactic acidosis plus CKD Continue to monitor Infectious disease: --COVID-19 pneumonia Patient has completed the course of azithromycin Cefepime has been changed to Rocephin as of 12/17/2021 10 days of dexamethasone UA dirty 12/17/21 follow-up culture CRP 25.19 --> 6.4 on 12/17/2021 Procalcitonin 2.89 --> 0.32 on 12/17/21 Hematologic: --Lower extremity DVT Left superficial femoral popliteal vein On Xarelto --History of Antithrombin III deficiency Endocrine: ICU hypoglycemia protocol TSH within normal limit 12/12/1980 --Prophylaxis VTE: Xarelto GI: Pepcid Lines: Peripherals Diet: N.p.o. Plan: Patient got total of 2 L IV bolus and her blood pressure significantly improved 2D echo was again repeated today which showed decreased ejection fraction 35-40% which is change compared to echo done on the . ABG shows primary respiratory alkalosis. There is also metabolic acidosis likely from lactate as well as STAN on CKD Chest x-ray from today does not show any significant change compared to before. Increased cardiac silhouette. Other opacities persist bilaterally more on the right side Hypophosphatemia being replaced I will start the patient on Precedex. Give one half amp of bicarb. Precedex will help with withdrawal which is a possibility in her. Urine is dirty. Continue with Rocephin admission cover for UTI, change Christianson We will consider CT head after starting the patient on Precedex If there is any clinical deterioration intubation will be thought of Case was discussed with Dr. Fernandez I have personally spent 45 minutes of critical care time in the direct management of this patient. This is a life/limb threatening event. This includes time spent evaluating patient, direct bedside care, chart review, placing orders, interpretation of diagnostic studies, discussion with consultants, patient, and family members, as well as other required patient management activities. This time is exclusive of all separately billable procedures, and teaching time and separate from and in addition to any other critical care service time. Please note the above document was generated using voice recognition software. It may contain grammatical, syntax or spelling errors. Admission and Anticipated Discharge Date Admission Date: December 12, 2021 Subjective 66-year-old female past medical history of Antithrombin deficiency who presented to the hospital because of shortness of breath. She was found to be Covid positive on 12/03/2021. I she was initially consulted because of hypoxia but she was stable on the amount of oxygen that she was getting in ICU eventually signed off. Dr. Fernandez called today for evaluation again as patient was found to be tachycardic and hypertensive Her heart rate was going into 130 this. EKG shows sinus tachycardia with PACs. No ST-T wave changes Patient was hypotensive as well. She did get total 6 mg of morphine at the thought process initially was the patient is most likely withdrawing leading to tachycardia At the time of examination patient is awake but not alert. She just looks at you on calling her name but does not follow any command. Her map was 190s systolic in 120s. Heart rate was in the 120s as well with PACs. Review of Systems Review of Systems: Unobtainable due to mental health condition Physical Exam Physical Exam: Constitutional: No acute distress HEENT: EOMI, PERRLA Respiratory system: Decreased air entry bilaterally, no wheeze, no rhonchi, positive crackles bilaterally CVS: S1-S2 positive, no murmurs or gallops, tachycardia Abdomen: Soft, nontender, nondistended, positive bowel sounds x4 Extremities: +2 pulses bilaterally radialis/ dorsalis pedis, no cyanosis, no edema Neuro: Awake but not following commands Psych: Flat mood and affect G/U: Positive Christianson Skin: no rashes, warm and dry Lymphatic: no cervical or axillary lymphadenopathy Results & Data Results & Data ([facility]) Vital Signs (Past 12 Hours) Vital Signs Temp Pulse Pulse Resp BP Pulse Ox 12/17/21 08:00 132 H 12/17/21 07:50 37.7 C H 138 H 35 H 133/96 90 12/17/21 04:59 37.3 C 121 H 26 H 135/109 H 91 Laboratory Results 12/17/21 08:02 12/17/21 08:02 Coding Level of Care Code Critical Care 1st 30-74 mins Diagnoses Septic shock A41.9; R65.21 Acute respiratory failure with hypoxia J96.01 Acute pneumonia J18.9 DVT (deep venous thrombosis) I82.409 Acute kidney injury N17.9 Antithrombin 3 deficiency D68.59 Time Spent (min) 45
[2021-12-17 13:38] LABS: Appearance Urine Cloudy (Clear); Bilirubin Urine Negative (Negative); Blood Urine 3+ (Negative); Color Urine Dark Yellow; Epithelial Cell Urine Auto >30 /lpf (0-5); Glucose Urine UA Negative (Negative); Ketones Urine 1+ (Negative); Leukocyte Esterase Urine Negative (Negative); Nitrite Urine Negative (Negative); Protein Urine 3+ (Negative); RBC Urine Automated >30 /hpf (0-4); Specific Gravity Urine 1.028 (1.000-1.030); Urobilinogen Urine Negative (Negative)
[2021-12-17 14:10] LABS: Amorphous Sediment Urine Present (None Prsent)
[2021-12-17 14:11] LABS: Bacteria Urine Automated 1+ (Negative)
[2021-12-17] MEDS: oxyCODONE HCL IR 5 MG TAB (IMMEDIATE RELEASE) PO SCH ×2 (16:15→20:29)
[2021-12-17] MEDS: cefTRIAXone SODIUM 2,000 MG in DEXTROSE 5% 50 ML IV SCH (16:28)
[2021-12-17] MEDS ORDERED: STAT IV Infusion **Titration per Protocol STA (17:10)
[2021-12-17] MEDS ORDERED: SODIUM BICARB 8.4% INJ 50 MEQ/50 ML SYR IV STA (17:11)
[2021-12-17] MEDS: DEXMEDETOMIDINE HCL 200 MCG in SODIUM CHLORIDE 0.9% 48 ML IV SCH ×2 (17:49→23:39)
--- NOTE | 2021-12-17 19:38 | XRay Report ---
KUB CLINICAL HISTORY: Enteric tube placement. FINDINGS: 3 AP, portable, supine radiographs of the lower chest and upper abdomen are correlated with abdominal CT dated 12/16/2021. An Enteric tube has been placed. On the third image the tip projects b elow the diaphragm over the mid stomach. There is no radiographic evidence of bowel obstruction. Mult ifocal airspace consolidation is seen at the lung bases. The heart is enlarged. Healed rib fractures are noted bilaterally. IMPRESSION: 1. An enteric tube has been placed as above. 2. Cardiomegaly with multifocal airspace consolidation. 3. There is no radiographic evidence of bowel obstruction. Electronically signed by: Champ Matos M.D. 12/17/2021 7:37 PM
[2021-12-17] MEDS: FAMOTIDINE 20 MG TAB PO SCH (20:29)
[2021-12-17] MEDS: ACETAMINOPHEN 325 MG TAB PO PRN (20:54)
[2021-12-17 22:14] LABS: iSTAT Allen Test Pass; iSTAT Art Bld Gas pCO2 Correct 44 mmHg (35-46); iSTAT Art Bld Gas pH Corrected 7.401 (7.35-7.45); iSTAT Arterial Blood Gas HCO3 26 meg/L (19-24); iSTAT Arterial Blood Gas pCO2 37 mmHg (35-46); iSTAT Arterial Blood Gas pH 7.46 (7.35-7.45); iSTAT Arterial Blood Gas pO2 60 mmHg (80-95); iSTAT Arterial Blood Gas pO2 C 79; iSTAT Carbon Dioxide 27 mmol/L (24-31); iSTAT Hematocrit 39 % (37-47); iSTAT Hemoglobin 13.3 g/dl (12.0-16.0); iSTAT Site L Radial; iSTAT Sodium 149 mmol/L (135-144)
[2021-12-18] MEDS: ACETAMINOPHEN 325 MG TAB PO PRN (00:13)
[2021-12-18] MEDS: oxyCODONE HCL IR 5 MG TAB (IMMEDIATE RELEASE) PO SCH ×2 (00:14→05:50)
[2021-12-18] MEDS: DEXMEDETOMIDINE HCL 400 MCG in 0.9 % SODIUM CHLORIDE 96 ML IV SCH ×6 (01:30→13:22)
[2021-12-18] MEDS: DEXMEDETOMIDINE HCL 200 MCG in SODIUM CHLORIDE 0.9% 48 ML IV SCH (05:10)
[2021-12-18 06:03] LABS: Hematocrit (blood only) 42.9 % (37-47); Hemoglobin 13.4 g/dL (12.0-16.0); Mean Corpuscular Hemoglobin 30.3 pg (25-34); Mean Corpuscular Hgb Conc 31.2 g/dL (32-36); Mean Corpuscular Volume 97.1 fL (80-100); Mean Platelet Volume 12.2 fL (7.4-10.4); Nucleated RBC # (auto) 0.02 K/uL (0-0); Nucleated RBC % (auto) 0.1 %; Platelet Count 175 K/uL (130-400); RDW Coefficient of Variation 15.3 % (11.5-14.5); Red Blood Count 4.42 M/uL (4.2-5.4); White Blood Count 19.37 K/uL (4.8-10.8)
[2021-12-18 06:30] LABS: Albumin Globulin Ratio 0.9 (0.9-2); Albumin Level 2.8 gm/dl (3.4-5.0); BUN Creatinine Ratio 26.1 (10-20); Bilirubin,Total 0.4 mg/dl (0.2-1.0); Creatinine Clr Calc Pharmacy 23.4 ml/min; Est GFR (African American) 25.2 ml/min; Est GFR (Non-African American) 21.7 ml/min; Globulin 3.1 gm/dl (2.5-4.0); Magnesium 1.9 mg/dl (1.7-2.4); Phosphorus 4.7 mg/dl (2.5-4.9); Potassium 3.8 mmol/L (3.5-5.1); Total Protein 5.9 gm/dl (6.0-8.3); Troponin I 5.86 ng/ml (0-0.04)
[2021-12-18 06:38] LABS: Basophils # (auto) 0.13 K/uL (0-0.2); Basophils % (auto) 0.7 %; Immature Granulocytes # (auto) 0.27 K/uL (0.00-0.02); Immature Granulocytes % (auto) 1.4 %; Lymphocytes % (auto) 6.7 %; Monocytes # (auto) 1.59 K/uL (0.11-0.59); Monocytes % (auto) 8.2 %; Neutrophils # (auto) 16.08 K/uL (1.4-6.5)
[2021-12-18] MEDS ORDERED: MAGNESIUM SULFATE / D5W 1 GM/100 ML BAG IV ONE (07:00)
--- NOTE | 2021-12-18 07:21 | CT Scan Report ---
CT head/brain wo con CLINICAL HISTORY: AMS . Unresponsive COMPARISON STUDY: 12/12/2021 CT DOSE: 1382.10 mGy.cm TECHNIQUE: Standard CT of the Brain was performed without IV contrast. A dose lowering technique was utilized adhering to the principles of ALARA. FINDINGS: Motion artifact is present. Extraaxial space: There is no evidence for subdural hematoma. There are no extra-axial fluid collecti ons. Ventricles and cisterns: The ventricles are normal in size and configuration. There is no evidence f or midline shift or mass effect. Parenchyma: There is no subarachnoid or intraparenchymal hemorrhage. There is no evidence for an acu te infarct or cerebral edema. There is mild cerebral cortical atrophy present. There is homogeneous a ttenuation of the brain parenchyma. There are no gross mass lesions. Osseous structures: There is no evidence for an acute fracture. The visualized paranasal sinuses are clear. The mastoid air cells are clear bilaterally. Soft tissues: There is no evidence for focal soft tissue swelling. IMPRESSION: No acute intracerebral pathology. Motion artifact is present. Mild cerebral cortical atro phy. ACT 112: Negative or not required by law. Electronically signed by: Abbe Mcfarlane M.D. 12/18/2021 7:20 AM
[2021-12-18] MEDS ORDERED: ERGOCALCIFEROL 50,000 UNITS 1250 MCG CAP PO SCH (09:00)
--- NOTE | 2021-12-18 09:18 | XCELERA ---
[id number]
--- NOTE | 2021-12-18 09:31 | XRay Report ---
XR chest 1V portable HISTORY: Respiratory failure. COMPARISON: Chest 12/17/2021. FINDINGS: No pneumothorax. A feeding tube is curled within the stomach with the tip terminating in th e gastric cardia. Patchy bibasilar airspace opacities are again noted. The heart remains mildly enlar ged. There are old, healed left-sided rib fractures. Mild interstitial thickening, unchanged. Suspect a trace left pleural effusion. IMPRESSION: 1. The feeding tube is curled within the stomach with the tip terminating at the gastric cardia. 2. No change in the patchy bibasilar airspace opacities likely representing a pneumonia. ACT 112: Negative or not required by law. Electronically signed by: Poncho Magaña M.D. 12/18/2021 9:30 AM
[2021-12-18] MEDS: UMECLIDINIUM/VILANTEROL 62.5/25MCG 7 PUFFS/INHALER INH SCH (09:33)
[2021-12-18] MEDS: dexAMETHasone 6 MG in SYRINGE 0 ML IV SCH (09:34)
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
[2021-12-18] MEDS: FLUTICASONE FUROATE 100MCG 14 PUFFS/INHALER INH SCH (10:04)
[2021-12-18] MEDS: RIVAROXABAN 20 MG TAB PO SCH (10:20)
[2021-12-18] MEDS: VENLAFAXINE HCL XR 150 MG CAPXR PO SCH (10:20)
[2021-12-18] MEDS ORDERED: Heparin IV Adult Wt-Based Standard *NO* Bolus Protocol IV SCH (10:30)
--- NOTE | 2021-12-18 11:13 | Electrocardiogram Report ---
Test Reason : Blood Pressure : / mmHG Vent. Rate : 125 BPM Atrial Rate : 125 BPM P-R Int : 124 ms QRS Dur : 068 ms QT Int : 294 ms P-R-T Axes : 048 -07 055 degrees QTc Int : 424 ms Sinus tachycardia with Premature atrial complexes Possible Left atrial enlargement Borderline ECG When compared with ECG of 13-DEC-2021 03:24, Vent. rate has increased BY [address] elevation now present in Lateral leads Nonspecific T wave abnormality no longer evident in Inferior leads Confirmed by Ky Marsh ([id number]) on 12/18/2021 11:13:09 AM Referred By: REFERRED SELF Confirmed By:Ky Marsh
--- NOTE | 2021-12-18 11:27 | Electrocardiogram Report ---
Test Reason : Blood Pressure : / mmHG Vent. Rate : 149 BPM Atrial Rate : 149 BPM P-R Int : 152 ms QRS Dur : 068 ms QT Int : 272 ms P-R-T Axes : 074 014 126 degrees QTc Int : 428 ms Poor data quality, interpretation may be adversely affected Sinus tachycardia with Premature supraventricular complexes and Premature ventricular complexes Septal infarct , age undetermined T wave abnormality, consider lateral ischemia Abnormal ECG When compared with ECG of 17-DEC-2021 14:17, (unconfirmed) Premature ventricular complexes are now Present Septal infarct is now Present Confirmed by Ky Marsh ([id number]) on 12/18/2021 11:26:40 AM Referred By: REFERRED SELF Confirmed By:Ky Marsh
--- NOTE | 2021-12-18 11:41 | Electrocardiogram Report ---
Test Reason : Blood Pressure : / mmHG Vent. Rate : 099 BPM Atrial Rate : 099 BPM P-R Int : 136 ms QRS Dur : 068 ms QT Int : 396 ms P-R-T Axes : 069 -02 264 degrees QTc Int : 508 ms Sinus rhythm with Premature atrial complexes Possible Left atrial enlargement T wave abnormality, consider lateral ischemia Abnormal ECG When compared with ECG of 17-DEC-2021 20:17, (unconfirmed) Significant changes have occurred Confirmed by Ky Marsh ([id number]) on 12/18/2021 11:41:08 AM Referred By: REFERRED SELF Confirmed By:Ky Marsh
[2021-12-18] MEDS: CLOTRIMAZOLE 1% CR 15 GM TUBE EXT SCH ×2 (11:46→20:29)
[2021-12-18] MEDS: FAMOTIDINE 20 MG in SYRINGE 3 ML IV SCH (11:46)
[2021-12-18] MEDS: HEPARIN SODIUM/DEXTROSE 25,000 UNITS/500 ML BAG IV SCH (11:57)
[2021-12-18] MEDS: BUPRENORPHINE/NALOXONE 8/2 MG TAB SL SCH ×2 (12:02→20:29)
[2021-12-18] MEDS: CEFEPIME 1,000 MG in SYRINGE 0 ML IV SCH ×2 (12:03→23:58)
[2021-12-18] MEDS: LINACLOTIDE 145 MCG CAPSULE PO SCH (12:03)
[2021-12-18] MEDS: NICOTINE 14 MG/24 HR PATCH TD SCH (12:20)
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
--- NOTE | 2021-12-18 13:29 | Critical Care Progress Note ---
Date of Service December 18, 2021 Assessment & Plan (1) Septic shock: (2) Acute respiratory failure with hypoxia: (3) Acute pneumonia: (4) DVT (deep venous thrombosis): (5) Acute kidney injury: (6) Antithrombin 3 deficiency: Plan: 66-year-old female with a history of Antithrombin III deficiency, coronary artery disease and depression who presented to the hospital with shortness of breath and mild encephalopathy. She has evidence of left lower lobe pneumonia and a lower extremity DVT. She also has COVID-19. Patient was downgraded from the ICU but ICU was reconsulted on 12/17/2021 because of altered mental status and hypotensive episode. Neurologic: --Metabolic encephalopathy --> minimal improvement Multifactorial Could be from withdrawal as she was not on Suboxone DTs can also be playing a part Sepsis with elevated WBC count also might be playing a role CT head 12/17/21: Negative for intracerebral pathology. Mild cerebral cortical atrophy Ammonia/calcium/TSH within normal limit Nasal MRSA is negative Continue with antibiotics Aspiration precautions Pulmonary: --Acute on chronic hypoxic respiratory failure Secondary to COVID-19 pneumonia. Repeat 2D echo 12/17/2021: EF 35-40% --History of COPD Continue with Anoro Cardiovascular: --Hypotension --> responded to fluids Likely combination of sepsis as well as the use of morphine S/p IV fluids Continue to monitor --Elevated troponin Likely type II OK Trending down T wave inversions on the lateral leads appreciated on the EKG Cardiology has been consulted Gastrointestinal: No acute issues currently Renal: --STAN on CKD Monitor BUNs/creatinine Avoid nephrotoxic medications --High anion gap metabolic acidosis Delta delta: Greater than 2, metabolic acidosis plus alkalosis Metabolic acidosis likely from lactic acidosis plus CKD Continue to monitor Infectious disease: --COVID-19 pneumonia Patient has completed the course of azithromycin Cefepime has been changed to Rocephin as of 12/17/2021 --> Changed again to cefepime 12/18/21 10 days of dexamethasone UA dirty 12/17/21 follow-up culture CRP 25.19 --> 6.4 on 12/17/2021 Procalcitonin 2.89 --> 0.32 on 12/17/21 --> 3.11 12/18 Hematologic: --Lower extremity DVT Left superficial femoral popliteal vein On anticoagulation --History of Antithrombin III deficiency Endocrine: ICU hypoglycemia protocol TSH within normal limit 12/12/1980 --Prophylaxis VTE: Xarelto --> Heparin drip GI: Pepcid Lines: Peripherals Diet: Tube feeds Plan: In/out: +2.5 L, urine output 250 mL T-max 41 Patient seems to be more alert compared to when I saw her yesterday She is on Precedex 1.5 we will try to gradually go down. Patient's blood pressure is on the lower side again seems to be from Precedex related. Withdrawal from opioid and/or alcohol likely playing a role on top of sepsis Midazolam pushes can be thought off on an as-needed basis Hypernatremia with hyperchloremia. This seems to be from the boluses that she got yesterday. We will try to give free water 250 mL every 6 hours through NGT Patient has new onset CHF. Cardiology is on board Kidney function is getting worse This could be from the episodes from 12/17/2021. Continue to monitor. We will change Rocephin back to cefepime as urine is dirty source could be urinary. No indication for intubation right now. If there is any worsening in her respiratory or mental status will intubate the patient. Case was discussed with TIM Fulton. Case was discussed with Dr. Fernandez I have personally spent 38 minutes of critical care time in the direct management of this patient. This is a life/limb threatening event. This includes time spent evaluating patient, direct bedside care, chart review, placing orders, interpretation of diagnostic studies, discussion with consultants, patient, and family members, as well as other required patient management activities. This time is exclusive of all separately billable procedures, and teaching time and separate from and in addition to any other critical care service time. Please note the above document was generated using voice recognition software. It may contain grammatical, syntax or spelling errors. Admission and Anticipated Discharge Date Admission Date: December 12, 2021 Subjective Patient seen and examined at bedside. No acute distress. She was on BiPAP saturating 100%, 08/20. She was breathing in the mid 20s I took the BiPAP off and put her on oxygen mask and she was saturating 92-93% he went on 7 L oxygen mask She is more alert compared to yesterday She was on Precedex 1.5 at the time of examination She denied any headache, no chest pain, no belly pain She was awake and alert to self Review of Systems Review of Systems: All systems reviewed & are unremarkable except as noted in Subjective Physical Exam Physical Exam: Constitutional: No acute distress HEENT: EOMI, PERRLA Respiratory system: Decreased air entry bilaterally, no wheeze, no rhonchi, positive crackles bilaterally CVS: S1-S2 positive, no murmurs or gallops, tachycardia Abdomen: Soft, nontender, nondistended, positive bowel sounds x4 Extremities: +2 pulses bilaterally radialis/ dorsalis pedis, no cyanosis, no edema Neuro: Awake and alert to self Psych: Flat mood and affect G/U: Positive Christianson Skin: no rashes, warm and dry Lymphatic: no cervical or axillary lymphadenopathy Results & Data Results & Data ([place]) Vital Signs (Past 12 Hours) Vital Signs Temp Pulse Pulse Resp BP BP Pulse Ox 12/18/21 12:30 61 23 84/54 L 93 12/18/21 12:00 63 23 85/58 L 93 12/18/21 11:30 64 23 95/67 L 94 12/18/21 11:19 36.9 C 72 68 25 H 93/62 L 93/62 L 92 12/18/21 11:00 67 24 83/53 L 93 12/18/21 10:30 72 26 H 86/47 L 94 12/18/21 10:29 79 25 H 80/54 L 94 12/18/21 10:00 78 27 H 93 12/18/21 09:31 83 27 H 94/57 L 93 12/18/21 09:28 81 27 H 94/62 L 92 12/18/21 09:25 79 29 H 94/57 L 93 12/18/21 09:09 80 27 H 123/52 L 93 12/18/21 09:00 36.8 C 83 29 H 99 12/18/21 08:00 88 28 H 91 12/18/21 07:50 83 30 H 91 12/18/21 07:38 83 28 H 90/50 L 92 12/18/21 07:31 97 H 24 50/38 L 90 12/18/21 07:23 93 H 30 H 92/71 L 91 12/18/21 07:21 88 29 H 86/55 L 91 12/18/21 07:01 94 H 106/66 93 12/18/21 07:00 92 H 94 12/18/21 06:30 95 H 111/82 93 12/18/21 06:00 94 H 97/77 L 93 12/18/21 05:50 37.5 C 95 H 93 12/18/21 05:40 100 H 93 12/18/21 05:30 98 H 103/71 92 12/18/21 05:20 95 H 92 12/18/21 05:10 95 H 92 12/18/21 05:00 108 H 93/72 L 93 12/18/21 04:50 104 H 93 12/18/21 04:40 103 H 92 12/18/21 04:31 100 H 94/64 L 92 12/18/21 04:30 101 H 12/18/21 04:20 103 H 92 12/18/21 04:10 97 H 93 12/18/21 04:01 106 H 103/76 94 12/18/21 04:00 112 H 12/18/21 03:59 113 H 40 H 93 12/18/21 03:50 100 H 93 12/18/21 03:40 102 H 93 12/18/21 03:30 102 H 82/62 L 93 12/18/21 03:20 38.1 C H 104 H 40 H 94 12/18/21 03:10 109 H 94 12/18/21 03:00 109 H 93 12/18/21 02:50 111 H 94 12/18/21 02:41 109 H 94 12/18/21 02:31 108 H 99/66 L 93 12/18/21 02:30 114 H 86 L 12/18/21 02:20 114 H 93 12/18/21 02:10 127 H 94 12/18/21 02:01 120 H 36 H 93 12/18/21 01:50 120 H 93 12/18/21 01:40 120 H 92 12/18/21 01:30 119 H 38 H 122/79 92 Laboratory Results 12/18/21 05:41 12/18/21 05:41 Diagnostic Findings 12/18/21 05:41 12/18/21 05:41 Coding Level of Care Code Critical Care 1st 30-74 mins Diagnoses Septic shock A41.9; R65.21 Acute respiratory failure with hypoxia J96.01 Acute pneumonia J18.9 DVT (deep venous thrombosis) I82.409 Acute kidney injury N17.9 Antithrombin 3 deficiency D68.59 Time Spent (min) 38
[2021-12-18] MEDS: TUBE FEEDING WATER FLUSH GT SCH ×2 (15:57→22:04)
[2021-12-18] MEDS ORDERED: D5W AND 1/2NSS 1,000 ML IV SCH (17:00)
[2021-12-18 18:37] LABS: Partial Thromboplastin Ratio 3.1
[2021-12-18 18:45] LABS: Partial Thromboplastin Time 80.5 Seconds (21.0-31.0)
[2021-12-19] MEDS ORDERED: GLUCAGON FOR INJ 1 MG VIAL SQ PRN (01:09)
[2021-12-19] MEDS ORDERED: PHARMACY GLYCEMIC MGMT CONSULT PRN (01:09)
[2021-12-19] MEDS ORDERED: DEXTROSE 50% 50 ML SYRINGE IV PRN (01:09)
[2021-12-19] MEDS ORDERED: GLUCOSE 40% GEL 15 GM TUBE PO PRN (01:09)
[2021-12-19] MEDS ORDERED: GLUCOSE 10 TABS/TUBE PO PRN (01:09)
[2021-12-19] MEDS ORDERED: CARBOHYDRATES FOR HYPOGLYCEMIA PO PRN (01:09)
[2021-12-19 01:14] LABS: Partial Thromboplastin Ratio > 5.3
[2021-12-19 01:17] LABS: Partial Thromboplastin Time > 139.0 Seconds (21.0-31.0)
[2021-12-19] MEDS: DEXMEDETOMIDINE HCL 400 MCG in 0.9 % SODIUM CHLORIDE 96 ML IV SCH (01:54)
[2021-12-19] MEDS: INSULIN ASPART PER UNIT SC SCH ×5 (01:56→21:01)
[2021-12-19 03:36] LABS: Partial Thromboplastin Ratio 2.7
[2021-12-19 03:39] LABS: Partial Thromboplastin Time 69.7 Seconds (21.0-31.0)
[2021-12-19] MEDS: TUBE FEEDING WATER FLUSH GT SCH ×2 (04:00→08:29)
--- NOTE | 2021-12-19 08:19 | Critical Care Progress Note ---
Date of Service December 19, 2021 Assessment & Plan (1) Septic shock: (2) Acute respiratory failure with hypoxia: (3) Acute pneumonia: (4) DVT (deep venous thrombosis): (5) Acute kidney injury: (6) Antithrombin 3 deficiency: Plan: 66-year-old female with a history of Antithrombin III deficiency, coronary artery disease and depression who presented to the hospital with shortness of breath and mild encephalopathy. She has evidence of left lower lobe pneumonia and a lower extremity DVT. She also has COVID-19. Patient was downgraded from the ICU but ICU was reconsulted on 12/17/2021 because of altered mental status and hypotensive episode. Neurologic: --Metabolic encephalopathy --> significantly improved today Multifactorial Could be from withdrawal as she was not on Suboxone DTs can also be playing a part --> As per sister patient is not a drinker Sepsis with elevated WBC count also might be playing a role CT head 12/17/21: Negative for intracerebral pathology. Mild cerebral cortical atrophy Ammonia/calcium/TSH within normal limit Nasal MRSA is negative Continue with antibiotics Aspiration precautions Pulmonary: --Acute on chronic hypoxic respiratory failure Secondary to COVID-19 pneumonia. Repeat 2D echo 12/17/2021: EF 35-40% --History of COPD Continue with Anoro Cardiovascular: --S/p Hypotension --> responded to fluids Likely combination of sepsis as well as the use of morphine S/p IV fluids Continue to monitor --Elevated troponin Likely type II OH Trending down T wave inversions on the lateral leads appreciated on the EKG Cardiology has been consulted Gastrointestinal: No acute issues currently Renal: --STAN on CKD Monitor BUNs/creatinine Avoid nephrotoxic medications --High anion gap metabolic acidosis Delta delta: Greater than 2, metabolic acidosis plus alkalosis Metabolic acidosis likely from lactic acidosis plus CKD Continue to monitor --Hypernatremia with hyperchloremia Free water given by mouth Infectious disease: --COVID-19 pneumonia Patient has completed the course of azithromycin Cefepime has been changed to Rocephin as of 12/17/2021 --> Changed again to cefepime 12/18/21 10 days of dexamethasone UA dirty 12/17/21 follow-up culture CRP 25.19 --> 6.4 on 12/17/2021 Procalcitonin 2.89 --> 0.32 on 12/17/21 --> 3.11 12/18 Hematologic: --Lower extremity DVT Left superficial femoral popliteal vein On anticoagulation --History of Antithrombin III deficiency Endocrine: ICU hypoglycemia protocol TSH within normal limit 12/12/1980 --Prophylaxis VTE: Xarelto --> Heparin drip GI: Pepcid Lines: Peripherals Diet: Tube feeds Plan: In/out: +821. UO 575 T-max 38 Patient's mental status is significantly improved. If patient is able to swallow then we can discontinue the NGT Patient has been off Precedex for more than 12 hours. Would recommend continue with antibiotics for total of 10 days. Follow-up urine culture Patient's creatinine is gradually trending down. Keep an eye on urine output Continue with free water till patient has NGT 250 mL every 6. Once it is removed would recommend patient to be given p.o. 200 mL at least water every 6 hours Patient is hemodynamically stable to be downgraded to medical floor Please note the above document was generated using voice recognition software. It may contain grammatical, syntax or spelling errors.Any formal questions or concerns about the content, text or information contained within the body of this dictation should be directly addressed to the provider for clarification. Admission and Anticipated Discharge Date Admission Date: December 12, 2021 Subjective Patient seen and examined at bedside. No acute distress, no adverse events overnight. Patient has been off Precedex since yesterday 5 PM She is awake alert oriented x3 Answering all questions appropriately Drinking water Denies any chest pain, no headache, no nausea, no vomiting, no belly pain Review of Systems Review of Systems: All systems reviewed & are unremarkable except as noted in Subjective Physical Exam Physical Exam: Constitutional: No acute distress HEENT: EOMI, PERRLA Respiratory system: Decreased air entry bilaterally, no wheeze, no rhonchi, positive crackles bilaterally CVS: S1-S2 positive, no murmurs or gallops Abdomen: Soft, nontender, nondistended, positive bowel sounds x4 Extremities: +2 pulses bilaterally radialis/ dorsalis pedis, no cyanosis, no edema Neuro: Awake and alert * 3 Psych: Normal mood and affect G/U: Positive Christianson Skin: no rashes, warm and dry Lymphatic: no cervical or axillary lymphadenopathy Results & Data Results & Data ([place]) Vital Signs (Past 12 Hours) Vital Signs Temp Pulse Resp BP Pulse Ox 12/19/21 07:10 37.7 C H 104 H 20 94 12/19/21 06:50 126 H 94 12/19/21 06:40 103 H 94 12/19/21 06:30 105 H 94 12/19/21 06:20 98 H 93 12/19/21 06:10 111 H 93 12/19/21 06:00 96 H 92 12/19/21 05:00 106 H 92 12/19/21 04:31 104 H 141/80 H 93 12/19/21 04:00 37.9 C H 99 H 121/76 91 12/19/21 03:30 97 H 116/84 92 12/19/21 03:00 114 H 128/86 93 12/19/21 02:30 93 H 128/79 94 12/19/21 02:00 94 H 117/68 94 12/19/21 01:31 90 117/87 94 12/19/21 01:00 82 107/59 L 94 12/19/21 00:30 78 101/65 92 12/19/21 00:00 37.7 C H 93 H 105/89 92 12/18/21 23:30 68 113/63 93 12/18/21 23:00 75 110/63 93 12/18/21 22:30 69 107/62 95 12/18/21 22:18 68 12/18/21 22:00 67 108/58 L 94 12/18/21 21:30 67 105/62 93 12/18/21 21:00 64 97/61 L 92 12/18/21 20:30 76 120/80 91 Laboratory Results 12/19/21 07:50 12/19/21 07:50 Coding Level of Care Code 01674 Subseq Hosp Care Lvl 3 Diagnoses Septic shock A41.9; R65.21 Acute respiratory failure with hypoxia J96.01 Acute pneumonia J18.9 DVT (deep venous thrombosis) I82.409 Acute kidney injury N17.9 Antithrombin 3 deficiency D68.59
[2021-12-19 08:21] LABS: Hematocrit (blood only) 39.8 % (37-47); Hemoglobin 12.6 g/dL (12.0-16.0); Mean Corpuscular Hgb Conc 31.7 g/dL (32-36); Mean Corpuscular Volume 94.8 fL (80-100); Mean Platelet Volume 12.3 fL (7.4-10.4); Nucleated RBC # (auto) 0.06 K/uL (0-0); Nucleated RBC % (auto) 0.3 %; Platelet Count 192 K/uL (130-400); RDW Coefficient of Variation 15.2 % (11.5-14.5); RDW Standard Deviation 52.3 fL (36.4-46.3); White Blood Count 20.83 K/uL (4.8-10.8)
[2021-12-19] MEDS: LINACLOTIDE 145 MCG CAPSULE PO SCH (08:27)
[2021-12-19] MEDS: BUPRENORPHINE/NALOXONE 8/2 MG TAB SL SCH ×2 (08:27→20:49)
[2021-12-19] MEDS: FLUTICASONE FUROATE 100MCG 14 PUFFS/INHALER INH SCH (08:28)
[2021-12-19] MEDS: UMECLIDINIUM/VILANTEROL 62.5/25MCG 7 PUFFS/INHALER INH SCH (08:28)
[2021-12-19] MEDS: CLOTRIMAZOLE 1% CR 15 GM TUBE EXT SCH ×2 (08:29→20:49)
[2021-12-19] MEDS: FAMOTIDINE 20 MG in SYRINGE 3 ML IV SCH (08:29)
[2021-12-19] MEDS: INSULIN HUMAN NPH SC SCH (08:37)
[2021-12-19] MEDS: dexAMETHasone 6 MG in SYRINGE 0 ML IV SCH (08:37)
[2021-12-19 08:44] LABS: Basophils # (auto) 0.03 K/uL (0-0.2); Basophils % (auto) 0.1 %; Immature Granulocytes # (auto) 0.18 K/uL (0.00-0.02); Immature Granulocytes % (auto) 0.9 %; Lymphocytes # (auto) 1.11 K/uL (1.2-3.4); Lymphocytes % (auto) 5.3 %; Monocytes # (auto) 1.82 K/uL (0.11-0.59); Monocytes % (auto) 8.7 %; Neutrophils # (auto) 17.69 K/uL (1.4-6.5)
[2021-12-19 09:14] LABS: BUN Creatinine Ratio 38.4 (10-20); Creatinine Clr Calc Pharmacy 25.6 ml/min; Est GFR (African American) 27.4 ml/min; Est GFR (Non-African American) 23.6 ml/min; Potassium 3.7 mmol/L (3.5-5.1)
[2021-12-19 10:57] LABS: Estimated Average Glucose 140 mg/dl; Hemoglobin A1C 6.5 % (4.5-5.6)
--- NOTE | 2021-12-19 10:58 | Pharmacy Report ---
Pharmacy Glycemic Short Note 2 - Date of Service December 19, 2021 - Glycemic Short BSG Results (Last 24 hours): 12/19/21 12/19/21 12/19/21 00:21 07:37 07:50 Glucose 118 H POC Glucose 239 H 126 H 12/19/21 08:25 Glucose POC Glucose 120 H OUTPATIENT ANTIDIABETIC REGIMEN: * None * HbA1c pending for 12/19/21 ASSESSMENT: * 66 yo F admitted 12/12 with COVID. Pharmacy consulted for glycemic management on 12/19 hyperglycemia, likely steroid-induced * Will initiate low-dose NPH with dexamethasone * Will initiate weight-based Novolog at slightly less than severe stress estimate * Of note - regular diet ordered, but no CHO intake with breakfast PLAN FOR INPATIENT GLYCEMIC CONTROL: * Basal insulin * NPH 15-25 units SQ with dexamethasone in AM, dose dependent on BSG * Bolus insulin * NovoLog per scale ACHS or Q6hrs while NPO * Goal Range: Low 120 mg/dL - High 150 mg/dL * Correction Factor: 25 mg/dL/unit * Nutritional / Prandial insulin per carb ratio of 1 unit per 8 grams CHO consumed PLAN FOR DISCHARGE: * tbd
[2021-12-19 11:24] LABS: Partial Thromboplastin Time 52.9 Seconds (21.0-31.0)
[2021-12-19] MEDS: CEFEPIME 1,000 MG in SYRINGE 0 ML IV SCH (11:45)
[2021-12-19] MEDS: HEPARIN SODIUM/DEXTROSE 25,000 UNITS/500 ML BAG IV SCH (12:55)
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
[2021-12-19] MEDS ORDERED: DEXTROSE 5% 1,000 ML IV SCH (13:45)
[2021-12-20] MEDS: CEFEPIME 1,000 MG in SYRINGE 0 ML IV SCH (00:30)
[2021-12-20] MEDS: INSULIN ASPART PER UNIT SC SCH ×6 (00:46→20:18)
[2021-12-20 06:21] LABS: Basophils # (auto) 0.06 K/uL (0-0.2); Basophils % (auto) 0.3 %; Hemoglobin 13.2 g/dL (12.0-16.0); Immature Granulocytes # (auto) 0.22 K/uL (0.00-0.02); Immature Granulocytes % (auto) 1.1 %; Lymphocytes # (auto) 1.27 K/uL (1.2-3.4); Lymphocytes % (auto) 6.5 %; Mean Corpuscular Hemoglobin 30.4 pg (25-34); Mean Corpuscular Hgb Conc 32.2 g/dL (32-36); Mean Corpuscular Volume 94.5 fL (80-100); Mean Platelet Volume 13.8 fL (7.4-10.4); Monocytes # (auto) 1.35 K/uL (0.11-0.59); Monocytes % (auto) 6.9 %; Neutrophils # (auto) 16.65 K/uL (1.4-6.5); Neutrophils % (auto) 85.2 %; Platelet Count 222 K/uL (130-400); RDW Standard Deviation 51.6 fL (36.4-46.3); Red Blood Count 4.34 M/uL (4.2-5.4); White Blood Count 19.55 K/uL (4.8-10.8)
[2021-12-20 06:39] LABS: Partial Thromboplastin Ratio 1.3; Partial Thromboplastin Time 34.6 Seconds (21.0-31.0)
[2021-12-20] MEDS ORDERED: HEPARIN SOD (PORCINE) 1000 UNIT/ML IV ONE (06:42)
[2021-12-20] MEDS ORDERED: HEPARIN IV BOLUS 2,000 UNITS in SYRINGE 0 ML IV SCH (07:00)
[2021-12-20 07:27] LABS: Calcium 7.5 mg/dl (8.5-10.1); Creatinine Clr Calc Pharmacy 31.9 ml/min; Est GFR (African American) 35.8 ml/min; Est GFR (Non-African American) 30.9 ml/min; Magnesium 1.8 mg/dl (1.7-2.4); Phosphorus 3.9 mg/dl (2.5-4.9)
--- NOTE | 2021-12-20 07:44 | XRay Report ---
SINGLE VIEW CHEST CLINICAL HISTORY: Hypoxia FINDINGS: An AP, portable, upright chest radiograph is compared to study dated 12/18/2021. Heart is mil dly enlarged noting atherosclerotic calcification of the thoracic aorta. There is prominence of the p ulmonary vasculature. Dense airspace consolidation at the left lung base is unchanged, as are mild op acities at the right lung base. A small left pleural effusion is suspected. No pneumothorax is seen. The skeletal structures are osteopenic. The bony thorax is grossly intact. Cholecystectomy clips are noted in the right upper quadrant. IMPRESSION: 1. Cardiomegaly with prominence of the pulmonary vessels. Correlate clinically for evidence of fluid overload/mild congestive failure. 2. Bibasilar airspace consolidation and small left pleural effusion is similar to previous. ACT 112: Negative or not required by law. Electronically signed by: Champ Matos M.D. 12/20/2021 7:43 AM
[2021-12-20] MEDS ORDERED: FUROSEMIDE 40 MG/4 ML VIAL IV ONE (08:15)
[2021-12-20] MEDS: VENLAFAXINE HCL XR 150 MG CAPXR PO SCH (08:24)
[2021-12-20] MEDS: LINACLOTIDE 145 MCG CAPSULE PO SCH (08:25)
[2021-12-20] MEDS: FLUTICASONE FUROATE 100MCG 14 PUFFS/INHALER INH SCH (08:26)
[2021-12-20] MEDS: CLOTRIMAZOLE 1% CR 15 GM TUBE EXT SCH ×2 (08:26→20:10)
[2021-12-20] MEDS: UMECLIDINIUM/VILANTEROL 62.5/25MCG 7 PUFFS/INHALER INH SCH (08:26)
[2021-12-20] MEDS: dexAMETHasone 6 MG in SYRINGE 0 ML IV SCH (08:27)
[2021-12-20] MEDS: FAMOTIDINE 20 MG in SYRINGE 3 ML IV SCH (08:34)
[2021-12-20] MEDS: BUPRENORPHINE/NALOXONE 8/2 MG TAB SL SCH ×2 (08:34→20:09)
[2021-12-20] MEDS: INSULIN HUMAN NPH SC SCH (10:04)
--- NOTE | 2021-12-20 11:17 | Pharmacy Report ---
Pharmacy Glycemic Short Note 2 - Date of Service December 20, 2021 - Glycemic Short BSG Results (Last 24 hours): 12/19/21 12/19/21 12/19/21 11:21 12:17 16:43 Glucose POC Glucose 276 H 243 H 268 H 12/19/21 12/20/21 12/20/21 20:08 00:27 04:01 Glucose POC Glucose 256 H 82 122 H 12/20/21 12/20/21 06:06 08:07 Glucose 113 H POC Glucose 115 H OUTPATIENT ANTIDIABETIC REGIMEN: * None * HbA1c 6.5% on 12/19/21 ASSESSMENT: 12/20 * PO intake increased and BSG's also increased yesterday. Novolog parameters were significantly tightened. Near-hypoglycemic event overnight, likely 2nd aggressive correction. Will loosen correction factor and carb ratio as compared to last night, but still keep tighter than AM parameters yesterday * No correctional insulin required overnight and AM fasting BSG good. Will cautiously increase NPH in an attempt to help with post-prandial elevations in the evenings * Diet has been changed to T2DM 12/19 * 66 yo F admitted 12/12 with COVID. Pharmacy consulted for glycemic management on 12/19 2nd hyperglycemia, likely steroid-induced * Will initiate low-dose NPH with dexamethasone * Will initiate weight-based Novolog at slightly less than severe stress estimate * Of note - regular diet ordered, but no CHO intake with breakfast PLAN FOR INPATIENT GLYCEMIC CONTROL: * Basal insulin * NPH 25-35 units SQ with dexamethasone in AM, dose dependent on BSG * Bolus insulin * NovoLog per scale ACHS or Q6hrs while NPO * Goal Range: Low 120 mg/dL - High 150 mg/dL * Correction Factor: 15 mg/dL/unit * Nutritional / Prandial insulin per carb ratio of 1 unit per 4 grams CHO consumed PLAN FOR DISCHARGE: * Follow-up as an outpatient for HbA1c suggestive of T2DM. Of note, steroid- induced hyperglycemia this admission may have an impact on repeat HbA1c if obtained soon after admission.
[2021-12-20] MEDS: CEFEPIME 2,000 MG in SYRINGE 0 ML IV SCH ×2 (11:46→23:13)
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
[2021-12-20 14:25] LABS: Partial Thromboplastin Ratio 1.6; Partial Thromboplastin Time 42.2 Seconds (21.0-31.0)
[2021-12-20 14:31] LABS: BUN Creatinine Ratio 46.5 (10-20); Calcium 7.3 mg/dl (8.5-10.1); Creatinine Clr Calc Pharmacy 31.8 ml/min; Est GFR (African American) 35.5 ml/min; Est GFR (Non-African American) 30.7 ml/min
[2021-12-20] MEDS ORDERED: FUROSEMIDE INJ 20 MG/2 ML VIAL IV ONE (17:41)
[2021-12-20] MEDS: METOPROLOL TARTRATE 25 MG TAB PO SCH (20:11)
[2021-12-20] MEDS: HEPARIN SODIUM/DEXTROSE 25,000 UNITS/500 ML BAG IV SCH ×2 (20:18→23:13)
[2021-12-20 21:06] LABS: Partial Thromboplastin Ratio 1.6
[2021-12-21 06:14] LABS: Basophils # (auto) 0.04 K/uL (0-0.2); Basophils % (auto) 0.2 %; Eosinophils # (auto) 0.01 K/uL (0-0.5); Eosinophils % (auto) 0.1 %; Hematocrit (blood only) 41.4 % (37-47); Hemoglobin 13.1 g/dL (12.0-16.0); Immature Granulocytes # (auto) 0.38 K/uL (0.00-0.02); Immature Granulocytes % (auto) 2.2 %; Lymphocytes # (auto) 1.07 K/uL (1.2-3.4); Lymphocytes % (auto) 6.2 %; Mean Corpuscular Hemoglobin 30.1 pg (25-34); Mean Corpuscular Hgb Conc 31.6 g/dL (32-36); Mean Corpuscular Volume 95.2 fL (80-100); Mean Platelet Volume 13.7 fL (7.4-10.4); Monocytes # (auto) 1.35 K/uL (0.11-0.59); Monocytes % (auto) 7.8 %; Neutrophils % (auto) 83.5 %; Platelet Count 226 K/uL (130-400); RDW Coefficient of Variation 14.6 % (11.5-14.5); RDW Standard Deviation 50.8 fL (36.4-46.3); Red Blood Count 4.35 M/uL (4.2-5.4); White Blood Count 17.35 K/uL (4.8-10.8)
[2021-12-21 06:15] LABS: Partial Thromboplastin Ratio 1.1; Partial Thromboplastin Time 29.5 Seconds (21.0-31.0)
[2021-12-21 06:22] LABS: BUN Creatinine Ratio 40.8 (10-20); Calcium 7.8 mg/dl (8.5-10.1); Creatinine Clr Calc Pharmacy 29.3 ml/min; Est GFR (African American) 32.3 ml/min; Est GFR (Non-African American) 27.9 ml/min; Magnesium 1.6 mg/dl (1.7-2.4); Phosphorus 3.7 mg/dl (2.5-4.9); Potassium 4.1 mmol/L (3.5-5.1)
[2021-12-21 06:49] LABS: Troponin I 1.31 ng/ml (0-0.04)
[2021-12-21] MEDS: FAMOTIDINE 20 MG in SYRINGE 3 ML IV SCH (08:10)
[2021-12-21] MEDS: dexAMETHasone 6 MG in SYRINGE 0 ML IV SCH (08:10)
[2021-12-21] MEDS: METOPROLOL TARTRATE 25 MG TAB PO SCH (08:10)
[2021-12-21] MEDS: VENLAFAXINE HCL XR 150 MG CAPXR PO SCH (08:11)
[2021-12-21] MEDS: CLOTRIMAZOLE 1% CR 15 GM TUBE EXT SCH ×2 (08:11→21:31)
[2021-12-21] MEDS: LINACLOTIDE 145 MCG CAPSULE PO SCH (08:12)
[2021-12-21] MEDS: INSULIN ASPART PER UNIT SC SCH ×4 (08:13→21:31)
[2021-12-21] MEDS: FLUTICASONE FUROATE 100MCG 14 PUFFS/INHALER INH SCH (08:13)
[2021-12-21] MEDS: UMECLIDINIUM/VILANTEROL 62.5/25MCG 7 PUFFS/INHALER INH SCH (08:14)
[2021-12-21] MEDS: BUPRENORPHINE/NALOXONE 8/2 MG TAB SL SCH ×2 (08:20→21:31)
[2021-12-21] MEDS ORDERED: HEPARIN SOD (PORCINE) 1000 UNIT/ML IV ONE (09:00)
[2021-12-21] MEDS ORDERED: INSULIN HUMAN NPH SC SCH (09:00)
[2021-12-21] MEDS ORDERED: ASPIRIN 81 MG ECTAB PO SCH (09:00)
[2021-12-21] MEDS: MAGNESIUM SULFATE / D5W 1 GM/100 ML BAG IV SCH ×2 (09:27→12:27)
[2021-12-21] MEDS: HEPARIN SODIUM/DEXTROSE 25,000 UNITS/500 ML BAG IV SCH (09:40)
[2021-12-21] MEDS: CEFEPIME 2,000 MG in SYRINGE 0 ML IV SCH ×2 (12:27→21:36)
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
[2021-12-21 16:23] LABS: Partial Thromboplastin Ratio 3.2
[2021-12-21 16:30] LABS: Partial Thromboplastin Time 84.3 Seconds (21.0-31.0)
[2021-12-21] MEDS: ASPIRIN 81 MG ECTAB PO SCH (17:15)
[2021-12-21] MEDS: METOPROLOL SUCC 25MG EXT REL TAB PO SCH (21:31)
[2021-12-21 23:05] LABS: Partial Thromboplastin Ratio 2.7
[2021-12-21 23:35] LABS: Partial Thromboplastin Time 71.5 Seconds (21.0-31.0)
[2021-12-22 06:10] LABS: Basophils # (auto) 0.04 K/uL (0-0.2); Basophils % (auto) 0.2 %; Eosinophils # (auto) 0.01 K/uL (0-0.5); Eosinophils % (auto) 0.1 %; Hematocrit (blood only) 34.3 % (37-47); Immature Granulocytes # (auto) 0.44 K/uL (0.00-0.02); Immature Granulocytes % (auto) 2.6 %; Lymphocytes % (auto) 5.9 %; Mean Corpuscular Hemoglobin 30.5 pg (25-34); Mean Corpuscular Hgb Conc 32.1 g/dL (32-36); Mean Platelet Volume 13.7 fL (7.4-10.4); Monocytes # (auto) 1.49 K/uL (0.11-0.59); Monocytes % (auto) 8.7 %; Neutrophils # (auto) 14.11 K/uL (1.4-6.5); Neutrophils % (auto) 82.5 %; Platelet Count 195 K/uL (130-400); RDW Coefficient of Variation 14.8 % (11.5-14.5); RDW Standard Deviation 51.1 fL (36.4-46.3); Red Blood Count 3.61 M/uL (4.2-5.4); White Blood Count 17.09 K/uL (4.8-10.8)
[2021-12-22 06:34] LABS: Partial Thromboplastin Ratio 2.6
[2021-12-22 06:35] LABS: Albumin Level 2.6 gm/dl (3.4-5.0); BUN Creatinine Ratio 46.4 (10-20); Bilirubin,Total 0.6 mg/dl (0.2-1.0); Calcium 7.9 mg/dl (8.5-10.1); Creatinine Clr Calc Pharmacy 32.5 ml/min; Est GFR (African American) 36.6 ml/min; Est GFR (Non-African American) 31.6 ml/min; Globulin 2.7 gm/dl (2.5-4.0); Magnesium 2.1 mg/dl (1.7-2.4); Phosphorus 3.3 mg/dl (2.5-4.9); Potassium 4.3 mmol/L (3.5-5.1); Total Protein 5.3 gm/dl (6.0-8.3)
[2021-12-22 06:53] LABS: Partial Thromboplastin Time 68.6 Seconds (21.0-31.0)
[2021-12-22] MEDS: HEPARIN SODIUM/DEXTROSE 25,000 UNITS/500 ML BAG IV SCH ×2 (07:06→13:34)
[2021-12-22] MEDS ORDERED: FUROSEMIDE 40 MG/4 ML VIAL IV ONE (07:39)
[2021-12-22] MEDS: ASPIRIN 81 MG ECTAB PO SCH (08:27)
[2021-12-22] MEDS: VENLAFAXINE HCL XR 150 MG CAPXR PO SCH (08:28)
[2021-12-22] MEDS: BUPRENORPHINE/NALOXONE 8/2 MG TAB SL SCH ×2 (08:28→20:36)
[2021-12-22] MEDS: FLUTICASONE FUROATE 100MCG 14 PUFFS/INHALER INH SCH (08:29)
[2021-12-22] MEDS: LINACLOTIDE 145 MCG CAPSULE PO SCH (08:29)
[2021-12-22] MEDS: FAMOTIDINE 20 MG in SYRINGE 3 ML IV SCH (08:30)
[2021-12-22] MEDS: CLOTRIMAZOLE 1% CR 15 GM TUBE EXT SCH ×2 (08:30→20:31)
[2021-12-22] MEDS: UMECLIDINIUM/VILANTEROL 62.5/25MCG 7 PUFFS/INHALER INH SCH (08:30)
[2021-12-22] MEDS: INSULIN ASPART PER UNIT SC SCH ×4 (08:59→21:46)
--- NOTE | 2021-12-22 09:12 | Pharmacy Report ---
Pharmacy Glycemic Short Note 2 - Date of Service December 22, 2021 - Glycemic Short BSG Results (Last 24 hours): 12/21/21 12/21/21 12/21/21 11:47 16:57 21:19 Glucose POC Glucose 172 H 244 H 185 H 12/22/21 12/22/21 05:21 07:55 Glucose 81 POC Glucose 93 OUTPATIENT ANTIDIABETIC REGIMEN: * None * HbA1c 6.5% on 12/19/21 ASSESSMENT: 12/22 * BSGs elevated yesterday, likely related to IV dexamethasone * IV dexamethasone now discontinued (10 days completed), will discontinue NPH, loosen Novolog parameters, and hold off on basal for the time being in light of fasting BSG of 93 mg/dL this morning and HbA1c of 6.5% * Remains on heparin gtt (in dextrose) 12/20 * PO intake increased and BSG's also increased yesterday. Novolog parameters were significantly tightened. Near-hypoglycemic event overnight, likely 2nd aggressive correction. Will loosen correction factor and carb ratio as compared to last night, but still keep tighter than AM parameters yesterday * No correctional insulin required overnight and AM fasting BSG good. Will cautiously increase NPH in an attempt to help with post-prandial elevations in the evenings * Diet has been changed to T2DM 12/19 * 66 yo F admitted 12/12 with MAN. Pharmacy consulted for glycemic management on 12/19 2nd hyperglycemia, likely steroid-induced * Will initiate low-dose NPH with dexamethasone * Will initiate weight-based Novolog at slightly less than severe stress estimate * Of note - regular diet ordered, but no CHO intake with breakfast PLAN FOR INPATIENT GLYCEMIC CONTROL: * Basal insulin * hold * Bolus insulin - loosen * NovoLog per scale ACHS or Q6hrs while NPO * Goal Range: Low 120 mg/dL - High 150 mg/dL * Correction Factor: 30 mg/dL/unit * Nutritional / Prandial insulin per carb ratio of 1 unit per 10 grams CHO consumed PLAN FOR DISCHARGE: * Follow-up as an outpatient for HbA1c suggestive of T2DM. Of note, steroid- induced hyperglycemia this admission may have an impact on repeat HbA1c if obtained soon after admission.
[2021-12-22] MEDS: CEFEPIME 2,000 MG in SYRINGE 0 ML IV SCH ×2 (11:59→22:36)
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
[2021-12-22 15:22] LABS: Partial Thromboplastin Ratio 1.8
[2021-12-22 15:26] LABS: Partial Thromboplastin Time 46.8 Seconds (21.0-31.0)
[2021-12-22] MEDS: NYSTATIN SUSP 500,000 U/5 ML UDC PO SCH ×3 (17:14→20:31)
[2021-12-22] MEDS: METOPROLOL SUCC 25MG EXT REL TAB PO SCH (20:31)
[2021-12-22] MEDS: ALBUT/IPRATROP 3MG/0.5MG NEB 3 ML VIAL NEB PRN (23:32)
[2021-12-23] MEDS: HEPARIN SODIUM/DEXTROSE 25,000 UNITS/500 ML BAG IV SCH ×2 (00:51→23:11)
--- NOTE | 2021-12-23 02:19 | Communication Note ---
Date of Service: December 23, 2021 Informed by RN that patient was persistently saturating 83-84% on normal HFNC. Her medical history and reason for admission were reviewed in detail. Patient was not subjectively reporting SOB and denied pain. Did have a mild, wet cough. Her other vital signs were stable. Her exam reported to have rhonchi bilaterally - which is apparently baseline for patient in her current state. I spoke with RN and asked them to initiate DuoNebs x 1. I did obtain a CXR, which actually looked improved -- especially at the bases -- compared to CXR on 12/20. RT was called, who started patient on heated HFNC - 40L / 100%. She was thereafter saturating between 96-100%. Will monitor - can trial Lasix PRN. Resident Activity Tracking Resident Involvement: Resident Care Provided Care Provided: Adult Hospital Medicine
[2021-12-23 07:31] LABS: Hematocrit (blood only) 36.7 % (37-47); Hemoglobin 11.7 g/dL (12.0-16.0); Mean Corpuscular Hemoglobin 30.5 pg (25-34); Mean Corpuscular Hgb Conc 31.9 g/dL (32-36); Mean Corpuscular Volume 95.8 fL (80-100); Nucleated RBC # (auto) 0.03 K/uL (0-0); Nucleated RBC % (auto) 0.2 %; Platelet Count 209 K/uL (130-400); RDW Coefficient of Variation 15.1 % (11.5-14.5); RDW Standard Deviation 52.3 fL (36.4-46.3); Red Blood Count 3.83 M/uL (4.2-5.4); White Blood Count 16.74 K/uL (4.8-10.8)
--- NOTE | 2021-12-23 07:47 | XRay Report ---
XR chest 1V portable CLINICAL HISTORY: increase o2 req TECHNIQUE: Single frontal radiograph of the chest was obtained. Comparison: Comparison is made to chest one view 12/20/2021 FINDINGS: No lines and tubes are seen. The cardiomediastinal silhouette is normal. Airspace opacities are seen in the bilateral lower lungs. No evidence of pleural effusion or pneumothorax. IMPRESSION: Bilateral lower lung predominant airspace opacities, unchanged, which may represent atelectasis, pneu monia, and/or aspiration. Previously noted pulmonary edema is less evident on today's exam. ACT 112: Negative or not required by law. Electronically signed by: Anoop Jackson M.D. 12/23/2021 7:46 AM
[2021-12-23 07:56] LABS: Albumin Level 2.8 gm/dl (3.4-5.0); BUN Creatinine Ratio 39.7 (10-20); Bilirubin,Total 0.6 mg/dl (0.2-1.0); Calcium 8.2 mg/dl (8.5-10.1); Creatinine Clr Calc Pharmacy 26.5 ml/min; Est GFR (African American) 28.5 ml/min; Est GFR (Non-African American) 24.6 ml/min; Globulin 2.9 gm/dl (2.5-4.0); Potassium 4.6 mmol/L (3.5-5.1); Total Protein 5.7 gm/dl (6.0-8.3)
[2021-12-23 07:58] LABS: Basophils # (auto) 0.06 K/uL (0-0.2); Basophils % (auto) 0.4 %; Eosinophils # (auto) 0.17 K/uL (0-0.5); Immature Granulocytes # (auto) 0.93 K/uL (0.00-0.02); Immature Granulocytes % (auto) 5.6 %; Lymphocytes # (auto) 1.44 K/uL (1.2-3.4); Lymphocytes % (auto) 8.6 %; Monocytes # (auto) 1.13 K/uL (0.11-0.59); Monocytes % (auto) 6.8 %; Neutrophils # (auto) 13.01 K/uL (1.4-6.5); Neutrophils % (auto) 77.6 %
[2021-12-23 08:36] LABS: Partial Thromboplastin Time 53.3 Seconds (21.0-31.0)
[2021-12-23] MEDS: FAMOTIDINE 20 MG in SYRINGE 3 ML IV SCH (08:41)
[2021-12-23] MEDS: ASPIRIN 81 MG ECTAB PO SCH (08:41)
[2021-12-23] MEDS: VENLAFAXINE HCL XR 150 MG CAPXR PO SCH (08:42)
[2021-12-23] MEDS: FLUTICASONE FUROATE 100MCG 14 PUFFS/INHALER INH SCH (08:43)
[2021-12-23] MEDS: NYSTATIN SUSP 500,000 U/5 ML UDC PO SCH ×4 (08:44→20:21)
[2021-12-23] MEDS: LINACLOTIDE 145 MCG CAPSULE PO SCH (08:44)
[2021-12-23] MEDS: CLOTRIMAZOLE 1% CR 15 GM TUBE EXT SCH ×2 (08:46→20:24)
[2021-12-23] MEDS: BUPRENORPHINE/NALOXONE 8/2 MG TAB SL SCH ×2 (08:52→20:20)
[2021-12-23] MEDS: INSULIN ASPART PER UNIT SC SCH ×4 (09:32→20:44)
[2021-12-23] MEDS: UMECLIDINIUM/VILANTEROL 62.5/25MCG 7 PUFFS/INHALER INH SCH (09:34)
--- NOTE | 2021-12-23 11:12 | Pharmacy Report ---
Pharmacy Glycemic Short Note 2 - Date of Service December 23, 2021 - Glycemic Short BSG Results (Last 24 hours): 12/22/21 12/22/21 12/22/21 11:31 16:49 20:23 Glucose POC Glucose 174 H 133 H 157 H 12/23/21 12/23/21 12/23/21 06:15 07:33 11:01 Glucose 134 H POC Glucose 141 H 152 H OUTPATIENT ANTIDIABETIC REGIMEN: * None * HbA1c 6.5% on 12/19/21 ASSESSMENT: 12/23 * BSGs well controlled over last 24 hrs (since IV dexamethasone d/c'd) * Fasting BSG 141 this AM with no basal insulin on board, this is acceptable - but will continue to monitor * Post-prandial BSGs controlled with current Novolog CR / CF - no change 12/22 * BSGs elevated yesterday, likely related to IV dexamethasone * IV dexamethasone now discontinued (10 days completed), will discontinue NPH, loosen Novolog parameters, and hold off on basal for the time being in light of fasting BSG of 93 mg/dL this morning and HbA1c of 6.5% * Remains on heparin gtt (in dextrose) 12/20 * PO intake increased and BSG's also increased yesterday. Novolog parameters were significantly tightened. Near-hypoglycemic event overnight, likely 2nd aggressive correction. Will loosen correction factor and carb ratio as compared to last night, but still keep tighter than AM parameters yesterday * No correctional insulin required overnight and AM fasting BSG good. Will cautiously increase NPH in an attempt to help with post-prandial elevations in the evenings * Diet has been changed to T2DM PLAN FOR INPATIENT GLYCEMIC CONTROL: * Basal insulin * none at this time, trend fasting BSGs * Bolus insulin - no change * NovoLog per scale ACHS or Q6hrs while NPO * Goal Range: Low 120 mg/dL - High 150 mg/dL * Correction Factor: 30 mg/dL/unit * Nutritional / Prandial insulin per carb ratio of 1 unit per 10 grams CHO consumed PLAN FOR DISCHARGE: * Follow-up as an outpatient for HbA1c suggestive of T2DM. Of note, steroid- induced hyperglycemia this admission may have an impact on repeat HbA1c if obtained soon after admission.
[2021-12-23] MEDS: ALBUT/IPRATROP 3MG/0.5MG NEB 3 ML VIAL NEB SCH ×2 (11:24→19:29)
[2021-12-23] MEDS: SODIUM CHLOR 7% 4 ML NEB NEB SCH ×2 (11:25→19:30)
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
--- NOTE | 2021-12-23 16:16 | Communication Note ---
Date of Service: December 23, 2021 I discussed the patient's care with her sister on the phone and her worsening status and poor prognosis. Patient's sister has approval from the clinical coordinator, Tamica, on 12/23 to come in for a visit on 12/24 at 10 AM. The purpose of this visit will be to discuss goals of care between the patient and her sister.
[2021-12-23] MEDS: METOPROLOL SUCC 25MG EXT REL TAB PO SCH (20:22)
[2021-12-24 03:56] LABS: Mean Corpuscular Hemoglobin 30.1 pg (25-34); Mean Corpuscular Hgb Conc 31.4 g/dL (32-36); Mean Corpuscular Volume 95.9 fL (80-100); Mean Platelet Volume 13.9 fL (7.4-10.4); Nucleated RBC # (auto) 0.03 K/uL (0-0); Nucleated RBC % (auto) 0.2 %; Platelet Count 197 K/uL (130-400); RDW Coefficient of Variation 15.3 % (11.5-14.5); RDW Standard Deviation 52.8 fL (36.4-46.3); Red Blood Count 3.65 M/uL (4.2-5.4); White Blood Count 16.62 K/uL (4.8-10.8)
[2021-12-24 04:12] LABS: Basophils # (auto) 0.07 K/uL (0-0.2); Basophils % (auto) 0.4 %; Eosinophils # (auto) 0.22 K/uL (0-0.5); Eosinophils % (auto) 1.3 %; Immature Granulocytes # (auto) 0.94 K/uL (0.00-0.02); Immature Granulocytes % (auto) 5.7 %; Lymphocytes # (auto) 1.77 K/uL (1.2-3.4); Lymphocytes % (auto) 10.6 %; Monocytes # (auto) 1.39 K/uL (0.11-0.59); Monocytes % (auto) 8.4 %; Neutrophils # (auto) 12.23 K/uL (1.4-6.5); Neutrophils % (auto) 73.6 %; RBC Morphology Unremarkable
[2021-12-24 04:18] LABS: Albumin Globulin Ratio 0.9 (0.9-2); Albumin Level 2.6 gm/dl (3.4-5.0); BUN Creatinine Ratio 38.5 (10-20); Bilirubin,Total 0.5 mg/dl (0.2-1.0); Calcium 8.2 mg/dl (8.5-10.1); Creatinine Clr Calc Pharmacy 24.4 ml/min; Est GFR (African American) 25.9 ml/min; Est GFR (Non-African American) 22.3 ml/min; Magnesium 1.9 mg/dl (1.7-2.4); Phosphorus 3.5 mg/dl (2.5-4.9); Potassium 4.6 mmol/L (3.5-5.1); Total Protein 5.6 gm/dl (6.0-8.3)
[2021-12-24 04:32] LABS: Partial Thromboplastin Time 52.1 Seconds (21.0-31.0)
[2021-12-24] MEDS ORDERED: SODIUM CHLOR 7% 4 ML NEB NEB STA (04:42)
[2021-12-24] MEDS ORDERED: ALBUT/IPRATROP 3MG/0.5MG NEB 3 ML VIAL NEB STA (04:42)
--- NOTE | 2021-12-24 05:17 | Communication Note ---
Date of Service: December 24, 2021 Informed by patient's RN that patient had required increasing [facility] still only satur[facility] around 88%. I went up to examine the patient who did not appear in acute distress but was taking relaxed, shallow-appearing breaths. VS 139/88, HR 82, T 36.7, SpO2 91% on 40L/80% hHFNC. She responded to my questions appropriately, but very basically. Her ausculatory exam reveals course breath sounds throughout. No use of accessory muscles. I reviewed her daytime documentation and noted the ongoing treatments, including her bumped renal function. Her encephalopathy was noted. Will give DuoNebs and hypertonic saline x 1 now, and titrate FiO2 upwards p.r.n. If respiratory status diminishes, spoke w/ RN about transitioning to CPAP/BiPAP after obtaining blood gas to further clarify needs. Noted that there is a family meeting later this morning to clarify goals of care. I spoke with the overnight manufacturing chief engineer and briefed him on patient's current respiratory situation. Resident Activity Tracking Resident Involvement: Resident Care Provided Care Provided: Adult Hospital Medicine
[2021-12-24] MEDS: SODIUM CHLOR 7% 4 ML NEB NEB SCH ×2 (07:16→19:18)
[2021-12-24] MEDS: ALBUT/IPRATROP 3MG/0.5MG NEB 3 ML VIAL NEB SCH ×2 (07:16→19:19)
[2021-12-24] MEDS: INSULIN ASPART PER UNIT SC SCH ×4 (08:46→19:57)
[2021-12-24] MEDS: NYSTATIN SUSP 500,000 U/5 ML UDC PO SCH ×4 (08:48→19:49)
[2021-12-24] MEDS: VENLAFAXINE HCL XR 150 MG CAPXR PO SCH (08:48)
[2021-12-24] MEDS: ASPIRIN 81 MG ECTAB PO SCH (08:49)
[2021-12-24] MEDS: LINACLOTIDE 145 MCG CAPSULE PO SCH (08:49)
[2021-12-24] MEDS: FAMOTIDINE 20 MG in SYRINGE 3 ML IV SCH (08:50)
[2021-12-24] MEDS: CLOTRIMAZOLE 1% CR 15 GM TUBE EXT SCH ×2 (08:51→19:48)
[2021-12-24] MEDS: FLUTICASONE FUROATE 100MCG 14 PUFFS/INHALER INH SCH (08:51)
[2021-12-24] MEDS: BUPRENORPHINE/NALOXONE 8/2 MG TAB SL SCH (08:53)
[2021-12-24] MEDS: UMECLIDINIUM/VILANTEROL 62.5/25MCG 7 PUFFS/INHALER INH SCH (12:54)
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
[2021-12-24] MEDS: THIAMINE HCL 500 MG in SODIUM CHLORIDE 0.9% 50 ML IV SCH ×2 (15:20→21:40)
[2021-12-24] MEDS: METOPROLOL SUCC 25MG EXT REL TAB PO SCH (19:49)
[2021-12-24] MEDS: HEPARIN SODIUM/DEXTROSE 25,000 UNITS/500 ML BAG IV SCH (21:33)
[2021-12-25] MEDS: THIAMINE HCL 500 MG in SODIUM CHLORIDE 0.9% 50 ML IV SCH (06:27)
[2021-12-25 06:42] LABS: Hematocrit (blood only) 33.3 % (37-47); Hemoglobin 10.2 g/dL (12.0-16.0); Mean Corpuscular Hemoglobin 30.1 pg (25-34); Mean Corpuscular Hgb Conc 30.6 g/dL (32-36); Mean Corpuscular Volume 98.2 fL (80-100); Mean Platelet Volume 13.7 fL (7.4-10.4); Platelet Count 221 K/uL (130-400); RDW Coefficient of Variation 15.7 % (11.5-14.5); RDW Standard Deviation 55.8 fL (36.4-46.3); Red Blood Count 3.39 M/uL (4.2-5.4); White Blood Count 11.65 K/uL (4.8-10.8)
[2021-12-25 06:57] LABS: Calcium 8.2 mg/dl (8.5-10.1); Creatinine Clr Calc Pharmacy 21.9 ml/min; Est GFR (African American) 23.3 ml/min; Est GFR (Non-African American) 20.1 ml/min; Magnesium 1.8 mg/dl (1.7-2.4); Partial Thromboplastin Ratio 2.4; Phosphorus 4.3 mg/dl (2.5-4.9); Potassium 4.9 mmol/L (3.5-5.1)
[2021-12-25 07:00] LABS: Partial Thromboplastin Time 62.9 Seconds (21.0-31.0)
[2021-12-25 07:09] LABS: Basophils # (auto) 0.02 K/uL (0-0.2); Basophils % (auto) 0.2 %; Eosinophils # (auto) 0.17 K/uL (0-0.5); Eosinophils % (auto) 1.5 %; Immature Granulocytes # (auto) 0.63 K/uL (0.00-0.02); Immature Granulocytes % (auto) 5.4 %; Lymphocytes # (auto) 1.89 K/uL (1.2-3.4); Lymphocytes % (auto) 16.2 %; Monocytes # (auto) 1.19 K/uL (0.11-0.59); Monocytes % (auto) 10.2 %; Neutrophils # (auto) 7.75 K/uL (1.4-6.5); Neutrophils % (auto) 66.5 %
[2021-12-25] MEDS: SODIUM CHLOR 7% 4 ML NEB NEB SCH ×2 (07:12→19:04)
[2021-12-25] MEDS: ALBUT/IPRATROP 3MG/0.5MG NEB 3 ML VIAL NEB SCH ×2 (07:12→19:04)
[2021-12-25] MEDS ORDERED: MAGNESIUM SULFATE / D5W 1 GM/100 ML BAG IV ONE (07:45)
[2021-12-25] MEDS: SODIUM CHLORIDE 0.9% 1000ML 1,000 ML IV SCH ×2 (07:55→17:50)
[2021-12-25] MEDS: INSULIN ASPART PER UNIT SC SCH ×4 (09:27→21:00)
[2021-12-25] MEDS: CLOTRIMAZOLE 1% CR 15 GM TUBE EXT SCH ×2 (09:28→19:45)
[2021-12-25] MEDS: FAMOTIDINE 20 MG in SYRINGE 3 ML IV SCH (09:28)
[2021-12-25] MEDS: NYSTATIN SUSP 500,000 U/5 ML UDC PO SCH ×4 (09:29→19:49)
[2021-12-25] MEDS: UMECLIDINIUM/VILANTEROL 62.5/25MCG 7 PUFFS/INHALER INH SCH (09:29)
[2021-12-25] MEDS: ASPIRIN 81 MG ECTAB PO SCH (09:29)
[2021-12-25] MEDS: LINACLOTIDE 145 MCG CAPSULE PO SCH (09:30)
[2021-12-25] MEDS: FLUTICASONE FUROATE 100MCG 14 PUFFS/INHALER INH SCH (09:31)
[2021-12-25] MEDS: VENLAFAXINE HCL XR 150 MG CAPXR PO SCH (09:31)
[2021-12-25 10:21] LABS: Appearance Urine Cloudy (Clear); Bacteria Urine Automated Negative (Negative); Bilirubin Urine Negative (Negative); Blood Urine 2+ (Negative); Color Urine Yellow; Glucose Urine UA Negative (Negative); Ketones Urine Negative (Negative); Leukocyte Esterase Urine 3+ (Negative); Nitrite Urine Negative (Negative); Protein Urine 2+ (Negative); Specific Gravity Urine 1.015 (1.000-1.030); Urobilinogen Urine Negative (Negative); WBC Urine Automated >30 /hpf (0-5); pH Urine 7.5 (4.5-7.5)
[2021-12-25 10:28] LABS: RBC Urine Automated >30 /hpf (0-4)
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
[2021-12-25] MEDS: cefTRIAXone SODIUM 1,000 MG in DEXTROSE 5% 50 ML IV SCH (19:44)
[2021-12-25] MEDS: THIAMINE HCL 100 MG in SYRINGE 9 ML IV SCH (19:44)
[2021-12-25] MEDS: METOPROLOL SUCC 25MG EXT REL TAB PO SCH (19:50)
[2021-12-25] MEDS: HEPARIN SODIUM/DEXTROSE 25,000 UNITS/500 ML BAG IV SCH (21:02)
[2021-12-26 06:49] LABS: Hematocrit (blood only) 34.4 % (37-47); Hemoglobin 10.3 g/dL (12.0-16.0); Mean Corpuscular Hemoglobin 29.7 pg (25-34); Mean Corpuscular Hgb Conc 29.9 g/dL (32-36); Mean Corpuscular Volume 99.1 fL (80-100); Mean Platelet Volume 13.4 fL (7.4-10.4); Platelet Count 240 K/uL (130-400); RDW Coefficient of Variation 15.9 % (11.5-14.5); RDW Standard Deviation 57.3 fL (36.4-46.3); Red Blood Count 3.47 M/uL (4.2-5.4); White Blood Count 13.17 K/uL (4.8-10.8)
[2021-12-26 07:06] LABS: BUN Creatinine Ratio 34.4 (10-20); C Reactive Protein 7.21 mg/dl (0-0.5); Calcium 8.6 mg/dl (8.5-10.1); Creatinine Clr Calc Pharmacy 23.8 ml/min; Est GFR (African American) 25.9 ml/min; Est GFR (Non-African American) 22.3 ml/min; Magnesium 1.9 mg/dl (1.7-2.4); Phosphorus 3.7 mg/dl (2.5-4.9); Potassium 5.2 mmol/L (3.5-5.1)
[2021-12-26 07:15] LABS: Basophils # (auto) 0.04 K/uL (0-0.2); Basophils % (auto) 0.3 %; Eosinophils # (auto) 0.19 K/uL (0-0.5); Eosinophils % (auto) 1.4 %; Immature Granulocytes % (auto) 5.3 %; Lymphocytes # (auto) 2.37 K/uL (1.2-3.4); Monocytes # (auto) 1.04 K/uL (0.11-0.59); Monocytes % (auto) 7.9 %; Neutrophils # (auto) 8.83 K/uL (1.4-6.5); Neutrophils % (auto) 67.1 %
[2021-12-26 07:24] LABS: Partial Thromboplastin Ratio 1.8
[2021-12-26 07:27] LABS: Partial Thromboplastin Time 48.3 Seconds (21.0-31.0)
[2021-12-26] MEDS: ALBUT/IPRATROP 3MG/0.5MG NEB 3 ML VIAL NEB SCH ×2 (07:48→20:30)
[2021-12-26] MEDS: SODIUM CHLOR 7% 4 ML NEB NEB SCH ×2 (07:48→20:31)
[2021-12-26] MEDS ORDERED: PATIROMER CALCIUM SORBITEX 8.4 GM PACK PO ONE (08:45)
[2021-12-26] MEDS: INSULIN ASPART PER UNIT SC SCH ×4 (09:01→20:55)
[2021-12-26] MEDS: LINACLOTIDE 145 MCG CAPSULE PO SCH (09:12)
[2021-12-26] MEDS: FLUTICASONE FUROATE 100MCG 14 PUFFS/INHALER INH SCH (09:13)
[2021-12-26] MEDS: NYSTATIN SUSP 500,000 U/5 ML UDC PO SCH ×4 (09:13→21:41)
[2021-12-26] MEDS: UMECLIDINIUM/VILANTEROL 62.5/25MCG 7 PUFFS/INHALER INH SCH (09:13)
[2021-12-26] MEDS: THIAMINE HCL 100 MG in SYRINGE 9 ML IV SCH (09:14)
[2021-12-26] MEDS: VENLAFAXINE HCL XR 150 MG CAPXR PO SCH (09:14)
[2021-12-26] MEDS: FAMOTIDINE 20 MG in SYRINGE 3 ML IV SCH (09:15)
[2021-12-26] MEDS: ASPIRIN 81 MG ECTAB PO SCH (09:16)
[2021-12-26] MEDS: CLOTRIMAZOLE 1% CR 15 GM TUBE EXT SCH ×2 (09:17→21:44)
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
--- NOTE | 2021-12-26 12:52 | Pharmacy Report ---
Pharmacy Glycemic Short Note 2 - Date of Service December 26, 2021 - Glycemic Short BSG Results (Last 24 hours): 12/25/21 12/25/21 12/26/21 17:01 20:41 05:45 Glucose 103 H POC Glucose 98 147 H 12/26/21 12/26/21 07:54 11:44 Glucose POC Glucose 118 H 131 H OUTPATIENT ANTIDIABETIC REGIMEN: * None * HbA1c 6.5% on 12/19/21 ASSESSMENT: 12/26: * BSGs have been well controlled the last 72 hours. * Continues on heparin drip (in D5W) and ceftriaxone. (+) PO intake. * Loosened carb ratio slightly today due to increased PO intake the past 24h, and BSG down into 90s yesterday after a larger prandial bolus. No further changes. 12/23 * BSGs well controlled over last 24 hrs (since IV dexamethasone d/c'd) * Fasting BSG 141 this AM with no basal insulin on board, this is acceptable - but will continue to monitor * Post-prandial BSGs controlled with current Novolog CR / CF - no change 12/22 * BSGs elevated yesterday, likely related to IV dexamethasone * IV dexamethasone now discontinued (10 days completed), will discontinue NPH, loosen Novolog parameters, and hold off on basal for the time being in light of fasting BSG of 93 mg/dL this morning and HbA1c of 6.5% * Remains on heparin gtt (in dextrose) 2 * PO intake increased and BSG's also increased yesterday. Novolog parameters were significantly tightened. Near-hypoglycemic event overnight, likely 2nd aggressive correction. Will loosen correction factor and carb ratio as compared to last night, but still keep tighter than AM parameters yesterday * No correctional insulin required overnight and AM fasting BSG good. Will cautiously increase NPH in an attempt to help with post-prandial elevations in the evenings * Diet has been changed to T2DM PLAN FOR INPATIENT GLYCEMIC CONTROL: * Basal insulin * none at this time, trend fasting BSGs * Bolus insulin - * NovoLog per scale ACHS or Q6hrs while NPO * Goal Range: Low 120 mg/dL - High 150 mg/dL * Correction Factor: 30 mg/dL/unit * Nutritional / Prandial insulin per carb ratio of 1 unit per 13 grams CHO consumed PLAN FOR DISCHARGE: * Follow-up as an outpatient for HbA1c suggestive of T2DM. Of note, steroid- induced hyperglycemia this admission may have an impact on repeat HbA1c if obtained soon after admission.
[2021-12-26] MEDS: valACYclovir HCL 500 MG TABLET PO SCH (16:10)
[2021-12-26] MEDS: HEPARIN SODIUM/DEXTROSE 25,000 UNITS/500 ML BAG IV SCH (18:22)
[2021-12-26] MEDS: cefTRIAXone SODIUM 1,000 MG in DEXTROSE 5% 50 ML IV SCH (21:40)
[2021-12-26] MEDS: METOPROLOL SUCC 25MG EXT REL TAB PO SCH (21:41)
[2021-12-27 06:49] LABS: Basophils # (auto) 0.03 K/uL (0-0.2); Basophils % (auto) 0.2 %; Eosinophils # (auto) 0.21 K/uL (0-0.5); Eosinophils % (auto) 1.7 %; Hemoglobin 10.3 g/dL (12.0-16.0); Immature Granulocytes # (auto) 0.25 K/uL (0.00-0.02); Immature Granulocytes % (auto) 2.1 %; Lymphocytes # (auto) 2.33 K/uL (1.2-3.4); Lymphocytes % (auto) 19.2 %; Mean Corpuscular Hemoglobin 30.2 pg (25-34); Mean Corpuscular Hgb Conc 30.3 g/dL (32-36); Mean Corpuscular Volume 99.7 fL (80-100); Mean Platelet Volume 13.2 fL (7.4-10.4); Monocytes # (auto) 1.14 K/uL (0.11-0.59); Monocytes % (auto) 9.4 %; Neutrophils % (auto) 67.4 %; Platelet Count 213 K/uL (130-400); RDW Coefficient of Variation 15.7 % (11.5-14.5); RDW Standard Deviation 56.9 fL (36.4-46.3); Red Blood Count 3.41 M/uL (4.2-5.4); White Blood Count 12.16 K/uL (4.8-10.8)
[2021-12-27 07:08] LABS: Albumin Globulin Ratio 0.8 (0.9-2); Albumin Level 2.8 gm/dl (3.4-5.0); BUN Creatinine Ratio 35.8 (10-20); Bilirubin,Total 0.5 mg/dl (0.2-1.0); C Reactive Protein 4.38 mg/dl (0-0.5); Calcium 8.8 mg/dl (8.5-10.1); Creatinine Clr Calc Pharmacy 27.5 ml/min; Est GFR (African American) 30.5 ml/min; Est GFR (Non-African American) 26.3 ml/min; Globulin 3.5 gm/dl (2.5-4.0); Magnesium 1.8 mg/dl (1.7-2.4); Phosphorus 4.2 mg/dl (2.5-4.9); Potassium 5.4 mmol/L (3.5-5.1); Total Protein 6.3 gm/dl (6.0-8.3)
[2021-12-27 07:15] LABS: Partial Thromboplastin Time 51.7 Seconds (21.0-31.0)
[2021-12-27] MEDS: SODIUM CHLOR 7% 4 ML NEB NEB SCH ×2 (07:17→19:59)
[2021-12-27] MEDS: ALBUT/IPRATROP 3MG/0.5MG NEB 3 ML VIAL NEB SCH ×2 (07:17→19:59)
[2021-12-27] MEDS ORDERED: SODIUM CHLORIDE 0.45 % 1,000 ML IV SCH (08:30)
[2021-12-27] MEDS: UMECLIDINIUM/VILANTEROL 62.5/25MCG 7 PUFFS/INHALER INH SCH (08:40)
[2021-12-27] MEDS: ASPIRIN 81 MG ECTAB PO SCH (08:41)
[2021-12-27] MEDS: VENLAFAXINE HCL XR 150 MG CAPXR PO SCH (08:41)
[2021-12-27] MEDS: THIAMINE HCL 100 MG in SYRINGE 9 ML IV SCH (08:41)
[2021-12-27] MEDS: valACYclovir HCL 500 MG TABLET PO SCH (08:42)
[2021-12-27] MEDS: FLUTICASONE FUROATE 100MCG 14 PUFFS/INHALER INH SCH (08:44)
[2021-12-27] MEDS: FAMOTIDINE 20 MG TAB PO SCH (08:44)
[2021-12-27] MEDS: NYSTATIN SUSP 500,000 U/5 ML UDC PO SCH ×4 (08:45→20:34)
[2021-12-27] MEDS: LINACLOTIDE 145 MCG CAPSULE PO SCH (08:45)
[2021-12-27] MEDS: PATIROMER CALCIUM SORBITEX 8.4 GM PACK PO SCH (09:41)
[2021-12-27] MEDS: INSULIN ASPART PER UNIT SC SCH ×4 (10:13→20:45)
[2021-12-27] MEDS: CLOTRIMAZOLE 1% CR 15 GM TUBE EXT SCH ×2 (11:06→20:34)
[2021-12-27] MEDS: HEPARIN SODIUM/DEXTROSE 25,000 UNITS/500 ML BAG IV SCH (17:41)
[2021-12-27] MEDS ORDERED: ENOXAPARIN 1 MG/KG SQ SCH (17:45)
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
[2021-12-27] MEDS ORDERED: ENOXAPARIN 80 MG/0.8 ML SYR SQ SCH (18:00)
[2021-12-27] MEDS: cefTRIAXone SODIUM 1,000 MG in DEXTROSE 5% 50 ML IV SCH (20:31)
[2021-12-27] MEDS: METOPROLOL SUCC 25MG EXT REL TAB PO SCH (20:34)
[2021-12-28] MEDS: ALBUT/IPRATROP 3MG/0.5MG NEB 3 ML VIAL NEB SCH ×2 (07:51→20:00)
[2021-12-28] MEDS: SODIUM CHLOR 7% 4 ML NEB NEB SCH ×2 (07:51→20:03)
[2021-12-28 07:57] LABS: Albumin Globulin Ratio 0.9 (0.9-2); Albumin Level 2.6 gm/dl (3.4-5.0); BUN Creatinine Ratio 41.1 (10-20); Bilirubin,Total 0.4 mg/dl (0.2-1.0); C Reactive Protein 3.69 mg/dl (0-0.5); Calcium 8.5 mg/dl (8.5-10.1); Creatinine Clr Calc Pharmacy 34.4 ml/min; Est GFR (Non-African American) 35.4 ml/min; Globulin 2.9 gm/dl (2.5-4.0); Magnesium 1.6 mg/dl (1.7-2.4); Potassium 5.1 mmol/L (3.5-5.1); Total Protein 5.5 gm/dl (6.0-8.3)
[2021-12-28] MEDS: ASPIRIN 81 MG ECTAB PO SCH (08:43)
[2021-12-28] MEDS: BUPRENORPHINE/NALOXONE 8/2 MG TAB SL SCH (08:43)
[2021-12-28] MEDS: valACYclovir HCL 500 MG TABLET PO SCH (08:44)
[2021-12-28] MEDS: FAMOTIDINE 20 MG TAB PO SCH (08:44)
[2021-12-28] MEDS: LINACLOTIDE 145 MCG CAPSULE PO SCH (08:45)
[2021-12-28] MEDS: UMECLIDINIUM/VILANTEROL 62.5/25MCG 7 PUFFS/INHALER INH SCH (08:46)
[2021-12-28] MEDS: NYSTATIN SUSP 500,000 U/5 ML UDC PO SCH ×4 (08:47→20:47)
[2021-12-28] MEDS: FLUTICASONE FUROATE 100MCG 14 PUFFS/INHALER INH SCH (08:47)
[2021-12-28] MEDS: VENLAFAXINE HCL XR 150 MG CAPXR PO SCH (08:47)
[2021-12-28] MEDS: CLOTRIMAZOLE 1% CR 15 GM TUBE EXT SCH ×2 (08:48→20:47)
[2021-12-28] MEDS: THIAMINE HCL 100 MG in SYRINGE 9 ML IV SCH (09:14)
--- NOTE | 2021-12-28 09:20 | Pharmacy Report ---
Pharmacy Glycemic Short Note 2 - Date of Service December 28, 2021 - Glycemic Short BSG Results (Last 24 hours): 12/27/21 12/27/21 12/27/21 12:19 16:47 20:29 Glucose POC Glucose 102 H 113 H 158 H 12/28/21 12/28/21 05:44 07:20 Glucose 74 POC Glucose 96 OUTPATIENT ANTIDIABETIC REGIMEN: * None * HbA1c 6.5% on 12/19/21 ASSESSMENT: 12/27/21 * BSGs yesterday were [phone] mg/dL. Fasting today is 96 mg/dL. * Patient received 6 units of bolus insulin yesterday. Did feed herself yesterday. * Continue to hold Lantus. * CR may require some tightening but patient largely in goal range so will hold off on that. 12/26: * BSGs have been well controlled the last 72 hours. * Continues on heparin drip (in D5W) and ceftriaxone. (+) PO intake. * Loosened carb ratio slightly today due to increased PO intake the past 24h, and BSG down into 90s yesterday after a larger prandial bolus. No further changes. 12/23 * BSGs well controlled over last 24 hrs (since IV dexamethasone d/c'd) * Fasting BSG 141 this AM with no basal insulin on board, this is acceptable - but will continue to monitor * Post-prandial BSGs controlled with current Novolog CR / CF - no change 12/22 * BSGs elevated yesterday, likely related to IV dexamethasone * IV dexamethasone now discontinued (10 days completed), will discontinue NPH, loosen Novolog parameters, and hold off on basal for the time being in light of fasting BSG of 93 mg/dL this morning and HbA1c of 6.5% * Remains on heparin gtt (in dextrose) 2/ * PO intake increased and BSG's also increased yesterday. Novolog parameters were significantly tightened. Near-hypoglycemic event overnight, likely 2nd aggressive correction. Will loosen correction factor and carb ratio as compared to last night, but still keep tighter than AM parameters yesterday * No correctional insulin required overnight and AM fasting BSG good. Will cautiously increase NPH in an attempt to help with post-prandial elevations in the evenings * Diet has been changed to T2DM PLAN FOR INPATIENT GLYCEMIC CONTROL: * Basal insulin * hold * Bolus insulin - * NovoLog per scale ACHS or Q6hrs while NPO * Goal Range: Low 120 mg/dL - High 150 mg/dL * Correction Factor: 30 mg/dL/unit * Nutritional / Prandial insulin per carb ratio of 1 unit per 13 grams CHO consumed PLAN FOR DISCHARGE: * Follow-up as an outpatient for HbA1c suggestive of T2DM. Of note, steroid- induced hyperglycemia this admission may have an impact on repeat HbA1c if obtained soon after admission.
[2021-12-28] MEDS: INSULIN ASPART PER UNIT SC SCH ×4 (09:44→21:04)
[2021-12-28] MEDS: PATIROMER CALCIUM SORBITEX 8.4 GM PACK PO SCH (12:20)
--- NOTE | 2021-12-28 16:04 | Hospitalist Progress Note ---
Date of Service December 28, 2021 Assessment & Plan (1) Acute respiratory failure with hypoxia: Plan: Acute on chronic respiratory failure with hypoxia secondary to Covid-19 pneumonia as well as secondary bacterial pneumonia and acute systolic CHF in the background of COPD. Oxygen requirement has fluctuated - Low of 5 L on Thursday, up to high flow at times. Favorable response to IV Lasix on 2 occasions. -> Presently stable at 8L NC. (2) Opiate withdrawal: Plan: On Suboxone chronically, was held on admission due to septic shock and altered mental status-she did not receive her Suboxone for approximately 5 to 6 days. She then developed agitation, tachycardia, tachypnea, tremors on 12/17 with RR in 30s and HR in 140s, febrile and diaphoretic. - Then was placed back on Suboxone and much improved withdrawal symptoms, however then became very lethargic and encephalopathic again. - It was later discovered that she really only takes Suboxone once daily and she was getting it prescribed as twice daily. -> Presently mental status is good without signs of withdrawal. (3) Encephalopathy: Plan: *Metabolic encephalopathy Multifactorial: Initially secondary to septic shock, hypoxia, uremia, Covid-19 infection, pneumonia, but then developed opiate withdrawal. Slightly improved on 12/25 after holding Suboxone and starting IV thiamine, but not much better on 12/26. - Now mostly improved on 12/27 & 12/28 - more interactive and less lethargic, feeding herself. - Added thiamine 500 mg IV every 8 hours x3 doses to see if has a component of Wernicke's encephalopathy given prolonged hospitalization, poor nutritional status, and diuretic use-we'll now continue thiamine 100 mg IV once daily (4) COVID-19: Plan: With *pneumonia secondary to coronavirus-19 disease and with acute and chronic respiratory failure with hypoxia - Day 9 of illness at the time of presentation. Patient is not vaccinated. Per sister, patient's illness has consisted of fatigue, weakness, and headache. No respiratory or GI symptoms. - Has now completed 10-day course of IV dexamethasone 6mg - Has now completed a 10-day course of cefepime for coverage of secondary pneumonia - Continue fluticasone inhaled daily, and Anoro - Continue incentive spirometry and flutter valve (5) Septic shock: Plan: Developed septic shock on 12/13, required Levophed. Moved back to PCU on 12/14 after she no longer needed Levophed. Lactic acid butch again on 12/17 and was hypotensive. BP responded to 2L of NSS, no pressors needed-this was secondary to Suboxone withdrawal. (6) Left ventricular dysfunction: Plan: With acute systolic CHF. New finding on echo on 12/17, EF 35-40% whereas echocardiogram on admission had preserved EF. - Appreciate cardiology consultation-suspects Covid myocarditis. Troponin peaked at 5. - Gave Lasix on 12/20 for acute pulmonary edema. - Continue Lasix daily as needed - Continue to fluid restrict to 1800mL / day, low-sodium diet - Started metoprolol succinate 25 mg p.o. at bedtime - Eventually will need lisinopril added back on if BP and renal function can tolerate (7) Cardiomyopathy: Plan: As above (8) Left lower lobe pneumonia: Plan: As above. Completed course of antibiotics with cefepime x10 days. (9) Acute kidney injury: Plan: Creatinine and BUN elevated on admission at 49 and 2.3. Cr improved to 1.23 initially, then butch again after receiving IV Lasix. - Cr is down to 1.5 on 12/28 (10) DVT (deep venous thrombosis): Plan: *Acute DVT of the proximal left superficial femoral vein. Due to patient's Antithrombin III deficiency and in the setting of Covid-19. - Presume she was taking her Xarelto at home although she may have missed some doses in the setting of encephalopathy and acute illness? - Presently on Lovenox 70 mg SQ BID (11) Elevated troponin: Plan: Up to 5 on 12/18, down afterward. EF is reduced to 35-40%. 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 - Cardiology consulted, no plans for cath right now with Cr and critically ill - Metoprolol as above - Restarted home aspirin 81mg daily (12) COPD (chronic obstructive pulmonary disease): Plan: Patient has home O2 for PRN use. According to sister, patient has not used it in a long time, has not been using it since COVID diagnosis on 12/03. 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 With acute DVT as above and suspected PE. - As above (14) Hypertension: Plan: BP stable today at 110/75. - As above (15) CAD (coronary artery disease), [place] coronary artery: Plan: With h/o stent placed. Myocardial demand ischemia and Covid myocarditis as above. - As above (16) On home oxygen therapy: Plan: Chronic HS. (17) Depression: Plan: Mood is stable today. - Continue venlafaxine & ziprasidone (18) Anemia: Plan: Hemoglobin stable at 10-11 (19) Oral candidiasis: Plan: Newly diagnosed on 12/22 - Continue nystatin swish and swallow x2-week course (20) Shingles: Plan: Noted on her right mid and lower back as well as buttock which would be at least 3 different dermatomes. She is immunosuppressed and on steroids for many days. - Continue valacyclovir 1000 mg daily x7 days - last dose will be on 01/01 - Also may be fungal-advised nurses to put the fungal cream on this area as well Admission and Anticipated Discharge Date Admission Date: December 12, 2021 Subjective Doing well today. No major issues. No real shortness of breath. Reports no fevers/chills, chest pain, shortness of breath, abdominal pain, nausea, or vomiting. Physical Exam Constitutional: WD/WN, vitals as above Eyes: EOM intact bilaterally; no conjunctival abnormality ENMT: external ear and nose normal, oropharynx normal Neck: trachea midline, no thyromegaly normal visual inspection Respiratory: normal respiratory effort, lungs clear to auscultation no respiratory distress Cardiovascular: RRR, no murmur, no edema Gastrointestinal (Abdomen): Inspection/Auscultation: abdomen normal to inspection; abdomen not distended Musculoskeletal: no cyanosis or clubbing, extremities motor strength 5/5 Skin: no rashes, warm and dry Neurologic: moves all extremities and awake Psychiatric: Orientation: alert, oriented to person and cooperative Results & Data Results & Data ([facility]) Vital Signs (Past 12 Hours) Vital Signs Temp Pulse Pulse Resp BP BP Pulse Ox 12/28/21 15:37 36.8 C 70 18 111/75 95 12/28/21 13:25 96 12/28/21 12:45 97 12/28/21 12:00 98 12/28/21 11:30 36.7 C 76 18 114/62 90 12/28/21 07:51 71 20 99 12/28/21 07:41 76 12/28/21 06:22 36.8 C 12/28/21 06:21 65 18 125/93 90 12/28/21 04:00 36.7 C 67 18 93/51 L 97 PG Care Time/CCT Total # of Minutes Spent Total Time Spent with Patient: Total time spent is greater than 50% in coordination of care (as documented) at patient's floor/unit and/or counseling patient: Coding Level of Care Code 85685 Subseq Hosp Care Lvl 3 Diagnoses Acute respiratory failure with hypoxia J96.01 Opiate withdrawal F11.23 COVID-19 U07.1 Septic shock A41.9; R65.21 Encephalopathy G93.40 Left ventricular dysfunction I51.9 Cardiomyopathy I42.9 Left lower lobe pneumonia J18.9 Acute kidney injury N17.9 DVT (deep venous thrombosis) I82.409 Elevated troponin R77.8 COPD (chronic obstructive pulmonary disease) J44.9 Antithrombin 3 deficiency D68.59 Hypertension I10 CAD (coronary artery disease), [place] coronary artery I25.10 On home oxygen therapy Z99.81 Depression F32.9 Psychotic features: with psychotic features Anemia D64.9 Oral candidiasis B37.0 Shingles B02.9 (1) Depression Psychotic features: with psychotic features
[2021-12-28] MEDS: ENOXAPARIN 80 MG/0.8 ML SYR SQ SCH (20:48)
[2021-12-28] MEDS: cefTRIAXone SODIUM 1,000 MG in DEXTROSE 5% 50 ML IV SCH (20:50)
[2021-12-28] MEDS: METOPROLOL SUCC 25MG EXT REL TAB PO SCH (22:12)
[2021-12-29 07:11] LABS: Hematocrit (blood only) 30.6 % (37-47); Hemoglobin 9.4 g/dL (12.0-16.0); Mean Corpuscular Hemoglobin 30.3 pg (25-34); Mean Corpuscular Hgb Conc 30.7 g/dL (32-36); Mean Corpuscular Volume 98.7 fL (80-100); Mean Platelet Volume 12.8 fL (7.4-10.4); Platelet Count 178 K/uL (130-400); RDW Coefficient of Variation 15.2 % (11.5-14.5); RDW Standard Deviation 54.1 fL (36.4-46.3); White Blood Count 8.68 K/uL (4.8-10.8)
[2021-12-29] MEDS: SODIUM CHLOR 7% 4 ML NEB NEB SCH ×2 (07:32→20:06)
[2021-12-29] MEDS: ALBUT/IPRATROP 3MG/0.5MG NEB 3 ML VIAL NEB SCH ×2 (07:32→20:06)
[2021-12-29 07:36] LABS: BUN Creatinine Ratio 41.4 (10-20); Calcium 8.7 mg/dl (8.5-10.1); Creatinine Clr Calc Pharmacy 39.1 ml/min; Est GFR (African American) 47.8 ml/min; Est GFR (Non-African American) 41.3 ml/min; Magnesium 1.5 mg/dl (1.7-2.4); Potassium 5.3 mmol/L (3.5-5.1)
[2021-12-29] MEDS: CLOTRIMAZOLE 1% CR 15 GM TUBE EXT SCH ×2 (08:53→20:20)
[2021-12-29] MEDS: FAMOTIDINE 20 MG TAB PO SCH (08:53)
[2021-12-29] MEDS: ASPIRIN 81 MG ECTAB PO SCH (08:53)
[2021-12-29] MEDS: UMECLIDINIUM/VILANTEROL 62.5/25MCG 7 PUFFS/INHALER INH SCH (08:54)
[2021-12-29] MEDS: NYSTATIN SUSP 500,000 U/5 ML UDC PO SCH ×4 (08:54→20:20)
[2021-12-29] MEDS: VENLAFAXINE HCL XR 150 MG CAPXR PO SCH (08:55)
[2021-12-29] MEDS: valACYclovir HCL 500 MG TABLET PO SCH ×2 (08:55→20:19)
[2021-12-29] MEDS: THIAMINE HCL 100 MG in SYRINGE 9 ML IV SCH (08:56)
[2021-12-29] MEDS: BUPRENORPHINE/NALOXONE 8/2 MG TAB SL SCH (09:18)
[2021-12-29] MEDS: MAGNESIUM SULFATE / D5W 1 GM/100 ML BAG IV SCH ×2 (09:18→11:55)
[2021-12-29] MEDS: INSULIN ASPART PER UNIT SC SCH ×4 (09:27→21:36)
--- NOTE | 2021-12-29 11:39 | Hospitalist Progress Note ---
Date of Service December 29, 2021 Assessment & Plan (1) Acute respiratory failure with hypoxia: Plan: Acute on chronic respiratory failure with hypoxia secondary to Covid-19 pneumonia as well as secondary bacterial pneumonia and acute systolic CHF in the background of COPD. Oxygen requirement has fluctuated - Low of 5 L on Thursday, up to high flow at times. Favorable response to IV Lasix on 2 occasions. -> Presently stable at 3L NC. (2) Opiate withdrawal: Plan: On Suboxone chronically, was held on admission due to septic shock and altered mental status-she did not receive her Suboxone for approximately 5 to 6 days. She then developed agitation, tachycardia, tachypnea, tremors on 12/17 with RR in 30s and HR in 140s, febrile and diaphoretic. - Then was placed back on Suboxone and much improved withdrawal symptoms, however then became very lethargic and encephalopathic again. - It was later discovered that she really only takes Suboxone once daily and she was getting it prescribed as twice daily. -> Presently mental status is good without signs of withdrawal. On 12/29, she is AAOx4, even able to discuss basic details of her hospitalization. (3) Encephalopathy: Plan: *Metabolic encephalopathy Multifactorial: Initially secondary to septic shock, hypoxia, uremia, Covid-19 infection, pneumonia, but then developed opiate withdrawal. Slightly improved on 12/25 after holding Suboxone and starting IV thiamine, but not much better on 12/26. - Now mostly improved on 12/27 & 12/28 - more interactive and less lethargic, feeding herself. - Added thiamine 500 mg IV every 8 hours x3 doses to see if has a component of Wernicke's encephalopathy given prolonged hospitalization, poor nutritional status, and diuretic use. - Transition to oral thiamine on 12/29. (4) COVID-19: Plan: With *pneumonia secondary to coronavirus-19 disease and with acute and chronic respiratory failure with hypoxia - Day 9 of illness at the time of presentation. Patient is not vaccinated. Per sister, patient's illness has consisted of fatigue, weakness, and headache. No respiratory or GI symptoms. - Has now completed 10-day course of IV dexamethasone 6mg - Has now completed a 10-day course of cefepime for coverage of secondary pneumonia - Continue fluticasone inhaled daily, and Anoro - Continue incentive spirometry and flutter valve (5) Septic shock: Plan: Developed septic shock on 12/13, required Levophed. Moved back to PCU on 12/14 after she no longer needed Levophed. Lactic acid butch again on 12/17 and was hypotensive. BP responded to 2L of NSS, no pressors needed-this was secondary to Suboxone withdrawal. -> BP on 12/29 dropped to 78/52. RN rechecking now; will start with IV fluids as first step if BP actually low. (6) Left ventricular dysfunction: Plan: With acute systolic CHF. New finding on echo on 12/17, EF 35-40% whereas echocardiogram on admission had preserved EF. - Appreciate cardiology consultation-suspects Covid myocarditis. Troponin peaked at 5. - Gave Lasix on 12/20 for acute pulmonary edema. - Continue Lasix daily as needed - Continue to fluid restrict to 1800mL / day, low-sodium diet - Started metoprolol succinate 25 mg p.o. at bedtime - Eventually will need lisinopril added back on if BP and renal function can tolerate (7) Cardiomyopathy: Plan: As above (8) Left lower lobe pneumonia: Plan: As above. Completed course of antibiotics with cefepime x10 days. (9) Acute kidney injury: Plan: Creatinine and BUN elevated on admission at 49 and 2.3. Cr improved to 1.23 initially, then butch again after receiving IV Lasix. - Cr is down to 1.3 on 12/29 (10) DVT (deep venous thrombosis): Plan: *Acute DVT of the proximal left superficial femoral vein. Due to patient's Antithrombin III deficiency and in the setting of Covid-19. - Presume she was taking her Xarelto at home although she may have missed some doses in the setting of encephalopathy and acute illness? - Presently on Lovenox 70 mg SQ BID (11) Elevated troponin: Plan: Up to 5 on 12/18, down afterward. EF is reduced to 35-40%. 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 - Cardiology consulted, no plans for cath right now with Cr and critically ill - Metoprolol as above - Restarted home aspirin 81mg daily (12) COPD (chronic obstructive pulmonary disease): Plan: Patient has home O2 for PRN use. According to sister, patient has not used it in a long time, has not been using it since COVID diagnosis on 12/03. 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 With acute DVT as above and suspected PE. - As above (14) Hypertension: Plan: BP stable today at 110/75 until about 11:37 when it fell lower. RN rechecking. - As above (15) CAD (coronary artery disease), [place] coronary artery: Plan: With h/o stent placed. Myocardial demand ischemia and Covid myocarditis as above. - As above (16) On home oxygen therapy: Plan: Chronic HS. (17) Depression: Plan: Mood is stable today. - Continue venlafaxine & ziprasidone (18) Anemia: Plan: Hemoglobin stable at 10-11 (19) Oral candidiasis: Plan: Newly diagnosed on 12/22 - Continue nystatin swish and swallow x2-week course (20) Shingles: Plan: Noted on her right mid and lower back as well as buttock which would be at least 3 different dermatomes. She is immunosuppressed and on steroids for many days. - Continue valacyclovir 1000 mg daily x7 days - last dose will be on 01/01 - Also may be fungal-advised nurses to put the fungal cream on this area as well -> Improving today. Now pinkish, with no active vesicles seen. Admission and Anticipated Discharge Date Admission Date: December 12, 2021 Subjective Doing well today. No major issues. No shortness of breath. Reports no fevers/chills, chest pain, shortness of breath, abdominal pain, nausea, or vomiting. However, still not much appetite. Physical Exam Constitutional: WD/WN, vitals as above Eyes: EOM intact bilaterally; no conjunctival abnormality ENMT: external ear and nose normal, oropharynx normal Neck: trachea midline, no thyromegaly normal visual inspection Respiratory: normal respiratory effort, lungs clear to auscultation no respiratory distress Cardiovascular: RRR, no murmur, no edema Gastrointestinal (Abdomen): Inspection/Auscultation: abdomen normal to inspection; abdomen not distended Musculoskeletal: no cyanosis or clubbing, extremities motor strength 5/5 Skin: no rashes, warm and dry Neurologic: moves all extremities and awake Psychiatric: Orientation: alert, oriented to person and cooperative Results & Data Results & Data ([facility]) Vital Signs (Past 12 Hours) Vital Signs Temp Pulse Pulse Pulse Resp BP BP 12/29/21 09:39 72 12/29/21 07:41 37 C 78 16 112/71 12/29/21 07:32 79 20 12/29/21 03:40 36.8 C 76 16 106/53 L 12/29/21 01:20 81 Pulse Ox 12/29/21 09:39 12/29/21 07:41 98 12/29/21 07:32 99 12/29/21 03:40 96 12/29/21 01:20 PG Care Time/CCT Total # of Minutes Spent Total Time Spent with Patient: Total time spent is greater than 50% in coordination of care (as documented) at patient's floor/unit and/or counseling patient: Coding Level of Care Code 79590 Subseq Hosp Care Lvl 3 Diagnoses Acute respiratory failure with hypoxia J96.01 Opiate withdrawal F11.23 Encephalopathy G93.40 COVID-19 U07.1 Septic shock A41.9; R65.21 Left ventricular dysfunction I51.9 Cardiomyopathy I42.9 Left lower lobe pneumonia J18.9 Acute kidney injury N17.9 DVT (deep venous thrombosis) I82.409 Elevated troponin R77.8 COPD (chronic obstructive pulmonary disease) J44.9 Antithrombin 3 deficiency D68.59 Hypertension I10 CAD (coronary artery disease), [place] coronary artery I25.10 On home oxygen therapy Z99.81 Depression F32.9 Psychotic features: with psychotic features Anemia D64.9 Oral candidiasis B37.0 Shingles B02.9 (1) Depression Psychotic features: with psychotic features
[2021-12-29] MEDS: LINACLOTIDE 145 MCG CAPSULE PO SCH (11:53)
[2021-12-29] MEDS: FLUTICASONE FUROATE 100MCG 14 PUFFS/INHALER INH SCH (11:55)
[2021-12-29] MEDS ORDERED: NORMOSOL-R 500 ML IV ONE (13:50)
[2021-12-29] MEDS: PATIROMER CALCIUM SORBITEX 8.4 GM PACK PO SCH (14:54)
[2021-12-29] MEDS: ACETAMINOPHEN 325 MG TAB PO PRN (14:55)
[2021-12-29] MEDS: cefTRIAXone SODIUM 1,000 MG in DEXTROSE 5% 50 ML IV SCH (20:14)
[2021-12-29] MEDS: ENOXAPARIN 80 MG/0.8 ML SYR SQ SCH (20:19)
[2021-12-29] MEDS: METOPROLOL SUCC 25MG EXT REL TAB PO SCH (20:19)
[2021-12-30 06:27] LABS: Hemoglobin 9.6 g/dL (12.0-16.0); Mean Corpuscular Hemoglobin 30.2 pg (25-34); Mean Corpuscular Volume 97.5 fL (80-100); Mean Platelet Volume 12.7 fL (7.4-10.4); Platelet Count 185 K/uL (130-400); RDW Standard Deviation 53.3 fL (36.4-46.3); Red Blood Count 3.18 M/uL (4.2-5.4)
[2021-12-30 06:39] LABS: BUN Creatinine Ratio 39.7 (10-20); Calcium 9.2 mg/dl (8.5-10.1); Creatinine Clr Calc Pharmacy 41.9 ml/min; Est GFR (African American) 51.1 ml/min; Potassium 4.8 mmol/L (3.5-5.1)
[2021-12-30] MEDS: ALBUT/IPRATROP 3MG/0.5MG NEB 3 ML VIAL NEB SCH (07:17)
[2021-12-30] MEDS: SODIUM CHLOR 7% 4 ML NEB NEB SCH (07:17)
[2021-12-30] MEDS: INSULIN ASPART PER UNIT SC SCH ×4 (08:34→21:33)
[2021-12-30] MEDS: FAMOTIDINE 20 MG TAB PO SCH (08:40)
[2021-12-30] MEDS: ASPIRIN 81 MG ECTAB PO SCH (08:41)
[2021-12-30] MEDS: FLUTICASONE FUROATE 100MCG 14 PUFFS/INHALER INH SCH (08:42)
[2021-12-30] MEDS: CLOTRIMAZOLE 1% CR 15 GM TUBE EXT SCH ×2 (08:42→21:56)
[2021-12-30] MEDS: NYSTATIN SUSP 500,000 U/5 ML UDC PO SCH ×4 (08:43→21:54)
[2021-12-30] MEDS: LINACLOTIDE 145 MCG CAPSULE PO SCH (08:43)
[2021-12-30] MEDS: UMECLIDINIUM/VILANTEROL 62.5/25MCG 7 PUFFS/INHALER INH SCH (08:43)
[2021-12-30] MEDS: VENLAFAXINE HCL XR 150 MG CAPXR PO SCH (08:44)
[2021-12-30] MEDS: valACYclovir HCL 500 MG TABLET PO SCH ×2 (08:44→21:55)
[2021-12-30] MEDS: BUPRENORPHINE/NALOXONE 8/2 MG TAB SL SCH (08:50)
--- NOTE | 2021-12-30 12:07 | Pharmacy Report ---
Pharmacy Glycemic Sign Off Nt - Date of Service December 30, 2021 - Assessment & Plan ASSESSMENT: * Stressors stable. * BSG's ranged 85-115 mg/dL over the last 24 hours * No basal ordered/required and Novolog at a stable CF/CR x4 days. * OK to sign off per Dr. Guerra PLAN FOR INPATIENT GLYCEMIC CONTROL: No changes needed to current regimen. * No basal insulin * Continue NovoLog per scale ACHS/Q6hrs while NPO * Goal range = 120 150 mg/dl * CF = 30 mg/dl/unit * CR = 1 unit for ever 13 g CHO consumed * Pharmacy is signing off of glycemic consult and will no longer be making adjustments to inpatient regimen. Please feel free to re-consult if needed. Thank you.
--- NOTE | 2021-12-30 12:15 | Hospitalist Progress Note ---
Date of Service December 30, 2021 Assessment & Plan (1) Acute respiratory failure with hypoxia: Plan: Acute on chronic respiratory failure with hypoxia secondary to Covid-19 pneumonia as well as secondary bacterial pneumonia and acute systolic CHF in the background of COPD. Oxygen requirement has fluctuated - Low of 5 L on Thursday, up to high flow at times. -> Presently stable at 2L NC. (2) Opiate withdrawal: Plan: On Suboxone chronically, was held on admission due to septic shock and altered mental status-she did not receive her Suboxone for approximately 5 to 6 days. She then developed agitation, tachycardia, tachypnea, tremors on 12/17 with RR in 30s and HR in 140s, febrile and diaphoretic. - Then was placed back on Suboxone and much improved withdrawal symptoms, however then became very lethargic and encephalopathic again. - It was later discovered that she really only takes Suboxone once daily and she was getting it prescribed as twice daily. -> Presently mental status is good without signs of withdrawal. On 12/29, she was AAOx4, even able to discuss basic details of her hospitalization. Today, slightly more tired, but still oriented. (3) Encephalopathy: Plan: *Metabolic encephalopathy Multifactorial: Initially secondary to septic shock, hypoxia, uremia, Covid-19 infection, pneumonia, but then developed opiate withdrawal. Slightly improved on 12/25 after holding Suboxone and starting IV thiamine, but not much better on 12/26. - Now mostly improved on 12/27 & 12/28 - more interactive and less lethargic, feeding herself. - Added thiamine 500 mg IV every 8 hours x3 doses to see if has a component of Wernicke's encephalopathy given prolonged hospitalization, poor nutritional status, and diuretic use. - Transitioned to oral thiamine on 12/29. (4) COVID-19: Plan: With *pneumonia secondary to coronavirus-19 disease and with acute and chronic respiratory failure with hypoxia - Day 9 of illness at the time of presentation. Patient is not vaccinated. Per sister, patient's illness has consisted of fatigue, weakness, and headache. No respiratory or GI symptoms. - Has now completed 10-day course of IV dexamethasone 6mg - Has now completed a 10-day course of cefepime for coverage of secondary pneumonia - Continue fluticasone inhaled daily, and Anoro - Continue incentive spirometry and flutter valve - Off precautions on 01/09. (5) Septic shock: Plan: Developed septic shock on 12/13, required Levophed. Moved back to PCU on 12/14 after she no longer needed Levophed. Lactic acid butch again on 12/17 and was hypotensive. BP responded to 2L of NSS, no pressors needed-this was secondary to Suboxone withdrawal. -> BP on 12/29 dropped to 78/52. I think she was just hypovolemic as her BP responded to 500 mL of IVF and has remained stable since then. (6) Left ventricular dysfunction: Plan: With acute systolic CHF. New finding on echo on 12/17, EF 35-40% whereas echocardiogram on admission had preserved EF. - Appreciate cardiology consultation-suspects Covid myocarditis. Troponin peaked at 5. - Gave Lasix on 12/20 for acute pulmonary edema. - Continue Lasix daily as needed - Continue to fluid restrict to 1800mL / day, low-sodium diet - Started metoprolol succinate 25 mg p.o. at bedtime - Eventually will need lisinopril added back on if BP and renal function can tolerate (7) Cardiomyopathy: Plan: As above (8) Left lower lobe pneumonia: Plan: As above. Completed course of antibiotics with cefepime x10 days. (9) Acute kidney injury: Plan: Creatinine and BUN elevated on admission at 49 and 2.3. Cr improved to 1.23 initially, then butch again after receiving IV Lasix. - Cr is down to 1.25 on 12/30; likely her baseline. (10) DVT (deep venous thrombosis): Plan: *Acute DVT of the proximal left superficial femoral vein. Due to patient's Antithrombin III deficiency and in the setting of Covid-19. - Presume she was taking her Xarelto at home although she may have missed some doses in the setting of encephalopathy and acute illness? - Presently on Lovenox, transition to apixaban today. (Discussed with pharm, no need to start at 10 mg PO BID since she's been on anticoagulation for 18 days.) (11) Elevated troponin: Plan: Up to 5 on 12/18, down afterward. EF is reduced to 35-40%. 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 - Cardiology consulted, no plans for cath right now with Cr and critically ill - Metoprolol as above - Restarted home aspirin 81mg daily -> Reached out to consulting public health clinical nurse specialist on 12/30. They will re-assess tomorrow. Asked for a limited echo today. (12) COPD (chronic obstructive pulmonary disease): Plan: Patient has home O2 for PRN use. According to sister, patient has not used it in a long time, has not been using it since COVID diagnosis on 12/03. 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 With acute DVT as above and suspected PE. - As above (14) Hypertension: Plan: BP stable today at 110/75 until about 11:37 when it fell lower. See above. - Continue metoprolol 25 mg HS (15) CAD (coronary artery disease), [place] coronary artery: Plan: With h/o stent placed. Myocardial demand ischemia and Covid myocarditis as above. - As above (16) On home oxygen therapy: Plan: Chronic HS. (17) Depression: Plan: Mood is stable today. - Continue venlafaxine & ziprasidone (18) Anemia: Plan: Hemoglobin stable at 10-11 (19) Oral candidiasis: Plan: Newly diagnosed on 12/22 - Continue nystatin swish and swallow x2-week course (20) Shingles: Plan: Noted on her right mid and lower back as well as buttock which would be at least 3 different dermatomes. She is immunosuppressed and on steroids for many days. - Continue valacyclovir 1000 mg BID x7 days - last dose will be on 01/01 - Also may be fungal-advised nurses to put the fungal cream on this area as well -> Improving today. Now pinkish, with no active vesicles seen. Admission and Anticipated Discharge Date Admission Date: December 12, 2021 Subjective Doing fairly well today. No major issues. Less shortness of breath. Still without much appetite, even with the increased meal allowances (ie no further restrictions on diet). But again, denies nausea, denies vomiting. Physical Exam Constitutional: WD/WN, vitals as above Eyes: EOM intact bilaterally; no conjunctival abnormality ENMT: external ear and nose normal, oropharynx normal Neck: trachea midline, no thyromegaly normal visual inspection Respiratory: normal respiratory effort, lungs clear to auscultation no respiratory distress Cardiovascular: RRR, no murmur, no edema Gastrointestinal (Abdomen): Inspection/Auscultation: abdomen normal to inspection; abdomen not distended Musculoskeletal: no cyanosis or clubbing, extremities motor strength 5/5 Skin: no rashes, warm and dry Neurologic: moves all extremities and awake Psychiatric: Orientation: alert, oriented to person and cooperative Results & Data Results & Data ([facility]) Vital Signs (Past 12 Hours) Vital Signs Temp Pulse Resp BP Pulse Ox 12/30/21 11:51 36.5 C 78 19 107/69 97 12/30/21 07:40 36.7 C 75 19 140/83 91 12/30/21 07:17 75 20 95 12/30/21 03:48 36.6 C 74 18 107/68 93 PG Care Time/CCT Total # of Minutes Spent Total Time Spent with Patient: Total time spent is greater than 50% in coordination of care (as documented) at patient's floor/unit and/or counseling patient: Coding Level of Care Code 81050 Subseq Hosp Care Lvl 3 Diagnoses Acute respiratory failure with hypoxia J96.01 Opiate withdrawal F11.23 Encephalopathy G93.40 COVID-19 U07.1 Septic shock A41.9; R65.21 Left ventricular dysfunction I51.9 Cardiomyopathy I42.9 Left lower lobe pneumonia J18.9 Acute kidney injury N17.9 DVT (deep venous thrombosis) I82.409 Elevated troponin R77.8 COPD (chronic obstructive pulmonary disease) J44.9 Antithrombin 3 deficiency D68.59 Hypertension I10 CAD (coronary artery disease), [place] coronary artery I25.10 On home oxygen therapy Z99.81 Depression F32.9 Psychotic features: with psychotic features Anemia D64.9 Oral candidiasis B37.0 Shingles B02.9 (1) Depression Psychotic features: with psychotic features
[2021-12-30] MEDS ORDERED: ALBUT/IPRATROP 3MG/0.5MG NEB 3 ML VIAL NEB PRN (12:35)
[2021-12-30] MEDS: PATIROMER CALCIUM SORBITEX 8.4 GM PACK PO SCH (12:56)
--- NOTE | 2021-12-30 13:40 | XCELERA ---
[id number] \\[id number]
[2021-12-30] MEDS: METOPROLOL SUCC 25MG EXT REL TAB PO SCH (21:54)
[2021-12-30] MEDS: APIXABAN 2.5 MG TAB PO SCH (21:55)
[2021-12-31] MEDS: ACETAMINOPHEN 325 MG TAB PO PRN (03:24)
[2021-12-31 06:25] LABS: Hematocrit (blood only) 26.9 % (37-47); Hemoglobin 8.4 g/dL (12.0-16.0); Mean Corpuscular Hemoglobin 30.2 pg (25-34); Mean Corpuscular Hgb Conc 31.2 g/dL (32-36); Mean Corpuscular Volume 96.8 fL (80-100); Mean Platelet Volume 12.1 fL (7.4-10.4); Platelet Count 153 K/uL (130-400); RDW Coefficient of Variation 14.9 % (11.5-14.5); Red Blood Count 2.78 M/uL (4.2-5.4); White Blood Count 10.21 K/uL (4.8-10.8)
[2021-12-31 06:46] LABS: BUN Creatinine Ratio 38.4 (10-20); Calcium 8.5 mg/dl (8.5-10.1); Creatinine Clr Calc Pharmacy 42.2 ml/min; Est GFR (African American) 51.5 ml/min; Est GFR (Non-African American) 44.5 ml/min; Magnesium 1.7 mg/dl (1.7-2.4); Potassium 4.7 mmol/L (3.5-5.1)
[2021-12-31] MEDS: INSULIN ASPART PER UNIT SC SCH ×4 (08:32→21:00)
[2021-12-31] MEDS: MAGNESIUM SULFATE / D5W 1 GM/100 ML BAG IV SCH ×2 (09:03→10:29)
[2021-12-31] MEDS: BUPRENORPHINE/NALOXONE 8/2 MG TAB SL SCH (09:03)
[2021-12-31] MEDS: ASPIRIN 81 MG ECTAB PO SCH (09:04)
[2021-12-31] MEDS: VENLAFAXINE HCL XR 150 MG CAPXR PO SCH (09:04)
[2021-12-31] MEDS: FAMOTIDINE 20 MG TAB PO SCH (09:04)
[2021-12-31] MEDS: NYSTATIN SUSP 500,000 U/5 ML UDC PO SCH ×4 (09:04→21:07)
[2021-12-31] MEDS: APIXABAN 2.5 MG TAB PO SCH ×2 (09:04→21:07)
[2021-12-31] MEDS: LINACLOTIDE 145 MCG CAPSULE PO SCH (09:04)
[2021-12-31] MEDS: FLUTICASONE FUROATE 100MCG 14 PUFFS/INHALER INH SCH (09:05)
[2021-12-31] MEDS: valACYclovir HCL 500 MG TABLET PO SCH ×2 (09:06→21:07)
[2021-12-31] MEDS: UMECLIDINIUM/VILANTEROL 62.5/25MCG 7 PUFFS/INHALER INH SCH (09:06)
[2021-12-31] MEDS: CLOTRIMAZOLE 1% CR 15 GM TUBE EXT SCH ×2 (09:07→21:05)
[2021-12-31] MEDS: PATIROMER CALCIUM SORBITEX 8.4 GM PACK PO SCH (12:54)
--- NOTE | 2021-12-31 15:02 | Hospitalist Progress Note ---
Date of Service December 31, 2021 Assessment & Plan (1) Acute respiratory failure with hypoxia: Plan: Acute on chronic respiratory failure with hypoxia secondary to Covid-19 pneumonia as well as secondary bacterial pneumonia and acute systolic CHF in the background of COPD. Oxygen requirement has fluctuated - Low of 5 L on Thursday, up to high flow at times. -> Presently stable at 3-4L O2 via Oxymask continue flutter valve as able to (2) Opiate withdrawal: Plan: On Suboxone chronically, was held on admission due to septic shock and altered mental status-she did not receive her Suboxone for approximately 5 to 6 days. She then developed agitation, tachycardia, tachypnea, tremors on 12/17 with RR in 30s and HR in 140s, febrile and diaphoretic. - Then was placed back on Suboxone and much improved withdrawal symptoms, however then became very lethargic and encephalopathic again. - It was later discovered that she really only takes Suboxone once daily and she was getting it prescribed as twice daily. -> Presently mental status is fair without signs of withdrawal. On 12/29, she was AAOx4, even able to discuss basic details of her hospitalization. Similar to description from 12/30, on 12/31, is awake and oriented, but slow to respond to questions, only fair eye contact, not very talkative, but is OOB to chair (3) Encephalopathy: Plan: *Metabolic encephalopathy Multifactorial: Initially secondary to septic shock, hypoxia, uremia, Covid-19 infection, pneumonia, but then developed opiate withdrawal. Slightly improved on 12/25 after holding Suboxone and starting IV thiamine, but not much better on 12/26. - Now mostly improved on 12/27 & 12/28 - more interactive and less lethargic, feeding herself. As above, improved overall but still not very talkative, slow to respond to questions on 12/31. Was the best when she was off Suboxone completely for a 2-3 day period, but now slightly more sedated with even the once daily Suboxone dosing -will continue weaning off Suboxone completely by going down to every other day - Added thiamine 500 mg IV every 8 hours x3 doses to see if has a component of Wernicke's encephalopathy given prolonged hospitalization, poor nutritional status, and diuretic use. - Transitioned to oral thiamine on 12/29. (4) COVID-19: Plan: With *pneumonia secondary to coronavirus-19 disease and with acute and chronic respiratory failure with hypoxia - Day 9 of illness at the time of presentation. Patient is not vaccinated. Per sister, patient's illness has consisted of fatigue, weakness, and headache. No respiratory or GI symptoms. - Has now completed 10-day course of IV dexamethasone 6mg - Has now completed a 10-day course of cefepime for coverage of secondary pneumonia - Continue fluticasone inhaled daily, and Anoro - Continue incentive spirometry and flutter valve - Off precautions on 12/30 (5) Septic shock: Plan: Developed septic shock on 12/13, required Levophed. Moved back to PCU on 12/14 after she no longer needed Levophed. Lactic acid butch again on 12/17 and was hypotensive. BP responded to 2L of NSS, no pressors needed-this was secondary to Suboxone withdrawal. -> BP on 12/29 dropped to 78/52. I think she was just hypovolemic as her BP responded to 500 mL of IVF and has remained stable since then. (6) Left ventricular dysfunction: Plan: With acute systolic CHF. New finding on echo on 12/17, EF 35-40% whereas echocardiogram on admission had preserved EF. - Appreciate cardiology consultation-suspects Covid myocarditis. Troponin peaked at 5. - Gave Lasix on 12/20 for acute pulmonary edema. - Continue Lasix daily as needed - Continue low-sodium diet, but no fluid restriction needed - Started metoprolol succinate 25 mg p.o. at bedtime - Eventually will need lisinopril added back on if BP and renal function can tolerate Repeat ECHO on 12/30 with normal EF-recovered (7) Cardiomyopathy: Plan: As above, now resolved (8) Left lower lobe pneumonia: Plan: As above. Completed course of antibiotics with cefepime x10 days. (9) Acute kidney injury: Plan: Creatinine and BUN elevated on admission at 49 and 2.3. Cr improved to 1.23 initially, then butch again after receiving IV Lasix. - Cr is down to 1.25 on 12/30; likely her baseline. had some hyperkalemia which is now resolved-remains on Patiromer daily (10) DVT (deep venous thrombosis): Plan: *Acute DVT of the proximal left superficial femoral vein. Due to patient's Antithrombin III deficiency and in the setting of Covid-19. - Presume she was taking her Xarelto at home although she may have missed some doses in the setting of encephalopathy and acute illness prior to admission - Was on heparin gtt initially, then therapeutic Lovenox, and now transitioned to apixaban on 12/30 (Discussed with pharm, no need to start at 10 mg PO BID since she's been on anticoagulation for 18 days.) (11) Elevated troponin: Plan: Up to 5 on 12/18, down afterward. EF is reduced to 35-40%. 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 - Cardiology consulted, no plans for cath right now with Cr and critically ill - Metoprolol as above - Restarted home aspirin 81mg daily Repeat ECHO now normalized 12/30 (12) COPD (chronic obstructive pulmonary disease): Plan: Patient has home O2 for PRN use. According to sister, patient has not used it in a long time, has not been using it since COVID diagnosis on 12/03. 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 With acute DVT as above and suspected PE. - As above (14) Hypertension: Plan: BP stable - Continue metoprolol 25 mg HS (15) CAD (coronary artery disease), [place] coronary artery: Plan: With h/o stent placed. Myocardial demand ischemia and Covid myocarditis as above. - As above, continue ASA, metoprolol, and consider adding on statin as outpt (16) On home oxygen therapy: Plan: Chronic HS. (17) Depression: Plan: Mood is stable today. - Continue venlafaxine & ziprasidone (18) Anemia: Plan: Hemoglobin stable at 10-11 (19) Oral candidiasis: Plan: Newly diagnosed on 12/22 - Continue nystatin swish and swallow x2-week course-last dose will be on 01/05 (20) Shingles: Plan: Noted on her right mid and lower back as well as buttock which would be at least 3 different dermatomes. She is immunosuppressed and on steroids for many days. Rash appears much improved on 12/31 compared to previous - Continue valacyclovir 1000 mg BID x7 days (renally dosed) - last dose will be on 01/01 - Also may be fungal-advised nurses to put the fungal cream on this area as well (21) Constipation: Plan: chronic, on Linzess from home No BM recorded since 12/29 and none before that for a week at least -continue Linzess -add senna/docusate (22) Hypomagnesemia: Plan: mild replace with IV mag sulfate follow level in AM (23) Diabetes mellitus: Plan: HgbA1C here is 6.5% not on meds for this prior to admission continue insulin supplemental and accuchecks likely needs just diet control on discharge Plan: Dispo-continued stay, off COVID precautions, will need rehab, needs continued PT/OT while here. COuld potentially go to rehab later this week if continues to improve Admission and Anticipated Discharge Date Admission Date: December 12, 2021 Subjective Pt OOB to chair I believe for the first time this whole admission. SHe is still not very talkative, but says she is not eating much. SHe is still a bit lethargic and has to be reminded to answer the questions asked. She is weaned down to 3L Oxymask. Tele with NSR,PVCs, rates in 90s Review of Systems Review of Systems: All systems reviewed & are unremarkable except as noted in HPI & below Physical Exam Constitutional: WD/WN, vitals as above + ill appearing Eyes: + anicteric sclerae and PERRL ENMT: Mouth: + oral mucosal abnormality (Small amount of white exudate on tongue improved) Neck: trachea midline, no thyromegaly Respiratory: normal respiratory effort Auscultation: + diminished lung sounds (Throughout) Cardiovascular: RRR, no murmur, no edema Rate/Rhythm: regular rate and regular rhythm Heart Sounds: no murmur Chest (Breasts): Chest: normal inspection of chest Gastrointestinal (Abdomen): normal bowel sounds, soft, nontender, no hepatosplenomegaly Musculoskeletal: Extremities: extremities normal to inspection; no cyanosis and no clubbing Skin: no rashes, warm and dry + rash (Left mid and low back with pinkish macular rash,improved) Neurologic: moves all extremities, awake and + confused (And slow to respond to questions); no focal motor deficits Psychiatric: Orientation: alert Lymphatic: no lymphedema Results & Data Results & Data ([facility]) Vital Signs (Past 12 Hours) Vital Signs Temp Pulse Pulse Resp BP Pulse Ox 12/31/21 11:58 93 12/31/21 10:46 36.4 C L 85 19 92/55 L 12/31/21 07:24 36.5 C 81 20 112/58 L 92 12/31/21 03:17 37 C 87 20 108/63 97 Laboratory Results 12/31/21 12/31/21 12/31/21 Range/Units 11:30 07:26 05:30 WBC 10.21 (4.8-10.8) K/uL RBC 2.78 L (4.2-5.4) M/uL Hgb 8.4 L (12.0-16.0) g/dL Hct 26.9 L (37-47) % MCV 96.8 (80-100) fL MCH 30.2 (25-34) pg MCHC 31.2 L (32-36) g/dL RDW Std Deviation 52.0 H (36.4-46.3) fL RDW Coeff of Bal 14.9 H (11.5-14.5) % Plt Count 153 (130-400) K/uL MPV 12.1 H (7.4-10.4) fL Sodium (136-145) mmol/L Potassium (3.5-5.1) mmol/L Chloride (98-107) mmol/L Carbon Dioxide (21-32) mmol/L Anion Gap (3-11) BUN (6-23) mg/dl Creatinine (0.6-1.2) mg/dl Est Cr Clr Drug Dosing ml/min Est GFR ( Amer) ml/min Est GFR (Non-Af Amer) ml/min BUN/Creatinine Ratio (10-20) Glucose (70-99(Fasting)) mg/dl POC Glucose 182 H 104 H (70-99) mg/dl Calcium (8.5-10.1) mg/dl Magnesium (1.7-2.4) mg/dl 12/31/21 12/30/21 12/30/21 Range/Units 05:30 20:42 16:46 WBC (4.8-10.8) K/uL RBC (4.2-5.4) M/uL Hgb (12.0-16.0) g/dL Hct (37-47) % MCV (80-100) fL MCH (25-34) pg MCHC (32-36) g/dL RDW Std Deviation (36.4-46.3) fL RDW Coeff of Bal (11.5-14.5) % Plt Count (130-400) K/uL MPV (7.4-10.4) fL Sodium 135 L (136-145) mmol/L Potassium 4.7 (3.5-5.1) mmol/L Chloride 105 (98-107) mmol/L Carbon Dioxide 25 (21-32) mmol/L Anion Gap 5 (3-11) BUN 48 H (6-23) mg/dl Creatinine 1.25 H (0.6-1.2) mg/dl Est Cr Clr Drug Dosing 42.2 ml/min Est GFR ( Amer) 51.5 ml/min Est GFR (Non-Af Amer) 44.5 ml/min BUN/Creatinine Ratio 38.4 H (10-20) Glucose 100 H (70-99(Fasting)) mg/dl POC Glucose 141 H 95 (70-99) mg/dl Calcium 8.5 (8.5-10.1) mg/dl Magnesium 1.7 (1.7-2.4) mg/dl PG Care Time/CCT Total # of Minutes Spent Total Time Spent with Patient: Total time spent is greater than 50% in coordination of care (as documented) at patient's floor/unit and/or counseling patient: Coding Level of Care Code 85392 Subseq Hosp Care Lvl 3 Diagnoses Acute respiratory failure with hypoxia J96.01 Opiate withdrawal F11.23 Encephalopathy G93.40 COVID-19 U07.1 Septic shock A41.9; R65.21 Left ventricular dysfunction I51.9 Cardiomyopathy I42.9 Left lower lobe pneumonia J18.9 Acute kidney injury N17.9 DVT (deep venous thrombosis) I82.409 Elevated troponin R77.8 COPD (chronic obstructive pulmonary disease) J44.9 Antithrombin 3 deficiency D68.59 Hypertension I10 CAD (coronary artery disease), [place] coronary artery I25.10 On home oxygen therapy Z99.81 Depression F32.9 Psychotic features: with psychotic features Anemia D64.9 Oral candidiasis B37.0 Shingles B02.9 Constipation K59.00 Hypomagnesemia E83.42 Diabetes mellitus E11.9 (1) Depression Psychotic features: with psychotic features
--- NOTE | 2021-12-31 15:07 | Cardiology Progress Note ---
Date of Service December 31, 2021 Assessment & Plan (1) Left ventricular dysfunction: Plan: -ejection fraction now normal at 65 to 70%, up from 35 to 40% earlier in the hospitalization. -may have represented COVID myocarditis. -no established therapy for COVID myocarditis. -would continue metoprolol succinate for now. (2) Elevated troponin: Plan: -troponin elevation likely secondary to presumed COVID myocarditis. -acute coronary syndrome not suspected. (3) COVID-19: Plan: -management per Dr. Ge. Admission and Anticipated Discharge Date Admission Date: December 12, 2021 Subjective The patient is comfortable without complaints of chest pain or dyspnea. We have discussed the results of her recent echocardiogram. Physical Exam Physical Exam: Per Dr. Ge as patient in COVID isolation. Results & Data ([facility]) Vital Signs (Past 12 Hours) Vital Signs Temp Pulse Pulse Resp BP Pulse Ox 12/31/21 11:58 93 12/31/21 10:46 36.4 C L 85 19 92/55 L 12/31/21 07:24 36.5 C 81 20 112/58 L 92 12/31/21 03:17 37 C 87 20 108/63 97 PG Care Time/CCT Total # of Minutes Spent Total Time Spent with Patient: Total time spent is greater than 50% in coordination of care (as documented) at patient's floor/unit and/or counseling patient: Coding Level of Care Code 16660 Subseq Hosp Care Lvl 3 Diagnoses Left ventricular dysfunction I51.9 Elevated troponin R77.8 COVID-19 U07.1
[2021-12-31] MEDS: DOCUSATE SODIUM/SENNA 50/8.6MG TAB PO SCH (17:31)
[2021-12-31] MEDS: METOPROLOL SUCC 25MG EXT REL TAB PO SCH (21:06)
[2022-01-01 06:33] LABS: Basophils # (auto) 0.02 K/uL (0-0.2); Basophils % (auto) 0.2 %; Eosinophils # (auto) 0.19 K/uL (0-0.5); Eosinophils % (auto) 1.7 %; Hemoglobin 8.1 g/dL (12.0-16.0); Immature Granulocytes # (auto) 0.07 K/uL (0.00-0.02); Immature Granulocytes % (auto) 0.6 %; Lymphocytes # (auto) 1.39 K/uL (1.2-3.4); Lymphocytes % (auto) 12.5 %; Mean Corpuscular Hgb Conc 31.2 g/dL (32-36); Mean Corpuscular Volume 96.3 fL (80-100); Monocytes # (auto) 0.71 K/uL (0.11-0.59); Monocytes % (auto) 6.4 %; Neutrophils # (auto) 8.78 K/uL (1.4-6.5); Neutrophils % (auto) 78.6 %; Platelet Count 156 K/uL (130-400); RDW Coefficient of Variation 15.3 % (11.5-14.5); RDW Standard Deviation 53.5 fL (36.4-46.3); White Blood Count 11.16 K/uL (4.8-10.8)
[2022-01-01 06:46] LABS: BUN Creatinine Ratio 43.1 (10-20); Calcium 8.6 mg/dl (8.5-10.1); Est GFR (African American) 52.6 ml/min; Est GFR (Non-African American) 45.4 ml/min; Magnesium 2.1 mg/dl (1.7-2.4); Potassium 4.5 mmol/L (3.5-5.1)
[2022-01-01] MEDS: DOCUSATE SODIUM/SENNA 50/8.6MG TAB PO SCH (08:07)
[2022-01-01] MEDS: FAMOTIDINE 20 MG TAB PO SCH (08:07)
[2022-01-01] MEDS: APIXABAN 2.5 MG TAB PO SCH ×2 (08:07→21:43)
[2022-01-01] MEDS: VENLAFAXINE HCL XR 150 MG CAPXR PO SCH (08:08)
[2022-01-01] MEDS: ASPIRIN 81 MG ECTAB PO SCH (08:08)
[2022-01-01] MEDS: LINACLOTIDE 145 MCG CAPSULE PO SCH (08:08)
[2022-01-01] MEDS: valACYclovir HCL 500 MG TABLET PO SCH ×2 (08:09→21:43)
[2022-01-01] MEDS: CLOTRIMAZOLE 1% CR 15 GM TUBE EXT SCH ×2 (08:10→21:44)
[2022-01-01] MEDS: UMECLIDINIUM/VILANTEROL 62.5/25MCG 7 PUFFS/INHALER INH SCH (08:11)
[2022-01-01] MEDS: FLUTICASONE FUROATE 100MCG 14 PUFFS/INHALER INH SCH (08:11)
[2022-01-01] MEDS: NYSTATIN SUSP 500,000 U/5 ML UDC PO SCH ×2 (08:11→12:33)
[2022-01-01] MEDS: INSULIN ASPART PER UNIT SC SCH ×4 (08:30→22:18)
[2022-01-01] MEDS: ACETAMINOPHEN 325 MG TAB PO PRN ×2 (10:45→21:44)
--- NOTE | 2022-01-01 16:34 | Hospitalist Progress Note ---
Date of Service January 01, 2022 Assessment & Plan (1) Acute respiratory failure with hypoxia: Plan: Acute on chronic respiratory failure with hypoxia secondary to Covid-19 pneumonia as well as secondary bacterial pneumonia and acute systolic CHF in the background of COPD. Oxygen requirement has fluctuated - Low of 5 L on Thursday, up to high flow at times. -> Presently stable at 1L NC. Plan for rehab when able. (2) Opiate withdrawal: Plan: On Suboxone chronically, was held on admission due to septic shock and altered mental status-she did not receive her Suboxone for approximately 5 to 6 days. She then developed agitation, tachycardia, tachypnea, tremors on 12/17 with RR in 30s and HR in 140s, febrile and diaphoretic. - Then was placed back on Suboxone and much improved withdrawal symptoms, however then became very lethargic and encephalopathic again. - It was later discovered that she really only takes Suboxone once daily and she was getting it prescribed as twice daily. -> Presently mental status is good without signs of withdrawal. On 12/29, she was AAOx4, even able to discuss basic details of her hospitalization. Today, doing well. (3) Encephalopathy: Plan: *Metabolic encephalopathy Multifactorial: Initially secondary to septic shock, hypoxia, uremia, Covid-19 infection, pneumonia, but then developed opiate withdrawal. Slightly improved on 12/25 after holding Suboxone and starting IV thiamine, but not much better on 12/26. - Now mostly improved on 12/27 & 12/28 - more interactive and less lethargic, feeding herself. - Added thiamine 500 mg IV every 8 hours x3 doses to see if has a component of Wernicke's encephalopathy given prolonged hospitalization, poor nutritional status, and diuretic use. - Transitioned to oral thiamine on 12/29. (4) COVID-19: Plan: With *pneumonia secondary to coronavirus-19 disease and with acute and chronic respiratory failure with hypoxia - Day 9 of illness at the time of presentation. Patient is not vaccinated. Per sister, patient's illness has consisted of fatigue, weakness, and headache. No respiratory or GI symptoms. - Has now completed 10-day course of IV dexamethasone 6mg - Has now completed a 10-day course of cefepime for coverage of secondary pneumonia - Continue fluticasone inhaled daily, and Anoro - Continue incentive spirometry and flutter valve - Off precautions on 01/09. (5) Septic shock: Plan: Developed septic shock on 12/13, required Levophed. Moved back to PCU on 12/14 after she no longer needed Levophed. Lactic acid butch again on 12/17 and was hypotensive. BP responded to 2L of NSS, no pressors needed-this was secondary to Suboxone withdrawal. -> BP on 12/29 dropped to 78/52. I think she was just hypovolemic as her BP responded to 500 mL of IVF and has remained stable since then. (6) Left ventricular dysfunction: Plan: With acute systolic CHF. New finding on echo on 12/17, EF 35-40% whereas echocardiogram on admission had preserved EF. - Appreciate cardiology consultation-suspects Covid myocarditis. Troponin peaked at 5. - Gave Lasix on 12/20 for acute pulmonary edema. - Continue Lasix daily as needed - Continue to fluid restrict to 1800mL / day, low-sodium diet - Started metoprolol succinate 25 mg p.o. at bedtime - Eventually will need lisinopril added back on if BP and renal function can tolerate (7) Cardiomyopathy: Plan: As above (8) Left lower lobe pneumonia: Plan: As above. Completed course of antibiotics with cefepime x10 days. (9) Acute kidney injury: Plan: Creatinine and BUN elevated on admission at 49 and 2.3. Cr improved to 1.23 initially, then butch again after receiving IV Lasix. - Cr is down to 1.25 on 12/30; likely her baseline. (10) DVT (deep venous thrombosis): Plan: *Acute DVT of the proximal left superficial femoral vein. Due to patient's An tithrombin III deficiency and in the setting of Covid-19. - Presume she was taking her Xarelto at home although she may have missed some doses in the setting of encephalopathy and acute illness? - Switched to apixaban on 12/30 (11) Elevated troponin: Plan: Up to 5 on 12/18, down afterward. EF is reduced to 35-40%. Suspected Covid m yocarditis. - Cardiology consulted, no plans for cath right now with Cr and critically ill - Metoprolol as above - Restarted home aspirin 81mg daily -> Reached out to consulting property developer on 12/30. Limited echo shows resolution of cardiomyopathy. 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 No further intervention warranted. (12) COPD (chronic obstructive pulmonary disease): Plan: Patient has home O2 for PRN use. According to sister, patient has not used it in a long time, has not been using it since COVID diagnosis on 12/03. 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 With acute DVT as above and suspected PE. - As above (14) Hypertension: Plan: BP stable today at 110/75 until about 11:37 when it fell lower. See above. - Continue metoprolol 25 mg HS (15) CAD (coronary artery disease), [place] coronary artery: Plan: With h/o stent placed. Myocardial demand ischemia and Covid myocarditis as above. - As above (16) On home oxygen therapy: Plan: Chronic HS. (17) Depression: Plan: Mood is stable today. - Continue venlafaxine & ziprasidone (18) Anemia: Plan: Hemoglobin stable at 10-11 (19) Oral candidiasis: Plan: Newly diagnosed on 12/22 - Continue nystatin swish and swallow x2-week course (20) Shingles: Plan: Noted on her right mid and lower back as well as buttock which would be at least 3 different dermatomes. She is immunosuppressed and on steroids for many days. - Continue valacyclovir 1000 mg BID x7 days - last dose will be on 01/01 - Also may be fungal-advised nurses to put the fungal cream on this area as well -> Improving today. Now pinkish, with no active vesicles seen. Admission and Anticipated Discharge Date Admission Date: December 12, 2021 Subjective Doing well today. Reports no fevers/chills, chest pain, shortness of breath, abdominal pain, nausea, or vomiting. Physical Exam Constitutional: WD/WN, vitals as above Eyes: EOM intact bilaterally; no conjunctival abnormality ENMT: external ear and nose normal, oropharynx normal Neck: trachea midline, no thyromegaly normal visual inspection Respiratory: normal respiratory effort, lungs clear to auscultation no respiratory distress Cardiovascular: RRR, no murmur, no edema Gastrointestinal (Abdomen): Inspection/Auscultation: abdomen normal to inspection; abdomen not distended Musculoskeletal: no cyanosis or clubbing, extremities motor strength 5/5 Skin: no rashes, warm and dry Neurologic: moves all extremities and awake Psychiatric: Orientation: alert, oriented to person and cooperative Results & Data Results & Data ([facility]) Vital Signs (Past 12 Hours) Vital Signs Temp Pulse Pulse Resp BP Pulse Ox 01/01/22 16:24 36.5 C 74 24 95/63 L 96 01/01/22 16:00 82 01/01/22 11:39 36.6 C 90 21 98/62 L 93 01/01/22 09:19 81 01/01/22 07:45 36.6 C 86 21 112/58 L 93 PG Care Time/CCT Total # of Minutes Spent Total Time Spent with Patient: Total time spent is greater than 50% in coordination of care (as documented) at patient's floor/unit and/or counseling patient: Coding Level of Care Code 62978 Subseq Hosp Care Lvl 2 Diagnoses Acute respiratory failure with hypoxia J96.01 Opiate withdrawal F11.23 Encephalopathy G93.40 COVID-19 U07.1 Septic shock A41.9; R65.21 Left ventricular dysfunction I51.9 Cardiomyopathy I42.9 Left lower lobe pneumonia J18.9 Acute kidney injury N17.9 DVT (deep venous thrombosis) I82.409 Elevated troponin R77.8 COPD (chronic obstructive pulmonary disease) J44.9 Antithrombin 3 deficiency D68.59 Hypertension I10 CAD (coronary artery disease), [place] coronary artery I25.10 On home oxygen therapy Z99.81 Depression F32.9 Psychotic features: with psychotic features Anemia D64.9 Oral candidiasis B37.0 Shingles B02.9 (1) Depression Psychotic features: with psychotic features
[2022-01-01] MEDS: METOPROLOL SUCC 25MG EXT REL TAB PO SCH (21:42)
[2022-01-02] MEDS: INSULIN ASPART PER UNIT SC SCH ×4 (08:42→21:23)
[2022-01-02] MEDS: APIXABAN 2.5 MG TAB PO SCH ×2 (09:11→21:23)
[2022-01-02] MEDS: BUPRENORPHINE/NALOXONE 8/2 MG TAB SL SCH (09:11)
[2022-01-02] MEDS: ASPIRIN 81 MG ECTAB PO SCH (09:11)
[2022-01-02] MEDS: DOCUSATE SODIUM/SENNA 50/8.6MG TAB PO SCH (09:13)
[2022-01-02] MEDS: FAMOTIDINE 20 MG TAB PO SCH (09:13)
[2022-01-02] MEDS: CLOTRIMAZOLE 1% CR 15 GM TUBE EXT SCH ×2 (09:13→21:22)
[2022-01-02] MEDS: FLUTICASONE FUROATE 100MCG 14 PUFFS/INHALER INH SCH (09:14)
[2022-01-02] MEDS: UMECLIDINIUM/VILANTEROL 62.5/25MCG 7 PUFFS/INHALER INH SCH (09:14)
[2022-01-02] MEDS: LINACLOTIDE 145 MCG CAPSULE PO SCH (09:14)
[2022-01-02] MEDS: VENLAFAXINE HCL XR 150 MG CAPXR PO SCH (09:15)
--- NOTE | 2022-01-02 13:07 | Hospitalist Progress Note ---
Date of Service January 02, 2022 Assessment & Plan (1) Acute respiratory failure with hypoxia: Plan: Acute on chronic respiratory failure with hypoxia secondary to Covid-19 pneumonia as well as secondary bacterial pneumonia and acute systolic CHF in the background of COPD. Oxygen requirement has fluctuated - Low of 5 L on Thursday, up to high flow at times. -> Presently stable at 1L NC. Willing to get the vaccine, so will hopefully be able to be placed. (2) Opiate withdrawal: Plan: On Suboxone chronically, was held on admission due to septic shock and altered mental status-she did not receive her Suboxone for approximately 5 to 6 days. She then developed agitation, tachycardia, tachypnea, tremors on 12/17 with RR in 30s and HR in 140s, febrile and diaphoretic. - Then was placed back on Suboxone and much improved withdrawal symptoms, however then became very lethargic and encephalopathic again. - It was later discovered that she really only takes Suboxone once daily and she was getting it prescribed as twice daily. -> Presently mental status is good without signs of withdrawal. On 12/29, she was AAOx4, even able to discuss basic details of her hospitalization. Today, doing well. (3) Encephalopathy: Plan: *Metabolic encephalopathy Multifactorial: Initially secondary to septic shock, hypoxia, uremia, Covid-19 infection, pneumonia, but then developed opiate withdrawal. Slightly improved on 12/25 after holding Suboxone and starting IV thiamine, but not much better on 12/26. - Now mostly improved on 12/27 & 12/28 - more interactive and less lethargic, feeding herself. - Added thiamine 500 mg IV every 8 hours x3 doses to see if has a component of Wernicke's encephalopathy given prolonged hospitalization, poor nutritional status, and diuretic use. - Transitioned to oral thiamine on 12/29. (4) COVID-19: Plan: With *pneumonia secondary to coronavirus-19 disease and with acute and chronic respiratory failure with hypoxia - Day 9 of illness at the time of presentation. Patient is not vaccinated. Per sister, patient's illness has consisted of fatigue, weakness, and headache. No respiratory or GI symptoms. - Has now completed 10-day course of IV dexamethasone 6mg - Has now completed a 10-day course of cefepime for coverage of secondary pneumonia - Continue fluticasone inhaled daily, and Anoro - Continue incentive spirometry and flutter valve - Off precautions on 01/09. (5) Septic shock: Plan: Developed septic shock on 12/13, required Levophed. Moved back to PCU on 12/14 after she no longer needed Levophed. Lactic acid butch again on 12/17 and was hypotensive. BP responded to 2L of NSS, no pressors needed-this was secondary to Suboxone withdrawal. -> BP on 12/29 dropped to 78/52. I think she was just hypovolemic as her BP responded to 500 mL of IVF and has remained stable since then. (6) Left ventricular dysfunction: Plan: With acute systolic CHF. New finding on echo on 12/17, EF 35-40% whereas echocardiogram on admission had preserved EF. - Appreciate cardiology consultation-suspects Covid myocarditis. Troponin peaked at 5. - Gave Lasix on 12/20 for acute pulmonary edema. - Continue Lasix daily as needed - Continue to fluid restrict to 1800mL / day, low-sodium diet - Started metoprolol succinate 25 mg p.o. at bedtime - Eventually will need lisinopril added back on if BP and renal function can tolerate (7) Cardiomyopathy: Plan: As above (8) Left lower lobe pneumonia: Plan: As above. Completed course of antibiotics with cefepime x10 days. (9) Acute kidney injury: Plan: Creatinine and BUN elevated on admission at 49 and 2.3. Cr improved to 1.23 initially, then butch again after receiving IV Lasix. - Cr is down to 1.25 on 12/30; likely her baseline. (10) DVT (deep venous thrombosis): Plan: *Acute DVT of the proximal left superficial femoral vein. Due to patient's Antithrombin III deficiency and in the setting of Covid-19. - Presume she was taking her Xarelto at home although she may have missed some doses in the setting of encephalopathy and acute illness? - Switched to apixaban on 12/30 (11) Elevated troponin: Plan: Up to 5 on 12/18, down afterward. EF is reduced to 35-40%. 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 - Cardiology consulted, no plans for cath right now with Cr and critically ill - Metoprolol as above - Restarted home aspirin 81mg daily -> Reached out to consulting electrical research engineer on 12/30. Limited echo shows resolution of cardiomyopathy. 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 No further intervention warranted. (12) COPD (chronic obstructive pulmonary disease): Plan: Patient has home O2 for PRN use. According to sister, patient has not used it in a long time, has not been using it since COVID diagnosis on 12/03. 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 With acute DVT as above and suspected PE. - As above (14) Hypertension: Plan: BP stable today at 110/75 until about 11:37 when it fell lower. See above. - Continue metoprolol 25 mg HS (15) CAD (coronary artery disease), [place] coronary artery: Plan: With h/o stent placed. Myocardial demand ischemia and Covid myocarditis as above. - As above (16) On home oxygen therapy: Plan: Chronic HS. (17) Depression: Plan: Mood is stable today. - Continue venlafaxine & ziprasidone (18) Anemia: Plan: Hemoglobin stable at 10-11 (19) Oral candidiasis: Plan: Newly diagnosed on 12/22 - Continue nystatin swish and swallow x2-week course (20) Shingles: Plan: Noted on her right mid and lower back as well as buttock which would be at least 3 different dermatomes. She is immunosuppressed and on steroids for many days. - Continue valacyclovir 1000 mg BID x7 days - last dose was on 01/01 -> Resolved. - Also may be fungal-advised nurses to put the fungal cream on this area as well Admission and Anticipated Discharge Date Admission Date: December 12, 2021 Subjective Doing well today. Reports no fevers/chills, chest pain, shortness of breath, abdominal pain, nausea, or vomiting. Physical Exam Constitutional: WD/WN, vitals as above Eyes: EOM intact bilaterally; no conjunctival abnormality ENMT: external ear and nose normal, oropharynx normal Neck: trachea midline, no thyromegaly normal visual inspection Respiratory: normal respiratory effort, lungs clear to auscultation no respiratory distress Cardiovascular: RRR, no murmur, no edema Gastrointestinal (Abdomen): Inspection/Auscultation: abdomen normal to inspection; abdomen not distended Musculoskeletal: no cyanosis or clubbing, extremities motor strength 5/5 Skin: no rashes, warm and dry Neurologic: moves all extremities and awake Psychiatric: Orientation: alert, oriented to person and cooperative Results & Data Results & Data ([facility]) Vital Signs (Past 12 Hours) Vital Signs Temp Pulse Resp BP Pulse Ox 01/02/22 12:00 36.6 C 82 20 94/58 L 94 01/02/22 07:57 36.8 C 82 22 102/57 L 90 01/02/22 03:33 36.8 C 75 18 114/60 93 PG Care Time/CCT Total # of Minutes Spent Total Time Spent with Patient: Total time spent is greater than 50% in coordination of care (as documented) at patient's floor/unit and/or counseling patient: Coding Level of Care Code 04241 Subseq Hosp Care Lvl 2 Diagnoses Acute respiratory failure with hypoxia J96.01 Opiate withdrawal F11.23 Encephalopathy G93.40 COVID-19 U07.1 Septic shock A41.9; R65.21 Left ventricular dysfunction I51.9 Cardiomyopathy I42.9 Left lower lobe pneumonia J18.9 Acute kidney injury N17.9 DVT (deep venous thrombosis) I82.409 Elevated troponin R77.8 COPD (chronic obstructive pulmonary disease) J44.9 Antithrombin 3 deficiency D68.59 Hypertension I10 CAD (coronary artery disease), [place] coronary artery I25.10 On home oxygen therapy Z99.81 Depression F32.9 Psychotic features: with psychotic features Anemia D64.9 Oral candidiasis B37.0 Shingles B02.9 (1) Depression Psychotic features: with psychotic features
[2022-01-02] MEDS: METOPROLOL SUCC 25MG EXT REL TAB PO SCH (21:23)
[2022-01-03 06:10] LABS: Hematocrit (blood only) 27.3 % (37-47); Hemoglobin 8.7 g/dL (12.0-16.0); Mean Corpuscular Hemoglobin 31.1 pg (25-34); Mean Corpuscular Hgb Conc 31.9 g/dL (32-36); Mean Corpuscular Volume 97.5 fL (80-100); Mean Platelet Volume 11.3 fL (7.4-10.4); Platelet Count 206 K/uL (130-400); RDW Coefficient of Variation 15.2 % (11.5-14.5); RDW Standard Deviation 53.7 fL (36.4-46.3); White Blood Count 11.18 K/uL (4.8-10.8)
[2022-01-03 06:28] LABS: BUN Creatinine Ratio 43.2 (10-20); Creatinine Clr Calc Pharmacy 46.8 ml/min; Est GFR (African American) 59.5 ml/min; Est GFR (Non-African American) 51.3 ml/min; Magnesium 1.8 mg/dl (1.7-2.4)
[2022-01-03] MEDS: DOCUSATE SODIUM/SENNA 50/8.6MG TAB PO SCH (08:39)
[2022-01-03] MEDS: APIXABAN 2.5 MG TAB PO SCH ×2 (08:39→21:45)
[2022-01-03] MEDS: ASPIRIN 81 MG ECTAB PO SCH (08:39)
[2022-01-03] MEDS: LINACLOTIDE 145 MCG CAPSULE PO SCH (08:39)
[2022-01-03] MEDS: FAMOTIDINE 20 MG TAB PO SCH (08:40)
[2022-01-03] MEDS: VENLAFAXINE HCL XR 150 MG CAPXR PO SCH (08:40)
[2022-01-03] MEDS: FLUTICASONE FUROATE 100MCG 14 PUFFS/INHALER INH SCH (08:40)
[2022-01-03] MEDS: UMECLIDINIUM/VILANTEROL 62.5/25MCG 7 PUFFS/INHALER INH SCH (08:40)
[2022-01-03] MEDS: CLOTRIMAZOLE 1% CR 15 GM TUBE EXT SCH ×2 (08:40→21:45)
[2022-01-03] MEDS: INSULIN ASPART PER UNIT SC SCH ×4 (08:54→21:11)
--- NOTE | 2022-01-03 10:42 | Hospitalist Progress Note ---
Date of Service January 03, 2022 Assessment & Plan (1) Acute respiratory failure with hypoxia: Plan: Acute on chronic respiratory failure with hypoxia secondary to Covid-19 pneumonia as well as secondary bacterial pneumonia and acute systolic CHF in the background of COPD. Oxygen requirement has fluctuated - Low of 5 L on Thursday, up to high flow at times. -> Presently stable at 1-2L NC. -> Does have associated debility requiring placement. Agreeable for vaccine. Ordered J&J vaccine on 01/03 (2) Opiate withdrawal: Plan: On Suboxone chronically, was held on admission due to septic shock and altered mental status-she did not receive her Suboxone for approximately 5 to 6 days. She then developed agitation, tachycardia, tachypnea, tremors on 12/17 with RR in 30s and HR in 140s, febrile and diaphoretic. - was placed back on Suboxone and much improved withdrawal symptoms, however then became very lethargic and encephalopathic again. - It was later discovered that she really only takes Suboxone once daily and she was getting it prescribed as twice daily. -> Presently mental status is good without signs of withdrawal. On 12/29, she was AAOx4, even able to discuss basic details of her hospitalization. Today, doing well. (3) Encephalopathy: Plan: *Metabolic encephalopathy Multifactorial: Initially secondary to septic shock, hypoxia, uremia, Covid-19 infection, pneumonia, but then developed opiate withdrawal. Slightly improved on 12/25 after holding Suboxone and starting IV thiamine, but not much better on 12/26. - Now mostly improved on 12/27 & 12/28 - more interactive and less lethargic, feeding herself. - Added thiamine 500 mg IV every 8 hours x3 doses to see if has a component of Wernicke's encephalopathy given prolonged hospitalization, poor nutritional status, and diuretic use. - Transitioned to oral thiamine on 12/29- would continue x30 days (4) COVID-19: Plan: With *pneumonia secondary to coronavirus-19 disease and with acute and chronic respiratory failure with hypoxia - Day 9 of illness at the time of presentation. Patient is not vaccinated. Per sister, patient's illness has consisted of fatigue, weakness, and headache. No respiratory or GI symptoms. - Has now completed 10-day course of IV dexamethasone 6mg - Has now completed a 10-day course of cefepime for coverage of secondary pneumonia - Continue fluticasone inhaled daily, and Anoro--> rinse mouth after use - Continue incentive spirometry and flutter valve - Off precautions on 01/09. (5) Septic shock: Plan: Developed septic shock on 12/13, required Levophed. Moved back to PCU on 12/14 after she no longer needed Levophed. Lactic acid butch again on 12/17 and was hypotensive. BP responded to 2L of NSS, no pressors needed-this was secondary to Suboxone withdrawal. -> BP on 12/29 dropped to 78/52. Believed to be hypovolemic as her BP responded to 500 mL of IVF and has remained stable since then. (6) Left ventricular dysfunction: Plan: With acute systolic CHF. New finding on echo on 12/17, EF 35-40% whereas echocardiogram on admission had preserved EF. - Appreciate cardiology consultation-suspects Covid myocarditis. Troponin peaked at 5. - Gave Lasix on 12/20 for acute pulmonary edema. - Continue Lasix daily as needed - Continue to fluid restrict to 1800mL / day, low-sodium diet - Started metoprolol succinate 25 mg p.o. at bedtime - Eventually will need lisinopril added back on if BP and renal function can tolerate (BP currently 108/69) (7) Cardiomyopathy: Plan: As above (8) Left lower lobe pneumonia: Plan: As above. Completed course of antibiotics with cefepime x10 days. (9) Acute kidney injury: Plan: Creatinine and BUN elevated on admission at 49 and 2.3. Cr improved to 1.23 initially, then butch again after receiving IV Lasix. - Cr is down to 1.25 on 12/30; likely her baseline. (10) DVT (deep venous thrombosis): Plan: *Acute DVT of the proximal left superficial femoral vein. Due to patient's Antithrombin III deficiency and in the setting of Covid-19. - Presume she was taking her Xarelto at home although she may have missed some doses in the setting of encephalopathy and acute illness? - Switched to apixaban on 12/30 (11) Elevated troponin: Plan: Up to 5 on 12/18, down afterward. EF is reduced to 35-40%. 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 - Cardiology consulted, no plans for cath right now with Cr and critically ill - Metoprolol as above - Restarted home aspirin 81mg daily -> Reached out to consulting payroll and benefits manager on 12/30. Limited echo shows resolut ion of cardiomyopathy. 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 No further intervention warranted. (12) COPD (chronic obstructive pulmonary disease): Plan: Patient has home O2 for PRN use. According to sister, patient has not used it in a long time, has not been using it since COVID diagnosis on 12/03. 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 With acute DVT as above and suspected PE. - As above (14) Hypertension: Plan: BP stable today at 110/75 until about 11:37 when it fell lower. See above. - Continue metoprolol 25 mg HS (15) CAD (coronary artery disease), [place] coronary artery: Plan: With h/o stent placed. Myocardial demand ischemia and Covid myocarditis as above. - As above (16) On home oxygen therapy: Plan: Chronic HS. (17) Depression: Plan: Mood is stable today. - Continue venlafaxine & ziprasidone (18) Anemia: Plan: baseline 10-11 dropped to 8.1 (suspect dilutional from all of the IVF-- had over 20,000ml) Back on Lasix and hemoglobin uptrending to 8.7 Trend (19) Oral candidiasis: Plan: Newly diagnosed on 12/22 - Continue nystatin swish and swallow x2-week course (20) Shingles: Plan: Noted on her right mid and lower back as well as buttock which would be at least 3 different dermatomes. She is immunosuppressed and on steroids for many days. - Continue valacyclovir 1000 mg BID x7 days - last dose was on 01/01 -> Resolved. - Also may be fungal-advised nurses to put the fungal cream on this area as well Plan: Patient basically awaiting placement at this time. She did receive J&J vaccine on 01/03 to help with placement. Case management on board Admission and Anticipated Discharge Date Admission Date: December 12, 2021 Subjective Patient seen on daily rounds today. Vocalizes no significant complaints or concerns. Denies fevers, chills, chest pain, shortness breath, abdominal pain, nausea or vomiting. Her back (from shingles) is improving in terms of pain. Nursing staff vocalizes no complaints or concerns. Review of Systems Review of Systems: All systems reviewed and are unremarkable except as noted in HPI and below Denies fevers, chills, headache, nasal congestion, sore throat, cough, chest pain, shortness of breath, palpitations, orthopnea, PND, abdominal pain, nausea, vomiting, diarrhea, constipation, dysuria, hematuria, frequency, back pain, joint pain or swelling, easy bruising or bleeding Physical Exam Physical Exam: General: Resting comfortably in her hospital bed. NAD. HEENT: Head is AT/NC. Buccal mucosa is moist and pink. She is an dentulous and appears to have may be a subtle left facial droop with tongue protruding to the right. Did reach out to failure provider and is seems to be stable finding. Neck: No JVD. Negative hepatojugular reflex Cardiac: RRR without M/G/R Lungs: Speaking full sentences on supplemental oxygen. Normal respiratory effort. Diminished breath sounds without W/R/R Abdomen: Normoactive X4. Soft and nontender in all quadrants. Extremities: No peripheral clubbing cyanosis or edema Neuro: A&O X4. Cranial nerves II through XII are grossly intact. No focal neuro deficits Psych: Appropriate affect. Pleasant and cooperative Results & Data Results & [facility] ([facility]) Vital Signs (Past 12 Hours) Vital Signs Temp Pulse Pulse Resp BP Pulse Ox 01/03/22 07:40 75 01/03/22 05:55 36.8 C 73 20 116/73 98 01/02/22 23:32 36.9 C 83 20 112/62 93 Laboratory Results 01/03/22 05:44 01/03/22 07:03 PG Care Time/CCT Total # of Minutes Spent Total Time Spent with Patient: Total time spent is greater than 50% in coordination of care (as documented) at patient's floor/unit and/or counseling patient: Coding Level of Care Code 63601 Subseq Hosp Care Lvl 1 Diagnoses Acute respiratory failure with hypoxia J96.01 Opiate withdrawal F11.23 Encephalopathy G93.40 COVID-19 U07.1 Septic shock A41.9; R65.21 Left ventricular dysfunction I51.9 Cardiomyopathy I42.9 Left lower lobe pneumonia J18.9 Acute kidney injury N17.9 DVT (deep venous thrombosis) I82.409 Elevated troponin R77.8 COPD (chronic obstructive pulmonary disease) J44.9 Antithrombin 3 deficiency D68.59 Hypertension I10 CAD (coronary artery disease), [place] coronary artery I25.10 On home oxygen therapy Z99.81 Depression F32.9 Psychotic features: with psychotic features Anemia D64.9 Oral candidiasis B37.0 Shingles B02.9 (1) Depression Psychotic features: with psychotic features
[2022-01-03] MEDS ORDERED: COVID-19 VAC,AD26(JANSSEN)/PF 0.5 ML SYR IM ONE (12:00)
[2022-01-03] MEDS: METOPROLOL SUCC 25MG EXT REL TAB PO SCH (21:45)
[2022-01-04] MEDS: INSULIN ASPART PER UNIT SC SCH ×4 (08:51→20:12)
[2022-01-04] MEDS: FLUTICASONE FUROATE 100MCG 14 PUFFS/INHALER INH SCH (08:52)
[2022-01-04] MEDS: UMECLIDINIUM/VILANTEROL 62.5/25MCG 7 PUFFS/INHALER INH SCH (08:52)
[2022-01-04] MEDS: LINACLOTIDE 145 MCG CAPSULE PO SCH (08:54)
[2022-01-04] MEDS: APIXABAN 2.5 MG TAB PO SCH ×2 (08:54→20:16)
[2022-01-04] MEDS: ASPIRIN 81 MG ECTAB PO SCH (08:54)
[2022-01-04] MEDS: FAMOTIDINE 20 MG TAB PO SCH (08:54)
[2022-01-04] MEDS: VENLAFAXINE HCL XR 150 MG CAPXR PO SCH (08:55)
[2022-01-04] MEDS: DOCUSATE SODIUM/SENNA 50/8.6MG TAB PO SCH (08:56)
[2022-01-04] MEDS: BUPRENORPHINE/NALOXONE 8/2 MG TAB SL SCH (08:56)
[2022-01-04] MEDS: CLOTRIMAZOLE 1% CR 15 GM TUBE EXT SCH ×2 (09:15→20:16)
--- NOTE | 2022-01-04 09:20 | Hospitalist Progress Note ---
Date of Service January 04, 2022 Assessment & Plan (1) Acute respiratory failure with hypoxia: Plan: Acute on chronic respiratory failure with hypoxia secondary to Covid-19 pneumonia as well as secondary bacterial LLL pneumonia and acute systolic CHF in the background of COPD. Oxygen requirement has fluctuated - -> Presently stable at 1-2L NC. -> Physical and occupational therapy screens are supportive of placement. Agreeable for vaccine. J&J vaccine on 01/03 (2) Opiate withdrawal: Plan: On Suboxone chronically, was held on admission due to septic shock and altered mental status-she did not receive her Suboxone for approximately 5 to 6 days. She then developed agitation, tachycardia, tachypnea, tremors on 12/17 with RR in 30s and HR in 140s, febrile and diaphoretic. - was placed back on Suboxone and much improved withdrawal symptoms, however then became very lethargic and encephalopathic again. - It was later discovered that she really only takes Suboxone once daily and she was getting it prescribed as twice daily. -> Presently mental status is good without signs of withdrawal. On 12/29, she was AAOx4, even able to discuss basic details of her hospitalization. Today, doing well. (3) Encephalopathy: Plan: *Metabolic encephalopathy Multifactorial: Initially secondary to septic shock, hypoxia, uremia, Covid-19 infection, pneumonia, but then developed opiate withdrawal. Slightly improved on 12/25 after holding Suboxone and starting IV thiamine, but not much better on 12/26. - Now mostly improved on 12/27 & 12/28 - more interactive and less lethargic, feeding herself. - Added thiamine 500 mg IV every 8 hours x3 doses to see if has a component of Wernicke's encephalopathy given prolonged hospitalization, poor nutritional status, and diuretic use. - Transitioned to oral thiamine on 12/29- would continue x30 days (4) COVID-19: Plan: With *pneumonia secondary to coronavirus-19 disease and with acute and chronic respiratory failure with hypoxia - Day 9 of illness at the time of presentation. Patient is not vaccinated. Per sister, patient's illness has consisted of fatigue, weakness, and headache. No respiratory or GI symptoms. - Has now completed 10-day course of IV dexamethasone 6mg - Has now completed a 10-day course of cefepime for coverage of secondary pneumonia - Continue fluticasone inhaled daily, and Anoro--> rinse mouth after use - Continue incentive spirometry and flutter valve - Off precautions on 01/09. (5) Septic shock: Plan: Developed septic shock on 12/13, required Levophed. now resolved Other episodes of hypotension secondary to Suboxone withdrawal and hypovolemia from poor po intake (6) Left ventricular dysfunction: Plan: With acute systolic CHF. New finding on echo on 12/17, EF 35-40% whereas echocardiogram on admission had preserved EF. - Appreciate cardiology consultation-suspects Covid myocarditis/cardiomyopathy . Elevated Troponin peaked at 5. - Continue to fluid restrict to 1800mL / day, low-sodium diet - Started metoprolol succinate 25 mg p.o. at bedtime, Asa 81mg - Eventually will need lisinopril added back on if BP and renal function can tolerate , BP remains low (7) Acute kidney injury: Plan: Creatinine and BUN elevated on admission at 49 and 2.3. Cr improved to 1.23 initially, then butch again after receiving IV Lasix. - Cr is down to 1.25 on 12/30; likely her baseline. (8) DVT (deep venous thrombosis): Plan: *Acute DVT of the proximal left superficial femoral vein. Due to patient's Antithrombin III deficiency and in the setting of Covid-19. - Presume she was taking her Xarelto at home although she may have missed some doses in the setting of encephalopathy and acute illness? - Switched to apixaban on 12/30 (9) COPD (chronic obstructive pulmonary disease): Plan: Patient has home O2 for PRN use. According to sister, patient has not used it in a long time, has not been using it since COVID diagnosis on 12/03. 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 With acute DVT as above and suspected PE. - chronic anticoagulation (11) Hypertension: Plan: BP stable today at 110/75 until about 11:37 when it fell lower. See above. - Continue metoprolol 25 mg HS (12) CAD (coronary artery disease), [place] coronary artery: Plan: With h/o stent placed. Myocardial demand ischemia and Covid myocarditis as above. - As above (13) On home oxygen therapy: Plan: Chronic HS. (14) Depression: Plan: Mood is stable today. - Continue venlafaxine & ziprasidone (15) Anemia: Plan: baseline 10-11 dropped to 8.1 (suspect dilutional from all of the IVF-- had over 20,000ml) Back on Lasix and hemoglobin uptrending to 8.7 (16) Oral candidiasis: Plan: Newly diagnosed on 12/22 - Continue nystatin swish and swallow x2-week course (17) Shingles: Plan: Noted on her right mid and lower back as well as buttock which would be at least 3 different dermatomes. She is immunosuppressed and on steroids for many days. - Continue valacyclovir 1000 mg BID x7 days - last dose was on 01/01 -> Resolved. -fungal cream on this area as well Plan: Patient basically awaiting placement at this time. She did receive J&J vaccine on 01/03 to help with placement. Case management on board Admission and Anticipated Discharge Date Admission Date: December 12, 2021 Subjective Pt states everything is good when asked, no further shingles pain and is supportive of rehab placement Review of Systems Review of Systems: Mild distress and fatigue, no complains of pain no headache, no visual changes no speech or swallowing issues no chest pain, pressure or palpitations no shortness of breath, cough or wheezes no abdominal pain, nausea or vomiting, diarrhea or constipation no dysuria, hematuria or frequency no focal joint pain or swelling no back pain, CVA tenderness or radicular pain no bruising, bleeding or rashes no focal signs of weakness or numbness or altered sensation no complaints of anxiety or depression.. Physical Exam Physical Exam: The patient appeared well nourished and normally developed. Vital signs as documented. Head exam is normocephalic atraumatic Neck is without JVD, thyromegaly, or carotid bruits. Lungs are clear to auscultation, no focal loss of breath sounds Cardiac exam, Rhythm is regular.. No murmurs, rubs or gallops. Abdominal exam reveals normal bowel sounds, soft non tender, no masses Extremities are nonedematous and both pedal pulses are present Neurologic exam is alert and oriented, no focal loss of strength or sensation Skin is without bruises or rashes Psychologically is without concerns for anxiety or depression.. Results & Data Results & Data ([facility]) Vital Signs (Past 12 Hours) Vital Signs Temp Pulse Pulse Resp BP Pulse Ox 01/04/22 07:34 98.6 F 80 20 107/56 L 93 01/04/22 03:48 97.7 F 76 18 110/75 87 L 01/04/22 00:00 80 01/03/22 23:36 98.4 F 72 18 102/45 L 96 PG Care Time/CCT Total # of Minutes Spent Total Time Spent with Patient: Total time spent is greater than 50% in coordination of care (as documented) at patient's floor/unit and/or counseling patient: Coding Level of Care Code 17937 Subseq Hosp Care Lvl 2 Diagnoses Acute respiratory failure with hypoxia J96.01 Opiate withdrawal F11.23 Encephalopathy G93.40 COVID-19 U07.1 Septic shock A41.9; R65.21 Left ventricular dysfunction I51.9 Acute kidney injury N17.9 DVT (deep venous thrombosis) I82.409 COPD (chronic obstructive pulmonary disease) J44.9 Antithrombin 3 deficiency D68.59 Hypertension I10 CAD (coronary artery disease), [place] coronary artery I25.10 On home oxygen therapy Z99.81 Depression F32.9 Psychotic features: with psychotic features Anemia D64.9 Oral candidiasis B37.0 Shingles B02.9 (1) Depression Psychotic features: with psychotic features
[2022-01-04] MEDS: METOPROLOL SUCC 25MG EXT REL TAB PO SCH (20:16)
[2022-01-05] MEDS: UMECLIDINIUM/VILANTEROL 62.5/25MCG 7 PUFFS/INHALER INH SCH (08:19)
[2022-01-05] MEDS: FLUTICASONE FUROATE 100MCG 14 PUFFS/INHALER INH SCH (08:20)
[2022-01-05] MEDS: APIXABAN 2.5 MG TAB PO SCH ×2 (08:20→20:52)
[2022-01-05] MEDS: FAMOTIDINE 20 MG TAB PO SCH (08:21)
[2022-01-05] MEDS: LINACLOTIDE 145 MCG CAPSULE PO SCH (08:21)
[2022-01-05] MEDS: DOCUSATE SODIUM/SENNA 50/8.6MG TAB PO SCH (08:21)
[2022-01-05] MEDS: ASPIRIN 81 MG ECTAB PO SCH (08:21)
[2022-01-05] MEDS: VENLAFAXINE HCL XR 150 MG CAPXR PO SCH (08:22)
[2022-01-05] MEDS: INSULIN ASPART PER UNIT SC SCH ×4 (08:39→20:09)
[2022-01-05] MEDS: CLOTRIMAZOLE 1% CR 15 GM TUBE EXT SCH ×2 (08:42→20:53)
--- NOTE | 2022-01-05 16:09 | Hospitalist Progress Note ---
Date of Service January 05, 2022 Assessment & Plan (1) Acute respiratory failure with hypoxia: Plan: Acute on chronic respiratory failure with hypoxia secondary to Covid-19 pneumonia as well as secondary bacterial LLL pneumonia and acute systolic CHF in the background of COPD. Oxygen requirement has fluctuated - -> Presently stable at 1-2L NC. -> Physical and occupational therapy screens are supportive of placement. Agreeable for vaccine. J&J vaccine on 01/03 (2) Opiate withdrawal: Plan: On Suboxone chronically, was held on admission due to septic shock and altered mental status-she did not receive her Suboxone for approximately 5 to 6 days. She then developed agitation, tachycardia, tachypnea, tremors on 12/17 with RR in 30s and HR in 140s, febrile and diaphoretic. - was placed back on Suboxone and much improved withdrawal symptoms, however then became very lethargic and encephalopathic again. - It was later discovered that she really only takes Suboxone once daily and she was getting it prescribed as twice daily. -> Presently mental status is good without signs of withdrawal. On 12/29, she was AAOx4, even able to discuss basic details of her hospitalization. Today, doing well. (3) Encephalopathy: Plan: *Metabolic encephalopathy Multifactorial: Initially secondary to septic shock, hypoxia, uremia, Covid-19 infection, pneumonia, but then developed opiate withdrawal. Slightly improved on 12/25 after holding Suboxone and starting IV thiamine, but not much better on 12/26. - Now mostly improved on 12/27 & 12/28 - more interactive and less lethargic, feeding herself. - Added thiamine 500 mg IV every 8 hours x3 doses to see if has a component of Wernicke's encephalopathy given prolonged hospitalization, poor nutritional status, and diuretic use. - Transitioned to oral thiamine on 12/29- would continue x30 days (4) COVID-19: Plan: With *pneumonia secondary to coronavirus-19 disease and with acute and chronic respiratory failure with hypoxia - Day 9 of illness at the time of presentation. Patient is not vaccinated. Per sister, patient's illness has consisted of fatigue, weakness, and headache. No respiratory or GI symptoms. - Has now completed 10-day course of IV dexamethasone 6mg - Has now completed a 10-day course of cefepime for coverage of secondary pneumonia - Continue fluticasone inhaled daily, and Anoro--> rinse mouth after use - Continue incentive spirometry and flutter valve - Off precautions on 01/09. (5) Septic shock: Plan: Developed septic shock on 12/13, required Levophed. now resolved Other episodes of hypotension secondary to Suboxone withdrawal and hypovolemia from poor po intake (6) Left ventricular dysfunction: Plan: With acute systolic CHF. New finding on echo on 12/17, EF 35-40% whereas echocardiogram on admission had preserved EF. - Appreciate cardiology consultation-suspects Covid myocarditis/cardiomyopathy . Elevated Troponin peaked at 5. - Continue to fluid restrict to 1800mL / day, low-sodium diet - Started metoprolol succinate 25 mg p.o. at bedtime, Asa 81mg - Eventually will need lisinopril added back on if BP and renal function can tolerate , BP remains low (7) Acute kidney injury: Plan: Creatinine and BUN elevated on admission at 49 and 2.3. Cr improved to 1.23 initially, then butch again after receiving IV Lasix. - Cr is down to 1.25 on 12/30; likely her baseline. (8) DVT (deep venous thrombosis): Plan: *Acute DVT of the proximal left superficial femoral vein. Due to patient's Antithrombin III deficiency and in the setting of Covid-19. - Presume she was taking her Xarelto at home although she may have missed some doses in the setting of encephalopathy and acute illness? - Switched to apixaban on 12/30 (9) COPD (chronic obstructive pulmonary disease): Plan: Patient has home O2 for PRN use. According to sister, patient has not used it in a long time, has not been using it since COVID diagnosis on 12/03. 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 With acute DVT as above and suspected PE. - chronic anticoagulation (11) Hypertension: Plan: Bp is a bit low, will stop pm metoprolol (12) CAD (coronary artery disease), [place] coronary artery: Plan: With h/o stent placed. Myocardial demand ischemia and Covid myocarditis as above. - As above (13) On home oxygen therapy: Plan: Chronic HS. (14) Depression: Plan: Mood is stable - Continue venlafaxine & ziprasidone (15) Anemia: Plan: baseline 10-11 dropped to 8.1 (suspect dilutional from all of the IVF-- had over 20,000ml) Back on Lasix and hemoglobin uptrending to 8.7 (16) Oral candidiasis: Plan: Newly diagnosed on 12/22 - Continue nystatin swish and swallow x2-week course (17) Shingles: Plan: Noted on her right mid and lower back as well as buttock which would be at least 3 different dermatomes. She is immunosuppressed and on steroids for many days. - Continue valacyclovir 1000 mg BID x7 days - last dose was on 01/01 -> Resolved. -fungal cream on this area as well Plan: Patient basically awaiting placement at this time. She did receive J&J vaccine on 01/03 to help with placement. Case management on board Admission and Anticipated Discharge Date Admission Date: December 12, 2021 Subjective Pt states everything is good when asked, no further shingles pain and is supportive of rehab placement, is doing well awaiting rehab Review of Systems Review of Systems: Mild distress and fatigue, no complains of pain no headache, no visual changes no speech or swallowing issues no chest pain, pressure or palpitations no shortness of breath, cough or wheezes no abdominal pain, nausea or vomiting, diarrhea or constipation no dysuria, hematuria or frequency no focal joint pain or swelling no back pain, CVA tenderness or radicular pain no bruising, bleeding or rashes no focal signs of weakness or numbness or altered sensation no complaints of anxiety or depression.. Physical Exam Physical Exam: The patient appeared well nourished and normally developed. Vital signs as documented. Head exam is normocephalic atraumatic Neck is without JVD, thyromegaly, or carotid bruits. Lungs are clear to auscultation, no focal loss of breath sounds Cardiac exam, Rhythm is regular.. No murmurs, rubs or gallops. Abdominal exam reveals normal bowel sounds, soft non tender, no masses Extremities are nonedematous and both pedal pulses are present Neurologic exam is alert and oriented, no focal loss of strength or sensation Skin is without bruises or rashes Psychologically is without concerns for anxiety or depression.. Results & Data Results & Data ([facility]) Vital Signs (Past 12 Hours) Vital Signs Temp Pulse Resp BP Pulse Ox 01/05/22 15:14 97.7 F 81 20 101/56 L 96 01/05/22 11:00 98.2 F 89 19 87/63 L 97 01/05/22 07:43 98.2 F 71 22 116/69 90 PG Care Time/CCT Total # of Minutes Spent Total Time Spent with Patient: Total time spent is greater than 50% in coordination of care (as documented) at patient's floor/unit and/or counseling patient: Coding Level of Care Code 59938 Subseq Hosp Care Lvl 2 Diagnoses Acute respiratory failure with hypoxia J96.01 Opiate withdrawal F11.23 Encephalopathy G93.40 COVID-19 U07.1 Septic shock A41.9; R65.21 Left ventricular dysfunction I51.9 Acute kidney injury N17.9 DVT (deep venous thrombosis) I82.409 COPD (chronic obstructive pulmonary disease) J44.9 Antithrombin 3 deficiency D68.59 Hypertension I10 CAD (coronary artery disease), [place] coronary artery I25.10 On home oxygen therapy Z99.81 Depression F32.9 Psychotic features: with psychotic features Anemia D64.9 Oral candidiasis B37.0 Shingles B02.9 (1) Depression Psychotic features: with psychotic features
[2022-01-06] MEDS: LINACLOTIDE 145 MCG CAPSULE PO SCH (08:12)
[2022-01-06] MEDS: DOCUSATE SODIUM/SENNA 50/8.6MG TAB PO SCH (08:12)
[2022-01-06] MEDS: APIXABAN 2.5 MG TAB PO SCH ×2 (08:13→20:52)
[2022-01-06] MEDS: FLUTICASONE FUROATE 100MCG 14 PUFFS/INHALER INH SCH (08:14)
[2022-01-06] MEDS: BUPRENORPHINE/NALOXONE 8/2 MG TAB SL SCH (08:27)
[2022-01-06] MEDS: INSULIN ASPART PER UNIT SC SCH ×4 (08:38→20:28)
[2022-01-06] MEDS: VENLAFAXINE HCL XR 150 MG CAPXR PO SCH (09:45)
[2022-01-06] MEDS: FAMOTIDINE 20 MG TAB PO SCH (09:46)
[2022-01-06] MEDS: CLOTRIMAZOLE 1% CR 15 GM TUBE EXT SCH ×2 (09:46→20:52)
[2022-01-06] MEDS: ASPIRIN 81 MG ECTAB PO SCH (10:28)
[2022-01-06] MEDS: UMECLIDINIUM/VILANTEROL 62.5/25MCG 7 PUFFS/INHALER INH SCH (10:29)
[2022-01-06] MEDS ORDERED: POLYETHYLENE (MIRALAX) 17 GM PACK PO ONE (16:16)
--- NOTE | 2022-01-06 16:19 | Hospitalist Progress Note ---
Date of Service January 06, 2022 Assessment & Plan (1) Acute respiratory failure with hypoxia: Plan: Acute on chronic respiratory failure with hypoxia secondary to Covid-19 pneumonia as well as secondary bacterial LLL pneumonia and acute systolic CHF in the background of COPD. Oxygen requirement has fluctuated - -> Presently stable at 1-2L NC. -> Physical and occupational therapy screens are supportive of placement. Agreeable for vaccine. J&J vaccine on 01/03 (2) Opiate withdrawal: Plan: On Suboxone chronically, was held on admission due to septic shock and altered mental status-she did not receive her Suboxone for approximately 5 to 6 days. She then developed agitation, tachycardia, tachypnea, tremors on 12/17 with RR in 30s and HR in 140s, febrile and diaphoretic. - was placed back on Suboxone and much improved withdrawal symptoms, however then became very lethargic and encephalopathic again. - It was later discovered that she really only takes Suboxone once daily and she was getting it prescribed as twice daily. -> Presently mental status is good without signs of withdrawal. On 12/29, she was AAOx4, even able to discuss basic details of her hospitalization. Today, doing well. (3) Encephalopathy: Plan: *Metabolic encephalopathy Multifactorial: Initially secondary to septic shock, hypoxia, uremia, Covid-19 infection, pneumonia, but then developed opiate withdrawal. Slightly improved on 12/25 after holding Suboxone and starting IV thiamine, but not much better on 12/26. - Now mostly improved on 12/27 & 12/28 - more interactive and less lethargic, feeding herself. - Added thiamine 500 mg IV every 8 hours x3 doses to see if has a component of Wernicke's encephalopathy given prolonged hospitalization, poor nutritional status, and diuretic use. - Transitioned to oral thiamine on 12/29- would continue x30 days (4) COVID-19: Plan: With *pneumonia secondary to coronavirus-19 disease and with acute and chronic respiratory failure with hypoxia - Day 9 of illness at the time of presentation. Patient is not vaccinated. Per sister, patient's illness has consisted of fatigue, weakness, and headache. No respiratory or GI symptoms. - Has now completed 10-day course of IV dexamethasone 6mg - Has now completed a 10-day course of cefepime for coverage of secondary pneumonia - Continue fluticasone inhaled daily, and Anoro--> rinse mouth after use - Continue incentive spirometry and flutter valve - Off precautions on 01/09. (5) Septic shock: Plan: Developed septic shock on 12/13, required Levophed. now resolved Other episodes of hypotension secondary to Suboxone withdrawal and hypovolemia from poor po intake (6) Left ventricular dysfunction: Plan: With acute systolic CHF. New finding on echo on 12/17, EF 35-40% whereas echocardiogram on admission had preserved EF. - Appreciate cardiology consultation-suspects Covid myocarditis/cardiomyopathy . Elevated Troponin peaked at 5. - Continue to fluid restrict to 1800mL / day, low-sodium diet - Started metoprolol succinate 25 mg p.o. at bedtime, Asa 81mg - Eventually will need lisinopril added back on if BP and renal function can tolerate , BP remains low (7) Acute kidney injury: Plan: Creatinine and BUN elevated on admission at 49 and 2.3. Cr improved to 1.23 initially, then butch again after receiving IV Lasix. - Cr is down to 1.25 on 12/30; likely her baseline. (8) DVT (deep venous thrombosis): Plan: *Acute DVT of the proximal left superficial femoral vein. Due to patient's Antithrombin III deficiency and in the setting of Covid-19. - Presume she was taking her Xarelto at home although she may have missed some doses in the setting of encephalopathy and acute illness? - Switched to apixaban on 12/30 (9) COPD (chronic obstructive pulmonary disease): Plan: Patient has home O2 for PRN use. According to sister, patient has not used it in a long time, has not been using it since COVID diagnosis on 12/03. 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 With acute DVT as above and suspected PE. - chronic anticoagulation (11) Hypertension: Plan: Bp is a bit low, will stop pm metoprolol, no rebound tachycardia yet, consider coreg if needed (12) CAD (coronary artery disease), [place] coronary artery: Plan: With h/o stent placed. Myocardial demand ischemia and Covid myocarditis as above. - As above (13) On home oxygen therapy: Plan: Chronic HS. (14) Depression: Plan: Mood is stable - Continue venlafaxine & ziprasidone (15) Anemia: Plan: baseline 10-11 dropped to 8.1 (suspect dilutional from all of the IVF-- had over 20,000ml) Back on Lasix and hemoglobin uptrending to 8.7 (16) Oral candidiasis: Plan: Newly diagnosed on 12/22 - Continue nystatin swish and swallow x2-week course (17) Shingles: Plan: Noted on her right mid and lower back as well as buttock which would be at least 3 different dermatomes. She is immunosuppressed and on steroids for many days. - Continue valacyclovir 1000 mg BID x7 days - last dose was on 01/01 -> Resolved. -fungal cream on this area as well Plan: Patient basically awaiting placement at this time. She did receive J&J vaccine on 01/03 to help with placement. Case management on board Admission and Anticipated Discharge Date Admission Date: December 12, 2021 Subjective Pt states everything is good when asked, no further shingles pain and is supportive of rehab placement, is doing well awaiting rehab she does relate to constipation. will prefer oral laxative Review of Systems Review of Systems: Mild distress and fatigue, no complains of pain no headache, no visual changes no speech or swallowing issues no chest pain, pressure or palpitations no shortness of breath, cough or wheezes no abdominal pain, nausea or vomiting, diarrhea or constipation no dysuria, hematuria or frequency no focal joint pain or swelling no back pain, CVA tenderness or radicular pain no bruising, bleeding or rashes no focal signs of weakness or numbness or altered sensation no complaints of anxiety or depression.. Physical Exam Physical Exam: The patient appeared well nourished and normally developed. Vital signs as documented. Head exam is normocephalic atraumatic Neck is without JVD, thyromegaly, or carotid bruits. Lungs are clear to auscultation, no focal loss of breath sounds Cardiac exam, Rhythm is regular.. No murmurs, rubs or gallops. Abdominal exam reveals normal bowel sounds, soft non tender, no masses Extremities are nonedematous and both pedal pulses are present Neurologic exam is alert and oriented, no focal loss of strength or sensation Skin is without bruises or rashes Psychologically is without concerns for anxiety or depression.. Results & Data Results & Data ([facility]) Vital Signs (Past 12 Hours) Vital Signs Temp Pulse Pulse Pulse Resp BP Pulse Ox 01/06/22 15:24 97.7 F 82 21 110/63 94 01/06/22 15:12 76 01/06/22 11:26 97.7 F 95 H 23 106/67 97 01/06/22 08:00 76 01/06/22 07:57 97.7 F 84 30 H 108/64 95 01/06/22 05:10 98.4 F 78 17 107/64 96 PG Care Time/CCT Total # of Minutes Spent Total Time Spent with Patient: Total time spent is greater than 50% in coordination of care (as documented) at patient's floor/unit and/or counseling patient: Coding Level of Care Code 54903 Subseq Hosp Care Lvl 2 Diagnoses Acute respiratory failure with hypoxia J96.01 Opiate withdrawal F11.23 Encephalopathy G93.40 COVID-19 U07.1 Septic shock A41.9; R65.21 Left ventricular dysfunction I51.9 Acute kidney injury N17.9 DVT (deep venous thrombosis) I82.409 COPD (chronic obstructive pulmonary disease) J44.9 Antithrombin 3 deficiency D68.59 Hypertension I10 CAD (coronary artery disease), [place] coronary artery I25.10 On home oxygen therapy Z99.81 Depression F32.9 Psychotic features: with psychotic features Anemia D64.9 Oral candidiasis B37.0 Shingles B02.9 (1) Depression Psychotic features: with psychotic features
[2022-01-07 06:45] LABS: Hematocrit (blood only) 27.4 % (37-47); Hemoglobin 8.6 g/dL (12.0-16.0); Mean Corpuscular Hemoglobin 30.3 pg (25-34); Mean Corpuscular Hgb Conc 31.4 g/dL (32-36); Mean Corpuscular Volume 96.5 fL (80-100); Mean Platelet Volume 10.1 fL (7.4-10.4); Platelet Count 274 K/uL (130-400); RDW Coefficient of Variation 15.5 % (11.5-14.5); RDW Standard Deviation 54.4 fL (36.4-46.3); Red Blood Count 2.84 M/uL (4.2-5.4); White Blood Count 6.55 K/uL (4.8-10.8)
[2022-01-07 07:11] LABS: Calcium 8.4 mg/dl (8.5-10.1); Creatinine Clr Calc Pharmacy 48.2 ml/min; Est GFR (African American) 60.8 ml/min; Est GFR (Non-African American) 52.5 ml/min; Magnesium 1.7 mg/dl (1.7-2.4); Potassium 4.6 mmol/L (3.5-5.1)
[2022-01-07] MEDS: APIXABAN 2.5 MG TAB PO SCH ×2 (08:21→21:20)
[2022-01-07] MEDS: VENLAFAXINE HCL XR 150 MG CAPXR PO SCH (08:21)
[2022-01-07] MEDS: LINACLOTIDE 145 MCG CAPSULE PO SCH (08:21)
[2022-01-07] MEDS: ASPIRIN 81 MG ECTAB PO SCH (08:21)
[2022-01-07] MEDS: DOCUSATE SODIUM/SENNA 50/8.6MG TAB PO SCH (08:21)
[2022-01-07] MEDS: FAMOTIDINE 20 MG TAB PO SCH (08:21)
[2022-01-07] MEDS: CLOTRIMAZOLE 1% CR 15 GM TUBE EXT SCH ×2 (08:22→21:22)
[2022-01-07] MEDS: FLUTICASONE FUROATE 100MCG 14 PUFFS/INHALER INH SCH (08:23)
[2022-01-07] MEDS: UMECLIDINIUM/VILANTEROL 62.5/25MCG 7 PUFFS/INHALER INH SCH (08:23)
[2022-01-07] MEDS: INSULIN ASPART PER UNIT SC SCH ×4 (08:30→21:19)
--- NOTE | 2022-01-07 14:25 | Hospitalist Progress Note ---
Date of Service January 07, 2022 Assessment & Plan (1) Acute respiratory failure with hypoxia: Plan: Acute on chronic respiratory failure with hypoxia secondary to Covid-19 pneumonia as well as secondary bacterial LLL pneumonia and acute systolic CHF in the background of COPD. Oxygen requirement has fluctuated - no on low supplemental dosing -> Presently stable at 1-2L NC. -> Physical and occupational therapy screens are supportive of placement. Agreeable for vaccine. J&J vaccine on 01/03 (2) Opiate withdrawal: Plan: On Suboxone chronically, was held on admission due to septic shock and altered mental status-she did not receive her Suboxone for approximately 5 to 6 days. She then developed agitation, tachycardia, tachypnea, tremors on 12/17 with RR in 30s and HR in 140s, febrile and diaphoretic. - was placed back on Suboxone and much improved withdrawal symptoms, however then became very lethargic and encephalopathic again. - It was later discovered that she really only takes Suboxone once daily and she was getting it prescribed as twice daily. -> Presently mental status is good without signs of withdrawal. On 12/29, she was AAOx4, even able to discuss basic details of her hospitalization. (3) Encephalopathy: Plan: *Metabolic encephalopathy Multifactorial: Initially secondary to septic shock, hypoxia, uremia, Covid-19 infection, pneumonia, but then developed opiate withdrawal. Slightly improved on 12/25 after holding Suboxone and starting IV thiamine, but not much better on 12/26. - Now mostly improved on 12/27 & 12/28 - more interactive and less lethargic, feeding herself. - Added thiamine 500 mg IV every 8 hours x3 doses to see if has a component of Wernicke's encephalopathy given prolonged hospitalization, poor nutritional status, and diuretic use. - Transitioned to oral thiamine on 12/29- (4) COVID-19: Plan: With *pneumonia secondary to coronavirus-19 disease and with acute and chronic respiratory failure with hypoxia - Day 9 of illness at the time of presentation. Patient is not vaccinated. Per sister, patient's illness has consisted of fatigue, weakness, and headache. No respiratory or GI symptoms. - Has now completed 10-day course of IV dexamethasone 6mg - Has now completed a 10-day course of cefepime for coverage of secondary pneumonia - Continue fluticasone inhaled daily, and Anoro--> rinse mouth after use - Continue incentive spirometry and flutter valve -off precautions 12/30 (5) Septic shock: Plan: Developed septic shock on 12/13, required Levophed. now resolved Other episodes of hypotension secondary to Suboxone withdrawal and hypovolemia from poor po intake (6) Left ventricular dysfunction: Plan: With acute systolic CHF. New finding on echo on 12/17, EF 35-40% whereas echocardiogram on admission had preserved EF. - Appreciate cardiology consultation-suspects Covid myocarditis/cardiomyopathy . Elevated Troponin peaked at 5. - Continue to fluid restrict to 1800mL / day, low-sodium diet - Started metoprolol succinate 25 mg p.o. at bedtime, Asa 81mg - Eventually will need lisinopril added back on if BP and renal function can tolerate , BP remains low (7) Acute kidney injury: Plan: Creatinine and BUN elevated on admission at 49 and 2.3. Cr improved to 1.23 initially, then butch again after receiving IV Lasix. - Cr is down to 1.25 on 12/30; likely her baseline. (8) DVT (deep venous thrombosis): Plan: *Acute DVT of the proximal left superficial femoral vein. Due to patient's Antithrombin III deficiency and in the setting of Covid-19. - Presume she was taking her Xarelto at home although she may have missed some doses in the setting of encephalopathy and acute illness? - Switched to apixaban on 12/30 (9) COPD (chronic obstructive pulmonary disease): Plan: Patient has home O2 for PRN use. According to sister, patient has not used it in a long time, has not been using it since COVID diagnosis on 12/03. 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 With acute DVT as above and suspected PE. - chronic anticoagulation (11) Hypertension: Plan: Bp is a bit low, will stop pm metoprolol, no rebound tachycardia yet, consider coreg if needed (12) CAD (coronary artery disease), [place] coronary artery: Plan: With h/o stent placed. Myocardial demand ischemia and Covid myocarditis as above. - As above (13) On home oxygen therapy: Plan: Chronic HS. (14) Depression: Plan: Mood is stable - Continue venlafaxine & ziprasidone (15) Anemia: Plan: baseline 10-11 dropped to 8.1 (suspect dilutional from all of the IVF-- had over 20,000ml) Back on Lasix and hemoglobin uptrending to 8.7 (16) Oral candidiasis: Plan: Newly diagnosed on 12/22 - Continue nystatin swish and swallow x2-week course (17) Shingles: Plan: Noted on her right mid and lower back as well as buttock which would be at least 3 different dermatomes. She is immunosuppressed and on steroids for many days. - Continue valacyclovir 1000 mg BID x7 days - last dose was on 01/01 -> Resolved. -fungal cream on this area as well Plan: Patient basically awaiting placement at this time. She did receive J&J vaccine on 01/03 to help with placement. Case management on board constipation will try some low dose go lytely Admission and Anticipated Discharge Date Admission Date: December 12, 2021 Subjective Pt states everything is good when asked, no further shingles pain and is supportive of rehab placement, is doing well awaiting rehab she does relate to constipation. will prefer oral laxative, will give low dose golytely Review of Systems Review of Systems: Mild distress and fatigue, no complains of pain no headache, no visual changes no speech or swallowing issues no chest pain, pressure or palpitations persistent shortness of breath, cough or wheezes no abdominal pain, nausea or vomiting, constipation noted with no bowel movement for days no dysuria, hematuria or frequency no focal joint pain or swelling no back pain, CVA tenderness or radicular pain no bruising, bleeding or rashes no focal signs of weakness or numbness or altered sensation no complaints of anxiety or depression.. Physical Exam Physical Exam: The patient appeared well nourished and normally developed. Vital signs as documented. Head exam is normocephalic atraumatic Neck is without JVD, thyromegaly, or carotid bruits. Lungs are diminished at bases, no wheezes Cardiac exam, Rhythm is regular.. No murmurs, rubs or gallops. Abdominal exam reveals normal bowel sounds, soft non tender, no masses Extremities are nonedematous and both pedal pulses are present Neurologic exam is alert and oriented, no focal loss of strength or sensation Skin is without bruises or rashes Psychologically is without concerns for anxiety or depression.. Results & Data Results & Data ([facility]) Vital Signs (Past 12 Hours) Vital Signs Temp Pulse Pulse Resp BP BP Pulse Ox 01/07/22 11:28 97.7 F 80 16 95/62 L 94 01/07/22 08:00 75 01/07/22 07:23 98.0 F 71 16 106/62 92 01/07/22 03:47 97.9 F 80 16 115/62 95 PG Care Time/CCT Total # of Minutes Spent Total Time Spent with Patient: Total time spent is greater than 50% in coordination of care (as documented) at patient's floor/unit and/or counseling patient: Coding Level of Care Code 37589 Subseq Hosp Care Lvl 2 Diagnoses Acute respiratory failure with hypoxia J96.01 Opiate withdrawal F11.23 Encephalopathy G93.40 COVID-19 U07.1 Septic shock A41.9; R65.21 Left ventricular dysfunction I51.9 Acute kidney injury N17.9 DVT (deep venous thrombosis) I82.409 COPD (chronic obstructive pulmonary disease) J44.9 Antithrombin 3 deficiency D68.59 Hypertension I10 CAD (coronary artery disease), [place] coronary artery I25.10 On home oxygen therapy Z99.81 Depression F32.9 Psychotic features: with psychotic features Anemia D64.9 Oral candidiasis B37.0 Shingles B02.9 (1) Depression Psychotic features: with psychotic features
[2022-01-07] MEDS: LAVAGE SOLUTION 4000ML PO SCH ×2 (16:55→21:21)
[2022-01-08] MEDS: LAVAGE SOLUTION 4000ML PO SCH ×3 (06:18→20:23)
[2022-01-08] MEDS: INSULIN ASPART PER UNIT SC SCH ×4 (07:30→20:27)
[2022-01-08] MEDS: DOCUSATE SODIUM/SENNA 50/8.6MG TAB PO SCH (09:15)
[2022-01-08] MEDS: THIAMINE HCL 100 MG TAB PO SCH (09:16)
[2022-01-08] MEDS: LINACLOTIDE 145 MCG CAPSULE PO SCH (09:17)
[2022-01-08] MEDS: FAMOTIDINE 20 MG TAB PO SCH (09:17)
[2022-01-08] MEDS: APIXABAN 2.5 MG TAB PO SCH ×2 (09:17→20:25)
[2022-01-08] MEDS: VENLAFAXINE HCL XR 150 MG CAPXR PO SCH (09:17)
[2022-01-08] MEDS: ASPIRIN 81 MG ECTAB PO SCH (09:18)
[2022-01-08] MEDS: CLOTRIMAZOLE 1% CR 15 GM TUBE EXT SCH ×2 (09:18→20:25)
[2022-01-08] MEDS: FLUTICASONE FUROATE 100MCG 14 PUFFS/INHALER INH SCH (09:19)
[2022-01-08] MEDS: UMECLIDINIUM/VILANTEROL 62.5/25MCG 7 PUFFS/INHALER INH SCH (09:19)
[2022-01-08] MEDS: BUPRENORPHINE/NALOXONE 8/2 MG TAB SL SCH (09:27)
[2022-01-08] MEDS: ACETAMINOPHEN 325 MG TAB PO PRN (14:23)
--- NOTE | 2022-01-08 18:33 | Hospitalist Progress Note ---
Date of Service January 08, 2022 Assessment & Plan (1) Acute respiratory failure with hypoxia: Plan: Acute on chronic respiratory failure with hypoxia secondary to Covid-19 pneumonia as well as secondary bacterial LLL pneumonia and acute systolic CHF in the background of COPD. Oxygen requirement has fluctuated - no on low supplemental dosing -> Presently stable at 1-2L NC. -> Physical and occupational therapy screens are supportive of placement. had J&J vaccine on 01/03 (2) Opiate withdrawal: Plan: Continue Suboxone (3) Encephalopathy: Plan: *Metabolic encephalopathy Multifactorial: Initially secondary to septic shock, hypoxia, uremia, Covid-19 infection, pneumonia, but then developed opiate withdrawal. Now appears to be doing well (4) COVID-19: Plan: With *pneumonia secondary to coronavirus-19 disease and with acute and chronic respiratory failure with hypoxia - Day 9 of illness at the time of presentation. Patient is not vaccinated. Per sister, patient's illness has consisted of fatigue, weakness, and headache. No respiratory or GI symptoms. - Has now completed 10-day course of IV dexamethasone 6mg - Has now completed a 10-day course of cefepime for coverage of secondary pneumonia - Continue fluticasone inhaled daily, and Anoro--> rinse mouth after use - Continue incentive spirometry and flutter valve -off precautions 12/30 -Essentially now a resolved active issue (5) Septic shock: Plan: Developed septic shock on 12/13, required Levophed. now resolved (6) Left ventricular dysfunction: Plan: With acute systolic CHF. New finding on echo on 12/17, EF 35-40% whereas echocardiogram on admission had preserved EF. - Appreciate cardiology consultation-suspects Covid myocarditis/cardiomyopathy . Elevated Troponin peaked at 5. - Continue to fluid restrict to 1800mL / day, low-sodium diet - Started metoprolol succinate 25 mg p.o. at bedtime, Asa 81mg - Eventually will need lisinopril added back on if BP and renal function can tolerate , BP allows (7) Acute kidney injury: Plan: Creatinine and BUN elevated on admission at 48 and 2.3. Cr improved to 1.23 initially, then butch again after receiving IV Lasix. -Creatinine improved. Follow periodically (8) DVT (deep venous thrombosis): Plan: Anticoagulated with Eliquis (9) COPD (chronic obstructive pulmonary disease): Plan: Patient has home O2 for PRN use. According to sister, patient has not used it in a long time, has not been using it since COVID diagnosis on 12/03. 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 With acute DVT as above and suspected PE. - chronic anticoagulation (11) Hypertension: Plan: Bp is a bit low. Follow (12) CAD (coronary artery disease), [place] coronary artery: Plan: With h/o stent placed. Myocardial demand ischemia and Covid myocarditis as above. - As above (13) On home oxygen therapy: Plan: Chronic HS. (14) Depression: Plan: Mood is stable - Continue venlafaxine & ziprasidone (15) Anemia: Plan: Follow periodically (16) Oral candidiasis: Plan: Treated (17) Shingles: Plan: Noted on her right mid and lower back as well as buttock which would be at least 3 different dermatomes. She is immunosuppressed and on steroids for many days. - Continue valacyclovir 1000 mg BID x7 days - last dose was on 01/01 -> Resolved. -fungal cream on this area as well Plan: Awaiting placement Admission and Anticipated Discharge Date Admission Date: December 12, 2021 Subjective Visited patient twicethe first time she was on the phone, later she was sleeping. Discussed with nursingno new issues have been identified. She also noted that 3 different nurses evaluated status of shingles and noted no open lesions Physical Exam Physical Exam: No distress. Breathing unlabored no accessory muscle use good effort. Skin without pallor. Results & Data Results & Data ([facility]) Vital Signs (Past 12 Hours) Vital Signs Temp Pulse Pulse Resp BP Pulse Ox 01/08/22 16:08 91 H 18 103/64 97 01/08/22 14:54 105 H 01/08/22 11:51 98.2 F 97 H 20 92/64 L 97 01/08/22 07:57 97.3 F L 83 20 111/68 94 01/08/22 07:00 79 PG Care Time/CCT Total # of Minutes Spent Total Time Spent with Patient: Total time spent is greater than 50% in coordination of care (as documented) at patient's floor/unit and/or counseling patient: Coding Level of Care Code 27259 Subseq Hosp Care Lvl 1 Diagnoses Acute respiratory failure with hypoxia J96.01 Opiate withdrawal F11.23 Encephalopathy G93.40 COVID-19 U07.1 Septic shock A41.9; R65.21 Left ventricular dysfunction I51.9 Acute kidney injury N17.9 DVT (deep venous thrombosis) I82.409 COPD (chronic obstructive pulmonary disease) J44.9 Antithrombin 3 deficiency D68.59 Hypertension I10 CAD (coronary artery disease), [place] coronary artery I25.10 On home oxygen therapy Z99.81 Depression F32.9 Psychotic features: with psychotic features Anemia D64.9 Oral candidiasis B37.0 Shingles B02.9 (1) Depression Psychotic features: with psychotic features
[2022-01-09 05:43] LABS: Hematocrit (blood only) 25.5 % (37-47); Mean Corpuscular Hemoglobin 30.2 pg (25-34); Mean Corpuscular Hgb Conc 31.4 g/dL (32-36); Mean Corpuscular Volume 96.2 fL (80-100); Mean Platelet Volume 9.7 fL (7.4-10.4); Platelet Count 338 K/uL (130-400); RDW Coefficient of Variation 15.3 % (11.5-14.5); Red Blood Count 2.65 M/uL (4.2-5.4); White Blood Count 5.92 K/uL (4.8-10.8)
[2022-01-09 06:17] LABS: BUN Creatinine Ratio 33.6 (10-20); Calcium 8.5 mg/dl (8.5-10.1); Creatinine Clr Calc Pharmacy 46.5 ml/min; Est GFR (African American) 58.2 ml/min; Est GFR (Non-African American) 50.3 ml/min; Potassium 4.7 mmol/L (3.5-5.1)
[2022-01-09] MEDS: LAVAGE SOLUTION 4000ML PO SCH ×3 (07:06→21:39)
[2022-01-09] MEDS: INSULIN ASPART PER UNIT SC SCH ×4 (08:00→20:59)
[2022-01-09] MEDS: UMECLIDINIUM/VILANTEROL 62.5/25MCG 7 PUFFS/INHALER INH SCH (08:09)
[2022-01-09] MEDS: ASPIRIN 81 MG ECTAB PO SCH (08:10)
[2022-01-09] MEDS: VENLAFAXINE HCL XR 150 MG CAPXR PO SCH (08:10)
[2022-01-09] MEDS: DOCUSATE SODIUM/SENNA 50/8.6MG TAB PO SCH (08:10)
[2022-01-09] MEDS: CLOTRIMAZOLE 1% CR 15 GM TUBE EXT SCH ×2 (08:10→21:04)
[2022-01-09] MEDS: FAMOTIDINE 20 MG TAB PO SCH (08:10)
[2022-01-09] MEDS: LINACLOTIDE 145 MCG CAPSULE PO SCH (08:11)
[2022-01-09] MEDS: FLUTICASONE FUROATE 100MCG 14 PUFFS/INHALER INH SCH (08:11)
[2022-01-09] MEDS: THIAMINE HCL 100 MG TAB PO SCH (08:58)
[2022-01-09] MEDS: APIXABAN 2.5 MG TAB PO SCH ×2 (08:58→21:04)
[2022-01-09] MEDS: ACETAMINOPHEN 325 MG TAB PO PRN (08:59)
--- NOTE | 2022-01-09 19:55 | Hospitalist Progress Note ---
Date of Service January 09, 2022 Assessment & Plan (1) Acute respiratory failure with hypoxia: Plan: Acute on chronic respiratory failure with hypoxia secondary to Covid-19 pneumonia as well as secondary bacterial LLL pneumonia and acute systolic CHF in the background of COPD. Oxygen requirement has fluctuated - no on low supplemental dosing -> Presently stable at 1-2L NC for several days -> Physical and occupational therapy screens are supportive of placement. had J&J vaccine on 01/03 (2) Opiate withdrawal: Plan: Continue Suboxone (3) Encephalopathy: Plan: *Metabolic encephalopathy Multifactorial: Initially secondary to septic shock, hypoxia, uremia, Covid-19 infection, pneumonia, but then developed opiate withdrawal. Now appears to be doing well garnering input from nursing (4) COVID-19: Plan: With *pneumonia secondary to coronavirus-19 disease and with acute and chronic respiratory failure with hypoxia - Day 9 of illness at the time of presentation. Patient is not vaccinated. Per sister, patient's illness has consisted of fatigue, weakness, and headache. No respiratory or GI symptoms. - Has now completed 10-day course of IV dexamethasone 6mg - Has now completed a 10-day course of cefepime for coverage of secondary pneumonia - Continue fluticasone inhaled daily, and Anoro--> rinse mouth after use - Continue incentive spirometry and flutter valve -off precautions 12/30 -Essentially now a resolved active issue (5) Septic shock: Plan: Developed septic shock on 12/13, required Levophed. now resolved (6) Left ventricular dysfunction: Plan: With acute systolic CHF. New finding on echo on 12/17, EF 35-40% whereas echocardiogram on admission had preserved EF. - Appreciate cardiology consultation-suspects Covid myocarditis/cardiomyopathy . Elevated Troponin peaked at 5. - Continue to fluid restrict to 1800mL / day, low-sodium diet - Started metoprolol succinate 25 mg p.o. at bedtime, Asa 81mg - Eventually will need lisinopril added back on if BP and renal function can tolerate , BP allows (7) Acute kidney injury: Plan: Creatinine and BUN elevated on admission at 48 and 2.3. Cr improved to 1.23 initially, then butch again after receiving IV Lasix. -Creatinine improved. Follow periodically (8) DVT (deep venous thrombosis): Plan: Anticoagulated with Eliquis (9) COPD (chronic obstructive pulmonary disease): Plan: Patient has home O2 for PRN use. According to sister, patient has not used it in a long time, has not been using it since COVID diagnosis on 12/03. 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 With acute DVT as above and suspected PE. - chronic anticoagulation (11) Hypertension: Plan: Bp is a bit low. Follow (12) CAD (coronary artery disease), [place] coronary artery: Plan: With h/o stent placed. Myocardial demand ischemia and Covid myocarditis as above . - As above (13) On home oxygen therapy: Plan: Chronic HS. (14) Depression: Plan: Mood is stable - Continue venlafaxine & ziprasidone (15) Anemia: Plan: Follow periodically (16) Oral candidiasis: Plan: Treated (17) Shingles: Plan: Noted on her right mid and lower back as well as buttock which would be at least 3 different dermatomes. She is immunosuppressed and on steroids for many days. - Continue valacyclovir 1000 mg BID x7 days - last dose was on 01/01 -> Resolved. -fungal cream on this area as well Plan: Awaiting placement Stable for medical Admission and Anticipated Discharge Date Admission Date: December 12, 2021 Subjective Yet again sleeping whenever I visited. No new issues identified Physical Exam Physical Exam: Sleeping comfortably no distress. HEENT normocephalic atraumatic breathing unlabored no accessory muscle use. Skin without rashes, pallor, icterus. Results & Data Results & Data ([facility]) Vital Signs (Past 12 Hours) Vital Signs Temp Pulse Pulse Resp BP Pulse Ox 01/09/22 15:25 98.1 F 89 16 97/60 L 96 01/09/22 13:57 78 01/09/22 11:20 98.6 F 89 17 96/63 L 96 PG Care Time/CCT Total # of Minutes Spent Total Time Spent with Patient: Total time spent is greater than 50% in coordination of care (as documented) at patient's floor/unit and/or counseling patient: Coding Level of Care Code 70715 Subseq Hosp Care Lvl 1 Diagnoses Acute respiratory failure with hypoxia J96.01 Opiate withdrawal F11.23 Encephalopathy G93.40 COVID-19 U07.1 Septic shock A41.9; R65.21 Left ventricular dysfunction I51.9 Acute kidney injury N17.9 DVT (deep venous thrombosis) I82.409 COPD (chronic obstructive pulmonary disease) J44.9 Antithrombin 3 deficiency D68.59 Hypertension I10 CAD (coronary artery disease), [place] coronary artery I25.10 On home oxygen therapy Z99.81 Depression F32.9 Psychotic features: with psychotic features Anemia D64.9 Oral candidiasis B37.0 Shingles B02.9 (1) Depression Psychotic features: with psychotic features
[2022-01-10] MEDS: LAVAGE SOLUTION 4000ML PO SCH (05:53)
[2022-01-10] MEDS: ASPIRIN 81 MG ECTAB PO SCH (08:14)
[2022-01-10] MEDS: LINACLOTIDE 145 MCG CAPSULE PO SCH (08:14)
[2022-01-10] MEDS: VENLAFAXINE HCL XR 150 MG CAPXR PO SCH (08:14)
[2022-01-10] MEDS: APIXABAN 2.5 MG TAB PO SCH (08:14)
[2022-01-10] MEDS: FAMOTIDINE 20 MG TAB PO SCH (08:15)
[2022-01-10] MEDS: UMECLIDINIUM/VILANTEROL 62.5/25MCG 7 PUFFS/INHALER INH SCH (08:15)
[2022-01-10] MEDS: THIAMINE HCL 100 MG TAB PO SCH (08:15)
[2022-01-10] MEDS: FLUTICASONE FUROATE 100MCG 14 PUFFS/INHALER INH SCH (08:15)
[2022-01-10] MEDS: BUPRENORPHINE/NALOXONE 8/2 MG TAB SL SCH (08:15)
[2022-01-10] MEDS: CLOTRIMAZOLE 1% CR 15 GM TUBE EXT SCH ×2 (08:16→21:02)
[2022-01-10] MEDS: DOCUSATE SODIUM/SENNA 50/8.6MG TAB PO SCH (08:16)
[2022-01-10] MEDS: INSULIN ASPART PER UNIT SC SCH ×4 (09:33→20:44)
--- NOTE | 2022-01-10 10:00 | Hospitalist Progress Note ---
Date of Service January 10, 2022 Assessment & Plan (1) Acute respiratory failure with hypoxia: Plan: Acute on chronic respiratory failure with hypoxia secondary to Covid-19 pneumonia as well as secondary bacterial LLL pneumonia and acute systolic CHF in the background of COPD. Oxygen requirement has fluctuated - no on low supplemental dosing -> Presently stable at 1-2L NC for several days -> Physical and occupational therapy screens are supportive of placement. had J&J vaccine on 01/03 (2) Opiate withdrawal: Plan: Continue Suboxone (3) Encephalopathy: Plan: *Metabolic encephalopathy Multifactorial: Initially secondary to septic shock, hypoxia, uremia, Covid-19 infection, pneumonia, but then developed opiate withdrawal. Now appears to be doing well garnering input from nursing (4) COVID-19: Plan: With *pneumonia secondary to coronavirus-19 disease and with acute and chronic respiratory failure with hypoxia - Day 9 of illness at the time of presentation. Patient is not vaccinated. Per sister, patient's illness has consisted of fatigue, weakness, and headache. No respiratory or GI symptoms. - Has now completed 10-day course of IV dexamethasone 6mg - Has now completed a 10-day course of cefepime for coverage of secondary pneumonia - Continue fluticasone inhaled daily, and Anoro--> rinse mouth after use - Continue incentive spirometry and flutter valve -off precautions 12/30 -Essentially now a resolved active issue (5) Septic shock: Plan: Developed septic shock on 12/13, required Levophed. now resolved (6) Left ventricular dysfunction: Plan: With acute systolic CHF. New finding on echo on 12/17, EF 35-40% whereas echocardiogram on admission had preserved EF. - Appreciate cardiology consultation-suspects Covid myocarditis/cardiomyopathy . Elevated Troponin peaked at 5. - Continue to fluid restrict to 1800mL / day, low-sodium diet - Started metoprolol succinate 25 mg p.o. at bedtime, Asa 81mg - Eventually will need lisinopril added back on if BP and renal function can tolerate , BP allows (7) Acute kidney injury: Plan: Creatinine and BUN elevated on admission at 48 and 2.3. Cr improved to 1.23 initially, then butch again after receiving IV Lasix. -Creatinine improved. Follow periodically (8) DVT (deep venous thrombosis): Plan: Anticoagulated with Eliquis (9) COPD (chronic obstructive pulmonary disease): Plan: Patient has home O2 for PRN use. According to sister, patient has not used it in a long time, has not been using it since COVID diagnosis on 12/03. 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 With acute DVT as above and suspected PE. - chronic anticoagulation (11) Hypertension: Plan: Bp is a bit low. Follow (12) CAD (coronary artery disease), [place] coronary artery: Plan: With h/o stent placed. Myocardial demand ischemia and Covid myocarditis as above . - As above (13) On home oxygen therapy: Plan: Chronic HS. (14) Depression: Plan: Mood is stable - Continue venlafaxine & ziprasidone (15) Anemia: Plan: Follow periodically (16) Oral candidiasis: Plan: Treated (17) Shingles: Plan: - Continue valacyclovir 1000 mg BID x7 days - last dose was on 01/01 -> Resolved. -fungal cream on this area as well Plan: Awaiting placement Stable for medical Admission and Anticipated Discharge Date Admission Date: December 12, 2021 Results & Data Results & Data ([facility]) Vital Signs (Past 12 Hours) Vital Signs Temp Pulse Pulse Resp BP Pulse Ox 01/10/22 07:47 98.4 F 69 20 145/74 H 95 01/09/22 23:05 82 PG Care Time/CCT Total # of Minutes Spent Total Time Spent with Patient: Total time spent is greater than 50% in coordination of care (as documented) at patient's floor/unit and/or counseling patient: Coding Diagnoses Acute respiratory failure with hypoxia J96.01 Opiate withdrawal F11.23 Encephalopathy G93.40 COVID-19 U07.1 Septic shock A41.9; R65.21 Left ventricular dysfunction I51.9 Acute kidney injury N17.9 DVT (deep venous thrombosis) I82.409 COPD (chronic obstructive pulmonary disease) J44.9 Antithrombin 3 deficiency D68.59 Hypertension I10 CAD (coronary artery disease), [place] coronary artery I25.10 On home oxygen therapy Z99.81 Depression F32.9 Psychotic features: with psychotic features Anemia D64.9 Oral candidiasis B37.0 Shingles B02.9 (1) Depression Psychotic features: with psychotic features
--- NOTE | 2022-01-10 16:43 | Hospitalist Progress Note ---
Date of Service January 10, 2022 Assessment & Plan (1) Acute respiratory failure with hypoxia: Plan: Acute on chronic respiratory failure with hypoxia secondary to Covid-19 pneumonia as well as secondary bacterial LLL pneumonia and acute systolic CHF in the background of COPD. Oxygen requirement has fluctuated - no on low supplemental dosing -> Presently stable at 1-2L [place] for several days -> Physical and occupational therapy screens are supportive of placement. had J&J vaccine on 01/03 (2) Opiate withdrawal: Plan: Continue Suboxone (3) Encephalopathy: Plan: *Metabolic encephalopathy Multifactorial: Initially secondary to septic shock, hypoxia, uremia, Covid-19 infection, pneumonia, but then developed opiate withdrawal. Now appears to be doing well garnering input from nursing (4) COVID-19: Plan: With *pneumonia secondary to coronavirus-19 disease and with acute and chronic respiratory failure with hypoxia - Day 9 of illness at the time of presentation. Patient is not vaccinated. Per sister, patient's illness has consisted of fatigue, weakness, and headache. No respiratory or GI symptoms. - Has now completed 10-day course of IV dexamethasone 6mg - Has now completed a 10-day course of cefepime for coverage of secondary pneumonia - Continue fluticasone inhaled daily, and Anoro--> rinse mouth after use - Continue incentive spirometry and flutter valve -off precautions 12/30 -Essentially now a resolved active issue (5) Septic shock: Plan: Developed septic shock on 12/13, required Levophed. now resolved (6) Left ventricular dysfunction: Plan: With acute systolic CHF. New finding on echo on 12/17, EF 35-40% whereas echocardiogram on admission had preserved EF. - Appreciate cardiology consultation-suspects Covid myocarditis/cardiomyopathy . Elevated Troponin peaked at 5. - Continue to fluid restrict to 1800mL / day, low-sodium diet - Started metoprolol succinate 25 mg p.o. at bedtime, Asa 81mg - Eventually will need lisinopril added back on if BP and renal function can tolerate , BP allows (7) Acute kidney injury: Plan: Creatinine and BUN elevated on admission at 49 and 2.3. Cr improved to 1.23 initially, then butch again after receiving IV Lasix. -Creatinine improved. Follow periodically (8) DVT (deep venous thrombosis): Plan: Anticoagulated with Eliquis (9) COPD (chronic obstructive pulmonary disease): Plan: Patient has home O2 for PRN use. According to sister, patient has not used it in a long time, has not been using it since COVID diagnosis on 12/03. 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 With acute DVT as above and suspected PE. - chronic anticoagulation (11) Hypertension: Plan: Bp is a bit low. Follow (12) CAD (coronary artery disease), [place] coronary artery: Plan: With h/o stent placed. Myocardial demand ischemia and Covid myocarditis as above . - As above (13) On home oxygen therapy: Plan: Chronic HS. (14) Depression: Plan: Mood is stable - Continue venlafaxine & ziprasidone (15) Anemia: Plan: Follow periodically (16) Oral candidiasis: Plan: Treated (17) Shingles: Plan: - Continue valacyclovir 1000 mg BID x7 days - last dose was on 01/01 -> Resolved. -fungal cream on this area as well Plan: Awaiting placement Stable for medical Admission and Anticipated Discharge Date Admission Date: December 12, 2021 Subjective this pt is pleasant has no focal issues except for deconditioning, for placement at this time Review of Systems Review of Systems: Mild distress and fatigue no headache, no visual changes no speech or swallowing issues no chest pain, pressure or palpitations no shortness of breath, cough or wheezes no abdominal pain, nausea or vomiting, diarrhea or constipation no dysuria, hematuria or frequency no focal joint pain or swelling no back pain, CVA tenderness or radicular pain no bruising, bleeding or rashes no focal signs of weakness or numbness or altered sensation no complaints of anxiety or depression.. Physical Exam Physical Exam: The patient appeared chronically ill Vital signs as documented. Head exam is normocephalic atraumatic Neck is without JVD, thyromegaly, or carotid bruits. Lungs are clear to auscultation, no focal loss of breath sounds Cardiac exam, Rhythm is regular.. No murmurs, rubs or gallops. Abdominal exam reveals normal bowel sounds, soft non tender, no masses Extremities are nonedematous and both pedal pulses are present Neurologic exam is alert and oriented x2, no focal loss of strength or sensation Skin is without bruises or rashes Psychologically is without concerns for anxiety or depression. Results & Data Results & Data ([facility]) Vital Signs (Past 12 Hours) Vital Signs Temp Pulse Resp BP Pulse Ox 01/10/22 15:22 97.9 F 77 20 98/61 L 95 01/10/22 07:47 98.4 F 69 20 145/74 H 95 PG Care Time/CCT Total # of Minutes Spent Total Time Spent with Patient: Total time spent is greater than 50% in coordination of care (as documented) at patient's floor/unit and/or counseling patient: Coding Level of Care Code 60613 Subseq Hosp Care Lvl 1 Diagnoses Acute respiratory failure with hypoxia J96.01 Opiate withdrawal F11.23 Encephalopathy G93.40 COVID-19 U07.1 Septic shock A41.9; R65.21 Left ventricular dysfunction I51.9 Acute kidney injury N17.9 DVT (deep venous thrombosis) I82.409 COPD (chronic obstructive pulmonary disease) J44.9 Antithrombin 3 deficiency D68.59 Hypertension I10 CAD (coronary artery disease), [place] coronary artery I25.10 On home oxygen therapy Z99.81 Depression F32.9 Psychotic features: with psychotic features Anemia D64.9 Oral candidiasis B37.0 Shingles B02.9 (1) Depression Psychotic features: with psychotic features
[2022-01-10] MEDS: APIXABAN 5 MG TABLET PO SCH (21:02)
[2022-01-11 05:39] LABS: Hematocrit (blood only) 26.7 % (37-47); Hemoglobin 8.2 g/dL (12.0-16.0); Mean Corpuscular Hemoglobin 29.9 pg (25-34); Mean Corpuscular Hgb Conc 30.7 g/dL (32-36); Mean Corpuscular Volume 97.4 fL (80-100); Mean Platelet Volume 9.9 fL (7.4-10.4); Platelet Count 392 K/uL (130-400); RDW Coefficient of Variation 15.4 % (11.5-14.5); RDW Standard Deviation 54.4 fL (36.4-46.3); Red Blood Count 2.74 M/uL (4.2-5.4); White Blood Count 6.99 K/uL (4.8-10.8)
[2022-01-11 06:09] LABS: BUN Creatinine Ratio 34.3 (10-20); Calcium 7.9 mg/dl (8.5-10.1); Creatinine Clr Calc Pharmacy 48.7 ml/min; Est GFR (African American) 61.5 ml/min; Est GFR (Non-African American) 53.1 ml/min; Potassium 4.3 mmol/L (3.5-5.1)
--- NOTE | 2022-01-11 09:15 | Hospitalist Progress Note ---
Date of Service January 11, 2022 Assessment & Plan (1) Acute respiratory failure with hypoxia: Plan: Acute on chronic respiratory failure with hypoxia secondary to Covid-19 pneumonia as well as secondary bacterial LLL pneumonia and acute systolic CHF in the background of COPD. Oxygen requirement has fluctuated - no on low supplemental dosing -> Presently stable at 1-2L [place] for several days -> Physical and occupational therapy screens are supportive of placement. had J&J vaccine on 01/03 (2) Opiate withdrawal: Plan: Continue Suboxone (3) Encephalopathy: Plan: *Metabolic encephalopathy Multifactorial: Initially secondary to septic shock, hypoxia, uremia, Covid-19 infection, pneumonia, but then developed opiate withdrawal. Now appears to be doing well garnering input from nursing (4) COVID-19: Plan: With *pneumonia secondary to coronavirus-19 disease and with acute and chronic respiratory failure with hypoxia - Day 9 of illness at the time of presentation. Patient is not vaccinated. Per sister, patient's illness has consisted of fatigue, weakness, and headache. No respiratory or GI symptoms. - Has now completed 10-day course of IV dexamethasone 6mg - Has now completed a 10-day course of cefepime for coverage of secondary pneumonia - Continue fluticasone inhaled daily, and Anoro--> rinse mouth after use - Continue incentive spirometry and flutter valve -off precautions 12/30 -Essentially now a resolved active issue (5) Septic shock: Plan: Developed septic shock on 12/13, required Levophed. now resolved (6) Left ventricular dysfunction: Plan: With acute systolic CHF. New finding on echo on 12/17, EF 35-40% whereas echocardiogram on admission had preserved EF. - Appreciate cardiology consultation-suspects Covid myocarditis/cardiomyopathy . Elevated Troponin peaked at 5. - Continue to fluid restrict to 1800mL / day, low-sodium diet - Started metoprolol succinate 25 mg p.o. at bedtime, Asa 81mg - Eventually will need lisinopril added back on if BP and renal function can tolerate , BP remains lower (7) Acute kidney injury: Plan: Resolved Creatinine and BUN elevated on admission at 48 and 2.3. Cr improved to 1.23 initially, then butch again after receiving IV Lasix. -Creatinine improved. Follow periodically (8) DVT (deep venous thrombosis): Plan: Anticoagulated with Eliquis (9) COPD (chronic obstructive pulmonary disease): Plan: Patient has home O2 for PRN use. According to sister, patient has not used it in a long time, has not been using it since COVID diagnosis on 12/03. 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 With acute DVT as above and suspected PE. - chronic anticoagulation (11) Hypertension: Plan: Bp is a bit low. cannot start eliceo i at this time (12) CAD (coronary artery disease), [place] coronary artery: Plan: With h/o stent placed. Myocardial demand ischemia and Covid myocarditis as above. - As above (13) On home oxygen therapy: Plan: Chronic HS. (14) Depression: Plan: Mood is stable - Continue venlafaxine & ziprasidone (15) Anemia: Plan: iron deficiency anemia, low iron on 12/14/21 (16) Oral candidiasis: Plan: Treated (17) Shingles: Plan: - Continue valacyclovir 1000 mg BID x7 days - last dose was on 01/01 -> Resolved. -fungal cream on this area as well Plan: Awaiting placement Stable for medical Admission and Anticipated Discharge Date Admission Date: December 12, 2021 Subjective this pt is pleasant has no focal issues except for deconditioning, for placement at this time, informed of starting mvi with iron Review of Systems Review of Systems: Mild distress and fatigue no headache, no visual changes no speech or swallowing issues no chest pain, pressure or palpitations no shortness of breath, cough or wheezes no abdominal pain, nausea or vomiting, diarrhea or constipation no dysuria, hematuria or frequency no focal joint pain or swelling no back pain, CVA tenderness or radicular pain no bruising, bleeding or rashes no focal signs of weakness or numbness or altered sensation no complaints of anxiety or depression.. Physical Exam Physical Exam: The patient appeared chronically ill Vital signs as documented. Head exam is normocephalic atraumatic Neck is without JVD, thyromegaly, or carotid bruits. Lungs are clear to auscultation, no focal loss of breath sounds Cardiac exam, Rhythm is regular.. No murmurs, rubs or gallops. Abdominal exam reveals normal bowel sounds, soft non tender, no masses Extremities are nonedematous and both pedal pulses are present Neurologic exam is alert and oriented x2, no focal loss of strength or sensation Skin is without bruises or rashes Psychologically is without concerns for anxiety or depression. Results & Data Results & Data ([facility]) Vital Signs (Past 12 Hours) Vital Signs Temp Pulse Resp BP Pulse Ox 01/11/22 07:35 98.6 F 82 18 99/64 L 94 01/10/22 22:53 98.8 F 84 17 106/67 94 PG Care Time/CCT Total # of Minutes Spent Total Time Spent with Patient: Total time spent is greater than 50% in coordination of care (as documented) at patient's floor/unit and/or counseling patient: Coding Level of Care Code 92458 Subseq Hosp Care Lvl 1 Diagnoses Acute respiratory failure with hypoxia J96.01 Opiate withdrawal F11.23 Encephalopathy G93.40 COVID-19 U07.1 Septic shock A41.9; R65.21 Left ventricular dysfunction I51.9 Acute kidney injury N17.9 DVT (deep venous thrombosis) I82.409 COPD (chronic obstructive pulmonary disease) J44.9 Antithrombin 3 deficiency D68.59 Hypertension I10 CAD (coronary artery disease), [place] coronary artery I25.10 On home oxygen therapy Z99.81 Depression F32.9 Psychotic features: with psychotic features Anemia D64.9 Oral candidiasis B37.0 Shingles B02.9 (1) Depression Psychotic features: with psychotic features
[2022-01-11] MEDS: APIXABAN 5 MG TABLET PO SCH ×2 (09:17→21:22)
[2022-01-11] MEDS: VENLAFAXINE HCL XR 150 MG CAPXR PO SCH (09:18)
[2022-01-11] MEDS: THIAMINE HCL 100 MG TAB PO SCH (09:18)
[2022-01-11] MEDS: ASPIRIN 81 MG ECTAB PO SCH (09:19)
[2022-01-11] MEDS: CLOTRIMAZOLE 1% CR 15 GM TUBE EXT SCH ×2 (09:20→21:22)
[2022-01-11] MEDS: FLUTICASONE FUROATE 100MCG 14 PUFFS/INHALER INH SCH (09:21)
[2022-01-11] MEDS: LINACLOTIDE 145 MCG CAPSULE PO SCH (09:22)
[2022-01-11] MEDS: UMECLIDINIUM/VILANTEROL 62.5/25MCG 7 PUFFS/INHALER INH SCH (09:23)
[2022-01-11] MEDS: DOCUSATE SODIUM/SENNA 50/8.6MG TAB PO SCH (09:26)
[2022-01-11] MEDS: INSULIN ASPART PER UNIT SC SCH ×4 (09:34→21:08)
[2022-01-11 09:49] LABS: Iron 37 mcg/dl (35-150); Unsaturated Iron Binding Cap 219 mcg/dl (155-355)
[2022-01-11] MEDS: FAMOTIDINE 20 MG TAB PO SCH (12:04)
[2022-01-11] MEDS: MULTIVITAMIN CHEWABLE TAB PO SCH (15:20)
[2022-01-12] MEDS: INSULIN ASPART PER UNIT SC SCH ×4 (08:46→21:27)
[2022-01-12] MEDS: LINACLOTIDE 145 MCG CAPSULE PO SCH (08:54)
[2022-01-12] MEDS: FAMOTIDINE 20 MG TAB PO SCH (08:55)
[2022-01-12] MEDS: THIAMINE HCL 100 MG TAB PO SCH (08:55)
[2022-01-12] MEDS: CLOTRIMAZOLE 1% CR 15 GM TUBE EXT SCH ×2 (08:55→21:26)
[2022-01-12] MEDS: MULTIVITAMIN CHEWABLE TAB PO SCH (08:55)
[2022-01-12] MEDS: BUPRENORPHINE/NALOXONE 8/2 MG TAB SL SCH (08:55)
[2022-01-12] MEDS: VENLAFAXINE HCL XR 150 MG CAPXR PO SCH (08:55)
[2022-01-12] MEDS: DOCUSATE SODIUM/SENNA 50/8.6MG TAB PO SCH (08:55)
[2022-01-12] MEDS: ASPIRIN 81 MG ECTAB PO SCH (08:55)
[2022-01-12] MEDS: APIXABAN 5 MG TABLET PO SCH ×2 (08:55→21:27)
--- NOTE | 2022-01-12 12:59 | Hospitalist Progress Note ---
Date of Service January 12, 2022 Assessment & Plan (1) Acute respiratory failure with hypoxia: Plan: Acute on chronic respiratory failure with hypoxia secondary to Covid-19 pneumonia as well as secondary bacterial LLL pneumonia and acute systolic CHF in the background of COPD. Oxygen requirement has fluctuated - no on low supplemental dosing -> Presently stable at 1-2L NC for several days -> Physical and occupational therapy screens are supportive of placement. had J&J vaccine on 01/03 (2) Opiate withdrawal: Plan: Continue Suboxone (3) Encephalopathy: Plan: *Metabolic encephalopathy Multifactorial: Initially secondary to septic shock, hypoxia, uremia, Covid-19 infection, pneumonia, but then developed opiate withdrawal. Now appears to be doing well garnering input from nursing (4) COVID-19: Plan: With *pneumonia secondary to coronavirus-19 disease and with acute and chronic respiratory failure with hypoxia - Day 9 of illness at the time of presentation. Patient is not vaccinated. Per sister, patient's illness has consisted of fatigue, weakness, and headache. No respiratory or GI symptoms. - Has now completed 10-day course of IV dexamethasone 6mg - Has now completed a 10-day course of cefepime for coverage of secondary pneumonia - Continue fluticasone inhaled daily, and Anoro--> rinse mouth after use - Continue incentive spirometry and flutter valve -off precautions 12/30 -Essentially now a resolved active issue (5) Septic shock: Plan: Developed septic shock on 12/13, required Levophed. now resolved (6) Left ventricular dysfunction: Plan: With acute systolic CHF. New finding on echo on 12/17, EF 35-40% whereas echocardiogram on admission had preserved EF. - Appreciate cardiology consultation-suspects Covid myocarditis/cardiomyopathy . Elevated Troponin peaked at 5. - Continue to fluid restrict to 1800mL / day, low-sodium diet - Started metoprolol succinate 25 mg p.o. at bedtime, Asa 81mg - Eventually will need lisinopril added back on if BP and renal function can tolerate , BP remains lower (7) Acute kidney injury: Plan: Resolved Creatinine and BUN elevated on admission at 48 and 2.3. Cr improved to 1.23 initially, then butch again after receiving IV Lasix. -Creatinine improved. Follow periodically (8) DVT (deep venous thrombosis): Plan: Anticoagulated with Eliquis (9) COPD (chronic obstructive pulmonary disease): Plan: Patient has home O2 for PRN use. According to sister, patient has not used it in a long time, has not been using it since COVID diagnosis on 12/03. 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 With acute DVT as above and suspected PE. - chronic anticoagulation (11) Hypertension: Plan: Bp is a bit low. cannot start eliceo i at this time (12) CAD (coronary artery disease), [place] coronary artery: Plan: With h/o stent placed. Myocardial demand ischemia and Covid myocarditis as above. - As above (13) On home oxygen therapy: Plan: Chronic HS. (14) Depression: Plan: Mood is stable - Continue venlafaxine & ziprasidone (15) Anemia: Plan: iron deficiency anemia, low iron on 12/14/21 (16) Oral candidiasis: Plan: Treated (17) Shingles: Plan: - Continue valacyclovir 1000 mg BID x7 days - last dose was on 01/01 -> Resolved. -fungal cream on this area as well Plan: Awaiting placement Stable for medical Admission and Anticipated Discharge Date Admission Date: December 12, 2021 Subjective this pt is pleasant has no focal issues except for deconditioning, for placement at this time, informed of starting mvi with iron. She states that she may also consider going home with daughter if we cannot find placement Review of Systems Review of Systems: Mild distress and fatigue no headache, no visual changes no speech or swallowing issues no chest pain, pressure or palpitations no shortness of breath, cough or wheezes no abdominal pain, nausea or vomiting, diarrhea or constipation no dysuria, hematuria or frequency no focal joint pain or swelling no back pain, CVA tenderness or radicular pain no bruising, bleeding or rashes no focal signs of weakness or numbness or altered sensation no complaints of anxiety or depression.. Physical Exam Physical Exam: The patient appeared chronically ill Vital signs as documented. Head exam is normocephalic atraumatic Neck is without JVD, thyromegaly, or carotid bruits. Lungs are clear to auscultation, no focal loss of breath sounds Cardiac exam, Rhythm is regular.. No murmurs, rubs or gallops. Abdominal exam reveals normal bowel sounds, soft non tender, no masses Extremities are nonedematous and both pedal pulses are present Neurologic exam is alert and oriented x2, no focal loss of strength or sensation Skin is without bruises or rashes Psychologically is without concerns for anxiety or depression. Results & Data Results & Data ([facility]) Vital Signs (Past 12 Hours) Vital Signs Temp Pulse Resp BP Pulse Ox 01/12/22 08:00 97.5 F L 70 18 100/61 93 PG Care Time/CCT Total # of Minutes Spent Total Time Spent with Patient: Total time spent is greater than 50% in coordination of care (as documented) at patient's floor/unit and/or counseling patient: Coding Level of Care Code 01904 Subseq Hosp Care Lvl 1 Diagnoses Acute respiratory failure with hypoxia J96.01 Opiate withdrawal F11.23 Encephalopathy G93.40 COVID-19 U07.1 Septic shock A41.9; R65.21 Left ventricular dysfunction I51.9 Acute kidney injury N17.9 DVT (deep venous thrombosis) I82.409 COPD (chronic obstructive pulmonary disease) J44.9 Antithrombin 3 deficiency D68.59 Hypertension I10 CAD (coronary artery disease), [place] coronary artery I25.10 On home oxygen therapy Z99.81 Depression F32.9 Psychotic features: with psychotic features Anemia D64.9 Oral candidiasis B37.0 Shingles B02.9 (1) Depression Psychotic features: with psychotic features
[2022-01-13] MEDS: MULTIVITAMIN CHEWABLE TAB PO SCH (09:02)
[2022-01-13] MEDS: LINACLOTIDE 145 MCG CAPSULE PO SCH (09:02)
[2022-01-13] MEDS: APIXABAN 5 MG TABLET PO SCH ×2 (09:03→20:34)
[2022-01-13] MEDS: THIAMINE HCL 100 MG TAB PO SCH (09:03)
[2022-01-13] MEDS: CLOTRIMAZOLE 1% CR 15 GM TUBE EXT SCH ×2 (09:03→20:33)
[2022-01-13] MEDS: ASPIRIN 81 MG ECTAB PO SCH (09:03)
[2022-01-13] MEDS: VENLAFAXINE HCL XR 150 MG CAPXR PO SCH (09:03)
[2022-01-13] MEDS: INSULIN ASPART PER UNIT SC SCH ×4 (09:04→20:35)
[2022-01-13] MEDS: DOCUSATE SODIUM/SENNA 50/8.6MG TAB PO SCH (09:10)
[2022-01-13] MEDS: FAMOTIDINE 20 MG TAB PO SCH (10:07)
--- NOTE | 2022-01-13 14:05 | Hospitalist Progress Note ---
Date of Service January 13, 2022 Assessment & Plan (1) Acute respiratory failure with hypoxia: Plan: Acute on chronic respiratory failure with hypoxia secondary to Covid-19 pneumonia as well as secondary bacterial LLL pneumonia and acute systolic CHF in the background of COPD. Oxygen requirement has fluctuated - no on low supplemental dosing -> Presently stable at 1-2L [place] for several days -> Physical and occupational therapy screens are supportive of placement. had J&J vaccine on 01/03 (2) Opiate withdrawal: Plan: Continue Suboxone, if this is a barrier to transfer can consider speaking to pain management or pharmacy to consider alternatives as snf may not have permission to dispense (3) Encephalopathy: Plan: *Metabolic encephalopathy-Resolved Multifactorial: Initially secondary to septic shock, hypoxia, uremia, Covid-19 infection, pneumonia, but then developed opiate withdrawal. (4) COVID-19: Plan: With *pneumonia secondary to coronavirus-19 disease and with acute and chronic respiratory failure with hypoxia - Day 9 of illness at the time of presentation. Patient is not vaccinated. Per sister, patient's illness has consisted of fatigue, weakness, and headache. No respiratory or GI symptoms. - Has now completed 10-day course of IV dexamethasone 6mg - Has now completed a 10-day course of cefepime for coverage of secondary pneumonia - Continue fluticasone inhaled daily, and Anoro--> rinse mouth after use - Continue incentive spirometry and flutter valve -off precautions 12/30 -Now a resolved active issue (5) Septic shock: Plan: Developed septic shock on 12/13, required Levophed. now resolved (6) Left ventricular dysfunction: Plan: With acute systolic CHF. New finding on echo on 12/17, EF 35-40% whereas echocardiogram on admission had preserved EF. - Appreciate cardiology consultation-suspects Covid myocarditis/cardiomyopathy . Elevated Troponin peaked at 5. - Continue to fluid restrict to 1800mL / day, low-sodium diet - Started metoprolol succinate 25 mg p.o. daily but did not tolerate with low blood pressure and fatigue, Asa 81mg - Eventually will need lisinopril added back on if BP and renal function can tolerate , BP remains lower (7) Acute kidney injury: Plan: Resolved Creatinine and BUN elevated on admission at 49 and 2.3. Cr improved to 1.23 initially, then butch again after receiving IV Lasix. -Creatinine improved. Follow periodically (8) DVT (deep venous thrombosis): Plan: Anticoagulated with Eliquis (9) COPD (chronic obstructive pulmonary disease): Plan: Patient has home O2 for PRN use. According to sister, patient has not used it in a long time, has not been using it since COVID diagnosis on 12/03. 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 With acute DVT as above and suspected PE. - chronic anticoagulation (11) Hypertension: Plan: Bp is a bit low. cannot start B Rao or eliceo i at this time (12) CAD (coronary artery disease), [place] coronary artery: Plan: With h/o stent placed. Myocardial demand ischemia and Covid myocarditis as above. - As above (13) On home oxygen therapy: Plan: Chronic HS. (14) Depression: Plan: Mood is stable - Continue venlafaxine & ziprasidone pt is on chronic suboxone which without pt seemed to have withdrawal, now stable on it but this med is becomming a barrier to placement (15) Anemia: Plan: iron deficiency anemia, low iron on 12/14/21 (16) Oral candidiasis: Plan: Treated (17) Shingles: Plan: - Continue valacyclovir 1000 mg BID x7 days - last dose was on 01/01 -> Resolved. -fungal cream on this area as well Plan: Awaiting placement Stable for medical Admission and Anticipated Discharge Date Admission Date: December 12, 2021 Subjective this pt is pleasant has no focal issues except for deconditioning, for placement at this time, informed of starting mvi with iron. She states that she may also consider going home with daughter if we cannot find placement, however her daughter did call and state that she cannot take her in to help, Ms. Olivo then suggested her neighbor. case management was informed Review of Systems Review of Systems: Mild distress and fatigue no headache, no visual changes no speech or swallowing issues no chest pain, pressure or palpitations no shortness of breath, cough or wheezes no abdominal pain, nausea or vomiting, diarrhea or constipation no dysuria, hematuria or frequency no focal joint pain or swelling no back pain, CVA tenderness or radicular pain no bruising, bleeding or rashes no focal signs of weakness or numbness or altered sensation no complaints of anxiety or depression.. Physical Exam Physical Exam: The patient appeared chronically ill Vital signs as documented. Head exam is normocephalic atraumatic Neck is without JVD, thyromegaly, or carotid bruits. Lungs are clear to auscultation, no focal loss of breath sounds Cardiac exam, Rhythm is regular.. No murmurs, rubs or gallops. Abdominal exam reveals normal bowel sounds, soft non tender, no masses Extremities are nonedematous and both pedal pulses are present Neurologic exam is alert and oriented x2, no focal loss of strength or sensation Skin is without bruises or rashes Psychologically is without concerns for anxiety or depression. Results & Data Results & Data ([facility]) Vital Signs (Past 12 Hours) Vital Signs Temp Pulse Resp BP Pulse Ox 01/13/22 08:57 97.5 F L 74 16 105/59 L 93 PG Care Time/CCT Total # of Minutes Spent Total Time Spent with Patient: Total time spent is greater than 50% in coordination of care (as documented) at patient's floor/unit and/or counseling patient: Coding Level of Care Code 43384 Subseq Hosp Care Lvl 2 Diagnoses Acute respiratory failure with hypoxia J96.01 Opiate withdrawal F11.23 Encephalopathy G93.40 COVID-19 U07.1 Septic shock A41.9; R65.21 Left ventricular dysfunction I51.9 Acute kidney injury N17.9 DVT (deep venous thrombosis) I82.409 COPD (chronic obstructive pulmonary disease) J44.9 Antithrombin 3 deficiency D68.59 Hypertension I10 CAD (coronary artery disease), [place] coronary artery I25.10 On home oxygen therapy Z99.81 Depression F32.9 Psychotic features: with psychotic features Anemia D64.9 Oral candidiasis B37.0 Shingles B02.9 (1) Depression Psychotic features: with psychotic features
[2022-01-13] MEDS ORDERED: ACETAMINOPHEN 500 MG TAB PO PRN (16:54)
[2022-01-13] MEDS ORDERED: oxyCODONE HCL IR 5 MG TAB (IMMEDIATE RELEASE) PO PRN (16:58)
[2022-01-14] MEDS: MULTIVITAMIN CHEWABLE TAB PO SCH ×2 (09:03→11:12)
[2022-01-14] MEDS: APIXABAN 5 MG TABLET PO SCH ×2 (09:03→21:20)
[2022-01-14] MEDS: ASPIRIN 81 MG ECTAB PO SCH (09:03)
[2022-01-14] MEDS: LINACLOTIDE 145 MCG CAPSULE PO SCH (09:04)
[2022-01-14] MEDS: CLOTRIMAZOLE 1% CR 15 GM TUBE EXT SCH ×2 (09:05→21:20)
[2022-01-14] MEDS: VENLAFAXINE HCL XR 150 MG CAPXR PO SCH (09:06)
[2022-01-14] MEDS: THIAMINE HCL 100 MG TAB PO SCH (09:09)
[2022-01-14] MEDS: INSULIN ASPART PER UNIT SC SCH ×4 (09:14→21:20)
[2022-01-14] MEDS: BUPRENORPHINE/NALOXONE 8/2 MG TAB SL SCH (09:14)
[2022-01-14] MEDS ORDERED: FOLIC ACID 1 MG in SYRINGE 9.8 ML IV STA (09:31)
[2022-01-14] MEDS ORDERED: Nursing to Pharmacy Communication SCH (09:45)
[2022-01-14 10:36] LABS: Hematocrit (blood only) 28.6 % (37-47); Hemoglobin 8.8 g/dL (12.0-16.0); Mean Corpuscular Hemoglobin 29.6 pg (25-34); Mean Corpuscular Hgb Conc 30.8 g/dL (32-36); Mean Corpuscular Volume 96.3 fL (80-100); Mean Platelet Volume 9.3 fL (7.4-10.4); Platelet Count 385 K/uL (130-400); RDW Coefficient of Variation 15.4 % (11.5-14.5); RDW Standard Deviation 53.9 fL (36.4-46.3); Red Blood Count 2.97 M/uL (4.2-5.4); White Blood Count 6.92 K/uL (4.8-10.8)
[2022-01-14 11:00] LABS: BUN Creatinine Ratio 28.7 (10-20); Creatinine Clr Calc Pharmacy 45.7 ml/min; Est GFR (Non-African American) 49.2 ml/min
[2022-01-14] MEDS: CYANOCOBALAMIN 1000 MCG/ML VIAL IM SCH (11:09)
[2022-01-14] MEDS: CEROVITE ADV FORMULA TAB PO SCH (11:12)
[2022-01-14] MEDS: FAMOTIDINE 20 MG TAB PO SCH (11:12)
[2022-01-14] MEDS: DOCUSATE SODIUM/SENNA 50/8.6MG TAB PO SCH (12:49)
--- NOTE | 2022-01-14 20:41 | Hospitalist Progress Note ---
Date of Service January 14, 2022 Assessment & Plan (1) Acute respiratory failure with hypoxia: Plan: 2nd to Covid-19 pneumonia as well as secondary bacterial LLL pneumonia. Course complicated by acute systolic CHF in the background of COPD. Remains on NC O2 and suspect she will need [id number] oxygen supplementation at home. 2-step ordered in anticipation of d/c home tomorrow. In light of severe COVID pneumonia, COPD, and O2-dependency will set up with [facility] post-d/c. (2) Pneumonia due to COVID-19 virus: Plan: Peak O2 requirement - 40-60 liters of HFNC. s/p 10-day course of IV dexamethasone 6mg daily. s/p complete course of IV cefepime for secondary bacterial pneumonia. Has been off airborne precautions since 12/30. Of note - patient had [employer] COVID vaccine as it was initially thought she would need SNF Placement (and most SNFs are requiring the COVID vaccine). Set up with [facility]monary post-d/c. At high risk of post-COVID pulmonary fibrosis. 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 Either myocarditis from COVID vs Takotsubo's. Full recovery in her EF by mid-December with EF back to normal on most recent echo. Given her known CAD ideally she should be on beta arnulfo but her BPs run low or low-normal precluding such at this time. Given this issue and her h/o CAD she needs to re-establish with cardiology - either with [facility] or [place] (had stent placed in [place] many years ago). (4) Chronically on opiate therapy: Plan: Chronic suboxone use. 8-2mg combo pill twice daily per the PDMP. Currently only getting 1 tab every other day. need to clarify this. (5) Encephalopathy: Plan: Metabolic. Multifactorial: Initially secondary to septic shock, hypoxia, uremia, Covid-19 infection, pneumonia. Did have a toxic component from opiate withdrawal as well. Mental status at baseline. (6) Septic shock: Plan: Developed septic shock on 12/13, required Levophed and ICU stay. 2nd to COVID infection, probable bacterial superinfection, etc. (7) Left ventricular dysfunction: Plan: Seen by [facility] this admission. Suspected Covid myocarditis/cardiomyopathy. Peak troponin ~5. Most recent echo - about 12/30/21 - with normalized EF. Attempts at use of lowdose beta arnulfo were not successful (hypotension, fatigue). Thus it was stopped. (8) Acute kidney injury: Plan: Resolved Peak Cr 2.3 Cr today 1.1 & stable (9) DVT (deep venous thrombosis): Plan: 12/12/21 - doppler of LLE with occlusive DVT of the proximal left superficial femoral vein. Nonocclusive thrombus seen within the popliteal vein. Patient had been taking Xarelto prior to this admission. It was uncertain how compliant she was with this but pharmacy records do show regular refills for #90 every 3 months. Patient was changed to Eliquis earlier in the stay. Should she be on lovenox or coumadin?? Will d/w anticoagulation clinical geneticist, especially in light of known antithrombin III deficiency. (10) COPD (chronic obstructive pulmonary disease): Plan: noted. cont inhalers. cont NC O2. 2-step ambulatory O2 test ordered. will need pulmonary f/u after discharge. 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 developed acute LLE DVT in the setting of her COVID illness. also with suspected PEs, but never confirmed. either way changed to Eliquis earlier in the stay. see #9 above. (12) Hypertension: Plan: BPs low or low-normal. Deferring on meds at this time. (13) CAD (coronary artery disease), eek coronary artery: Plan: With h/o stent placed in the remote past - [place]. Needs to re-establish with cardiology post-discharge. Cannot rule out NSTEMI this admission but more likely she had had myocarditis or Takotsubo's. (14) On home oxygen therapy: Plan: Chronic HS, prior to admission. 2-step in am. (15) Depression: Plan: Continue venlafaxine & ziprasidone (16) Anemia: Plan: 12/14/21 - transferrin saturation <10%. Folate deficient. B12 deficient. Start B12 shots while here then PO replacement at home (or IM shots in the office). Start folate supplementation 1mg daily x 30 days. Consider venofer prior to discharge. (17) Oral candidiasis: Plan: Treated Resolved (18) Shingles: Plan: Earlier in the stay - now resolved. Received valacyclovir 1000 mg BID x7 days with last dose on 01/01/22. (19) B12 deficiency: Plan: Level <150. VERY POOR nutrition at home. Start B12 injections 1000mcg daily while here. PO vs IM replacement as outpatient. Cont thiamine replacement - would do so for 1 month (would assume she has B1 deficiency as well). (20) Folate deficiency: Plan: folic acid 1mg daily x 30 days. (21) Chronic kidney disease, stage 3a: Plan: baseline CrCL 45-59 range BMP am for stability Plan: patient now wanting d/c to home with her neighbor who will stay with her and provide 24/7 care this gentleman came and watched her PT session today - he confirmed with social work that he can care for her based on his observation of how therapy went hopeful for d/c home tomorrow Admission and Anticipated Discharge Date Admission Date: December 12, 2021 Subjective patient lying in bed comfortably she is hoping to d/c home rather than go to SNF post-d/c has a neighbor gentleman - he is in his late 70s - who will be staying with her to help he will apparently provide 24/7 care this neighbor has a daughter who is a nurse as well she admits to VERY POOR APPETITE and eating habits at home pre-admission, on relative chronic basis, was only eating about 1 meal/day the meal was typically not nutritious she denies dyspnea at rest still having GERARD and is requiring NC O2 at all times PT notes suggest she needed 4 L NC O2 during the PT session yesterday to keep her sats about 90% 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 Review of Systems Review of Systems: gen - energy improved, appetite is good cv - no orthopnea pulm - mild cough, GERARD also present GI - no pain, no nausea musculo - has been on suboxone for several years; prior to that other narcotics; for chronic low back pain Physical Exam Physical Exam: gen - NAD, pleasant mouth - MMM neck - no JVD heart - RRR, s1 s2 lungs - b/l basilar fine rales abd - soft NT ND BS+ ext - pulses 2+ b/l psych - a/o x 3 Results & Data Results & Data ([facility]) Vital Signs (Past 12 Hours) Vital Signs Temp Pulse Resp BP Pulse Ox 01/14/22 14:59 36.8 C 87 16 90/63 L 92 Laboratory Results Laboratory Results - last 24 hr 01/14/22 01/14/22 01/14/22 08:12 10:06 10:06 WBC 6.92 RBC 2.97 L Hgb 8.8 L Hct 28.6 L MCV 96.3 MCH 29.6 MCHC 30.8 L RDW Std Deviation 53.9 H RDW Coeff of Bal 15.4 H Plt Count 385 MPV 9.3 Sodium 138 Potassium 4.0 Chloride 102 Carbon Dioxide 30 Anion Gap 6 BUN 33 H Creatinine 1.15 Est Cr Clr Drug Dosing 45.7 Est GFR ( Amer) 57.0 Est GFR (Non-Af Amer) 49.2 BUN/Creatinine Ratio 28.7 H Glucose 142 H POC Glucose 104 H Calcium 9.0 01/14/22 01/14/22 12:05 17:11 WBC RBC Hgb Hct MCV MCH MCHC RDW Std Deviation RDW Coeff of Bal Plt Count MPV Sodium Potassium Chloride Carbon Dioxide Anion Gap BUN Creatinine Est Cr Clr Drug Dosing Est GFR ( Amer) Est GFR (Non-Af Amer) BUN/Creatinine Ratio Glucose POC Glucose 134 H 97 Calcium PG Care Time/CCT Total # of Minutes Spent Total Time Spent with Patient: Total time spent is greater than 50% in coordination of care (as documented) at patient's floor/unit and/or counseling patient: Coding Level of Care Code 74122 Subseq Hosp Care Lvl 3 Diagnoses Acute respiratory failure with hypoxia J96.01 Encephalopathy G93.40 Septic shock A41.9; R65.21 Left ventricular dysfunction I51.9 Acute kidney injury N17.9 DVT (deep venous thrombosis) I82.409 COPD (chronic obstructive pulmonary disease) J44.9 Antithrombin 3 deficiency D68.59 Hypertension I10 CAD (coronary artery disease), eek coronary artery I25.10 On home oxygen therapy Z99.81 Depression F32.9 Psychotic features: with psychotic features Anemia D64.9 Oral candidiasis B37.0 Shingles B02.9 B12 deficiency E53.8 Folate deficiency E53.8 Chronic kidney disease, stage 3a N18.31 Pneumonia due to COVID-19 virus U07.1; J12.82 Myocarditis due to 2019 novel coronavirus U07.1; I40.0 Chronically on opiate therapy Z79.891 (1) Depression Psychotic features: with psychotic features
[2022-01-15] MEDS: CYANOCOBALAMIN 1000 MCG/ML VIAL IM SCH (08:54)
[2022-01-15] MEDS ORDERED: FOLIC ACID 1 MG in SYRINGE 9.8 ML IV SCH (09:00)
[2022-01-15] MEDS: CEROVITE ADV FORMULA TAB PO SCH (09:05)
[2022-01-15] MEDS: ASPIRIN 81 MG ECTAB PO SCH (09:05)
[2022-01-15] MEDS: APIXABAN 5 MG TABLET PO SCH (09:05)
[2022-01-15] MEDS: FAMOTIDINE 20 MG TAB PO SCH (09:06)
[2022-01-15] MEDS: THIAMINE HCL 100 MG TAB PO SCH (09:06)
[2022-01-15] MEDS: LINACLOTIDE 145 MCG CAPSULE PO SCH (09:06)
[2022-01-15] MEDS: VENLAFAXINE HCL XR 150 MG CAPXR PO SCH (09:06)
[2022-01-15] MEDS: CLOTRIMAZOLE 1% CR 15 GM TUBE EXT SCH (09:07)
[2022-01-15] MEDS: INSULIN ASPART PER UNIT SC SCH ×2 (09:12→12:49)
[2022-01-15] MEDS ORDERED: IRON SUCROSE 200 MG in 0.9 % SODIUM CHLORIDE 100 ML IV ONE (09:45)
[2022-01-15] MEDS: DOCUSATE SODIUM/SENNA 50/8.6MG TAB PO SCH (11:06)
--- NOTE | 2022-01-15 15:57 | Discharge Summary ---
Date of Service January 15, 2022 Admission HPI Per Admitting Provider Patient is a 66-year-old female with past medical history of CAD, COPD, Antithrombin III deficiency, hypertension, depression, and recent COVID-19 infection diagnosed 12/03/2021 who presented to the ED in afternoon with c onfusion and shortness of breath. Patient has difficulty providing information, due to combination of her shortness of breath and possible confusion. I spoke to patient's sister who reports last evening she spoke to the patient on the phone and she seemed disoriented and just not her normal self. Patient tested positive for COVID on 12/03 after experiencing several days of fatigue and headache. She denies any fever/chills or respiratory symptoms since her diagnosis, sister tells me she has mainly complained of fatigue generalized weakness and a headache. She is unvaccinated. She has home oxygen for as needed use but has not used it recently. Sister states patient is compliant with her home medications, when asked specifically about Xarelto, she is unsure with her sister took it or not. Upon arrival to the ED, she was found to be hypoxic with oxygen saturations of 88% on room air. Saturations are now in the low to mid 90s on 4 L nasal cannula. History is difficult to obtain from patient on when the shortness of breath started, i.e. whether this has been a gradual onset over several days or quick onset over the past day or so. When asked if she has leg pain with palpation of popliteal fossa, she says yes on the left leg. Unable to tell me if she took her home medications today. Additional information is obtainable from the patient at this time. Discharge Exam gen - NAD, pleasant mouth - MMM neck - no JVD heart - RRR, s1 s2 lungs - b/l basilar fine rales abd - soft NT ND BS+ ext - pulses 2+ b/l psych - a/o x 3 Discharge Data Allergies Allergy/AdvReac Type Severity Reaction Status Date / Time capsaicin [Diclopak] Allergy Intermediate difficulty Verified 12/12/21 15:04 breathing, sick to stomach celecoxib Allergy Intermediate difficulty Verified 12/12/21 15:04 breathing, sick to stomach diclofenac [Diclopak] Allergy Intermediate difficulty Verified 12/12/21 15:04 breathing, sick to stomach ketorolac Allergy Intermediate difficulty Verified 12/12/21 15:04 breathing, sick to stomach NSAIDS (Non-Steroidal Allergy Intermediate difficulty Verified 12/12/21 15:04 Anti-Inflamma breathing, sick to stomach rofecoxib Allergy Intermediate difficulty Verified 12/12/21 15:04 breathing, sick to stomach Sulfa (Sulfonamide Allergy Intermediate difficulty Verified 12/12/21 15:04 Antibiotics) breathing, sick to stomach valproic acid Allergy Intermediate difficulty Verified 12/12/21 15:04 breathing, sick to stomach Diclopak Allergy Mild Verified 12/21/09 04:22 Consultations 12/12/21 17:08 ED Decision to Admit Stat 12/13/21 09:23 Consult Nephrology Routine 12/13/21 09:35 Consult Recreation Clerk Stat 12/18/21 07:58 Consult Cardiology Routine Ordered Studies 12/12/21 14:19 CT head/brain wo con Stat 12/12/21 18:31 US venous doppler LE BI Stat 12/13/21 18:41 US renal/blad retro comp Urgent 12/16/21 11:51 CT abd pelvis IV con only Urgent 12/17/21 20:02 CT head/brain wo con Urgent Hospital Course (1) Acute respiratory failure with hypoxia: 2nd to Covid-19 pneumonia as well as secondary bacterial LLL pneumonia. Course complicated by acute systolic CHF in the background of COPD. Remains on NC O2 and suspect she will need rocist-eyq-bfkga oxygen supplementation at home. 2-step ordered in anticipation of d/c home tomorrow. In light of severe COVID pneumonia, COPD, and O2-dependency will set up with [facility] post-d/c. (2) Pneumonia due to COVID-19 virus: Peak O2 requirement - 40-60 liters of HFNC. s/p 10-day course of IV dexamethasone 6mg daily. s/p complete course of IV cefepime for secondary bacterial pneumonia. Has been off airborne precautions since 12/30. Of note - patient had J&J COVID vaccine as it was initially thought she would need SNF Placement (and most SNFs are requiring the COVID vaccine). Set up with [facility] post-d/c. At high risk of post-COVID pulmonary fibrosis. (3) Myocarditis due to 2019 novel coronavirus: Patient had transient acute systolic CHF with drop in EF to 35-40% in early December. Either myocarditis from COVID vs Takotsubo's. Full recovery in her EF by mid-December with EF back to normal on most recent echo. Given her known CAD ideally she should be on beta arnulfo but her BPs run low or low-normal precluding such at this time. Given this issue and her h/o CAD she needs to re-establish with cardiology - either with [facility] or [place] (had stent placed in [place] many years ago). (4) Chronically on opiate therapy: Chronic suboxone use. 8-2mg combo pill twice daily per the PDMP. Currently only getting 1 tab every other day. need to clarify this. (5) Encephalopathy: Metabolic. Multifactorial: Initially secondary to septic shock, hypoxia, uremia, Covid-19 infection, pneumonia. Did have a toxic component from opiate withdrawal as well. Mental status at baseline. (6) Septic shock: Developed septic shock on 12/13, required Levophed and ICU stay. 2nd to COVID infection, probable bacterial superinfection, etc. (7) Left ventricular dysfunction: Seen by [facility] this admission. Suspected Covid myocarditis/cardiomyopathy. Peak troponin ~5. Most recent echo - about 12/30/21 - with normalized EF. Attempts at use of lowdose beta arnulfo were not successful (hypotension, fatigue). Thus it was stopped. (8) Acute kidney injury: Resolved Peak Cr 2.3 Cr today 1.1 & stable (9) DVT (deep venous thrombosis): 12/12/21 - doppler of LLE with occlusive DVT of the proximal left superficial femoral vein. Nonocclusive thrombus seen within the popliteal vein. Patient had been taking Xarelto prior to this admission. It was uncertain how compliant she was with this but pharmacy records do show regular refills for #90 every 3 months. Patient was changed to Eliquis earlier in the stay. Should she be on lovenox or coumadin?? Will d/w anticoagulation clinical sociologist, especially in light of known antithrombin III deficiency. (10) COPD (chronic obstructive pulmonary disease): noted. cont inhalers. cont NC O2. 2-step ambulatory O2 test ordered. will need pulmonary f/u after discharge. 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 developed acute LLE DVT in the setting of her COVID illness. also with suspected PEs, but never confirmed. either way changed to Eliquis earlier in the stay. see #9 above. (12) Hypertension: BPs low or low-normal. Deferring on meds at this time. (13) CAD (coronary artery disease), [place] coronary artery: With h/o stent placed in the remote past - [facility]. Needs to re-establish with cardiology post-discharge. Cannot rule out NSTEMI this admission but more likely she had had myocarditis or Takotsubo's. (14) On home oxygen therapy: Chronic HS, prior to admission. 2-step in am. (15) Depression: Continue venlafaxine & ziprasidone (16) Anemia: 12/14/21 - transferrin saturation <10%. Folate deficient. B12 deficient. Start B12 shots while here then PO replacement at home (or IM shots in the office). Start folate supplementation 1mg daily x 30 days. Consider venofer prior to discharge. (17) Oral candidiasis: Treated Resolved (18) Shingles: Earlier in the stay - now resolved. Received valacyclovir 1000 mg BID x7 days with last dose on 01/01/22. (19) B12 deficiency: Level <150. VERY POOR nutrition at home. Start B12 injections 1000mcg daily while here. PO vs IM replacement as outpatient. Cont thiamine replacement - would do so for 1 month (would assume she has B1 deficiency as well). (20) Folate deficiency: folic acid 1mg daily x 30 days. (21) Chronic kidney disease, stage 3a: baseline CrCL 45-59 range BMP am for stability patient now wanting d/c to home with her neighbor who will stay with her and provide 24/ care this gentleman came and watched her PT session today - he confirmed with social work that he can care for her based on his observation of how therapy went hopeful for d/c home tomorrow Home Health Attestation I certify that this patient is under my care and that I, or a physicians catalog library assistant working with me, had a face to-face encounter that meets the home health cafg-yr-xgoi encounter requirements with this patient. The encounter with the patient was in whole, or in part, for the following medical condition, which is the primary reason for home health care (list medical condition): SOB- covid I certify that, based on my findings, the following services are medically necessary home health services: My clinical findings support the need for the above services because: OT Assess ADL Status and Restore Function w ADLs PT Assessment for Endurance / Balance / Strength PT Eval for Safety and Mobility PT Eval for Safety, Gait Training, Assistive Devices PT Gait and Balance Training, Strengthening and Safety Skilled Nsg Assessment Further, I certify that my clinical findings support that this patient is homebound (i.e. absences from home require considerable and taxing effort and are for medical reasons or bahai services or infrequently or of short duration when for other reasons) because: Supportive Aid - Walker Transportation Assistance/Unable to Leave Home Unassisted Certification for Home Health Services: Based on the above findings, I certify that this patient is confined to the home and needs intermittent assisted care, physical therapy and/or speech therapy or continues to need occupational therapy. The patient is under my care, and I have initiated the establishment of the plan of care. This patient will be followed by a physician who will periodically review the plan of care. Discharge Plan Discharge Items Patient Disposition: Home - Home Health Services Reason For Visit: Shortness of breath, COVID infection Discharge Diagnosis: 1. severe COVID-19 pneumonia along with septic shock 2. respiratory failure due to #1 - improved, but you need oxygen at home -- 2 liters at rest/sleep; 5 liters with activity 3. left leg DVT 4. vitamin B12 deficiency 5. folic acid deficiency 6. iron deficiency 7. anemia due to #4, #5, #6 8. coronary artery disease 9. acute congestive heart failure - due to COVID-19 infection - congestive heart failure resolved 10. COPD 11. shingles - resolved Activity: As commented below Activity Comment: gradually increase activities over the next several weeks as tolerated Non-emergency contact: Primary Care Provider, Grounds Crew Supervisor and Legal Editor Call non-emergency contact if: you have any medication questions, your symptoms worsen and you have a fever Follow-up/Referrals: Ky Marsh MD [Physician] - 02/06/22 11:30 am (Appointment will be in the [place] office) Gabo Richardson MD [Physician] - 03/10/22 11:15 am Glenna James, C.R.N.P. [Primary Care Provider] - 01/17/22 2:15 pm Diet: Carb Consistent or DM2 and Heart Healthy Diet Texture: Easy to Chew Addtl Attending Provider Instructions: Mrs Olivo You had a very long hospitalization at [facility] for severe COVID-19 pneumonia. This led to severe sepsis/septic shock which is when the infection causes you to be very sick and multiple organs (kidneys, heart, etc) are affected. You required several days in the ICU because of this. You were on large amounts of oxygen through your nose for an extended period of time for your COVID pneumonia. In the midst of your stay we found new blood clots in your left leg. You also had several days of congestive heart failure - likely due to the COVID infection. It is likely that you will not remember much of the first half of your hospital stay. Fortunately your heart function improved over time as a repeat echocardiogram (ultrasound of the heart) showed that the congestive heart failure had gotten better. You were very weak because of the severity of your illness. PT/OT worked with you to help you regain your strength. They did recommend re hab after discharge. On 01/14/22 you told the care team that you wished to return home rather than go to rehab. You have a neighbor who will be staying with you during your recovery. You will also have home health services and home therapy to help you transition home, take care of your medical needs, and help you get back on your feet. Due to the severity of your illness it is likely that you have several weeks ahead or more of recovery at home. You will feel weak and tired on many days. This is normal when you are recovering from COVID. Also, even with the oxygen in place, you may notice that you are much more short of breath than you were prior to your COVID infection. Recommendations - 1. oxygen - * 2 liters Nasal Cannula oxygen at rest/with sleep * 5 liters Nasal Cannula oxygen with activity/walking and when you leave your home * do not allow any smokers in your home at any time due to risk of fire 2. blood thinner for your DVT blood clots - * STOP your Xarelto * START Eliquis 5mg twice daily, first dose tonight * stay on the Eliquis indefinitely * see dedicated blood thinner instructions below 3. coronary artery disease - * start a baby aspirin 81mg once daily * purchase [id number] * you will be seeing a new farm management supervisor for your condition in the near-future; see appointment information in this packet 4. COPD/resolving COVID pneumonia - * combivent inhaler - 1 puff every 6 hours as needed for cough/wheezing/shortness of breath * oxygen as above * continue your Trelegy inhaler once daily as previous * we are setting you up with a lung doctor (hazardous waste material technician) for your COPD and to follow you through your recovery from COVID infection 5. For stomach protection from your aspirin and Eliquis - * stop famotidine * START pantoprazole 40mg once daily every morning * this medication also helps treat reflux/heartburn 6. Anemia - * TAKE folic acid 1mg daily x 30 days then stop (prescription sent to [facility]) * TAKE [id number] vitamin B12 -- 1000mcg once daily for 12 months * TAKE thiamine 200mg twice daily x 30 days then stop (prescription sent to [facility]) * please discuss with your family doctor iron replacement as you are also iron deficiency - we did give you IV iron today, 01/15/22 7. Resume your Suboxone twice daily as previous. 8. You have very mild type 2 diabetes. This can be controlled through diet. Please speak to your family doctor about ongoing surveillance of this, treatment, etc. At this time you don't need to check your blood sugars at home but this may be needed in the near-future. 9. Drink a boost or ensure once daily. 10. Please purchase a pulse oximeter. This is a device that measures your oxygen level in the blood on your finger. Check your oxygen levels twice daily. You can purchase a pulse oximeter at [facility], [facility], [facility], etc. * if your oxygen levels are consistently greater than 88% these are acceptable readings * if your oxygen levels are consistently LESS THAN 88% please seek medical atten tion 11. STOP your lisinopril blood pressure pill. Follow-up - see separate section Return to [facility] if - * you have fevers over 100 degrees * you have worsening shortness of breath despite your oxygen, inhalers, etc * you have chest pains * your oxygen levels on your finger pulse oximeter are less than 88% consistently * any other concerns It was our pleasure to care for you at [facility]! Best wishes, Dr Rivera Addtl Business Architect Provider Instructions: Anticoagulation (Blood thinner) Medication Instructions: Your DVT blood clot condition is typically treated with an anticoagulant. Anticoagulants will thin your blood to help prevent new clots. Your new blood thinner is "ELIQUIS." We have discontinued your Xarelto. * You should take your medication exactly as directed. * Never skip a dose. * Never take a double dose. If you miss a dose, take it as soon as you remember. Call your Primary Care doctor if you experience any of the following: * Swelling or Pain in your leg * Sudden, continuous pain deep in a muscle * Pain that worsens when you are active or when you stand still for a long time * Chest Pain * Sudden Shortness of Breath * Rapid or pounding heart beat * Fainting * Dizziness * Cough with blood or bloody sputum * Sweating more than normal * Bruises * Heavy or uncontrolled bleeding * Blood in your urine, stool or vomit * Black or tarry stools * Heavy nose bleeding Caring for Your Self at Home: * Avoid sitting, standing or lying down for long periods without moving your legs and feet * When traveling by car, stop to get out and move around at least once every 3 hours * On long airplane, train or bus rides, get up and move around when possible * If you can't get up, wiggle your toes and tighten your calves to keep your blood moving Follow Up: It is important for you to keep your follow up appointments with your medical provider. Pending Studies at Discharge: No Stand-Alone Forms: My [facility], Smoking Cessation Medications and DC Order Prescriptions: New (DME) Oxygen Home Liters Per Minute See Rx Instructions .ROUTE .MEDSUPPLY Qty: 1 RF: 0 thiamine HCl (vitamin B1) 100 mg Tablet 200 mg PO BID Qty: 120 RF: 0 aspirin 81 mg Tablet,Delayed Release (Dr/Ec) 81 mg PO QAM Qty: 90 RF: 3 Cerovite Senior Tablet 1 tab PO QAM Qty: 90 RF: 3 Eliquis 5 mg Tablet 5 mg PO BID Qty: 60 RF: 5 folic acid 1 mg tablet 1 mg PO DAILY Qty: 30 RF: 0 cyanocobalamin (vitamin B-12) 1,000 mcg capsule 1,000 mcg PO DAILY Qty: 90 RF: 3 pantoprazole [Protonix] 40 mg tablet,delayed release (DR/EC) 40 mg PO QAM Qty: 30 RF: 5 Combivent Respimat 20-100 mcg/actuation mist 1 puff inhalation Q6H PRN (Reason: cough/wheeze/shortness of breath) Qty: 4 RF: 2 Continued venlafaxine 150 mg capsule,extended release 24hr 150 mg PO QAM RF: 0 ziprasidone HCl 60 mg capsule 60 mg PO HS RF: 0 buprenorphine-naloxone [Suboxone] 8-2 mg film 1 film buccal BID RF: 0 bisacodyl 5 mg Tablet 5 mg PO HS PRN (Reason: Constipation) RF: 0 Trelegy Ellipta 100-62.5-25 mcg blister with device 1 inh INHALATION DAILY RF: 0 Linzess 290 mcg capsule 290 mcg PO QAM RF: 0 Discontinued lisinopril 10 mg tablet 10 mg PO QAM RF: 0 Xarelto 20 mg tablet 20 mg PO DAILY RF: 0 ergocalciferol (vitamin D2) [Vitamin D2] 1,250 mcg (50,000 unit) capsule 1,250 mcg PO WK RF: 0 famotidine 20 mg Tablet 20 mg PO HS RF: 0 Discharge Orders: Discharge Order (Routine); Ordered 01/15/22 Ordered By: Boom Vuong/Other Patient Handouts: How COVID-19 Spreads, 2019-nCoV, COVID-19 Home Care, COVID-19 and the Flu What's ..., 5 Steps for Eating Healthier, Oxygen Supplemental, Type 2 Diabetes Admission Data Admit Date/Time: 12/12/21 18:50 Attending Provider: Boom Rivera Admit Provider: Curry Fournier Primary Care Provider: Glenna James Other Providers: [facility], ; Curry Fournier ; Don Everett ; Ortiz Holloway ; Ky Marsh ; [facility] ; [facility] Other Interventions: Discharge Summary Assessment (RN) Last Done: 01/15/22 15:24 Coding Diagnoses Acute respiratory failure with hypoxia J96.01 Pneumonia due to COVID-19 virus U07.1; J12.82 Myocarditis due to 2019 novel coronavirus U07.1; I40.0 Chronically on opiate therapy Z79.891 Encephalopathy G93.40 Septic shock A41.9; R65.21 Left ventricular dysfunction I51.9 Acute kidney injury N17.9 DVT (deep venous thrombosis) I82.409 COPD (chronic obstructive pulmonary disease) J44.9 Antithrombin 3 deficiency D68.59 Hypertension I10 CAD (coronary artery disease), [place] coronary artery I25.10 On home oxygen therapy Z99.81 Depression F32.9 Psychotic features: with psychotic features Anemia D64.9 Oral candidiasis B37.0 Shingles B02.9 B12 deficiency E53.8 Folate deficiency E53.8 Chronic kidney disease, stage 3a N18.31
== END 2022-01-15 18:19 | disposition home health service (06) | DRG 871 ==
LOC: ED 13:38 → SUATTDRO 18:50 → EDINP 18:50 → 2S 12-13 00:09 → 2E 12-13 10:50 → 2S 01-07 16:07 → 3N 01-09 23:15